=== PATIENT | female | born 2000 | race African-American/Black ===

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

== ENCOUNTER 2019-04-26 06:10 | Emergency (ER) | payer SELFPAY ==
--- OUTSIDE RECORDS SUMMARY | 2019-04-26 06:12 | XMS REPORT ---
:2000 [facility] [address] [place] [address] Dr. Stock [address] [place] [id number] Care Team Providers Name Role Phone Unavailable Unavailable Unavailable Problems This patient has no known problems. Allergies, Adverse Reactions, Alerts This patient has no known allergies or adverse reactions. Medications This patient has no known medications.
[2019-04-26 07:09] LABS: BUN Blood Urea Nitrogen 11 mg/dL (7-18); Bicarbonate 27 mmol/L (21-32); Glucose Level 89 mg/dL (74-106); Potassium 3.5 mmol/L (3.5-5.1); Sodium Level 139 mmol/L (136-145)
[2019-04-26 07:10] LABS: Absolute Lymphocytes (CBC) 1.9 K/uL (0.7-4.9); Basophils % 0.7 % (0-1.3); Hematocrit 30.7 % (36.0-45.0); Lymphocytes % 24.3 % (15.3-44.8); MPV 9.9 fL (7.6-11.3); RBC Red Blood Cell Count 4.65 M/uL (3.86-4.86)
--- NOTE | 2019-04-26 07:36 | EDPHYS ---
Physician Documentation [facility] Name: Pilar Cuba Age: 18 yrs Sex: Female : 2000 Arrival Date: 04/26/2019 Time: 06:11 Bed 18 Private MD: ED Physician Jose Miguel Langston HPI: 04/26 07:14 This 18 yrs old Black Female presents to ER via Ambulatory with complaints of Abdominal kb Pain - Lower. 07:14 The patient presents with abdominal pain in the lower abdomen. Onset: The kb symptoms/episode began/occurred 8 day(s) ago. The symptoms do not radiate. Associated signs and symptoms: Pertinent positives: nausea, Pertinent negatives: constipation, diarrhea, fever, vomiting. The symptoms are described as constant. Modifying factors: The symptoms are alleviated by nothing, the symptoms are aggravated by nothing. Severity of pain: At its worst the pain was moderate in the emergency department the pain is unchanged. The patient has not experienced similar symptoms in the past. The patient has not recently seen a physician. 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 - Social history:: Smoking status: Patient/guardian denies using tobacco. - Ebola Screening: : No symptoms or risks identified at this time. ROS: 07:13 Constitutional: Negative for fever, chills, and weight loss, ENT: Negative for injury, kb pain, and discharge, Neck: Negative for injury, pain, and swelling, Cardiovascular: Negative for chest pain, palpitations, and edema, Respiratory: Negative for shortness of breath, cough, wheezing, and pleuritic chest pain, Back: Negative for injury and pain, MS/Extremity: Negative for injury and deformity, Skin: Negative for injury, rash, and discoloration, Neuro: Negative for headache, weakness, numbness, tingling, and seizure. 07:13 Abdomen/GI: Positive for abdominal pain, nausea, Negative for vomiting, diarrhea, constipation, abdominal cramps, abdominal distension, anorexia. Exam: 07:13 Constitutional: This is a well developed, well nourished patient who is awake, alert, kb and in no acute distress. Head/Face: Normocephalic, atraumatic. ENT: Nares patent. No nasal discharge, no septal abnormalities noted. Tympanic membranes are normal and external auditory canals are clear. Oropharynx with no redness, swelling, or masses, exudates, or evidence of obstruction, uvula midline. Mucous membranes moist. Neck: Trachea midline, no thyromegaly or masses palpated, and no cervical lymphadenopathy. Supple, full range of motion without nuchal rigidity, or vertebral point tenderness. No Meningismus. Chest/axilla: Normal chest wall appearance and motion. Nontender with no deformity. No lesions are appreciated. Cardiovascular: Regular rate and rhythm with a normal S1 and S2. No gallops, murmurs, or rubs. Normal PMI, no JVD. No pulse deficits. Respiratory: Lungs have equal breath sounds bilaterally, clear to auscultation and percussion. No rales, rhonchi or wheezes noted. No increased work of breathing, no retractions or nasal flaring. Back: No spinal tenderness. No costovertebral tenderness. Full range of motion. Skin: Warm, dry with normal turgor. Normal color with no rashes, no lesions, and no evidence of cellulitis. MS/ Extremity: Pulses equal, no cyanosis. Neurovascular intact. Full, normal range of motion. Neuro: Awake and alert, GCS 15, oriented to person, place, time, and situation. Cranial nerves II-XII grossly intact. Motor strength 5/5 in all extremities. Sensory grossly intact. Cerebellar exam normal. Normal gait. 07:13 Abdomen/GI: Inspection: abdomen appears normal, Bowel sounds: normal, in all quadrants, Palpation: soft, in all quadrants, mild abdominal tenderness, in the right lower quadrant and left lower quadrant. Vital Signs: 06:22 BP 132 / 77; Pulse 98; Resp 14 S; Temp 98.3(O); Pulse Ox 100% on R/A; Weight 57.61 kg bb (R); Height 5 ft. 8 in. (172.72 cm) (R); Pain 8/10; 07:15 BP 122 / 76; Pulse 86; Resp 18; Pulse Ox 99% on R/A; Pain 0/10; em 06:22 Body Mass Index 19.31 (57.61 kg, 172.72 cm) olivia MDM: 06:12 Patient medically screened. kb 07:13 Data reviewed: vital signs, nurses notes. Data interpreted: Pulse oximetry: on room air kb is 100 %. Interpretation: normal. 07:32 Counseling: I had a detailed discussion with the patient and/or guardian regarding: the kb historical points, exam findings, and any diagnostic results supporting the discharge/admit diagnosis, lab results, the need for outpatient follow up, a family practitioner, to return to the emergency department if symptoms worsen or persist or if there are any questions or concerns that arise at home. 04/26 06:35 Order name: Basic Metabolic Panel; Complete Time: 07:10 kb 04/26 06:35 Order name: CBC with Diff kb 04/26 06:35 Order name: IV Saline Lock; Complete Time: 06:50 kb 04/26 06:35 Order name: Labs collected and sent; Complete Time: 06:50 kb 04/26 06:37 Order name: Urine Dipstick--Ancillary (enter results) eb 04/26 06:37 Order name: Urine --Ancillary (enter results) eb Administered Medications: No medications were administered Disposition: 17:40 Co-signature as Attending Physician, Jose Miguel Langston MD Did not see or evaluate the ps1 patient. Signing the chart for administrative purposes. Not an endorsement of care provided. . Disposition: 04/26/19 07:35 Discharged to Home. Impression: Lower abdominal pain, unspecified. - Condition is Stable. - Discharge Instructions: Abdominal Pain, Adult, [id number]. - Prescriptions for Bentyl 20 mg Oral Tablet - take 1 tablet by ORAL route every 6 hours As needed; 20 tablet. Zofran 4 mg Oral Tablet - take 1 tablet by ORAL route every 6 hours As needed; 20 tablet. - Medication Reconciliation Form, Thank You Letter, Antibiotic Education, Prescription Opioid Use form. - Follow up: Emergency Department; When: As needed; Reason: Worsening of condition. Follow up: Private Physician; When: 2 - 3 days; Reason: Recheck today's complaints, Continuance of care, Re-evaluation by your physician. Signatures: Dispatcher [employer] Lita Sher, KYLE YARN DYER-Markus Pierson, MOLDING SUPERVISOR MOLDING SUPERVISOR Joaquina Akbar, RN RN Jose Miguel Patricio MD MD ps1 Corrections: (The following items were deleted from the chart) 07:43 07:35 04/26/2019 07:35 Discharged to Home. Impression: Lower abdominal pain, em unspecified. Condition is Stable. Forms are Medication Reconciliation Form, Thank You Letter, Antibiotic Education, Prescription Opioid Use. Follow up: Emergency Department; When: As needed; Reason: Worsening of condition. Follow up: Private Physician; When: 2 - 3 days; Reason: Recheck today's complaints, Continuance of care, Re-evaluation by your physician. kb
--- NOTE | 2019-04-26 07:36 | ER ---
Nurse's Notes [facility] Name: Pilar Cuba Age: 18 yrs Sex: Female : 2000 Arrival Date: 04/26/2019 Time: 06:11 Bed 18 Private MD: Diagnosis: Lower abdominal pain, unspecified Presentation: 04/26 06:20 Presenting complaint: Patient states: she's been having lower sharp abdominal pain bb since last Saturday the pain is worsening denies dysuria. Transition of care: patient was not received from another setting of care. Onset of symptoms was April 17, 2019. Risk Assessment: Do you want to hurt yourself or someone else? Patient reports no desire to harm self or others. Initial Sepsis Screen: Does the patient meet any 2 criteria? No. Patient's initial sepsis screen is negative. Does the patient have a suspected source of infection? No. Patient's initial sepsis screen is negative. Care prior to arrival: None. 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 - Social history:: Smoking status: Patient/guardian denies using tobacco. - Ebola Screening: : No symptoms or risks identified at this time. Screenin:35 Abuse screen: Denies threats or abuse. Nutritional screening: No deficits noted. ea Tuberculosis screening: No symptoms or risk factors identified. Fall Risk None identified. Assessment: 06:36 General: Appears uncomfortable, Behavior is calm, cooperative, appropriate for age. ea Pain: Complains of pain in abdomen. Neuro: Level of Consciousness is awake, alert, obeys commands, Oriented to person, place, time, situation. Cardiovascular: Patient's skin is warm and dry. Respiratory: Airway is patent Respiratory effort is even, unlabored, Respiratory pattern is regular, symmetrical. GI: Abdomen is flat, non-distended, Bowel sounds present X 4 quads. Abd is soft and non tender X 4 quads. Derm: Skin is dry, Skin is normal, Skin temperature is warm. 07:15 Reassessment: Patient appears in no apparent distress at this time. Patient and/or em family updated on plan of care and expected duration. Pain level reassessed. Patient is alert, oriented x 3, equal unlabored respirations, skin warm/dry/pink. Patient denies pain at this time. Patient states feeling better. 07:20 Reassessment: I agree with previous assessment. hb Vital Signs: 06:22 BP 132 / 77; Pulse 98; Resp 14 S; Temp 98.3(O); Pulse Ox 100% on R/A; Weight 57.61 kg bb (R); Height 5 ft. 8 in. (172.72 cm) (R); Pain 8/10; 07:15 BP 122 / 76; Pulse 86; Resp 18; Pulse Ox 99% on R/A; Pain 0/10; em 06:22 Body Mass Index 19.31 (57.61 kg, 172.72 cm) bb ED Course: 06:11 Patient arrived in ED. ds1 06:12 Lita Kurtz FNP-C [facility]. kb 06:12 Luciano Sanchez MD is Attending Physician. kb 06:14 Jose Miguel Langston MD is Attending Physician. kb 06:22 Triage completed. bb 06:22 Arm band placed on Patient placed in an exam room, on a stretcher, on pulse oximetry. bb 06:35 Patient has correct armband on for positive identification. Bed in low position. Call ea light in reach. Side rails up X2. 06:38 Inserted saline lock: 20 gauge in left antecubital area, using aseptic technique. ea 07:08 Markus Zavaleta LVN is Primary Nurse. em 07:38 No provider procedures requiring assistance completed. IV discontinued, intact, em bleeding controlled, No redness/swelling at site. Pressure dressing applied. Administered Medications: No medications were administered Outcome: 07:35 Discharge ordered by . kb 07:38 Discharged to home ambulatory. em 07:38 Condition: good 07:38 Discharge instructions given to patient, Instructed on discharge instructions, follow up and referral plans. medication usage, Demonstrated understanding of instructions, follow-up care, medications, Prescriptions given X 2. 07:43 Patient left the ED. em Signatures: Lita Kurtz FNP-C FNP-Markus Pierson LVN LVN soledad Viveros, Rajwinder ds1 Joaquina Dunbar, RN RN bb Madelaine Gage, RN RN hb Day Bennett RN RN ea
[2019-04-26 07:52] VITALS: TEMP 98.3
[2019-04-26 07:53] VITALS: BP 122/76; O2SAT 99
[2019-04-26 08:03] LABS: Urine Blood NEGATIVE (NEG); Urine Glucose NEGATIVE (NEG); Urine Protein NEGATIVE (NEG); Urine pH 5.5 (5.0-7.0)
[2019-04-26 13:26] LABS: Platelet Estimate ADEQ; Urine White Blood Cell Casts OK
[2019-04-26 13:28] LABS: Anisocytosis 1+; Blood Morphology Comment NOTED (NOT SEEN); Hypochromasia 1+; Ovalocytes SLIGHT; Poikilocytosis SLIGHT; Target Cells FEW
== END 2019-04-26 07:43 | disposition home or self-care (01) ==
LOC: ER 06:10
DX: R10.30 Lower abdominal pain, unspecified (principal); D64.9 Anemia, unspecified
CPT/HCPCS: 36415; 80048; 81003; 81025; 85025; 99283

== ENCOUNTER 2020-04-11 17:13 | Inpatient (IN) | payer OTHER ==
--- OUTSIDE RECORDS SUMMARY | 2020-04-11 17:15 | XMS REPORT | Continuity of Care Document ---
:2000 Author Organization [facility] t Address [address] [place] [address] Dr. Stock [address] [place] [id number] Care Team Providers Name Role Phone Unavailable Unavailable Unavailable Problems This patient has no known problems. Allergies, Adverse Reactions, Alerts This patient has no known allergies or adverse reactions. Medications This patient has no known medications. Procedures This patient has no known procedures. Results This patient has no known results.
[2020-04-11] MEDS ORDERED: ACETAMINOPHEN 500 MG TAB ONE (18:32)
[2020-04-11] MEDS ORDERED: NA CHLORIDE 0.9% 1,000 ML ONE ×2 (19:21→21:00)
[2020-04-11 19:40] LABS: Urine Blood 3+ (NEG); Urine Glucose NEGATIVE (NEG); Urine Protein 2+ (NEG); Urine Specific Gravity >1.030 (1.005-1.030)
[2020-04-11 19:44] LABS: Absolute Lymphocytes (CBC) 0.8 K/uL (0.7-4.9); Hematocrit 32.6 % (36.0-45.0); Lymphocytes % 4.6 % (15.3-44.8); MPV 10.1 fL (7.6-11.3); RBC Red Blood Cell Count 4.25 M/uL (3.86-4.86)
[2020-04-11 19:49] LABS: Urine Bacteria <20 /HPF (<20); Urine Culture Reflex Order REFLEXED; Urine RBC 20-50 /HPF (NONE SEEN)
[2020-04-11 19:50] LABS: Urine Mucus 1+ /HPF (NONE SEEN)
[2020-04-11] MEDS ORDERED: CEFTRIAXONE/SWI 1gm 1 GM/10 ML SYR ONE (20:08)
--- NOTE | 2020-04-11 20:14 | RAD REPORT ---
EXAM DESCRIPTION: US - Matter Eval Tm 1 - 04/11/2020 8:02 pm CLINICAL HISTORY: ABD PAIN Early . COMPARISON: No comparisons FINDINGS: A single gestational sac is seen within the uterus. The shape of the sac is within normal limits for gestational age. Within the sac is a single pole with femur length of 13 mm, correla ting to estimated gestational age of 13 weeks 5 days. Estimated date of delivery is 10/12/2020. Heart rate is 161 BPM. Placenta is anterior. The maternal adnexa and left ovary are within normal limits. Normal Doppler blood flow was demonstrat ed to the left ovary. The right ovary is obscured by bowel gas. IMPRESSION: Single live early intrauterine gestation with estimated gestational age of 13 weeks 5 da ys, RANDEE 10/12/2020.
[2020-04-11 20:20] LABS: BUN Blood Urea Nitrogen 6 mg/dL (7-18); Bicarbonate 20 mmol/L (21-32); Glucose Level 95 mg/dL (74-106); HCG, Quantitative 101061 mIU/mL (1-3); Sodium Level 131 mmol/L (136-145)
--- NOTE | 2020-04-11 20:38 | ER ---
Nurse's Notes [facility] Name: Pilar Cuba Age: 19 yrs Sex: Female : 2000 Arrival Date: 04/11/2020 Time: 17:16 Bed 8 Private MD: Diagnosis: Pyelonephritis;Dehydration;Fever, unspecified Presentation: 04/11 17:52 Chief complaint: Patient states: LARRY, fever, body aches, lower abd pain since Saturday. + ll1 diarrhea. Fever 102 at home. 13 weeks G1, P0. No vaginal bleeding at this time. Coronavirus screen: Client denies travel out of the [place] in the last 14 days. congestion, diarrhea, fatigue, fever, headache, Client presents with at least one sign or symptom that may indicate coronavirus-19. Standard/surgical mask placed on the client. Ebola Screen: Patient denies travel to an Ebola-affected area in the 21 days before illness onset. Initial Sepsis Screen: Does the patient meet any 2 criteria? Temp <36.0*C (96.8*F)) or > 38.3*C (100.9*F). HR > 90 bpm. Yes Does the patient have a suspected source of infection? Yes: Other: flu-like symptoms. Risk Assessment: Do you want to hurt yourself or someone else? Patient reports no desire to harm self or others. Onset of symptoms was April 08, 2020. 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 - Social history:: Smoking status: Patient denies any tobacco usage or history of. Screenin:30 Abuse screen: Denies threats or abuse. Denies injuries from another. Nutritional rr5 screening: No deficits noted. Tuberculosis screening: No symptoms or risk factors identified. Fall Risk IV access (20 points). Total Alston Fall Scale indicates No Risk (0-24 pts). Assessment: 19:20 General: Appears in no apparent distress. uncomfortable, Behavior is calm, cooperative, rr5 appropriate for age, Reports chills for fever for feeling ill for. Pain: Complains of pain in body Pain currently is 10 out of 10 on a pain scale. Quality of pain is described as aching, Pain began gradually. Neuro: Level of Consciousness is awake, alert, obeys commands, Oriented to person, place, time. Cardiovascular: Capillary refill < 3 seconds Patient's skin is warm and dry. Respiratory: Reports cough that is colds Airway is patent Respiratory effort is even, unlabored, Respiratory pattern is regular, symmetrical. GI: Reports diarrhea. :. EENT: No signs and/or symptoms were reported regarding the EENT system. Derm: Skin is intact, is healthy with good turgor, Skin temperature is warm. Musculoskeletal: Circulation, motion, and sensation intact. 20:20 Reassessment: Patient appears in no apparent distress at this time. Patient is alert, rr5 oriented x 3, equal unlabored respirations, skin warm/dry/pink. 21:42 Reassessment: Patient appears in no apparent distress at this time. Patient is alert, rr5 oriented x 3, equal unlabored respirations, skin warm/dry/pink. awaiting for UDS result. Vital Signs: 17:52 BP 130 / 78; Pulse 135; Resp 16; Temp 102.2; Pulse Ox 100% ; Height 5 ft. 8 in. (172.72 ll1 cm); Pain 10/10; 18:47 BP 123 / 82; Pulse 136; Resp 18; Temp 100.2(TE); Pulse Ox 100% on R/A; Pain 8/10; ss 19:52 BP 121 / 74; Pulse 111; Resp 19; Pulse Ox 100% ; rr5 21:00 BP 118 / 75; Pulse 100; Resp 18; Pulse Ox 99% ; rr5 22:13 BP 113 / 69; Pulse 99; Resp 15; Temp 98; Pulse Ox 100% ; rr5 22:42 BP 123 / 77; Pulse 95; Resp 19; Pulse Ox 99% ; rr5 ED Course: 17:16 Patient arrived in ED. ds1 17:54 Triage completed. ll1 17:54 Arm band placed on. ll1 18:45 Aldo Aparicio NP is [facility]. pm1 18:45 Darnell Maza MD is Attending Physician. pm1 19:04 De La Fuente, Reji, RN is Primary Nurse. rr5 19:17 Inserted saline lock: 20 gauge in left antecubital area, using aseptic technique. Blood jb5 collected. 19:17 COVID-19 Sent. jb5 19:17 Strep Sent. jb5 19:17 Flu Sent. jb5 19:18 Quantitative Hcg Sent. jb5 19:18 Abo/rh Typing Sent. jb5 19:18 Basic Metabolic Panel Sent. jb5 19:18 CBC with Diff Sent. jb5 19:29 Urine collected: clean catch specimen, clear. rr5 19:30 Patient has correct armband on for positive identification. Bed in low position. Call rr5 light in reach. Side rails up X2. Pulse ox on. Sitter at bedside. 20:03 Matter Eval Tm 1 In Process Unspecified. EDMS 20:37 Raghav Todd MD is Hospitalizing Provider. pm1 22:39 No provider procedures requiring assistance completed. Patient admitted, IV remains in rr5 place. intact, No redness/swelling at site. Administered Medications: 18:20 Drug: Tylenol 1000 mg Route: PO; dm5 19:30 Follow up: Response: No adverse reaction; Temperature is decreased rr5 19:35 Drug: NS 0.9% 1000 ml Route: IV; Rate: 1000 ml; Site: left antecubital; rr5 20:30 Follow up: Response: No adverse reaction; IV Status: Completed infusion; IV Intake: rr5 1000ml 20:00 Drug: Rocephin 1 grams Route: IV; Rate: calculated rate; Site: left antecubital; rr5 21:00 Follow up: Response: No adverse reaction; IV Status: Completed infusion; IV Intake: rr5 1000ml 20:50 Drug: NS 0.9% 1000 ml Route: IV; Rate: 1000 ml; Site: left antecubital; rr5 22:40 Follow up: Response: No adverse reaction; IV Status: Completed infusion; IV Intake: rr5 1000ml 20:50 Drug: Potassium Effervescent Tablet 50 mEq Route: PO; rr5 22:40 Follow up: Response: No adverse reaction rr5 Intake: 20:30 IV: 1000ml; Total: 1000ml. rr5 21:00 IV: 1000ml; Total: 2000ml. rr5 22:40 IV: 1000ml; Total: 3000ml. rr5 Outcome: 20:38 Decision to Hospitalize by Provider. pm1 22:39 Admitted to accompanied by tech, via wheelchair, with chart, Report called to anjelica rr5 22:39 Condition: stable 22:39 Instructed on the need for admit. 22:42 Patient left the ED. rr5 Signatures: Dispatcher [employer] EDNicci Lawrence RN RN dm5 Rajwinder Viveros ds1 Soo Singh RN RN ss Aldo Aparicio, MARTINE GRAPHICS EDIT TECHNICIAN pm1 Angélica Saldaña5 Reji De La Fuente RN RN rr5 Maninder Alvarado RN RN ll1
--- NOTE | 2020-04-11 20:38 | EDPHYS ---
Physician Documentation [facility] Name: Pilar Cuba Age: 19 yrs Sex: Female : 2000 Arrival Date: 04/11/2020 Time: 17:16 Bed 8 Private MD: ED Physician Darnell Maza HPI: 04/11 19:30 This 19 yrs old Black Female presents to ER via Ambulatory with complaints of 12-13 Wks pm1 Preg Pain all over, Cold Symptoms. 19:30 The patient complains of pain in the right low back. Location: right lower abdomen. pm1 Onset: The symptoms/episode began/occurred 3 day(s) ago. Modifying factors: The symptoms are alleviated by nothing. the symptoms are aggravated by nothing. Associated signs and symptoms: Pertinent positives: fever, runny nose, decreased appetite, Pertinent negatives: diarrhea, nausea, vomiting, cough. The patient has not experienced similar symptoms in the past. 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 - Social history:: Smoking status: Patient denies any tobacco usage or history of. ROS: 19:30 Cardiovascular: Negative for chest pain, palpitations, and edema, Respiratory: Negative pm1 for shortness of breath, cough, wheezing, and pleuritic chest pain. 19:30 : Negative for injury, bleeding, discharge, and swelling, MS/Extremity: Negative for injury and deformity. 19:30 Constitutional: Positive for body aches, chills, fever, poor PO intake. 19:30 Abdomen/GI: Positive for abdominal pain, diarrhea, of the suprapubic area and right lower quadrant, Negative for nausea and vomiting. 19:30 Back: Positive for flank pain, on the right. Exam: 19:30 Constitutional: This is a well developed, well nourished patient who is awake, alert, pm1 and in no acute distress. ENT: Nares patent. No nasal discharge, no septal abnormalities noted. Tympanic membranes are normal and external auditory canals are clear. Oropharynx with no redness, swelling, or masses, exudates, or evidence of obstruction, uvula midline. Mucous membranes moist. 19:30 Skin: Warm, dry with normal turgor. Normal color with no rashes, no lesions, and no evidence of cellulitis. MS/ Extremity: Pulses equal, no cyanosis. Neurovascular intact. Full, normal range of motion. 19:30 Cardiovascular: Exam negative for acute changes, Rate: normal, Rhythm: regular, Pulses: no pulse deficits are appreciated. 19:30 Respiratory: Exam negative for acute changes, respiratory distress, shortness of breath. 19:30 Abdomen/GI: Inspection: abdomen appears normal, Palpation: abdomen is soft and non-tender, in all quadrants. 19:30 Back: pain, that is mild, of the right low back. 19:30 Neuro: Exam negative for acute changes, Orientation: is normal, Mentation: is normal, Motor: is normal, moves all fours. Vital Signs: 17:52 BP 130 / 78; Pulse 135; Resp 16; Temp 102.2; Pulse Ox 100% ; Height 5 ft. 8 in. (172.72 ll1 cm); Pain 10/10; 18:47 BP 123 / 82; Pulse 136; Resp 18; Temp 100.2(TE); Pulse Ox 100% on R/A; Pain 8/10; ss 19:52 BP 121 / 74; Pulse 111; Resp 19; Pulse Ox 100% ; rr5 21:00 BP 118 / 75; Pulse 100; Resp 18; Pulse Ox 99% ; rr5 22:13 BP 113 / 69; Pulse 99; Resp 15; Temp 98; Pulse Ox 100% ; rr5 22:42 BP 123 / 77; Pulse 95; Resp 19; Pulse Ox 99% ; rr5 MDM: 18:45 Patient medically screened. pm1 20:28 Data reviewed: vital signs. Data interpreted: Pulse oximetry: on room air is 100 %. pm1 Interpretation: normal. 20:28 Counseling: I had a detailed discussion with the patient and/or guardian regarding: the pm1 historical points, exam findings, and any diagnostic results supporting the discharge/admit diagnosis, lab results, radiology results, the need for further work-up and treatment in the hospital. 20:28 Physician consultation: Raghav Todd MD was called at 20:35, was contacted at 20:35, pm1 regarding admission, patient's condition, and will see patient tomorrowyesica gm BID, IV fluids, CBC 0500 tomorrow, and tylenol as needed for fever greater than 100.2. 04/11 18:51 Order name: Quantitative Hcg; Complete Time: 20:22 pm1 04/11 18:51 Order name: Abo/rh Typing; Complete Time: 23:54 pm1 04/11 18:51 Order name: Basic Metabolic Panel; Complete Time: 20:22 pm1 04/11 18:51 Order name: CBC with Diff; Complete Time: 23:54 pm1 04/11 18:51 Order name: Flu; Complete Time: 20:00 pm1 04/11 18:51 Order name: Strep; Complete Time: 20:00 pm1 04/11 18:51 Order name: COVID-19 pm1 04/11 19:29 Order name: Urine Microscopic Only; Complete Time: 19:52 rr5 04/11 19:31 Order name: Urine Dipstick--Ancillary (enter results); Complete Time: 19:52 mt 04/11 19:31 Order name: Urine --Ancillary (enter results); Complete Time: 19:52 mt 04/11 19:52 Order name: Urine Culture EDVT 04/11 19:56 Order name: Throat Culture EDVT 04/11 21:30 Order name: Manual Differential; Complete Time: 23:54 EDVT 04/11 18:51 Order name: Urine Test (obtain specimen); Complete Time: 19:29 pm1 04/11 18:51 Order name: IV Saline Lock; Complete Time: 19:18 pm1 04/11 18:51 Order name: Labs collected and sent; Complete Time: 19:18 pm1 04/11 18:51 Order name: NPO; Complete Time: 19:29 pm1 04/11 18:51 Order name: Urine Dipstick-Ancillary (obtain specimen); Complete Time: 19:29 pm1 04/11 20:02 Order name: Matter Eval Tm 1; Complete Time: 20:19 EDMS Administered Medications: 18:20 Drug: Tylenol 1000 mg Route: PO; dm5 19:30 Follow up: Response: No adverse reaction; Temperature is decreased rr5 19:35 Drug: NS 0.9% 1000 ml Route: IV; Rate: 1000 ml; Site: left antecubital; rr5 20:30 Follow up: Response: No adverse reaction; IV Status: Completed infusion; IV Intake: rr5 1000ml 20:00 Drug: Rocephin 1 grams Route: IV; Rate: calculated rate; Site: left antecubital; rr5 21:00 Follow up: Response: No adverse reaction; IV Status: Completed infusion; IV Intake: rr5 1000ml 20:50 Drug: NS 0.9% 1000 ml Route: IV; Rate: 1000 ml; Site: left antecubital; rr5 22:40 Follow up: Response: No adverse reaction; IV Status: Completed infusion; IV Intake: rr5 1000ml 20:50 Drug: Potassium Effervescent Tablet 50 mEq Route: PO; rr5 22:40 Follow up: Response: No adverse reaction rr5 Disposition: 04/11/20 20:38 Hospitalization ordered by Raghav Todd for Inpatient Admission. Preliminary diagnosis are Pyelonephritis, Dehydration, Fever, unspecified. - [facility]. - Status is Inpatient Admission. rr5 - Condition is Stable. - Problem is new. - Symptoms have improved. Addendum: 04/13/2020 18:57 Co-signature as Attending Physician, aDrnell Maza MD. r n Signatures: Dispatcher [employer] EDVT Nicci Wong, WERNER RN dm5 Darnell Maza MD MD rn Garcia, Cindy, RN RN cg Aldo Aparicio, MARTINE INTEGRITY CONSULTANT pm1 Reji De La Fuente RN RN rr5 Maninder Alvarado RN RN ll1 Corrections: (The following items were deleted from the chart) 04/11 19:52 18:52 UA MICROSCOPIC+U.LAB.BRZ ordered. EDVT EDMS 20:02 18:57 Transvaginal Ob+US.RAD.BRZ ordered. EDVT EDMS 22:27 20:38 Hospitalization Ordered by Ragahv Todd MD for Inpatient Admission. Preliminary cg diagnosis is Pyelonephritis; Dehydration; Fever, unspecified. [facility]. Status is Inpatient Admission. Condition is Stable. Problem is new. Symptoms have improved. pm1 22:42 22:27 04/11/2020 20:38 Hospitalization Ordered by Raghav Todd MD for Inpatient rr5 Admission. Preliminary diagnosis is Pyelonephritis; Dehydration; Fever, unspecified. Bed requested for [facility]. Status is Inpatient Admission. Condition is Stable. Problem is new. Symptoms have improved. cg
[2020-04-11] MEDS ORDERED: POTASSIUM 25 MEQ EFFERV TAB ONE (21:00)
[2020-04-11 21:29] LABS: Blood Morphology Comment NOT SEEN (NOT SEEN); Platelet Estimate ADEQ
[2020-04-11] MEDS ORDERED: CEFTRIAXONE 1 GM/NS 50 ML 1 GM/50 ML BAG IV SCH (22:54)
[2020-04-11] MEDS: Ringers Lactate 1,000 ML IV SCH (23:00)
[2020-04-11 23:28] VITALS: BMI 19.8
[2020-04-12] MEDS: ACETAMINOPHEN 500 MG TAB PO PRN (04:48)
[2020-04-12 05:28] LABS: Absolute Lymphocytes (CBC) 0.9 K/uL (0.7-4.9); Basophils % 0.1 % (0-1.3); Hematocrit 32.3 % (36.0-45.0); Lymphocytes % 6.3 % (15.3-44.8); MPV 9.8 fL (7.6-11.3); RBC Red Blood Cell Count 4.22 M/uL (3.86-4.86)
[2020-04-12 05:42] LABS: BUN Blood Urea Nitrogen 6 mg/dL (7-18); Bicarbonate 23 mmol/L (21-32); Glucose Level 96 mg/dL (74-106); Sodium Level 139 mmol/L (136-145)
[2020-04-12 06:39] VITALS: O2SAT 99
[2020-04-12] MEDS: Ringers Lactate 1,000 ML IV SCH ×2 (06:52→16:45)
[2020-04-12] MEDS: CEFTRIAXONE/SWI 1gm 1 GM/10 ML SYR IV SCH ×3 (08:00→20:00)
[2020-04-12] MEDS ORDERED: CEFTRIAXONE 1000 MG/VIAL ONE ×2 (08:21→19:46)
--- NOTE | 2020-04-12 08:45 | PREOPHP ---
Date of Admission: 04/11/2020 History Of Present Illness: A 19-year-old female, primigravida 13 weeks 5 days, followed antepartum at [facility] when she was living in [place] and now she has moved to this area. Admi tted through the emergency room with diagnosis of pyelonephritis, 102 temperature down in the emergen cy room. Low potassium level, this has been corrected. Started on Rocephin. Temperatures since adm ission have been under 100. The patient is having right flank pain, which she has diminished but sti ll present. Culture is pending. She is on Rocephin 1 g q.12 hours. Family History: Noncontributory. Past Medical History: Noncontributory. Allergies: NO ALLERGIES. NO PROBLEMS UP TO THIS POINT. Physical Examination: HEENT: Clear. Pupils equal, round, reactive to light and accommodation. Conjunctivae well perfused . No oral, lingual, or buccal lesions. Chest: Clear. Heart: Without murmurs, thrills, heaves, or rubs. Breasts: Not examined. Abdomen: Soft. There is according to the patient and she still show some favor toward the right fla nk and CVA area. Extremities: Clear without edema, cyanosis, or clubbing. Pelvic Exam: Not done. Diagnoses: Intrauterine gestation, 13 weeks and 6 days at this point. Pyelonephritis for treatment. The goal is 24-36 hours if no fever of 100 and right flank pain diminished or gone. We will contin ue her on antibiotics when she is dismissed, but she is to follow up with [facility] as soon as possible, let them know her next appointment was on the . She needs call them today until that was going on, so they can decide whether to see he r earlier. TANA/TONA Voice ID: [id number]
[2020-04-12] MEDS: Oxycodone HCl/Acetaminophen 1 TAB TAB PO PRN ×3 (08:50→21:56)
[2020-04-12] MEDS ORDERED: INFLUENZA VACCINE (for 3y+) 0.5 ML DOSE IMVAC ONE (09:00)
[2020-04-12] MEDS ORDERED: Oxycodone HCl/Acetaminophen 1 TAB TAB ONE (09:03)
[2020-04-13] MEDS: Oxycodone HCl/Acetaminophen 1 TAB TAB PO PRN ×2 (05:45→15:46)
[2020-04-13] MEDS: ACETAMINOPHEN 500 MG TAB PO PRN ×2 (06:30→20:00)
[2020-04-13] MEDS: Ringers Lactate 1,000 ML IV SCH ×2 (06:54→17:30)
[2020-04-13] MEDS: CEFTRIAXONE/SWI 1gm 1 GM/10 ML SYR IV SCH ×2 (08:01→20:00)
--- NOTE | 2020-04-13 08:46 | PN ---
Culture is still pending in this patient. The patient had a temperature elevation of 101 or more las t night. Still says she has a right flank pain. We will get consult from Urology to see if they wan t to add any other antibiotics. Until we get the culture, we probably are just going to continue wit h the Rocephin, but it looks like we may need to add a second antibiotic or change. We will let Dr. Khan decide that. Full discussion with the patient. TANA/TONA Voice ID: [id number] Report ID: [id number]
--- NOTE | 2020-04-13 10:02 | RAD REPORT ---
EXAM DESCRIPTION: US - Renal Ultrasound-Limited - 04/13/2020 9:23 am CLINICAL HISTORY: r/o obstruction on R side COMPARISON: No comparisons FINDINGS: Both kidneys are normal size. Renal cortical thickness and echogenicity are normal. No hyd ronephrosis of either kidney. No solid mass lesions. Bladder was too contracted to allow all accurate assessment. During the course examination, trace amount of pleural fluid was evident. This is not fully assessed on this study. IMPRESSION: No hydronephrosis of the right kidney. No suspicious right renal finding.
[2020-04-13] MEDS ORDERED: CEFAZOLIN/SWI 1gm 1 GM/10 ML SYR ONE (10:18)
--- NOTE | 2020-04-13 12:28 | RAD REPORT ---
EXAM DESCRIPTION: RAD - Chest Pa And Lat (2 Views) - 04/13/2020 11:07 am CLINICAL HISTORY: trace pleural fluid noted on u/s COMPARISON: October 2008 chest film, ultrasound April 13, 2020 TECHNIQUE: Frontal and lateral views of the chest were obtained. FINDINGS: The lungs are clear of mass or consolidation. Trace interstitial stranding in each lung ba se. This is not likely significant but can be monitored on follow-up imaging. Pulmonary arteries and central vasculature are normal. Heart size is normal. No pneumothorax is present. There is minimal costophrenic angle blunting. No acute bony finding noted. No aortic abnormality. IMPRESSION: Trace pleural fluid is seen as costophrenic angle blunting. This is almost undetectable by plain film. No pulmonary edema or volume overload. There is trace interstitial stranding in each lung base.
[2020-04-13] MEDS ORDERED: Oxycodone HCl/Acetaminophen 1 TAB TAB PO ONE (16:11)
[2020-04-13] MEDS ORDERED: ACETAMINOPHEN 325 MG TABLET ONE (19:29)
[2020-04-14] MEDS: Ringers Lactate 1,000 ML IV SCH ×2 (01:35→09:18)
[2020-04-14] MEDS: ACETAMINOPHEN 500 MG TAB PO PRN ×2 (02:09→14:07)
[2020-04-14] MEDS ORDERED: ACETAMINOPHEN 325 MG TABLET ONE ×2 (02:14→14:18)
--- NOTE | 2020-04-14 06:31 | P.CNS ---
Date of Consult: 04/13/20 Reason for Consult: Pyelonephritis Requesting Physician: Davon Todd Chief Complaint: Flank tenderness History of Present Illness: Patient is a 19-year-old female who presented to the hospital couple days ago and was diagnosed with pyelonephritis. Patient had been having fevers of 102 and some flank tenderness. She has had prior urinary tract infections. Otherwise, she has no new complaints. Patient's last temperature was a 102. She is using Percocet for pain control occasionally. Patient is 14 weeks . She has had no complications from this . At this time continue with IV antibiotic therapy pending culture results. Allergies Albuterol Allergy (Uncoded 09/26/17 14:10) Unknown Home Medications: Vit,Lamont 74/Iron/Folic [ Low Iron Tablet] 1 tab PO DAILY 04/11/20 - Past Medical/Surgical History Past Medical History: Patient denies medical history Past Surgical History: Patient denies surgical history - Family History Father Family History: Reviewed- Non-Contributory - Social History Smoking Status: Unknown if ever smoked Alcohol use: No CD- Drugs: No Caffeine use: Yes Place of Residence: Home Review of Systems 10-point ROS is otherwise unremarkable Physical Examination Temp Pulse Resp BP Pulse Ox 98.4 F 101 H 16 110/74 100 04/14/20 05:00 04/14/20 05:00 04/14/20 05:00 04/14/20 05:00 04/11/20 22:54 General: Alert, In no apparent distress, Oriented x3 HEENT: Atraumatic, PERRLA, Mucous membr. moist/pink, EOMI, Sclerae nonicteric Neck: Supple, 2+ carotid pulse no bruit, No LAD, Without JVD or thyroid abnorm ality Respiratory: Clear to auscultation bilaterally, Normal air movement Cardiovascular: Regular rate/rhythm, Normal S1 S2, No murmurs Gastrointestinal: Normal bowel sounds, Soft and benign, Non-distended, No tenderness Musculoskeletal: No clubbing, No swelling, No tenderness Integumentary: No rashes Neurological: Normal gait, Normal speech, Normal strength at 5/5 x4 extr, Normal tone, Sensation intact, Cranial nerves 3-12 intact, Normal affect Lymphatics: No axilla or inguinal lymphadenopathy - Problems (1) Pyelonephritis Current Visit: Yes Status: Acute (2) Intrauterine Current Visit: Yes Status: Acute Conclusions/ Impression: 1. Continue with IV hydration 2. Continue with IV antibiotics 3. Continue with pain control 4. Diet as tolerated 5. Await urinary culture results 6. GI and DVT prophylaxis Critical Care: No Time Spent Managing Pts care (In Minutes): 35
[2020-04-14 07:11] LABS: Absolute Lymphocytes (CBC) 1.1 K/uL (0.7-4.9); Basophils % 0.2 % (0-1.3); Hematocrit 25.6 % (36.0-45.0); Lymphocytes % 19.7 % (15.3-44.8); MPV 9.3 fL (7.6-11.3); RBC Red Blood Cell Count 3.37 M/uL (3.86-4.86)
[2020-04-14] MEDS: Oxycodone HCl/Acetaminophen 1 TAB TAB PO PRN ×2 (07:12→20:15)
[2020-04-14] MEDS: CEFTRIAXONE/SWI 1gm 1 GM/10 ML SYR IV SCH (07:58)
--- NOTE | 2020-04-14 11:35 | PN ---
Culture still pending that shows greater than 100,000 gram-negative rods probably will be E coli. Ye sterday, patient had a spike in her pain level to 8 and temperature elevation of 102. Dr. Chen, [facility] saw the patient and said he would not do anything different as far as changing antibiotics. Since that time, patient has been afebrile. Her pain level is now down to 3 and the right flank pain that she has been complaining of is now basically gone and she has more of a dull headache. I have seen the patient this morning. She has no complaints. I think that we should continue antibiotics a t least until this afternoon and I suggested the patient she stay for another 24 hours that we can ge t this under control better. We are awaiting culture but I do not think that is going to change any of management. I have encouraged patient to ambulate and I have suggested the patient to ambulate mo re. She has been eating, everything has been looking better, and I think the patient is in the resol ution phase now, but she knows she will need to take antibiotics for at least 10 days after she leave s here. She has been seen by [facility] and I suggested she contact them to let them know what has been happening. TANA/TONA Voice ID: [id number] Report ID: [id number]
--- NOTE | 2020-04-14 13:37 | P.PN ---
Subjective Date of Service: 04/14/20 Subjective: Improving Patient is clinically doing well with no new complaints Review of Systems 10-point ROS is otherwise unremarkable Physical Examination - Vital Signs Temperature: 98 F Blood Pressure: 119/70 Pulse: 91 Respirations: 20 Pulse Ox (%): 100 - Physical Exam General: Alert, In no apparent distress, Oriented x3 HEENT: Atraumatic, PERRLA, EOMI Neck: Supple, JVD not distended Respiratory: Clear to auscultation bilaterally, Normal air movement Cardiovascular: Regular rate/rhythm, Normal S1 S2 Gastrointestinal: Normal bowel sounds, No tenderness Musculoskeletal: No tenderness Integumentary: No rashes Neurological: Normal speech, Normal tone, Normal affect Lymphatics: No axilla or inguinal lymphadenopathy - Studies Microbiology Data (last 24 hrs): 04/11/20 19:20 Clean Catch Urine Whitmore Count - Final >100,000 CFU/ML. 04/11/20 19:20 Clean Catch Urine - Final Escherichia Coli 04/11/20 19:08 Throat Culture & Sensitivity - Final NORMAL UPPER RESPIRATORY JOSEPH GROWN. Medications List Reviewed: Yes Assessment & Plan - Problems (Diagnosis) (1) Pyelonephritis Status: Acute (2) Intrauterine Status: Acute - Plan Continue with IV antibiotic therapy and pain control. Anticipate discharge home today if okay with COSTING ANALYST. - Advance Directives Does patient have a Living Will: No Does patient have a Durable POA for Healthcare: No Critical Care: No Time Spent Managing PTS Care (In Minutes): 35
--- NOTE | 2020-04-15 07:21 | DS ---
19-year-old primigravida, approximately 14 weeks at this point. Admitted through the emergency room with pyelonephritis, 102 fever, 17,000 white count. Over the last few days, temperatures have gone b ack to completely normal. White count has gone to 5000. CVA tenderness has gone. The patient is re elma to go home. We will send her home with Keflex 500 mg 4 times a day for additional 10 days. She knows to contact her people at [facility] to let them know what happened. They maybe in to see her soon. Final Diagnoses: 1.Intrauterine gestation at 13 weeks 5 days on admission. 2.Pyelonephritis, treated and resolved. TANA/TONA Voice ID: [id number] Report ID: [id number]
[2020-04-15] MEDS: CEFTRIAXONE/SWI 1gm 1 GM/10 ML SYR IV SCH (08:30)
[2020-04-15] MEDS: Oxycodone HCl/Acetaminophen 1 TAB TAB PO PRN (08:39)
[2020-04-19 05:04] VITALS: BP 119/70; TEMP 98
== END 2020-04-15 09:20 | disposition home or self-care (01) | DRG 833 ==
LOC: ER 17:13 → ERHOLD 20:48 → 2ND-WC 22:39
PROVIDERS: ADMIT Specialist; ATTEND Specialist
DX: O23.01 Infections of kidney in pregnancy, first trimester (principal); B96.20 Unspecified Escherichia coli [E. coli] as the cause of diseases classified elsewhere; Z3A.13 13 weeks gestation of pregnancy; Z88.8 Allergy status to other drugs, medicaments and biological substances; Z20.828 Contact with and (suspected) exposure to other viral communicable diseases
CPT/HCPCS: 36415; 71046; 76775; 76801; 80048; 81003; 81015; 81025; 84702; 85025; 86900; 86901; 87070; 87077; 87081; 87086; 87088; 87186; 87804; 96361; 96365; 99285; J0690; J0696; J7030; J7120; U0003

== ENCOUNTER 2020-05-17 17:01 | Emergency (ER) | payer OTHER ==
--- OUTSIDE RECORDS SUMMARY | 2020-05-17 17:03 | XMS REPORT | Continuity of Care Document ---
:2000 Author Organization [facility] t Address [address] [place] [address] Dr. Frazier. [address] [place] [address] Care Team Providers Name Role Phone Guerline Mccord Attending Clinician Taryn Colvin Attending Clinician Problems This patient has no known problems. Allergies, Adverse Reactions, Alerts This patient has no known allergies or adverse reactions. Medications This patient has no known medications. Procedures This patient has no known procedures. Encounters Start End Encounter Admission Attending Care Care Encounter Source Date/Time Date/Time Type Type Clinicians Facility Department ID 2020-05-17 2020-05-17 Telephone DEBORAH Roa [id number] 00:00:00 00:00:00 Keya Cunha DISTRIBUTION TECH [id number] REGIONAL [id number] MATERNAL [id number] & CHILD 107 [facility] 2020-05-11 2020-05-11 Routine DEBORAH Payton [id number] 13:14:18 13:50:54 Arin R DISTRIBUTION TECH [id number] Visit REGIONAL [id number] MATERNAL [id number] & CHILD 107 [facility] Results This patient has no known results.
--- OUTSIDE RECORDS SUMMARY | 2020-05-17 17:04 | XMS REPORT | Summary of Care ---
:1999 Author Organization [facility] - Health Address [address] [place] [address] Care Team Providers Name Role Phone Leelee Cosby Medicaid Hmo Guerline [facility] Provider Encounter Details Date Type Department Care Team Description 05/03/2020 Orders Only [facility] Doctor Unassigned, No [address] [facility] [place] [address] [address] [place] [address] Allergies No Known Allergiesdocumented as of this encounter (statuses as of 05/03/2020) Medications Medication Sig Dispensed Refills Start Date End Date Status etonogestrel 68 mg by Subdermal 0 Active (NEXPLANON) 68 mg route once now. implant ferrous sulfate 325 Take 2 tablets by 240 tablet 1 12/18/2017 Active mg (65 mg iron) mouth 2 (two) tablet times daily. iron ps cmplx-vitamin Take 5 mL by mouth 900 mL 1 8 Active D3 (NOVAFERRUM 125) 2 (two) times 125 mg iron- 100 daily. unit/5 mL liquid documented as of this encounter (statuses as of 05/03/2020) Active Problems Problem Noted Date Well woman exam 04/17/2017 Contraceptive management 04/17/2017 Nexplanon removal 04/17/2017 Vaginal cyst 03/22/2017 Iron deficiency anemia 02/14/2016 Screening examination for STD (sexually transmitted di sease) 07/01/2014 documented as of this encounter (statuses as of 05/03/2020) Resolved Problems Problem Noted Date Resolved Date Symptoms of depression 04/17/2017 07/23/2017 Encounter for routine gynecological examination 07/01/2014 01/31/2016 Overview: ICD10 Diagnosis Term [employer] 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 Leader Utility documented as of this encounter (statuses as of 05/03/2020) Immunizations Name Administration Dates Next Due HPV9 10/15/2017, 06/17/2017, 04/17/2017 Influenza Virus Vaccine Quad .5 mL 03/25/2018 IM 6+ MO Influenza Virus Vaccine Quad IM 3+ 04/17/2017 YRS Influenza Virus Vaccine Quad IM 04/17/2017 (Deferred: Immuni zations Up Multi-dose 6+ MO to Date) TDAP 05/27/2013 documented as of this encounter Social History Tobacco Use Types Packs/Day Years Used Date Never Smoker Smokeless Tobacco: Never Used Alcohol Use Drinks/Week oz/Week Comments No Sex Assigned at Date Recorded Not on file documented as of this encounter Last Filed Vital Signs Not on filedocumented in this encounter Plan of Treatment Date Type Specialty Care Team Description 05/03/2020 Office Visit OB Arin Herring FNP [address] [place] [address] [phone] [facility] Initial Visit OB Taryn Herring, DOMAIN ARCHITECT [address] [place], [place] [address] Health Maintenance Due Date Last Done Comments MENINGOCOCCAL B VACCINES (1 2009 of 2 - Risk Bexsero 2-dose series) Depression Screening 2011 WELL CARE VISIT: 12-21 YEARS 07/23/2018 07/23/2017 (yearly) CHLAMYDIA SCREENING 04/21/2019 04/21/2018, 04/17/2017, 01/31/2016, Additional history exists INFLUENZA VACCINE (#1) 2020 03/25/2018, 04/17/2017 DTaP,Tdap,and Td Vaccines (2 05/27/2023 05/27/2013 - Td) HPV VACCINES Completed 10/15/2017, 06/17/2017, 04/17/2017 MENINGOCOCCAL VACCINE Aged Out No longer eligible based on patient 's age to complete this topic PNEUMOCOCCAL 0-64 YEARS Aged Out No longe r eligible COMBINED SERIES based on patient 's age to complete this topic documented as of this encounter Procedures Procedure Name Priority Date/Time Associated Diagnosis Comme nts ASSIGNMENT OF BENEFITS Routine 05/03/2020 8:29 AM PYRIDINE RECOVERY OPERATOR documented in this encounter Results Not on filedocumented in this encounter Insurance Payer Benefit Plan / Subscriber ID Effective Dates Phone Addre ss Type Group [facility] MEDICAID OF [id number] 2020-Prese [phone] [address] [place] [id number] [place] [address] BCBS OF [facility] [place] [id number] 2017- [phone] P [address] YONG X PPO/POS [place] - OUT OF STATE [id number] [place] [address] documented as of this encounter Advance Directives Name Relationship Healthcare Agent Communication Relationship Hollie Galvin Grandparent Health Care Agent
--- OUTSIDE RECORDS SUMMARY | 2020-05-17 17:04 | XMS REPORT | Summary of Care ---
:1999 Author Organization [facility] Address [address] [place] [address] Care Team Providers Name Role Phone Leelee Cosby Rhianna Medicaid Hmo Guerline Roa [facility] Primary Care Provider Reason for Visit Reason Comments ROUTINE VISIT Encounter Details Date Type Department Care Team Description 05/11/2020 Routine [facility]- Arin Payton upervision of high risk in second trimester (Primary Dx); Visit MAURO Kate Primigravida in second trimester; [address] [facility] [address] SOB (shor tness of breath) [place] [address] [id number] Allergies Active Allergy Reactions Severity Noted Date Comments Albuterol Rash Medium 04/19/2020 documented as of this encounter (statuses as of 05/11/2020) Medications Medication Sig Dispensed Refills Start Date [...] mg iron- 100 daily. unit/5 mL liquid vit Take 1 Packet by 30 Each 6 05/03/2020 Active 30-omap-uxmnx-dha mouth daily. (SELECT-OB + DHA) 29 mg iron-1 mg -250 mg combo packIndications: Supervision of high risk in first trimester documented as of this encounter (statuses as of 05/11/2020) Active Problems Problem Noted Date Supervision of high risk in first trimester 05/03/2020 Primigravida in second trimester 05/03/2020 Screening for viral disease 05/03/2020 Need for prophylactic vaccination and inoculation agai nst influenza 05/03/2020 Well woman exam 04/17/2017 Contraceptive management 04/17/2017 Nexplanon removal 04/17/2017 Vaginal cyst 03/22/2017 Iron deficiency anemia 02/14/2016 Screening examination for STD (sexually transmitted di sease) 07/01/2014 Estimated Date of Delivery Comments Yes 10/06/2020 Based on Ultrasound, USG done at [facility] documented as of this encounter (statuses as of 05/11/2020) Resolved Problems Problem Noted Date Resolved Date Symptoms of depression 04/17/2017 07/23/2017 Encounter for routine gynecological examination 07/01/2014 01/31/2016 Overview: ICD10 Diagnosis 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 documented as of this encounter (statuses as of 05/11/2020) Immunizations Name Administration Dates Next Due HPV9 10/15/2017, 06/17/2017, 04/17/2017 Influenza Virus Vaccine Quad .5 mL 05/03/2020, 03/25/2018 IM 6+ MO Influenza Virus Vaccine Quad IM 3+ 04/17/2017 YRS Influenza Virus Vaccine Quad IM 04/17/2017 (Deferred: Immuni zations Up Multi-dose 6+ MO to Date) TDAP 05/27/2013 documented as of this encounter Social History Tobacco Use Types Packs/Day Years Used Date Never Smoker Smokeless Tobacco: Never Used Alcohol Use Drinks/Week oz/Week Comments No Estimated Date of Delivery Comments Yes 10/06/2020 Based on Ultrasound, USG done at [facility] Sex Assigned at Date Recorded Not on file COVID-19 Exposure Response Date Recorded In the last month, have you been in contact with No / Unsure 05/11/2020 1:23 PM SENIOR FINANCIAL ACCOUNTANT someone who was confirmed or suspected to have Coronavirus / COVID-19? documented as of this encounter Last Filed Vital Signs Vital Sign Reading Time Taken Comments Blood Pressure 131/82 05/11/2020 1:24 PM SENIOR FINANCIAL ACCOUNTANT Pulse 115 05/11/2020 1:24 PM SENIOR FINANCIAL ACCOUNTANT Temperature 37.2 C (98.9 F) 05/11/2020 1:24 PM SENIOR FINANCIAL ACCOUNTANT Respiratory Rate 16 05/11/2020 1:24 PM SENIOR FINANCIAL ACCOUNTANT Oxygen Saturation 99% 05/11/2020 1:48 PM SENIOR FINANCIAL ACCOUNTANT Inhaled Oxygen Concentration - - Weight 59.6 kg (131 lb 4.8 oz) 05/11/2020 1:24 PM SENIOR FINANCIAL ACCOUNTANT Height 172.7 cm (5' 8") 05/11/2020 1:24 PM SENIOR FINANCIAL ACCOUNTANT Body Mass Index 19.96 05/11/2020 1:24 PM SENIOR FINANCIAL ACCOUNTANT documented in this encounter Progress Notes Arin Payton, PRINT DESIGNER - 05/11/2020 1:30 PM CST Chief complaint: Chief Complaint Patient presents with ROUTINE VISIT HPI CC: Follow Up Visit Pilar Cuba is a 19 year old, , Black or female. Patient's last menstrual period was 01/07/2020 (exact date). She is 18w6d with an intrauterine . Her estimated date of delivery is 10/06/2020, by Ultrasound. She complains of SOB. She reports +FM and denies contractions, LOF and bleeding today. Patient denies current or past physical, sexual or emotional abuse. Histories OB History Para Term AB Living 1 0 0 0 0 0 SAB TAB Ectopic Multiple Live Births 0 0 0 0 # Outcome Date GA Lbr Yobany/2nd Weight Sex Delivery Anes PTL Lv 1 Current Past Medical History: Diagnosis Date Asthma diagnosed as a child, not on medication Iron deficiency anemia 02/14/2016 ongoing, no medication Screening examination for STD (sexually transmitted disease) Family History Problem Relation Age of Onset Hypertension Father High cholesterol Father Hypertension Paternal Grandmother Depression Paternal Grandmother Arthritis Paternal Grandmother Asthma Paternal Grandmother High cholesterol Paternal Grandmother Asthma Mother Asthma Sister Asthma Maternal Aunt defects NoFHx Breast Cancer NoFHx Colon Cancer NoFHx Uterine Cancer NoFHx Ovarian Cancer NoFHx Cancer NoFHx Genetic NoFHx Heart NoFHx Mental retardation NoFHx Neurological NoFHx Osteoporosis NoFHx Psychiatry NoFHx Other - see comments NoFHx Family Status Relation Name Status Fa Alive PGMo Alive Mo Alive Sis Alive Bro Alive MAunt (Not Specified) MGMo Alive MGFa Alive PGFa Alive NoFHx (Not Specified) No past surgical history on file. Social History Socioeconomic History Marital status: Single Spouse name: Not on file Number of children: Not on file Years of education: Not on file Highest education level: Not on file Occupational History Not on file Social Needs Financial resource strain: Not on file Food insecurity Worry: Not on file Inability: Not on file Transportation needs Medical: Not on file Non-medical: Not on file Tobacco Use Smoking status: Never Smoker Smokeless tobacco: Never Used Substance and Sexual Activity Alcohol use: No Drug use: No Sexual activity: Yes Partners: Male control/protection: Implant Comment: last sexual intercourse 04/26/2020 Lifestyle Physical activity Days per week: Not on file Minutes per session: Not on file Stress: Not on file Relationships Social connections Talks on phone: Not on file Gets together: Not on file Attends pentecostalism service: Not on file Active member of club or organization: Not on file Attends meetings of clubs or organizations: Not on file Relationship status: Not on file Intimate partner violence Fear of current or ex partner: Not on file Emotionally abused: Not on file Physically abused: Not on file Forced sexual activity: Not on file Other Topics Concern Not on file Social History Narrative Denies physical and sexual abuse. Pt states she feels safe at home. Pt has no pentecostalism preference. Patient lives with grandparents and father. Patient is involved with FOB. Social History Substance and Sexual Activity Sexual Activity Yes Partners: Male control/protection: Implant Comment: last sexual intercourse 04/26/2020 Labs No new labs Radiology No new radiology. Allergies Pilar is allergic to albuterol. Medications Pilar has a current medication list which includes the following prescription(s): select-ob + dha, iron ps cmplx-vitamin d3, ferrous sulfate, and etonogestrel. Review of Systems Eyes: Negative for visual disturbance. Cardiovascular: Negative for leg swelling. Gastrointestinal: Negative for abdominal pain, nausea and vomiting. Genitourinary: Negative for vaginal bleeding, vaginal discharge and pelvic pain. Neurological: Negative for headaches. BP 131/82 (BP Location: Right arm, Patient Position: Sitting, BP CUFF SIZE: Adult Small) | Pulse 115 | Temp 37.2 C (98.9 F) (Oral) | Resp 16 | Ht 5' 8" (1.727 m) | Wt 131 lb 4.8 oz (59.6 kg) | LMP 01/07/2020 (Exact Date) | SpO2 99% | BMI 19.96 kg/m Pregravid BMI: 19.77 Physical Exam PHYSICAL: General Exam: Neurological: Normal Abdomen: Normal Extremities: Normal Pelvic Exam: Uterus: 18cm Weeks Assessment/Plan Supervision of high risk in second trimester (primary encounter diagnosis) Primigravida in second trimester Comment: Routine Visit Plan: POCT URINALYSIS W SPECIFIC GRAVITY Denies zika virus risk, signs and symptoms such as fever,rash,joint pain, conjunctivitis (red eyes), muscle pain, headaches; outside [place] travel to areas affected by zika, and FOB exposure to zika. Educated on use of mosquito repellent. Covid x12 screening done, screening results are negative. SOB (shortness of breath) Comment: Patient complains of SOB Plan: SPO2 98-99%, patient educated on symptoms of with SOB being one of them. Patient given ER warnings. Return to clinic in 4 weeks. Discussed treatment options. Medications as ordered. Reviewed patient instructions and provided printed copy. This visit did not involve counseling and coordination that comprised more than 50% of the visit time. MAURO Martinez 05/11/2020 2:06 PM OR FINANCIAL ACCOUNTANT documented in this encounter Plan of Treatment Date Type Specialty Care Team Description 05/24/2020 Butt Presser Visit Maternal Medicine 05/31/2020 Routine Visit OB Satellites Arin Payton FNP [address] [place], [place] [address] [phone] Health Maintenance Due Date Last Done Comments CHLAMYDIA SCREENING 05/03/2021 05/03/2020, 05/03/2020, 04/21/2018, Additional history exists Depression Screening 05/03/2021 05/03/2020 MENINGOCOCCAL B VACCINES (1 05/03/2021 Post poned from of 2 - Risk Bexsero 2-dose 07/21 ( or series) ) WELL CARE VISIT: -05/03/2021 05/03/2020, 07/23/2017 YEARS (yearly) DTaP,Tdap,and Td Vaccines 05/27/2023 05/27/2013 (2 - Td) HPV VACCINES Completed 10/15/2017, 06/17/2017, 04/17/2017 INFLUENZA VACCINE Completed 05/03/2020, 03/25/2018, 04/17/2017 MENINGOCOCCAL VACCINE Aged Out No longer eligible based on patient 's age to complete this topic PNEUMOCOCCAL 0-64 YEARS Aged Out No longe r eligible COMBINED SERIES based on patient 's age to complete this topic documented as of this encounter Procedures Procedure Name Priority Date/Time Associated Diagnosis Comme nts POCT URINALYSIS Routine 05/11/2020 Supervision of high risk Results for this in second procedur e are in the trimester results section . documented in this encounter Results POCT URINALYSIS W SPECIFIC GRAVITY (05/11/2020) Pathologist Sig nature POCT U SP GRAV . 1.005 - 1.025 mg/dl POCT PH U . 5 - 8 mg/dl POCT U LEUK EST . Negative - Negative POCT U NIT . Negative - Negative POCT U PROT trace Negative - Negative POCT U GLU neg Negative - Negative POCT U KETONE . Negative - Negative POCT U UROBILI . 0.2 - 1 mg/dl POCT U BILI . Negative - Negative POCT U BLD . Negative - Negative POCT U COLOR POCT U APPEAR Specimen Urine - URINE, CLEAN CATCH documented in this encounter Visit Diagnoses Diagnosis Supervision of high risk in se cond trimester - Primary Unspecified high-risk Primigravida in second trimester SOB (shortness of breath) Shortness of breath documented in this encounter Insurance Payer Benefit Plan / Subscriber ID Effective Dates Phone Addre ss Type Group [facility] [id number] 2020-Presen Medicaid COMM PLAN - t MANAGED MEDICAID documented as of this encounter Advance Directives Name Relationship Healthcare Agent Communication Relationship Hollie Galvin Grandparent Health Care Agent
--- OUTSIDE RECORDS SUMMARY | 2020-05-17 17:04 | XMS REPORT | Summary of Care ---
:2000 Author Organization [facility] Address [address] [place] [address] Care Team Providers Name Role Phone Leelee Cosby Rhianna Medicaid Hmo Guerline Roa [facility] Primary Care Provider Reason for Visit Reason Comments ROUTINE VISIT Encounter Details Date Type Department Care Team Description 05/11/2020 Routine [facility]- Arin Payton upervision of high risk in second trimester (Primary Dx); Visit MAURO Kate Primigravida in second trimester; [address] [facility] SOB (shor tness of breath) [place] [address] [id number] Allergies Active Allergy Reactions Severity Noted Date [...] Packet by 30 Each 6 05/03/2020 Active 18-febn-dscvg-dha mouth daily. 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 documented as of this encounter Last Filed Vital Signs Vital Sign Reading Time Taken Comments Blood Pressure 131/82 05/11/2020 1:24 PM HURL SHAKER Pulse 115 05/11/2020 1:24 PM HURL SHAKER Temperature 37.2 C (98.9 F) 05/11/2020 1:24 PM HURL SHAKER Respiratory Rate 16 05/11/2020 1:24 PM HURL SHAKER Oxygen Saturation 99% 05/11/2020 1:48 PM HURL SHAKER Inhaled Oxygen Concentration - - Weight 59.6 kg (131 lb 4.8 oz) 05/11/2020 1:24 PM HURL SHAKER Height 172.7 cm (5' 8") 05/11/2020 1:24 PM HURL SHAKER Body Mass Index 19.96 05/11/2020 1:24 PM HURL SHAKER documented in this encounter Progress Notes Arin Payton, CLINICAL OPERATIONS LEADER - 05/11/2020 1:30 PM CST Chief complaint: [...] file Gets together: Not on file Attends protestant service: Not on file Active member of [...] feels safe at home. Pt has no protestant preference. Patient lives with grandparents and father. [...] visit time. MAURO Martinez 05/11/2020 2:06 PM SHAKER documented in this encounter Plan of Treatment Date Type Specialty Care Team Description 05/24/2020 Mess Attendant Visit Maternal Medicine 05/31/2020 Routine Visit OB Satellites Arin Payton FNP [address] [place], [place] [address] [phone] Health Maintenance Due Date Last Done Comments [...] Effective Dates Phone Addre ss Type Group [facility] STAR [id number] 2020-Presen Medicaid COMM PLAN - t MANAGED MEDICAID documented as of this encounter Advance Directives Name Relationship Healthcare Agent Communication Relationship Hollie Galvin Grandparent Health Care Agent
--- OUTSIDE RECORDS SUMMARY | 2020-05-17 17:04 | XMS REPORT | Summary of Care ---
:2000 Author Organization [facility] Address [address] [place] [address] Care Team Providers Name Role Phone CosbyLeelee Rhianna Medicaid Hmo Guerline Roa [facility] Primary Care Provider Reason for Visit Reason Comments Assessment Encounter Details Date Type Department Care Team Description 05/10/2020 [facility] Jhaveri, Assessment [address] [place] [address] [address] [facility] [address] [address] [phone] [place] [place], [place] [address] [phone] Allergies Active Allergy Reactions Severity Noted Date Comments Albuterol Rash Medium 04/19/2020 documented as of this encounter (statuses as of 05/10/2020) Medications Medication Sig Dispensed Refills Start Date [...] Packet by 30 Each 6 05/03/2020 Active 69-wwhf-ikftt-dha mouth daily. (SELECT-OB + DHA) 29 mg iron-1 mg -250 mg combo packIndications: Supervision of high risk in first trimester documented as of this encounter (statuses as of 05/10/2020) Active Problems Problem Noted Date Supervision of [...] 10/06/2020 Based on Ultrasound, USG done at [facility] documented as of this encounter (statuses as of 05/10/2020) Resolved Problems Problem Noted Date Resolved Date Symptoms of depression 04/17/2017 07/23/2017 Encounter for routine gynecological examination 07/01/2014 01/31/2016 Overview: ICD10 Diagnosis Term Er Rn Utility documented as of this encounter (statuses as of 05/10/2020) Immunizations Name Administration Dates Next Due HPV9 [...] 10/06/2020 Based on Ultrasound, USG done at [facility] Sex Assigned at Date Recorded Not on file COVID-19 Exposure Response Date Recorded In the last month, have you been in contact with No / Unsure 05/03/2020 9:13 AM CATTLE KILLER someone who was confirmed or suspected to have Coronavirus / COVID-19? documented as of this encounter Last Filed Vital Signs Not on filedocumented in this encounter Miscellaneous Notes Telephone Encounter - Heidy Hsu LVN - 05/10/2020 4:14 PM Shy Cuba is a 19 year old female Patient informed she needed to be seen and given ER warnings, verbalized understanding. elephone Encounter - Arin Payton FNP - 05/10/2020 4:11 PM CATTLE KILLER Patient needs to be scheduled for an appointment and given ER warnings. LE KILLER Telephone Encounter - Heidy Hsu LVN - 05/10/2020 3:29 PM Shy Cuba is a 19 year old female Patient stated she has a history of asthma, and has been having trouble breathing since before . Patient stated she used to be on Albuterol in the past but was told she gets a rash when she takes it. Stated she has SOB every day. Stated she fainted 2 days ago in the shower. Patient denies any other symptoms, stated she wanted to see if provider could see her for evaluation. Informed her message would be routed to provider for recommendations, verbalized understanding. documented in this encounter Plan of Treatment Date Type Specialty Care Team Description 05/24/2020 Hatchery Helper Visit Maternal Medicine 05/31/2020 Routine Visit OB Satellites Arin aPyton FNP [address] [place], [place] [address] [phone] Health Maintenance Due Date Last Done Comments [...] this topic documented as of this encounter Results Not on filedocumented in this encounter Insurance Payer Benefit Plan Subscriber ID Effective Phone Address Typ e / Group Dates [facility] [id number] 2020-Pres Medic aid HEALTHCARE COMM STAR ent PLAN - MANAGED MEDICAID BCBS OF [place] BCBS OF [id number] 2017-07/24/ [phone] [address] PPO/POS [place] - OUT [address]25 [id number] [place] [address] documented as of this encounter Advance Directives Name Relationship Healthcare Agent Communication Relationship Hollie Galvin Grandparent Health Care Agent
--- OUTSIDE RECORDS SUMMARY | 2020-05-17 17:04 | XMS REPORT | Summary of Care ---
:2000 Author Organization [facility] Address [address] [place] [address] Care Team Providers Name Role Phone CosbyLeelee Rhianna Medicaid Hmo Guerline Roa [facility] Primary Care Provider Reason for Visit Reason Comments Assessment Encounter Details Date Type Department Care Team Description [facility] Jhaveri, Assessment [address] [place] [address] [address] [facility] [address] [phone] [place] [place], [place] [address] [phone] Allergies Active Allergy Reactions Severity Noted Date [...] Packet by 30 Each 6 05/03/2020 Active 19-cmdh-heokl-dha mouth daily. 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 documented as of this encounter Last Filed Vital Signs Not on filedocumented in this encounter Miscellaneous Notes Telephone Encounter - Arin Payton FNP - 05/10/2020 4:11 PM CSTPatient needs to be scheduled for an appointment and given ER warnings. elephone Encounter - Heidy Hsu LVN - 05/10/2020 [...] Date Type Specialty Care Team Description 05/24/2020 Consulting Manager Visit Maternal Medicine 05/31/2020 Routine Visit OB Satellites Arin Payton FNP [address] [place], [place] [address] [phone] Health Maintenance Due Date Last Done Comments [...] Phone Address Typ e / Group Dates [facility] [id number] 2020-Pres Medic aid HEALTHCARE COMM STAR ent PLAN - MANAGED MEDICAID BCBS OF [place] BCBS OF [id number] 2017- [phone] [address] PPO/POS [place] - [facility] [address]25 [id number] [place] [address] documented as of this encounter Advance Directives Name Relationship Healthcare Agent Communication Relationship Hollie Galvin Grandparent Health Care Agent
--- OUTSIDE RECORDS SUMMARY | 2020-05-17 17:04 | XMS REPORT | Summary of Care ---
:2000 Author Organization [facility] Address [address] [place] [id number] Care Team Providers Name Role Phone Leelee Cosby Rhianna Medicaid Hmo Guerline Ro[facility] Provider Reason for Referral (Routine) Status Reason Specialty Diagnoses / Referred By Referred To Procedures Contact Contact Authorized Maternal Diagnoses Supervision of high risk in first trimester Arin Payton Medicine Procedures CONSULT MATERNAL MEDICINE ULTRASOUND Preferred Location: [facility] [address] [place] [address] Reason for Visit Reason Comments New OB Visit Encounter Details Date Type Department Care Team Description [facility] upervision of high risk in first trimester (Primary Dx); Visit MAURO Kate Primigravida in second trimester; [address] [facility] [address] Screening for viral disease; [address] [place] Need for prophylactic vaccination and in [place]culation [place] [address] [phone] Allergies Active Allergy Reactions Severity Noted Date [...] Packet by 30 Each 6 05/03/2020 Active 14-zlkk-tcgxr-dha mouth daily. 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 documented as of this encounter Last Filed Vital Signs Vital Sign Reading Time Taken Comments Blood Pressure 133/78 05/03/2020 9:14 AM INORGANIC CHEMISTRY TEACHER Pulse 106 05/03/2020 9:14 AM INORGANIC CHEMISTRY TEACHER Temperature 37.2 C (98.9 F) 05/03/2020 9:14 AM INORGANIC CHEMISTRY TEACHER Respiratory Rate 16 05/03/2020 9:14 AM INORGANIC CHEMISTRY TEACHER Oxygen Saturation - - Inhaled Oxygen Concentration - - Weight 59.1 kg (130 lb 4.8 oz) 05/03/2020 9:14 AM INORGANIC CHEMISTRY TEACHER Height 172.7 cm (5' 8") 05/03/2020 9:14 AM INORGANIC CHEMISTRY TEACHER Body Mass Index 19.81 05/03/2020 9:14 AM INORGANIC CHEMISTRY TEACHER documented in this encounter Progress Notes Arin Payton, MAURO - 05/03/2020 9:00 AM CST Chief complaint: Chief Complaint Patient presents with New OB Visit HPI CC: Initial Visit Pilar Cuba is a 19 year old, , Black or female. Patient's last menstrual period was 01/07/2020 (exact date). She is 17w5d with an intrauterine . Her Estimated Date of Delivery: 10/06/20. She is being seen today for her first obstetrical visit. Patient complains of on and off nausea but denies vomiting. She reports +FM and denies contractions, LOF and bleeding today. Patient denies current or past physical, sexual or emotional abuse. OB History Para Term AB Living 1 0 0 0 0 0 SAB TAB Ectopic Multiple Live Births 0 0 0 0 # Outcome Date GA Lbr Yobany/2nd Weight Sex Delivery Anes PTL Lv 1 Current Histories OB History Para Term AB Living [...] Problem Relation Age of Onset Hypertension Father Hypertension Paternal Grandmother Depression Paternal Grandmother Arthritis NoFHx Asthma NoFHx defects NoFHx Breast Cancer NoFHx Colon Cancer NoFHx Uterine Cancer NoFHx Ovarian Cancer NoFHx Cancer NoFHx Genetic NoFHx Heart NoFHx High cholesterol NoFHx Mental retardation NoFHx Neurological NoFHx Osteoporosis NoFHx Psychiatry NoFHx Other - see comments NoFHx Family Status Relation Name Status Fa Alive PGMo (Not Specified) Mo Alive Sis Alive Bro Alive NoFHx (Not Specified) History reviewed. No pertinent surgical history. Social History Socioeconomic History Marital status: Single [...] file Gets together: Not on file Attends spiritism service: Not on file Active member of [...] feels safe at home. Pt has no spiritism preference. Patient lives with grandparents and father. Patient is involved with FOB. Social History Substance and Sexual Activity Sexual Activity Yes Partners: Male control/protection: Implant Comment: last sexual intercourse 04/26/2020 Genetic Screen Autism / Mental Retardation: No Johann Disease: No Congenital Heart Defect: No Cystic Fibrosis: No Down Syndrome: No Familial Dysautonomia: No Hemophilia or other Blood Disorders: No [place] Chorea: No Maternal Metabolic Disorder--specify (eg. Type 1 Diabetes, PKU): No Muscular Dystrophy: No Neural Tube Defect: No Recurrent Loss or a Stillbirth: No Sickle Cell Disease or Trait: No Arturo Sachs: No Teratological Substances (specify type & strength/dose) since LMP: No Thalassemia: No Labs Labs are pending. Radiology Radiology pending. Allergies Pilar is allergic to albuterol. Medications Pilar has a current medication list which includes the following prescription(s): iron ps cmplx-vitamin d3, ferrous sulfate, and etonogestrel. Review of Systems Constitutional: Negative for activity change, appetite change, fatigue, unexpected weight change, weight gain and weight loss. HENT: Negative for sore throat. Eyes: Negative for visual disturbance. Respiratory: Negative for cough and shortness of breath. Breasts: Negative for discharge, mass, pain and unequal size. Cardiovascular: Negative for chest pain, palpitations and leg swelling. Gastrointestinal: Negative. Negative for abdominal pain, anal bleeding, blood in stool, constipation, diarrhea, nausea, rectal pain and vomiting. Genitourinary: Negative for bladder incontinence, dysuria, urgency, flank pain, vaginal bleeding, vaginal discharge, genital sores, vaginal pain and pelvic pain. Skin: Negative for color change and rash. Neurological: Negative. Negative for dizziness, syncope and headaches. Psychiatric/Behavioral: Negative for confusion, self-injury and sleep disturbance. The patient is not nervous/anxious. Hematological: Negative for cold intolerance and heat intolerance. Endocrine: Negative for hair loss, cold intolerance, heat intolerance, weight gain and weight loss. BP 133/78 (BP Location: Right arm, Patient Position: Sitting, BP CUFF SIZE: Adult Small) | Pulse 106 | Temp 37.2 C (98.9 F) (Oral) | Resp 16 | Ht 5' 8" (1.727 m) | Wt 130 lb 4.8 oz (59.1 kg) | LMP 01/07/2020 (Exact Date) | BMI 19.81 kg/m Pregravid BMI: 19.77 Physical Exam Vitals reviewed. Constitutional: She is oriented to person, place, and time. She appears well- developed, well-nourished and well-groomed. She has no deformities. Neck: No tenderness and no mass. No thyroid nodules and no thyromegaly palpated. Cardiovascular: Regular rate and rhythm. No murmur auscultated. Pulmonary/Chest: Breath sounds clear to auscultation. Normal inspiratory effort. Abdominal: Abdomen is soft. No mass palpated. No tenderness present. There is no guarding. Neuro/Psychiatric: She has a normal mood and affect. She is oriented to person, place, and time. Skin: Skin normal. No lesion and no rash present. Red markings indicate tattoos Breast: Right breast exhibits no mass, no nipple discharge and no tenderness. Left breast exhibits no mass, no nipple discharge and no tenderness. Normal left breast and normal right breast Rectal: normal rectum External genitalia: Normal external genitalia appropriate for age. Normal hair distribution. No labial lesion. Vagina:Normal vagina. No lesion inspected. No abnormal vaginal discharge found. No lesions in thevagina. Cervix: Normal cervix. No lesion. No tenderness and no discharge present. Uterus: Uterus is normal size and non-tender. Normal uterus Adnexa: Right adnexa without tenderness or mass. Left adnexa without tenderness or mass. Normal leftadnexa and normal right adnexa Anus/perineum: Normal perineum. PHYSICAL: General Exam: HEENT: Normal Thyroid: Normal Lymph Node: Normal Neurological: Normal Abdomen: Normal Skin: Normal Extremities: Normal Pelvic Exam: Vulva: Normal Vagina: Normal Special Effects Technician present for the exam: LUZ MARIA Ray student Cervix: Normal Membrane status: Intact Uterus: 18cm Weeks Adnexa: Normal Spines: Average Sacrum: Concave Subpubic Arch: Normal Assessment/Plan Supervision of high risk in first trimester (primary encounter diagnosis) Comment: Routine Visit Plan: POCT TEST, POCT URINALYSIS W/O SPECIFIC GRAVITY, CBC WITH DIFF, GC & CHLAMYDIA AMPLIFIED ASSAY, HEPATITIS B SURFACE ANTIGEN, HIV 1/2 AG-AB WITH REFLEX, POCT URINALYSIS W SPECIFIC GRAVITY, WORKUP, BLOOD BANK, RUBELLA SCREEN (SAADIA) IGG, GALV ONLY - SYPHILIS IGG/IGM, URINE CULTURE, VZV ANTIBODY SCREEN, CONSULT MATERNAL MEDICINE ULTRASOUND Preferred Location: [facility] Denies zika virus risk, signs and symptoms such as fever,rash,joint pain, conjunctivitis (red eyes), muscle pain, headaches; outside [place] travel to areas affected by zika, and FOB exposure to zika.Educated on use of mosquito repellent. Covid x12 screening done, screening results are negative. Screening for viral disease Comment: per protocol Plan: SARS-COV-2 IGG Need for prophylactic vaccination and inoculation against influenza Comment: patient desires Plan: FLU VACC([id number]), 6+ MONTHS, IM, QUAD (FLUZONE/FLULAVAL/FLUARIX) Return to clinic in 2 weeks. Discussed treatment options. Medications as ordered. Reviewed patient instructions and provided printed copy. This visit did not involve counseling and coordination that comprised more than 50% of the visit time. MAURO Martinez 05/03/2020 10:16 AM GANIC CHEMISTRY TEACHER Arabella Hastings RN - 05/03/2020 9:00 AM CSTPatient is 19 year old female here for current . Patient is . 1) Previous delivery methods Initial 2) Patient is not experiencing cramping 3) Patient is not experiencing bleeding. 4) LMP: 01/07/2020 5) Last Pap was: n/a Results N/a 6) PPD candidate? no 7) Patient denies history of physical, emotional, or sexual abuse. Patient states she currently feels safe at home. 8) C/O: none 9) Would like flu vaccine? Yes 10) Hx of (+)positive COVID? No documented in this encounter Plan of Treatment Date Type Specialty Care Team Description 05/24/2020 Mica Machine Operator Visit Maternal Medicine 05/31/2020 Routine Visit OB Satellites Arin Payton FNP [address] [place], [place] [address] [phone] Name Type Priority Associated Diagnoses Date/Ti me CBC WITH DIFF LAB Routine Supervision of high risk 10:30 AM INORGANIC CHEMISTRY TEACHER in first trimester GC & CHLAMYDIA LAB Routine Supervision of high risk 1 07/04/2019 10:33 AM INORGANIC CHEMISTRY TEACHER AMPLIFIED ASSAY in first trimester HEPATITIS B SURFACE LAB Routine Supervision of high r isk 05/03/2020 10:30 AM INORGANIC CHEMISTRY TEACHER ANTIGEN in first trimester HIV 1/2 AG-AB WITH LAB Routine Supervision of high ri sk 05/03/2020 10:30 AM INORGANIC CHEMISTRY TEACHER REFLEX in first trimester RUBELLA SCREEN (SAADIA) LAB Routine Supervision of [facility] h risk 05/03/2020 10:30 AM INORGANIC CHEMISTRY TEACHER IGG in first trimester GALV ONLY - SYPHILIS LAB Routine Supervision of high risk 05/03/2020 10:30 AM INORGANIC CHEMISTRY TEACHER IGG/IGM in first trimester URINE CULTURE LAB Routine Supervision of high risk 10:33 AM INORGANIC CHEMISTRY TEACHER in first trimester VZV ANTIBODY SCREEN LAB Routine Supervision of high r isk 05/03/2020 10:30 AM INORGANIC CHEMISTRY TEACHER in first trimester SARS-COV-2 IGG LAB Routine Screening for viral 2019 10:30 AM INORGANIC CHEMISTRY TEACHER disease QUAD SCRN LAB Routine Supervision of high risk 12/2019 10:30 AM INORGANIC CHEMISTRY TEACHER in first trimester Name Type Priority Associated Diagnoses Order S chedule CBC WITH DIFF LAB Routine Supervision of high risk Ex pected: 05/03/2020, in first Expires: 05/03/2021 trimester GC & CHLAMYDIA LAB Routine Supervision of high risk E xpected: 05/03/2020, AMPLIFIED ASSAY in first s: 05/03/2021 trimester HEPATITIS B SURFACE LAB Routine Supervision of high r isk Expected: 05/03/2020, ANTIGEN in first Expires: 05/03/2021 trimester HIV 1/2 AG-AB WITH LAB Routine Supervision of high ri sk Expected: 05/03/2020, REFLEX in first Expires: 05/03/2021 trimester POCT URINALYSIS W LAB Routine Supervision of high ris k 20 Occurrences starting SPECIFIC GRAVITY in first 05/03 until trimester 02/27/2021 WORKUP, BLOOD LAB Routine Supervision of hig h risk Expected: 05/03/2020, BANK in first Expires: 05/03/2021 trimester RUBELLA SCREEN (SAADIA) LAB Routine Supervision of hig h risk Expected: 05/03/2020, IGG in first Expires: 05/03/2021 trimester GALV ONLY - SYPHILIS LAB Routine Supervision of high risk Expected: 05/03/2020, IGG/IGM in first Expires: 05/03/2021 trimester URINE CULTURE LAB Routine Supervision of high risk Ex pected: 05/03/2020, in first Expires: 05/03/2021 trimester VZV ANTIBODY SCREEN LAB Routine Supervision of high r isk Expected: 05/03/2020, in first Expires: 05/03/2021 trimester Health Maintenance Due Date Last Done Comments CHLAMYDIA SCREENING 05/03/2021 05/03/2020, 04/21/2018, 04/17/2017, Additional history exists Depression Screening 05/03/2021 05/03/2020 [...] Name Priority Date/Time Associated Diagnosis Comme nts FLU VACC Routine 05/03/2020 10:09 Need for prophylactic ([id number]), 6+ AM INORGANIC CHEMISTRY TEACHER vaccination and MONTHS, IM, QUAD inoculation against influenza POCT URINALYSIS W/O Routine 05/03/2020 Supervision of high R esults for this SPECIFIC GRAVITY risk in proced ure are in first trimester the results section. POCT TEST Routine 05/03/2020 Supervision of high R esults for this risk in procedure are in first trimester the results section. documented in this encounter Results POCT URINALYSIS W/O SPECIFIC GRAVITY (05/03/2020) Pathologist Sig nature POCT PH U 6 5 - 8 mg/dl POCT U LEUK EST 2+ Negative - Negative POCT U NIT neg Negative - Negative POCT U PROT 1+ Negative - Negative POCT U GLU neg Negative - Negative POCT U KETONE small Negative - Negative POCT U BLD neg Negative - Negative Specimen Urine - URINE, CLEAN CATCH POCT TEST (05/03/2020) Pathologist Sig nature POCT PREG Positive On board controls acceptable Yes with C Line POCT PREG LOT # POCT PREG TEST DATE Specimen Urine - URINE, CLEAN CATCH documented in this encounter Visit Diagnoses Diagnosis Supervision of high risk in fi rst trimester - Primary Unspecified high-risk Primigravida in second trimester Screening for viral disease Special screening examination for unspec ified viral disease Need for prophylactic vaccination and in oculation against influenza documented in this encounter Insurance Payer Benefit Plan / Subscriber ID Effective Dates Phone Addre ss Type Group [facility] [id number] 2020-Presen Medicaid COMM PLAN - t MANAGED MEDICAID documented as of this encounter Advance Directives Name Relationship Healthcare Agent Communication Relationship Hollie Galvin Grandparent Health Care Agent
--- OUTSIDE RECORDS SUMMARY | 2020-05-17 17:05 | XMS REPORT | Summary of Care ---
:1999 Author Organization [facility] Address [address] [place] [address] Care Team Providers Name Role Phone Leelee Cosby Rhianna Medicaid Hmo Guerline Roa Primary Care Provider Reason for Visit Reason Comments Assessment dizzy spells Encounter Details Date Type Department Care Team Description 05/17/2020 Telephone [facility]- [place] Roa Ass essment (dizzy [facility], JANICE spells) [address] [facility] [address] [place], [place] [phone] Allergies Active Allergy Reactions Severity Noted Date Comments Albuterol Rash Medium 04/19/2020 documented as of this encounter (statuses as of 05/17/2020) Medications Medication Sig Dispensed Refills Start Date [...] Packet by 30 Each 6 05/03/2020 Active 01-uptq-rbofb-dha mouth daily. 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 documented as of this encounter Last Filed Vital Signs Not on filedocumented in this encounter Miscellaneous Notes Telephone Encounter - Siddhartha Olivera RN - 05/17/2020 3:51 PM CSTPatient called having dizziness and low Bp. Patient does not recall bp level. Patient has been drinking 8 bottles of water daily and verbalizes eating 3 protein rich meals with snacks daily. Patient states she is also having intermittent sob. Advised can be normal in . Patient educated that up to her to be evaluated by ER depending on the severity of symptoms. Patient verbalizes she wantsto be evaluated by the emergency room. Strict er warnings given. Patient verbalized understanding. SIDDHARTHA OLIVERA RN 05/17/2020 3:56 PM UNITY HEALTH PROMOTER Telephone Encounter - MYA Mishra - 05/17/2020 3:45 PM CSTPt is having dizzy spells and BP issues documented in this encounter Plan of Treatment Date Type Specialty Care Team Description 05/24/2020 [place] Visit Maternal Medicine 05/31/2020 Routine Visit OB Satellites Arin Payton, STAFF WEAPONS OFFICER [address] [place] [address] [phone] Health Maintenance Due Date Last Done Comments CHLAMYDIA SCREENING 05/03/2021 05/03/2020, 05/03/2020, 04/21/2018, Additional history exists Depression Screening 05/03/2021 05/03/2020 MENINGOCOCCAL B VACCINES (1 05/03/2021 Post poned from of 2 - Risk Bexsero 2-dose 07/21 ( or series) ) WELL CARE VISIT: 05-1605/03/2021 05/03/2020, 07/23/2017 YEARS (yearly) DTaP,Tdap,and Td Vaccines [...] Phone Address Typ e / Group Dates [facility] [id number] 2020-Pres Medic aid HEALTHCARE COMM STAR ent PLAN - MANAGED MEDICAID [place] OF [id number] 2017-07/24/ [phone] [address] PPO/POS [facility] [id number] [place] [address] documented as of this encounter Advance Directives Name Relationship Healthcare Agent Communication Relationship Hollie Galvin Grandparent Health Care Agent
[2020-05-17] MEDS ORDERED: NA CHLORIDE 0.9% 1,000 ML ONE (18:16)
[2020-05-17 18:39] LABS: Protime INR 1.07
[2020-05-17 18:40] LABS: Absolute Lymphocytes (CBC) 1.8 K/uL (0.7-4.9); Basophils % 0.3 % (0-1.3); Hematocrit 32.6 % (36.0-45.0); Lymphocytes % 24.8 % (15.3-44.8); MPV 9.7 fL (7.6-11.3); RBC Red Blood Cell Count 4.26 M/uL (3.86-4.86)
[2020-05-17 18:46] LABS: Urine Blood NEGATIVE (NEG); Urine Glucose NEGATIVE (NEG); Urine Protein TRACE (NEG); Urine Specific Gravity 1.025 (1.005-1.030)
[2020-05-17 18:57] LABS: BUN Blood Urea Nitrogen 7 mg/dL (7-18); Bicarbonate 25 mmol/L (21-32); Glucose Level 69 mg/dL (74-106); Magnesium 2.1 mg/dL (1.8-2.4); NT PRO-BNP 33 pg/mL (<125); Potassium 3.4 mmol/L (3.5-5.1); Sodium Level 139 mmol/L (136-145)
[2020-05-17 19:01] LABS: Calcium Oxalate Crystals- Ur MODERATE (NONE SEEN); Urine Bacteria >50 /HPF (<20); Urine RBC <5 /HPF (NONE SEEN)
--- NOTE | 2020-05-17 19:38 | RAD REPORT ---
EXAM DESCRIPTION: US - Extrem Venous W Compress Allen - 05/17/2020 7:14 pm CLINICAL HISTORY: r/o DVT COMPARISON: None. TECHNIQUE: Real-time sonographic evaluation of the bilateral lower extremity common femoral, superfi cial femoral, popliteal and posterior tibial veins was performed. FINDINGS: Normal compressibility, flow augmentation, phasic flow and spontaneous flow are identified in the left and right lower extremity common femoral, superficial femoral, popliteal and posterior t ibial veins. No intraluminal filling defects seen. Thrombus is identifiable in the right greater saphenous vein near the junction with the deep venous s ystem. IMPRESSION: No acute deep venous thrombosis was identifiable in either lower extremity. Superficial venous thrombosis is present in the right greater saphenous vein near the junction with t he common femoral vein.
--- NOTE | 2020-05-17 21:15 | RAD REPORT ---
EXAM DESCRIPTION: CT - Head Brain Wo Cont - 05/17/2020 8:48 pm CLINICAL HISTORY: HEADACHE, 19 week COMPARISON: No comparisons TECHNIQUE: Axial 5 mm thick images of the head were obtained without IV contrast. All CT scans are performed using dose optimization technique as appropriate and may include automated exposure control or mA/KV adjustment according to patient size. FINDINGS: No intracranial hemorrhage, mass, edema or shift of mid-line structures. No acute infarcti on changes seen. No abnormal extra-axial fluid collections. Ventricles are normal. No venous sinus ab normality identifiable on noncontrast imaging. Mastoid air cells and visualized portions of the paranasal sinuses are clear. No acute bony findings. IMPRESSION: Negative non-contrast CT head examination.
--- NOTE | 2020-05-17 21:19 | RAD REPORT ---
EXAM DESCRIPTION: CT - Chest For Pe Angio - 05/17/2020 8:48 pm CLINICAL HISTORY: shortness of breath COMPARISON: Chest Pa And Lat (2 Views) dated 04/13/2020 TECHNIQUE: Dynamically enhanced 3 mm thick images of the chest were obtained during administration o f approximately 150mL Isovue 370 IV contrast. Coronal and oblique MIP reconstruction images were gene rated and reviewed. Exam utilizes a protocol to evaluate the pulmonary arterial tree. All CT scans are performed using dose optimization technique as appropriate and may include automated exposure control or mA/KV adjustment according to patient size. FINDINGS: No pulmonary emboli are identified. The aorta as imaged shows no acute or suspicious finding. No pericardial thickening or effusion. No infiltrate or mass in the lung parenchyma. No pleural effusion or pleural thickening. No mediastinal or hilar suspicious masses. No chest wall masses or abnormal axillary lymphadenopathy. IMPRESSION: No pulmonary emboli identified. No other significant or suspicious findings.
--- NOTE | 2020-05-17 21:42 | EDPHYS ---
Physician Documentation [facility] Name: Pilar Cuba Age: 19 yrs Sex: Female : 2000 Arrival Date: 05/17/2020 Time: 17:03 Bed 8 Private MD: ED Physician Luciano Sanchez HPI: 05/17 17:35 This 19 yrs old Black Female presents to ER via Ambulatory with complaints of Breathing cp Difficulty, High Blood Pressure, Dizziness. 17:35 The patient has shortness of breath at rest. cp 17:35 Onset: The symptoms/episode began/occurred gradually. Duration: The symptoms are cp intermittent. Associated signs and symptoms: Pertinent positives: dizziness, headache, Pertinent negatives: chest pain, productive cough, fever. Patient reports syncopal episode 2 weeks ago while in shower. 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 - Social history:: Smoking status: . ROS: 17:40 Constitutional: Negative for body aches, chills, fever, poor PO intake. cp 17:40 Eyes: Negative for injury, pain, redness, and discharge. cp 17:40 ENT: Negative for ear pain, sore throat, difficulty swallowing, difficulty handling secretions. 17:40 Cardiovascular: Negative for chest pain, edema. 17:40 Respiratory: Positive for shortness of breath, at rest. Negative for cough, wheezing. 17:40 Abdomen/GI: Negative for abdominal pain, nausea, vomiting, and diarrhea. 17:40 : Negative for urinary symptoms, vaginal bleeding. 17:40 Skin: Negative for rash. 17:40 Neuro: Positive for dizziness, syncope, Negative for altered mental status, headache, weakness. 17:40 All other systems are negative. Exam: 17:45 Constitutional: The patient appears in no acute distress, alert, awake, cp non-diaphoretic, non-toxic, well developed, well nourished. 17:45 Head/Face: Normocephalic, atraumatic. cp 17:45 Eyes: Periorbital structures: appear normal, Conjunctiva: normal, no exudate, no cp injection, Sclera: no appreciated abnormality, Lids and lashes: appear normal, bilaterally. 17:45 ENT: External ear(s): are unremarkable, Nose: is normal, Mouth: Lips: moist, Oral mucosa: moist, Posterior pharynx: Airway: no evidence of obstruction, patent. 17:45 Neck: ROM/movement: is normal, is supple, without pain, no range of motions limitations. 17:45 Chest/axilla: Inspection: normal, Palpation: is normal, no crepitus, no tenderness. 17:45 Cardiovascular: Rate: tachycardic, Rhythm: regular, Heart sounds: murmur, not appreciated, Edema: is not appreciated, JVD: is not appreciated. 17:45 Respiratory: the patient does not display signs of respiratory distress, Respirations: normal, no use of accessory muscles, no retractions, labored breathing, is not present, Breath sounds: are clear throughout, no decreased breath sounds, no stridor, no wheezing. 17:45 Abdomen/GI: Exam negative for discomfort, distension, guarding, Inspection: abdomen appears normal. 17:45 Musculoskeletal/extremity: DVT Exam: no pain, no swelling, no tenderness, no erythema, no increased warmth. 18:35 ECG was reviewed by the Attending Physician. 19:42 ECG was reviewed by the Attending Physician. Vital Signs: 17:22 BP 124 / 84; Pulse 110; Resp 16 S; Temp 99.1; Pulse Ox 100% on R/A; Weight 59.42 kg; iw Height 5 ft. 8 in. (172.72 cm); 18:24 BP 116 / 77 Supine; Pulse 97; Resp 16; Pulse Ox 100% ; bp 18:26 BP 117 / 77 Standing; Pulse 98; Resp 17; Pulse Ox 100% ; bp 19:30 BP 119 / 81; Pulse 94; Resp 16; Pulse Ox 100% on R/A; rv 20:00 BP 114 / 80; Pulse 97; Resp 17; Pulse Ox 100% on R/A; rv 21:00 BP 120 / 78; Pulse 87; Resp 17; Pulse Ox 100% on R/A; rv 22:00 BP 115 / 83; Pulse 89; Resp 18; Pulse Ox 100% on R/A; rv 17:22 Body Mass Index 19.92 (59.42 kg, 172.72 cm) iw MDM: 17:28 Patient medically screened. cp 21:45 Data reviewed: vital signs, nurses notes, lab test result(s), EKG, radiologic studies, cp CT scan, I have discussed the patient's presentation/case with the attending Emergency Department Physician;. 21:45 Test interpretation: by ED physician or midlevel provider: ECG. 05/17 17:28 Order name: Urine Microscopic Only; Complete Time: 19:01 cp 05/17 19:02 Interpretation: Normal except: UWBC 5-10; UBACT >50; SQEPI 10-20; CAOX MODERATE. cp 05/17 17:40 Order name: Basic Metabolic Panel; Complete Time: 18:58 cp 05/17 18:58 Interpretation: Normal except: K 3.4; CL 108; GLUC 69. cp 05/17 17:40 Order name: CBC with Diff; Complete Time: 18:58 cp 05/17 18:59 Interpretation: Normal except: HGB 10.2; HCT 32.6; MCV 76.6; MCH 24.0; MCHC 31.4; RDW cp 15.4. 05/17 17:40 Order name: Magnesium; Complete Time: 18:58 cp 05/17 17:40 Order name: NT PRO-BNP; Complete Time: 18:58 cp 05/17 17:40 Order name: PT-INR; Complete Time: 18:58 cp 05/17 17:40 Order name: US Extremity Venous W Compression Allen; Complete Time: 21:21 cp 05/17 17:47 Order name: D-Dimer; Complete Time: 18:58 cp 05/17 18:27 Order name: Urine Dipstick--Ancillary (enter results); Complete Time: 18:58 bd 05/17 18:27 Order name: Urine --Ancillary (enter results); Complete Time: 18:58 bd 05/17 19:01 Order name: Urine Culture EDID 05/17 22:22 Order name: COVID-19 nohemi 05/17 23:22 Order name: SARS-COV-2 RT PCR [facility] 05/17 17:28 Order name: Urine Dipstick-Ancillary (obtain specimen); Complete Time: 18:20 cp 05/17 17:29 Order name: Orthostatics; Complete Time: 18:34 cp 05/17 17:40 Order name: FHT's; Complete Time: 18:20 cp 05/17 17:40 Order name: EKG; Complete Time: 17:41 cp 05/17 17:40 Order name: Cardiac monitoring; Complete Time: 18:20 cp 05/17 17:40 Order name: EKG - Nurse/Tech; Complete Time: 18:34 cp 05/17 17:40 Order name: IV Saline Lock; Complete Time: 18:20 05/17 17:40 Order name: Labs collected and sent; Complete Time: 18:20 cp 05/17 17:40 Order name: O2 Per Protocol; Complete Time: 18:20 cp 05/17 17:40 Order name: O2 Sat Monitoring; Complete Time: 18:20 05/17 19:01 Order name: CT Head Brain wo Cont; Complete Time: 21:21 cp 05/17 19:01 Order name: CT Chest For PE Angio; Complete Time: 21:21 cp EC:35 Rate is 100 beats/min. Rhythm is regular. QRS interval is normal. QT interval is cp normal. T waves are Inverted in lead aVR. Interpreted by me. Reviewed by me. 19:42 Rate is 95 beats/min. Rhythm is regular. QRS interval is normal. QT interval is normal. cp T waves are Inverted in leads III, aVR. Interpreted by me. Reviewed by me. Administered Medications: 18:20 Drug: NS 0.9% 1000 ml Route: IV; Rate: 1 bolus; Site: right antecubital; bp 21:59 Follow up: IV Status: Completed infusion; IV Intake: 1000ml rv 21:59 Drug: Potassium Effervescent Tablet 50 mEq Route: PO; rv 23:53 Follow up: Response: No adverse reaction ea 21:59 Drug: Macrobid 100 mg Route: PO; rv 23:53 Follow up: Response: No adverse reaction ea Disposition: 05/18 06:18 Co-signature as Attending Physician, Luciano Sanchez MD I agree with the assessment and nohemi plan of care. Disposition: 05/17/20 21:42 [facility] Diagnosis are Embolism and thrombosis of superficial veins of right lower extremities, Syncope and collapse. - Reason for transfer: Higher level of care. - Accepting physician is Doctor. - Condition is Stable. - Problem is new. - Symptoms have improved. Signatures: Dispatcher [employer] EDMS Luciano Sanchez MD MD cha Williams, Irene RN RN Luciano Baker PA PA cp Day Bennett, RN RN Otto Bowman, RN RN Dirk Martino, WERNER RN rv Corrections: (The following items were deleted from the chart) 05/17 22:14 21:33 CORONAVIRUS+ ordered. [facility] 05/18 00:36 05/17 21:42 05/17/2020 21:42 Transfer ordered to [facility]. Diagnosis is Embolism and rv thrombosis of superficial veins of right lower extremities; Syncope and collapse. Reason for transfer: Higher level of care. Accepting physician is Doctor. Condition is Stable. Problem is new. Symptoms have improved. cp
--- NOTE | 2020-05-17 21:42 | ER ---
Nurse's Notes [facility] Name: Pilar Cuba Age: 19 yrs Sex: Female : 2000 Arrival Date: 05/17/2020 Time: 17:03 Bed 8 Private MD: Diagnosis: Embolism and thrombosis of superficial veins of right lower extremities;Syncope and collapse Presentation: 05/17 17:22 Chief complaint: Patient states: for the past few days has been feeling dizzy and iw having headaches and having a heard time breathing, had two high BP readings at home, was 153/100, is 19 weeks and 5 days , was advised to come to ER by her OB, goes to [facility] clinic. Coronavirus screen: headache. Ebola Screen: Patient negative for fever greater than or equal to 101.5 degrees Fahrenheit, and additional compatible Ebola Virus Disease symptoms Patient denies exposure to infectious person. Patient denies travel to an Ebola-affected area in the 21 days before illness onset. No symptoms or risks identified at this time. Initial Sepsis Screen: Does the patient meet any 2 criteria? No. Patient's initial sepsis screen is negative. Does the patient have a suspected source of infection? No. Patient's initial sepsis screen is negative. Risk Assessment: Do you want to hurt yourself or someone else? Patient reports no desire to harm self or others. Onset of symptoms was May 14, 2002. 17:22 Method Of Arrival: Ambulatory 17:22 Acuity: RENALDO 3 iw Triage Assessment: 17:30 General: Appears in no apparent distress. uncomfortable, Behavior is cooperative, bp appropriate for age, anxious. Pain: Denies pain. EENT: No deficits noted. Neuro: Reports dizziness. Cardiovascular: Rhythm is sinus tachycardia. Respiratory: Reports shortness of breath Onset: The symptoms/episode began/occurred yesterday, the patient has mild shortness of breath. GI: No signs and/or symptoms were reported involving the gastrointestinal system. : GRAVID. Derm: No deficits noted. Musculoskeletal: No deficits noted. 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 - Social history:: Smoking status: . Screenin:30 Abuse screen: Denies threats or abuse. Denies injuries from another. Nutritional bp screening: No deficits noted. Tuberculosis screening: No symptoms or risk factors identified. Fall Risk None identified. Assessment: 17:30 General: SEE TRIAGE NOTE. Cardiovascular: Rhythm is sinus rhythm. bp 18:30 Reassessment: U/S PENDING. Respiratory: Airway is patent Respiratory effort is even, bp unlabored, Breath sounds are clear bilaterally. 19:55 Reassessment:. General: Appears comfortable, Behavior is cooperative. Pain: Denies ea pain. Neuro: Level of Consciousness is awake, alert, obeys commands, Oriented to person, place, time, situation. Cardiovascular: Patient's skin is warm and dry. Respiratory: Airway is patent Respiratory effort is even, unlabored. Derm: Skin is pink, warm \T\ dry. 20:30 Reassessment: Patient and/or family updated on plan of care and expected duration. Pain ea level reassessed. Patient is alert, oriented x 3, equal unlabored respirations, skin warm/dry/pink. 22:01 Reassessment: patient updated on the test results and plan of care. patient is for rv transfer. General: Appears comfortable, Behavior is calm, cooperative. Pain: Denies pain. Neuro: Level of Consciousness is awake, alert, obeys commands, Oriented to person, place, time, situation. Cardiovascular: Patient's skin is warm and dry. Respiratory: Airway is patent Respiratory effort is even, unlabored. 23:54 Reassessment: Report called to Bakari CALDERA at [facility] L\T\Gustavo wong 05/18 00:24 Reassessment: Patient and/or family updated on plan of care and expected duration. Pain ea level reassessed. Patient is alert, oriented x 3, equal unlabored respirations, skin warm/dry/pink. Awaiting on transportation. Vital Signs: 05/17 17:22 BP 124 / 84; Pulse 110; Resp 16 S; Temp 99.1; Pulse Ox 100% on R/A; Weight 59.42 kg; iw Height 5 ft. 8 in. (172.72 cm); 18:24 BP 116 / 77 Supine; Pulse 97; Resp 16; Pulse Ox 100% ; bp 18:26 BP 117 / 77 Standing; Pulse 98; Resp 17; Pulse Ox 100% ; bp 19:30 BP 119 / 81; Pulse 94; Resp 16; Pulse Ox 100% on R/A; rv 20:00 BP 114 / 80; Pulse 97; Resp 17; Pulse Ox 100% on R/A; rv 21:00 BP 120 / 78; Pulse 87; Resp 17; Pulse Ox 100% on R/A; rv 22:00 BP 115 / 83; Pulse 89; Resp 18; Pulse Ox 100% on R/A; rv 17:22 Body Mass Index 19.92 (59.42 kg, 172.72 cm) iw Vitals: 18:15 Heart Tones 152. bp ED Course: 17:03 Patient arrived in ED. rg4 17:24 Triage completed. iw 17:25 Arm band placed on. iw 17:27 Luciano Barba PA is PHCP. cp 17:27 John Flores MD is Attending Physician. cp 17:32 Otto Victoria, WERNER is Primary Nurse. bp 18:20 Inserted saline lock: 20 gauge in right antecubital area, using aseptic technique. bp Blood collected. 18:30 Patient has correct armband on for positive identification. Bed in low position. Call bp light in reach. Side rails up X2. 19:15 US Extremity Venous W Compression Allen In Process Unspecified. EDMS 20:24 Luciano Sanchez MD is Attending Physician. cp 20:48 CT Head Brain wo Cont In Process Unspecified. EDMS 20:48 CT Chest For PE Angio In Process Unspecified. EDMS 21:26 Initiated transfer to [facility], spoke with Gaetano. ar5 22:16 Per transfer center we are waiting on DrKhalida to get out of OR. ar5 22:45 done with Elisabet Gould OB. ar5 23:05 Waiting on Covid swab to come back. ar5 23:36 Acceptance given by Ranjeet Dinero. Pt. going to L\T\D Triage. Call report to ar5 . Accepting Dr. Elisabet Gould OB. 23:52 No provider procedures requiring assistance completed. Patient transferred, IV remains ea in place. 05/18 00:07 Called [facility] to come get pt. for transfer. ar5 00:25 [facility] arrived to transfer pt. steph Administered Medications: 05/17 18:20 Drug: NS 0.9% 1000 ml Route: IV; Rate: 1 bolus; Site: right antecubital; bp 21:59 Follow up: IV Status: Completed infusion; IV Intake: 1000ml rv 21:59 Drug: Potassium Effervescent Tablet 50 mEq Route: PO; rv 23:53 Follow up: Response: No adverse reaction ea 21:59 Drug: Macrobid 100 mg Route: PO; rv 23:53 Follow up: Response: No adverse reaction ea Intake: 21:59 IV: 1000ml; Total: 1000ml. rv Outcome: 21:42 ER care complete, transfer ordered by MD. cp 23:52 Instructed on the need for transfer, Demonstrated understanding of instructions. ea 05/18 00:36 Transferred by ground EMS to [facility], Transfer form rv completed. X-rays sent w/ patient. Condition: good 00:36 Patient left the ED. rv Signatures: Dispatcher [employer] EDAudrey Ly RN RN Luciano Baker PA PA Mary Witt rg4 Day Bennett RN RN ea Peltier, Brian, RN RN Dirk Martino, RN RN Pooja Burgess ar5 Corrections: (The following items were deleted from the chart) 00:45 05/17 22:[address] steph choi 05/18 00:55 05/17 23:00 Dr.-Dr. aguilar with Elisabet choi
[2020-05-17] MEDS ORDERED: NITROFURAN MACRO 100 MG CAP PO ONE (21:50)
[2020-05-17] MEDS ORDERED: POTASSIUM 25 MEQ EFFERV TAB ONE (21:50)
[2020-05-18 13:57] VITALS: TEMP 99.1; O2SAT 100
[2020-05-18 14:07] VITALS: BP 115/83
== END 2020-05-18 00:36 | disposition short-term general hospital (02) ==
LOC: ER 17:01
DX: O22.22 Superficial thrombophlebitis in pregnancy, second trimester (principal); O88.212 Thromboembolism in pregnancy, second trimester; Z20.828 Contact with and (suspected) exposure to other viral communicable diseases; Z3A.19 19 weeks gestation of pregnancy; Z88.8 Allergy status to other drugs, medicaments and biological substances
CPT/HCPCS: 96361; 93005 ×2; 87088; 85025; 87086; 80048; 36415; 83735; 81025; 85610; 85379; 83880; 70450; 71275; 93970; 96360; 99285; U0003; Q9967; J7030; 81003; 81015

== ENCOUNTER 2020-06-16 14:50 | Emergency (ER) | payer OTHER ==
--- OUTSIDE RECORDS SUMMARY | 2020-06-16 14:53 | XMS REPORT | Continuity of Care Document ---
:2000 Author Organization [facility] t Address [address] [place] [address] Dr. Frazier[address] [place] [id number] Care Team Providers Name Role Phone Taryn Colvin Attending Clinician Problems This patient has no known problems. Allergies, Adverse Reactions, Alerts This patient has no known allergies or adverse reactions. Medications This patient has no known medications. Procedures This patient has no known procedures. 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
[2020-06-16] MEDS ORDERED: ACETAMINOPHEN 500 MG TAB ONE (18:43)
[2020-06-16 19:01] LABS: Absolute Lymphocytes (CBC) 1.5 K/uL (0.7-4.9); Basophils % 0.3 % (0-1.3); Hematocrit 30.1 % (36.0-45.0); Lymphocytes % 19.3 % (15.3-44.8); MPV 9.4 fL (7.6-11.3); RBC Red Blood Cell Count 4.09 M/uL (3.86-4.86)
[2020-06-16 19:20] LABS: ALT/SGPT 8 U/L (12-78); AST/SGOT 18 U/L (15-37); Albumin 3.1 g/dL (3.4-5.0); Alkaline Phosphatase 59 U/L (45-117); BUN Blood Urea Nitrogen 8 mg/dL (7-18); Bicarbonate 23 mmol/L (21-32); Bilirubin Direct 0.1 mg/dL (0-0.2); Bilirubin Total 0.5 mg/dL (0.2-1.0); Glucose Level 81 mg/dL (74-106); Lipase 97 U/L (73-393); Potassium 3.5 mmol/L (3.5-5.1); Protein, Total 7.8 g/dL (6.4-8.2); Sodium Level 138 mmol/L (136-145)
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
[2020-06-16 22:26] VITALS: BP 104/71; TEMP 97.2; O2SAT 99
--- NOTE | 2020-06-17 08:36 | RAD REPORT ---
EXAM DESCRIPTION: RAD - Chest Single View - 06/16/2020 9:39 pm CLINICAL HISTORY: CHEST PAIN Chest pain. COMPARISON: Chest Pa And Lat (2 Views) dated 04/13/2020; CHEST PA AND LAT 2 VIEW dated 11/20/2008 FINDINGS: Portable technique limits examination quality. The lungs are grossly clear. The heart is normal in size. No displaced fractures. IMPRESSION: No acute intrathoracic process suspected.
== END 2020-06-16 22:06 | disposition home or self-care (01) ==
LOC: ER 14:50
DX: O9A.312 Physical abuse complicating pregnancy, second trimester (principal); Z3A.24 24 weeks gestation of pregnancy; Y07.03 Male partner, perpetrator of maltreatment and neglect; Z04.71 Encounter for examination and observation following alleged adult physical abuse; Z88.8 Allergy status to other drugs, medicaments and biological substances
CPT/HCPCS: 85025; 80048; 36415; 80076; 83690; 70450; 72125; 70498; 71045; 99284; Q9967

== ENCOUNTER 2020-09-24 13:04 | Emergency (ER) | payer SELFPAY ==
--- OUTSIDE RECORDS SUMMARY | 2020-09-24 13:08 | XMS REPORT | Continuity of Care Document ---
:2000 Author Organization [facility] Address [address] [place] [address] Dr. Frazier[address] [place] [address] Care Team Providers Name Role Phone Visit, Nurse Attending Clinician Unavailable Tha SPANN Attending Clinician Alo SPANN Attending Clinician Taryn Colvin Attending Clinician Mike MISHRA Attending Clinician Sin SPANN Attending Clinician Ultrasound Attending Clinician Unavailable Radha Vincent RN Attending Clinician Unavailable Alo SPANN Admitting Clinician Problems This patient has no known problems. Allergies, Adverse Reactions, Alerts This patient has no known allergies or adverse reactions. Medications This patient has no known medications. Procedures This patient has no known procedures. Encounters Start End Encounter Admission Attending Care Care Encounter Source Date/Time Date/Time Type Type Clinicians Facility Department ID 2020-09-12 2020-09-12 Nurse Visit [facility] [id number] 13:58:18 14:13:18 Visit [facility] ORTHOPEDIC TECH [id number] Nurse [facility] [id number] MATERNAL [id number] & CHILD [address] [place] [address] 2020-09-03 2020-09-07 [facility] Colby Almazan 1.2.840.114 [id number] 00:19:00 11:07:00 Encounter Raghav Prajapati 350.1.13.1 0 [facility] [id number] [id number] 2020-09-05 2020-09-05 Abstract DEBORAH Payton 1.2.840.114 [id number] 00:00:00 00:00:00 Roshunda R ORTHOPEDIC TECH [id number] [facility]AL [id number] MATERNAL [id number] & CHILD 107 [facility] 2020-09-04 2020-09-04 Anesthesia Ryan Mckeon 1.2.840.114 [id number] 03:03:00 07:28:00 Event Sin Ramses LIZZETTE [id number] ANNEX 4.2.7.2.686 [id number] 2020-09-04 2020-09-04 Surgery TERESA 1.2.840.114 [id number] 05:10:00 07:00:00 LIZZETTE [id number] ANNEX [id number] [id number] 2020-09-02 2020-09-02 Chemistry Manager Leonardo, [facility] 1.2.840.114 [id number] 11:31:43 12:13:06 Visit [facility] ORTHOPEDIC TECH [id number] REGIONAL [id number] MATERNAL [id number] & CHILD 369 [facility] 2020-09-02 2020-09-02 Nurse Radha MOORE 1.2.840.114 [id number] 00:00:00 00:00:00 Triage LIZZETTE Vincent [id number] [facility] [id number] 2020-09-01 2020-09-01 Routine DEBORAH Payton 1.2.840.114 [id number] 10:19:51 11:05:59 Roshunda R ORTHOPEDIC TECH [id number] Visit REGIONAL [id number] MATERNAL [id number] & CHILD 107 [facility] Results This patient has no known results.
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
[2020-09-24 14:19] VITALS: BP 118/84; TEMP 97.1; O2SAT 98
== END 2020-09-24 14:16 | disposition left against medical advice (07) ==
LOC: ER 13:04
DX: Z53.21 Procedure and treatment not carried out due to patient leaving prior to being seen by health care provider (principal)
CPT/HCPCS: 99281

== ENCOUNTER 2020-11-14 00:42 | Emergency (ER) | payer SELFPAY ==
--- OUTSIDE RECORDS SUMMARY | 2020-11-14 00:44 | XMS REPORT | Continuity of Care Document ---
:2000 Author Organization [facility] Address [address] [place] [address] Dr. Frazier[address] [place] [address] Care Team Providers Name Role Phone Guerline Mccord Attending Clinician Visit, Nurse Attending Clinician Unavailable Tha SPANN Attending Clinician Alo SPANN Attending Clinician Fito WADE R Attending Clinician Mike DO Attending Clinician Sin SPANN Attending Clinician Ultrasound [...] Date/Time Type Type Clinicians Facility Department ID 2020-09-24 2020-09-24 Refill Janina, [facility] [id number] 00:00:00 00:00:[address] [id number] REGIONAL [id number] MATERNAL [id number] & CHILD 107 [facility] 2020-09-12 2020-09-12 Nurse Visit, [facility] 1.2.840.114 [id number] 13:58:18 14:13:[address] [facility] 350.1.13.10 Nurse [facility] [id number] MATERNAL [id number] & CHILD 107 [facility] 2020-09-03 2020-09-07 Hospital Tha Colybrohith MOORE 1.2.840.114 [id number] 00:19:00 11:07:00 Encounter Raghav Prajapati [address].1[address]13.[address] [id number] 2020-09-05 2020-09-05 Abstract DEBORAH Payton 1.2.840.114 [id number] 00:00:00 00:00:[address] [id number] [facility] [id number] MATERNAL [id number] & CHILD 107 [facility] 2020-09-04 2020-09-04 Anesthesia Ryan Mckeon 1.2.840.114 [id number] 03:03:00 07:28:00 Event Ramses Vogt 350.1.13.10 ANNEX 4.2.7.2.686 [id number] 2020-09-04 2020-09-04 Surgery TERESA 1.2.840.114 [id number] 05:10:00 07:00:00 LIZZETTE 350.1.13.10 ANNEX 4.2.7.2.686 [id number] 2020-09-02 2020-09-02 Melting Supervisor Leonardo, [facility] 1.2.840.114 [id number] 11:31:43 12:13:06 Visit [facility] [id number] [facility] [id number] MATERNAL [id number] & CHILD 369 [facility] 2020-09-02 2020-09-02 Nurse Radha MOORE 1.2.840.114 [id number] 00:00:00 00:00:00 Triage LIZZETTE Vincent [id number] [facility] [id number] [id number] 2020-09-01 2020-09-01 Routine Fito IDFABRIZIO 1.2.840.114 [id number] 10:19:51 11:05:[address] [id number] Visit [facility]AL [id number] MATERNAL [id number] & CHILD [address] [place] [address] Results This patient has no known results.
[2020-11-14] MEDS ORDERED: ACETAMINOPHEN 500 MG TAB ONE (03:03)
--- NOTE | 2020-11-14 03:18 | ER ---
Nurse's Notes [facility] Name: Pilar Cuba Age: 20 yrs Sex: Female : 2000 Arrival Date: 11/14/2020 Time: 00:47 Bed 6 Private MD: Diagnosis: Sinusitis Presentation: 11/14 01:00 Chief complaint: Patient states: Pt reports she has been having nasal congestion for ea the past two days, reports that today she has a lot of sinus pressure and sneezing. Pt reports she feels the pressure in her hears. Coronavirus screen: At this time, the client does not indicate any symptoms associated with coronavirus-19. Ebola Screen: No symptoms or risks identified at this time. Initial Sepsis Screen: Does the patient meet any 2 criteria? No. Patient's initial sepsis screen is negative. Does the patient have a suspected source of infection? No. Patient's initial sepsis screen is negative. Risk Assessment: Do you want to hurt yourself or someone else? Patient reports no desire to harm self or others. Onset of symptoms was November 14, 2020. 01:00 Method Of Arrival: Ambulatory ea 01:00 Acuity: RENALDO 4 ea Triage Assessment: 01:03 General: Appears uncomfortable, Behavior is calm, cooperative, appropriate for age. ea Pain: Denies pain. Neuro: No deficits noted. Respiratory: No deficits noted. Derm: Skin is pink, warm \T\ dry. Historical: - Allergies: 01:18 Albuterol; ea 01:18 none; ea - Home Meds: 01:18 Vitamin Oral tab once daily [Active]; Iron CR Oral [Active]; ea - PMHx: 01:18 Anemia; ea - PSHx: 01:18 ; ea - Immunization history:: Adult Immunizations up to date. - Social history:: Smoking status: Patient denies any tobacco usage or history of. Screenin:04 Abuse screen: Denies threats or abuse. Nutritional screening: No deficits noted. ea Tuberculosis screening: No symptoms or risk factors identified. Fall Risk None identified. Assessment: 01:04 General: Appears in no apparent distress. comfortable, Behavior is calm, cooperative, jb4 appropriate for age. Pain: Denies pain. Neuro: Level of Consciousness is awake, alert, obeys commands, Oriented to person, place, time, situation. Cardiovascular: Patient's skin is warm and dry. Respiratory: Airway is patent Respiratory effort is even, unlabored, Respiratory pattern is regular, symmetrical. GI: No signs and/or symptoms were reported involving the gastrointestinal system. : No signs and/or symptoms were reported regarding the genitourinary system. EENT: No signs and/or symptoms were reported regarding the EENT system. Derm: Skin is intact, Skin is dry, Skin is normal, Skin temperature is warm. Musculoskeletal: Circulation, motion, and sensation intact. Range of motion: intact in all extremities. 02:00 Reassessment: Patient appears in no apparent distress at this time. Patient and/or jb4 family updated on plan of care and expected duration. Pain level reassessed. Patient is alert, oriented x 3, equal unlabored respirations, skin warm/dry/pink. Vital Signs: 01:00 BP 126 / 88; Pulse 97; Resp 16; Temp 97.3; Pulse Ox 100% ; Weight 62.6 kg; Height 5 ft. ea 8 in. (172.72 cm); 01:00 Body Mass Index 20.98 (62.60 kg, 172.72 cm) ED Course: 00:47 Patient arrived in ED. am4 01:03 Triage completed. ea 01:05 Arm band placed on right wrist. jb4 01:05 Patient has correct armband on for positive identification. Bed in low position. Call jb4 light in reach. Side rails up X 1. 01:09 Jj Francis, RN is Primary Nurse. [facility] 01:16 Fortunato Gallo MD is Attending Physician. [facility] 03:00 No provider procedures requiring assistance completed. Patient did not have IV access jb4 during this emergency room visit. Administered Medications: 02:50 Drug: Tylenol 1000 mg Route: PO; jb4 15:45 Follow up: Response: Pain is decreased bp Outcome: 03:17 Discharge ordered by . 7 03:36 Discharged to home ambulatory, with friend. lp1 03:36 Condition: good 03:36 Discharge instructions given to patient, Instructed on discharge instructions, follow up and referral plans. medication usage, Demonstrated understanding of instructions, follow-up care, medications, Prescriptions given X 3. 03:37 Patient left the ED. lp1 Signatures: Meryl Eugene RN RN lp1 Jj Francis, RN RN jb4 Day Bennett RN RN ea Otto Victoria, RN RN bp Fortunato Gallo MD MD mh7 Pari De La Rosa [facility]
--- NOTE | 2020-11-14 03:18 | EDPHYS ---
Physician Documentation [facility] Name: Pilar Cuba Age: 20 yrs Sex: Female : 2000 Arrival Date: 11/14/2020 Time: 00:47 Bed 6 Private MD: ED Physician Fortunato Gallo HPI: 11/14 03:05 This 20 yrs old Black Female presents to ER via Ambulatory with complaints of Sinus mh7 Congestion. 03:08 The patient presents with Nasal congestion, sinus pain. mh7 03:08 Onset: The symptoms/episode began/occurred 2 day(s) ago. Modifying factors: The mh7 symptoms are alleviated by nothing. the symptoms are aggravated by nothing. Associated signs and symptoms: Pertinent positives: rhinorrhea, Pertinent negatives: blurred vision, chest pain, cough, ear ache, fever, lightheadedness, nausea, shortness of breath, sore throat, vertigo. Severity of symptoms: At their worst the symptoms were moderate 2 day(s) ago, in the emergency department the symptoms are unchanged. Historical: - Allergies: :18 Albuterol; ea :18 none; ea - Home Meds: :18 Vitamin Oral tab once daily [Active]; Iron CR Oral [Active]; ea - PMHx: :18 Anemia; ea - PSHx: :18 ; ea - Immunization history:: Adult Immunizations up to date. - Social history:: Smoking status: Patient denies any tobacco usage or history of. ROS: 03:08 Constitutional: Negative for fever, chills, and weight loss, Eyes: Negative for injury, mh7 pain, redness, and discharge, Neck: Negative for injury, pain, and swelling, Cardiovascular: Negative for chest pain, palpitations, and edema, Respiratory: Negative for shortness of breath, cough, wheezing, and pleuritic chest pain, Abdomen/GI: Negative for abdominal pain, nausea, vomiting, diarrhea, and constipation, Back: Negative for injury and pain, : Negative for injury, bleeding, discharge, and swelling, MS/Extremity: Negative for injury and deformity, Skin: Negative for injury, rash, and discoloration, Neuro: Negative for headache, weakness, numbness, tingling, and seizure, Psych: Negative for depression, anxiety, suicide ideation, homicidal ideation, and hallucinations, Allergy/Immunology: Negative for hives, rash, and allergies, Endocrine: Negative for neck swelling, polydipsia, polyuria, polyphagia, and marked weight changes, Hematologic/Lymphatic: Negative for swollen nodes, abnormal bleeding, and unusual bruising. Exam: 03:08 Constitutional: This is a well developed, well nourished patient who is awake, alert, mh7 and in no acute distress. 03:08 Eyes: Pupils equal round and reactive to light, extra-ocular motions intact. Lids and lashes normal. Conjunctiva and sclera are non-icteric and not injected. Cornea within normal limits. Periorbital areas with no swelling, redness, or edema. 03:08 ENT: Nares patent. No nasal discharge, no septal abnormalities noted. Tympanic membranes are normal and external auditory canals are clear. Oropharynx with no redness, swelling, or masses, exudates, or evidence of obstruction, uvula midline. Mucous membranes moist. Neck: Trachea midline, no thyromegaly or masses palpated, and no cervical lymphadenopathy. Supple, full range of motion without nuchal rigidity, or vertebral point tenderness. No Meningismus. Chest/axilla: Normal chest wall appearance and motion. Nontender with no deformity. No lesions are appreciated. Cardiovascular: Regular rate and rhythm with a normal S1 and S2. No gallops, murmurs, or rubs. Normal PMI, no JVD. No pulse deficits. Respiratory: Lungs have equal breath sounds bilaterally, clear to auscultation and percussion. No rales, rhonchi or wheezes noted. No increased work of breathing, no retractions or nasal flaring. Abdomen/GI: Soft, non-tender, with normal bowel sounds. No distension or tympany. No guarding or rebound. No evidence of tenderness throughout. Back: No spinal tenderness. No costovertebral tenderness. Full range of motion. Skin: Warm, dry with normal turgor. Normal color with no rashes, no lesions, and no evidence of cellulitis. MS/ Extremity: Pulses equal, no cyanosis. Neurovascular intact. Full, normal range of motion. Neuro: Awake and alert, GCS 15, oriented to person, place, time, and situation. Cranial nerves II-XII grossly intact. Motor strength 5/5 in all extremities. Sensory grossly intact. Cerebellar exam normal. Normal gait. Psych: Awake, alert, with orientation to person, place and time. Behavior, mood, and affect are within normal limits. 03:08 Head/face: Sinus tenderness, that is moderate, is located over the right frontal sinus, left frontal sinus, right maxillary sinus and left maxillary sinus. 03:08 ENT: Nose: Vital Signs: 01:00 BP 126 / 88; Pulse 97; Resp 16; Temp 97.3; Pulse Ox 100% ; Weight 62.6 kg; Height 5 ft. ea 8 in. (172.72 cm); 01:00 Body Mass Index 20.98 (62.60 kg, 172.72 cm) ea MDM: 03:15 Differential diagnosis: foreign body - resolved, foreign body - unresolved, sinusitis. 7 Differential diagnosis: Viral Syndrome. Data reviewed: vital signs. Data interpreted: Pulse oximetry: on room air is 100 %. Interpretation: normal. Counseling: I had a detailed discussion with the patient and/or guardian regarding: the historical points, exam findings, and any diagnostic results supporting the discharge/admit diagnosis, lab results, the need for outpatient follow up, to return to the emergency department if symptoms worsen or persist or if there are any questions or concerns that arise at home. Response to treatment: the patient's symptoms have markedly improved after treatment. 03:17 Patient medically screened. [facility] 11/14 01:17 Order name: Flu; Complete Time: 03:12 [facility] 11/14 02:44 Order name: SARS-COV-2 RT PCR; Complete Time: 03:12 EDMS Administered Medications: 02:50 Drug: Tylenol 1000 mg Route: PO; [facility] 15:45 Follow up: Response: Pain is decreased bp Disposition: 11/14/20 03:17 Discharged to Home. Impression: Sinusitis. - Condition is Stable. - Discharge Instructions: Sinusitis, Adult, [id number]. - Prescriptions for Flonase Allergy Relief 50 mcg/actuation Nasal spray,suspension - inhale 1 spray by INTRANASAL route once daily; 1 Inhaler. Saline Mist - spray 2 spray by INTRANASAL route every 4 hours As needed; 1 bottle. guaifenesin 200 mg Oral tablet - take 1 tablet by ORAL route every 4 hours as needed; 15 tablet. - Medication Reconciliation Form, Thank You Letter, Antibiotic Education, Prescription Opioid Use form. - Follow up: Private Physician; When: 1 - 2 days; Reason: Worsening of condition, Recheck today's complaints, Continuance of care, Re-evaluation by your physician. - Problem is new. - Symptoms have improved. Signatures: Dispatcher [employer] [facility] Meryl Eugene, RN RN lp1 Jj Francis RN RN jb4 Day Bennett RN RN ea Holmes, Maurice, MD MD 7 Otto Victoria RN bp Corrections: (The following items were deleted from the chart) 01:52 01:17 CORONAVIRUS+MR.LAB.ESTRELLA ordered. [facility] 03:37 03:17 11/14/2020 03:17 Discharged to Home. Impression: Sinusitis. Condition is Stable. lp1 Forms are Medication Reconciliation Form, Thank You Letter, Antibiotic Education, Prescription Opioid Use. Follow up: Private Physician; When: 1 - 2 days; Reason: Worsening of condition, Recheck today's complaints, Continuance of care, Re-evaluation by your physician. Problem is new. Symptoms have improved. 7
[2020-11-14 03:43] VITALS: BP 126/88; TEMP 97.3; O2SAT 100
== END 2020-11-14 03:37 | disposition home or self-care (01) ==
LOC: ER 00:42
DX: J32.9 Chronic sinusitis, unspecified (principal); Z20.822 Contact with and (suspected) exposure to COVID-19
CPT/HCPCS: 87804; 99283; U0003

== ENCOUNTER 2020-11-15 17:26 | Emergency (ER) | payer OTHER, SELFPAY ==
--- OUTSIDE RECORDS SUMMARY | 2020-11-15 17:29 | XMS REPORT | Continuity of Care Document ---
:2000 Author Organization [facility] Address [address] [place] [address] Dr. Frazier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 [id number] REGIONAL [id number] MATERNAL [phone] & CHILD 107 [facility] 2020-09-12 2020-09-12 Nurse Visit, [facility] [id number] 13:58:18 14:13:18 Visit Adalberto COMMERCIAL FLOOR COVERING INSTALLER [id number] Nurse [facility] [id number] MATERNAL [id number] & CHILD 107 [facility] 2020-09-03 2020-09-07 Hospital Tha Colbyrohith MOORE [id number] 00:19:00 11:07:00 Encounter Raghav Prajapati [id number] [id number] 2020-09-05 2020-09-05 Abstract DEBORAH Payton [id number] 00:00:00 00:00:00 Roshunda R COMMERCIAL FLOOR COVERING INSTALLER [id number] [facility] [id number] MATERNAL [id number] & CHILD 107 [facility] 2020-09-04 2020-09-04 Anesthesia Ryan Mckeon [id number] 03:03:00 07:28:00 Event Ramses Vogt [id number] ANNEX [id number] 2020-09-04 2020-09-04 Surgery TERESA [id number] 05:10:00 07:00:00 LIZZETTE [id number] ANNEX [id number] 2020-09-02 2020-09-02 Room Inspector Leonardo, [facility] [id number] 11:31:43 12:13:06 Visit [facility] 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
--- NOTE | 2020-11-15 17:51 | ER ---
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 Prescribed nasal spray and Tylenol, no relief. S/S has gotten worse. Coronavirus screen: Client denies travel out of the [place] in the last 14 days. congestion, Client presents with at least one sign or symptom that may indicate coronavirus-19. Standard/surgical mask placed on the client. Provider contacted for isolation considerations. Ebola Screen: Patient negative for fever greater than or equal to 101.5 degrees Fahrenheit, and additional compatible Ebola Virus Disease symptoms Patient denies exposure to infectious person. Patient denies travel to an Ebola-affected area in the 21 days before illness onset. No symptoms or risks identified at this time. Initial Sepsis Screen: Does the patient meet any 2 criteria? No. Patient's initial sepsis screen is negative. Does the patient have a suspected source of infection? No. Patient's initial sepsis screen is negative. Risk Assessment: Do you want to hurt yourself or someone else? Patient reports no desire to harm self or others. Onset of symptoms was November 15, 2020. 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 - Social history:: Smoking status: Patient denies any tobacco usage or history of. Screenin:21 Abuse screen: Denies threats or abuse. Denies injuries from another. Nutritional ph screening: No deficits noted. Tuberculosis screening: No symptoms or risk factors identified. Fall Risk None identified. Assessment: 18:00 General: Appears in no apparent distress. comfortable, Behavior is calm, cooperative, ph appropriate for age, Denies fever. Pain: Denies pain. Neuro: Level of Consciousness is awake, alert, obeys commands, Oriented to person, place, time, situation. EENT: Reports nasal congestion. Derm: Skin is intact, is healthy with good turgor, Skin is pink, warm \T\ dry. Musculoskeletal: Circulation, motion, and sensation intact. Range of motion: intact in all extremities. Vital Signs: 17:48 BP 117 / 79; Pulse 110; Resp 20 S; Temp 98.2(TE); Pulse Ox 99% on R/A; Weight 62.6 kg ca1 (R); Height 5 ft. 8 in. (172.72 cm) (R); Pain 0/10; 17:48 Body Mass Index 20.98 (62.60 kg, 172.72 cm) ca1 ED Course: 17:30 Patient arrived in ED. mr 17:32 Lita Kurtz [facility]-C [facility] kb 17:32 John Flores MD is Attending Physician. kb 17:41 Belia Vilchis RN is Primary Nurse. ph 17:50 Triage completed. ca1 17:51 Arm band placed on right wrist. Patient placed in an exam room. ca1 18:22 Patient has correct armband on for positive identification. Bed in low position. Call ph light in reach. Pulse ox on. NIBP on. 18:23 No provider procedures requiring assistance completed. Patient did not have IV access ph during this emergency room visit. Administered Medications: 18:05 Drug: SOLU-Medrol (methylPREDNISolone sodium succinate) 125 mg Route: IM; Site: right ph vastus lateralis; 18:20 Follow up: Response: No adverse reaction ph Outcome: 17:51 Discharge ordered by . kb 18:24 Discharged to home ambulatory. ph 18:24 Condition: good 18:24 Discharge instructions given to patient, Instructed on discharge instructions, follow up and referral plans. Demonstrated understanding of instructions, follow-up care. 18:25 Patient left the ED. ph Signatures: Lita Kurtz FNP-C FNP-Charity Hernandez mr Belia Vilchis RN RN ph Acob, Eli, RN RN ca1
--- NOTE | 2020-11-15 17:51 | EDPHYS ---
Physician Documentation [facility] Name: Pilar Cuba Age: 20 yrs Sex: Female : 2000 Arrival Date: 11/15/2020 Time: 17:30 Bed 13 Private MD: ED Physician John Flores HPI: 11/15 18:37 This 20 yrs old Black Female presents to ER via Ambulatory with complaints of Sinus kb Congestion. 18:37 The patient or guardian reports sinus congestion. Onset: The symptoms/episode kb began/occurred 4 day(s) ago. Severity of symptoms: At their worst the symptoms were moderate, in the emergency department the symptoms are unchanged. Modifying factors: The symptoms are alleviated by nothing, the symptoms are aggravated by nothing. Associated signs and symptoms: Pertinent positives: rhinorrhea. The patient has not experienced similar symptoms in the past. The patient has been recently seen by a physician:. Pt reports she has had sinus congestion for 4 days, came here 2 days ago and was prescribed nasal spray, but it hasn't helped symptoms yet. . 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 - Social history:: Smoking status: Patient denies any tobacco usage or history of. ROS: 18:34 Constitutional: Negative for fever, chills, and weight loss. kb 18:34 ENT: Positive for ear pain, rhinorrhea, sinus congestion. 18:34 All other systems are negative. Exam: 18:34 Constitutional: This is a well developed, well nourished patient who is awake, alert, kb and in no acute distress. Head/Face: Normocephalic, atraumatic. Respiratory: Respirations even and unlabored. No increased work of breathing, no retractions or nasal flaring. Skin: Warm, dry with normal turgor. Normal color. MS/ Extremity: Pulses equal, no cyanosis. Neurovascular intact. Full, normal range of motion. Neuro: Awake and alert, GCS 15, oriented to person, place, time, and situation. Moves all extremities. Normal gait. Psych: Awake, alert, with orientation to person, place and time. Behavior, mood, and affect are within normal limits. 18:34 Head/face: Sinus tenderness, that is moderate, is located over the right frontal sinus, left frontal sinus, right maxillary sinus and left maxillary sinus. 18:34 ENT: External ear(s): are unremarkable, Ear canal(s): are normal, TM's: fluid levels, bilaterally, Nose: is normal, Mouth: is normal, Posterior pharynx: drainage . Vital Signs: 17:48 BP 117 / 79; Pulse 110; Resp 20 S; Temp 98.2(TE); Pulse Ox 99% on R/A; Weight 62.6 kg ca1 (R); Height 5 ft. 8 in. (172.72 cm) (R); Pain 0/10; 17:48 Body Mass Index 20.98 (62.60 kg, 172.72 cm) ca1 MDM: 17:41 Patient medically screened. kb 18:33 Data reviewed: vital signs, nurses notes. Data interpreted: Pulse oximetry: on room air kb is 99 %. Interpretation: normal. Counseling: I had a detailed discussion with the patient and/or guardian regarding: the historical points, exam findings, and any diagnostic results supporting the discharge/admit diagnosis, the need for outpatient follow up, a family practitioner, to return to the emergency department if symptoms worsen or persist or if there are any questions or concerns that arise at home. Administered Medications: 18:05 Drug: SOLU-Medrol (methylPREDNISolone sodium succinate) 125 mg Route: IM; Site: right ph vastus lateralis; 18:20 Follow up: Response: No adverse reaction ph Disposition: 11/16 06:12 Co-signature as Attending Physician, John Flores MD I agree with the assessment and kdr plan of care. Disposition: 11/15/20 17:51 Discharged to Home. Impression: Acute sinusitis. - Condition is Stable. - Discharge Instructions: Sinusitis, Adult, [id number]. - Medication Reconciliation Form, Thank You Letter, Antibiotic Education, Prescription Opioid Use form. - Follow up: Private Physician; When: 2 - 3 days; Reason: Recheck today's complaints, Continuance of care, Re-evaluation by your physician. Follow up: Emergency Department; When: As needed; Reason: Worsening of condition. Signatures: Lita Kurtz, KYLE WADE-John Mendez MD MD [facility] Belia Vilchis RN RN Acob, WERNER Benitez RN ca1 Corrections: (The following items were deleted from the chart) 11/15 18:25 17:51 11/15/2020 17:51 Discharged to Home. Impression: Acute sinusitis. Condition is ph Stable. Forms are Medication Reconciliation Form, Thank You Letter, Antibiotic Education, Prescription Opioid Use. Follow up: Private Physician; When: 2 - 3 days; Reason: Recheck today's complaints, Continuance of care, Re-evaluation by your physician. Follow up: Emergency Department; When: As needed; Reason: Worsening of condition. kb
[2020-11-15] MEDS ORDERED: METHYLPREDNISOLONE 125 MG INJ ONE (18:23)
[2020-11-15 18:31] VITALS: BP 117/79; TEMP 98.2; O2SAT 99
== END 2020-11-15 18:25 | disposition home or self-care (01) ==
LOC: ER 17:26
DX: J01.90 Acute sinusitis, unspecified (principal); Z88.8 Allergy status to other drugs, medicaments and biological substances
CPT/HCPCS: 96372; 99283; J2930

== ENCOUNTER 2021-06-06 00:11 | Emergency (ER) | payer OTHER ==
--- OUTSIDE RECORDS SUMMARY | 2021-06-06 00:24 | XMS REPORT | Continuity of Care Document ---
:2000 Author Organization [facility] t Address [address] [place] [address] Dr. Frazier[address] [place] [id number] Care Team Providers Name Role Phone Guerline ROA Primary Care Physician Unavailable LEO WILKERSON Attending Clinician Unavailable Rhianna MONTGOMERY Attending Clinician Unavailable Guerline ROA Attending Clinician Unavailable Akinnarcisa WHJANICE, C Attending Clinician Visit, Nurse Attending Clinician Unavailable Taryn GARY Attending Clinician Unavailable Tha SPANN Attending Clinician Alo SPANN Attending Clinician Cookie WADE R Attending Clinician Mike Attending Clinician Sin SPANN Attending Clinician Ultrasound Attending Clinician Unavailable Luis Fernando SPANN M Attending Clinician Radha Vincent RN Attending Clinician Unavailable Hussein Attending Clinician Unavailable Dank Mariscal MD Attending Clinician Dez Landry MD Attending Clinician Rohith MICHELE Attending Clinician Unavailable 2, [facility] Room Attending Clinician Unavailable Lorenzo Wilkinson MD Attending Clinician Dank MARISCAL Attending Clinician Unavailable Provider, Urgent Care Attending Clinician Unavailable Samaria CARTER Attending Clinician Unavailable Samaria CARTER Attending Clinician Unavailable Doctor Unassigned, Name Attending Clinician Unavailable Fito SPANN Attending Clinician 5, [facility] U[facility] Room Attending Clinician Unavailable Samaria Short MD Attending Clinician Cyndi MD, R Attending Clinician FITO Admitting Clinician Unavailable Samaria CARTER Admitting Clinician Unavailable Alo SPANN Admitting Clinician Fito SPANN Admitting Clinician Samaria Carter MD Admitting Clinician Payers Payer Name Policy Type Policy Number Effective Date Expiration Date S [facility] [id number] 2020 00:00:00 [employer] [place] - [id number] 2017 2025 OUT OF STATE 00:00:00 00:00:00 [place] [id number] 2020 00:00:00 Advance Directives Directive Decision Effective Termination Comments Source Date Date Healthcare Agents on N/A Univ ersity FileNameRelationshipHealthcare [facility] [place] [facility] Agent Medical RelationshipCommunicationOz[facility] SystemdparentHealth Care [phone] (Mobile) Problems Condition Condition Condition Status Onset Resolution Last Treating Co mments Source Name Details Category Date Date Treatment Clinician Date S/P S/P Disease Active Univers 4-14 ity of 00:00: [address] 35 weeks 35 weeks Disease Active Unive rs gestation gestation 4-10 ity of of of 00:00: [place] 00 [facility] Tachycardi Tachycardi Disease Active U nivers a a 4-10 ity of 00:00: [address] Suspected Suspected Disease Active Uni vers 4-10 ity of anomaly, anomaly, 00:00: [place] antepartum antepartum 00 Tn dical Branch Disease Active Univers contractio contractio 4-10 it y of ns ns 00:00: [address] Labor and Labor and Disease Active Uni vers delivery, delivery, 4-10 [place]y of indication [place] 00:[place] for care for care 00 Medica l Branch IUGR IUGR Disease Active Univers (intrauter (intrauter 4-08 it y of ine growth ine growth 00:00[place] restrictio restrictio 00 Me dical n) n) Branch affecting affecting care of care of mother, mother, third third trimester, trimester, fetus 1 fetus 1 Disease Active Uni vers complicate complicate 2-23 it y of d by d by 00:00: [place] abnormalit abnormalit 00 Me dical y of y of Br anch extremity extremity Anemia of Anemia of Disease Active Uni vers mother in mother in 2-23 ity of , , 00:[place] antepartum antepartum 00 Me dical Branch 20 weeks 20 weeks Disease Active 2019-05 Unive rs gestation gestation 2-29 ity of of of 00:00: [place] 00 [facility] Dizziness Dizziness Disease Active 2019-05 Uni vers 2-23 ity of 00:00: [place] 00 Medical Branch Shortness Shortness Disease Active 2019-05 Uni vers of breath of breath 2-23 ity of 00:00: [place] 00 Medical Branch 19 weeks 19 weeks Disease Active 2019-05 Unive rs gestation gestation 2-23 ity of of of 00:00: [place] 00 [facility] Branch Asthma Asthma Disease Active 2019-05 Univers 2-23 ity of 00:00: [place] 00 Medical Branch UTI UTI Disease Active 2019-05 Univers (urinary (urinary 2-23 ity of tract tract 00:00: [place] infection) infection) 00 Tn dicoh Branch Supervisio Supervisio Disease Active 2019-05 U nivers n of high n of high 2-08 ity of risk risk 00:00: [place] 00 [facility] in second in second Bran ch trimester trimester Primigravi Primigravi Disease Active 2019-05 U nivers da in da in 2-08 ity of second second 00:00: [place] trimester trimester 00 [facility] Branch Screening Screening Disease Active 2019-05 Uni vers for viral for viral 2-08 ity of disease disease 00:00: [place] 00 Medical Branch Need for Need for Disease Active 2019-05 Unive rs prophylact prophylact 2-08 it y of ic ic 00:00: [place] vaccinatio vaccinatio 00 Me dical n and n and Branch inoculatio inoculatio n against n against influenza influenza Contracept Contracept Disease Active 2016-05 U nivers nunu nunu 1-22 ity of management management 00:00[place] 00 [place] Nexplanon Nexplanon Disease Active 2016-05 Uni vers removal removal 1- ity of 00:00: [place] 00 [facility] Branch Vaginal Vaginal Disease Active 2016-05 Univers cyst cyst 0-27 ity of 00:00: [place] 00 [facility] Chronic Chronic Disease Active Univers anemia anemia 9-20 ity of 00:00: [place] 00 [facility] Branch Iron Iron Disease Active Univers deficiency deficiency 9-20 it y of anemia anemia 00:00: [place] 00 [facility] Screening Screening Disease Active Uni vers examinatio examinatio 2-05 it y of n for STD n for STD 00:[place] (sexually (sexually 00 [facility] transmitte transmitte Br anch d disease) d disease) Allergies, Adverse Reactions, Alerts Allergy Allergy Status Severity Reaction(s) Onset Inactive Treating Comm ents Source Name Type Date Date Clinician BARBARA DRUG Active Med Rash 2019-05 Univers L INGREDI 1-24 ity of 00:00: [place] 00 [facility] Albutero Propensi Active Rash 2019-05 Univer s l ty to 06-19 ity of adverse 00:00: [place] reaction 00 [facility] NO KNOWN Drug Active Univers ALLERGIE Class ity of S [facility] Social History Social Habit Start Date Stop Date Quantity Comments Source ASSERTION 2020-01-14 University of 00:00:00 [facility] Exposure to Not sure [facility] SARS-CoV-2 [facility] (event) [place] Tobacco use and 2020-09-12 2020-09-12 Never used Universit y of exposure 00:00:00 00:00:00 [facility] Alcohol intake 2020-09-12 2020-09-12 Current University of 00:00:00 00:00:00 non-drinker of [facility] alcohol Branch (finding) Sex Assigned At [birth year] Universit y of 00:00:00 00:00:00 [facility] Smoking Status Start Date Stop Date Source Never smoker [facility] Medications Ordered Filled Start Stop Current Ordering Indication Dosage Frequency Signature Comments Components Source Medication Medication Date Date Medication? Clinician (SIG) Name Name foLIC acid Yes [id number] 1mg Take 1 U nivers 1 mg tablet 4-13 tablet by ity of 00:00: mouth [place] 00 daily. Medical Branch docusate Yes [id number] 240mg Take 1 Un melody calcium 240 4-13 capsule by it y of mg capsule 00:00: mouth once [place] 00 daily as Medical needed for Branch Constipati on. Yes [id number] 1{tbl} Take 1 U nivers vitamin 4-13 tablet by ity of w/FA tablet 00:00: mouth [place] 00 daily. Medical Branch ibuprofen Yes [id number] 600mg Take 1 U nivers 600 mg 4-13 tablet by ity of tablet 00:00: mouth [place] 00 every 6 Medical (six) Branch hours as needed (Pain). Take with food or milk. foLIC acid Yes [id number] 1mg Take 1 U nivers 1 mg tablet 4-13 tablet by ity of 00:00: mouth [place] 00 daily. Medical Branch docusate Yes [id number] 240mg Take 1 Un melody calcium 240 4-13 capsule by it y of mg capsule 00:00: mouth once [place] 00 daily as Medical needed for Branch Constipati on. Yes [id number] 1{tbl} Take 1 U nivers vitamin 4-13 tablet by ity of w/FA tablet 00:00: mouth [place] 00 daily. Medical Branch ibuprofen Yes [id number] 600mg Take 1 U nivers 600 mg 4-13 tablet by ity of tablet 00:00: mouth [place] 00 every 6 Medical (six) Branch hours as needed (Pain). Take with food or milk. foLIC acid Yes [id number] 1mg Take 1 U nivers 1 mg tablet 4-13 tablet by ity of 00:00: mouth [place] 00 daily. Medical Branch docusate Yes [id number] 240mg Take 1 Un melody calcium 240 4-13 capsule by it y of mg capsule 00:00: mouth once [place] 00 daily as Medical needed for Branch Constipati on. Yes [id number] 1{tbl} Take 1 U nivers vitamin 4-13 tablet by ity of w/FA tablet 00:00: mouth [place] 00 daily. Medical Branch ibuprofen Yes [id number] 600mg Take 1 U nivers 600 mg 4-13 tablet by ity of tablet 00:00: mouth [place] 00 every 6 Medical (six) Branch hours as needed (Pain). Take with food or milk. HYDROcodone 2020-2020- No [id number] 1{tbl} Take 1 U nivers -acetaminop 4-06 09-21 tablet by it y of hen 5-325 00:00: 04:59 mouth [place] mg tablet 00 :00 every 6 Medical (six) Branch hours as needed (Pain scale above 4) for up to 7 days. Do not exceed 3 grams of acetaminop hen in 24 hours. Indication s: acute pain HYDROcodone 2020- No 4647 1{tbl} Take 1 U nivers -acetaminop -09-14 tablet by it y of hen 5-325 00:00: 04:59 mouth [place] mg tablet 00 :00 every 6 Medical (six) Branch hours as needed (Pain scale above 4) for up to 7 days. Do not exceed 3 grams of acetaminop hen in 24 hours. Indication s: acute pain foLIC acid 2020-0 Yes 1mg 1 mg, Univer s (FOLATE) 4-12 Oral, ity of tablet 1 mg 14:00: DAILY, [place] 00 First dose Medical on [facility] 09/05/20 at 0900, Until Discontinu ed, Routine foLIC acid 2020-0 Yes 1mg 1 mg, Univer s (FOLATE) 4-12 Oral, ity of tablet 1 mg 14:00: DAILY, [place] 00 First dose Medical on [facility] 09/05/20 at 0900, Until Discontinu ed, Routine ferrous 2020-0 Yes 325mg 325 mg, Univer s sulfate 4-12 Oral, TID ity of tablet 325 13:00: MEALS, [place] mg 00 First dose Medical on [facility] 09/05/20 at 0800, Until Discontinu ed, Routine ascorbic 202-0 Yes 500mg 500 mg, Unive rs acid 4-12 Oral, BID, ity of (vitamin C) 13:00: First dose [place] (VITAMIN C) 00 on [facility] l tablet 500 09/05/20 at [facility] mg 0800, Until Discontinu ed, Routine ferrous 2021-0 Yes 325mg 325 mg, Univer s sulfate 4-12 Oral, TID ity of tablet 325 13:00: MEALS, [place] mg 00 First dose Medical on [facility] 09/05/20 at 0800, Until Discontinu ed, Routine ascorbic 2021-0 Yes 500mg 500 mg, Unive rs acid 4-12 Oral, BID, ity of (vitamin C) 13:00: First dose [place] (VITAMIN C) 00 on Mon Medica l tablet 500 09/05/20 at [facility] mg 0800, Until Discontinu ed, Routine rho(D) Yes 300ug 300 mcg, Univer s immune 4-11 Intramuscu ity of globulin 15:43: lar, ONCE, [place] (RHOGAM) 40 For 1 Medical syringe 300 dose, Branch mcg Conditiona l, Routine rho(D) Yes 300ug 300 mcg, Univer s immune 4-11 Intramuscu ity of globulin 15:43: lar, ONCE, [place] (RHOGAM) 40 For 1 Medical syringe 300 dose, Branch mcg Conditiona l, Routine HYDROcodone Yes 2{tbl} 2 tablet, Univers -acetaminop 4-11 Oral, ity of hen (NORCO 15:43: Q6HPRN, [place] 5) 5-325 mg 35 Starting Medi virgilio tablet 2 Sun Branch tablet 09/04/20 at 1043, Until Discontinu ed, Routine, Pain (scale 7-10), If uncontroll ed by Ibuprofen HYDROcodone Yes 1{tbl} 1 tablet, Univers -acetaminop 4-11 Oral, ity of hen (NORCO 15:43: Q6HPRN, [place] 5) 5-325 mg 35 Starting Medi virgilio tablet 1 Sun Branch tablet 09/04/20 at 1043, Until Discontinu ed, Routine, Pain (scale 4-6), If uncontroll ed by Ibuprofen ibuprofen Yes 600mg 600 mg, Univ ers (IBU) 4-11 Oral, ity of tablet 600 15:43: Q6HPRN, [place] mg 35 Starting Medical [place] Branch 09/04/20 at 1043, Until Discontinu ed, Routine, Pain (scale 1-3) human Yes .5mL 0.5 mL, Univers papillomav 4-11 Intramuscu ity of vac,9-prateek(P 15:43: lar, [place] F) 35 ONCE-PRIOR Medical (GARDASIL-9 TO Branch ) syringe DISCHARGE, 0.5 mL 1 dose, Starting 09/04/20 at 1043, Until Discontinu ed, Routine, Give vaccine prior to discharge ondansetron Yes 4mg 4 mg, Slow Univers (ZOFRAN 4-11 IV Push, ity of (PF)) 15:43: Q8HPRN, [place] injection 4 35 Starting Medi virgilio mg [place] Branch 09/04/20 at 1043, Until Discontinu ed, Routine, Nausea and Vomiting (N/V) simethicone Yes 160mg 160 mg, Un melody (GAS RELIEF 09-04 Oral, ity of (SIMETHICON 15:43: PC+HSPRN, [place] E)) 35 Starting Medical chewable [place] Branch tablet 160 09/04/20 at mg 1043, Until Discontinu ed, Routine, Gas docusate Yes 240mg 240 mg, Unive rs calcium 4-11 Oral, ity of (SURFAK) 15:43: QDAILYPRN, [place] capsule 240 35 Starting Medi virgilio mg [place] Branch 09/04/20 at 1043, Until Discontinu ed, Routine, Constipati on magnesium Yes 30mL 30 mL, Univer s hydroxide 11 Oral, ity of (MILK OF 15:43: QDAILYPRN, [place] MAGNESIA) 35 Starting Medica l 400 mg/5 mL [place] Branch suspension 09/04/20 at 30 mL 1043, Until Discontinu ed, Routine, Constipati on HYDROcodone 0 Yes 2{tbl} 2 tablet, Univers -acetaminop 4-11 Oral, ity of hen (NORCO 15:43: Q6HPRN, [place] 5) 5-325 mg 35 Starting Medi virgilio tablet 2 [place] Branch tablet 09/04/20 at 1043, Until Discontinu ed, Routine, Pain (scale 7-10), If uncontroll ed by Ibuprofen HYDROcodone Yes 1{tbl} 1 tablet, Univers -acetaminop 4-11 Oral, ity of hen (NORCO 15:43: Q6HPRN, [place] 5) 5-325 mg 35 Starting Medi virgilio tablet 1 [place] Branch tablet 09/04/20 at 1043, Until Discontinu ed, Routine, Pain (scale 4-6), If uncontroll ed by Ibuprofen ibuprofen Yes 600mg 600 mg, Univ ers (IBU) 4-11 Oral, ity of tablet 600 15:43: Q6HPRN, [place] mg 35 Starting Medical [place] Branch 09/04/20 at 1043, Until Discontinu ed, Routine, Pain (scale 1-3) human 2020-0 Yes .5mL 0.5 mL, Univers papillomav -11 Intramuscu ity of vac,9-prateek(P 15:43: lar, [place] F) 35 ONCE-PRIOR Medical (GARDASIL-9 TO Branch ) syringe DISCHARGE, 0.5 mL 1 dose, Starting 09/04/20 at 1043, Until Discontinu ed, Routine, Give vaccine prior to discharge ondansetron Yes 4mg 4 mg, Slow Univers (ZOFRAN 11 IV Push, ity of (PF)) 15:43: Q8HPRN, [place] injection 4 35 Starting Medi virgilio mg [place] Branch 09/04/20 at 1043, Until Discontinu ed, Routine, Nausea and Vomiting (N/V) simethicone Yes 160mg 160 mg, Un melody (GAS RELIEF 11 Oral, ity of (SIMETHICON 15:43: PC+HSPRN, [place] E)) 35 Starting Medical chewable [place] Branch tablet 160 09/04/20 at mg 1043, Until Discontinu ed, Routine, Gas docusate 0 Yes 240mg 240 mg, Unive rs calcium 4-11 Oral, ity of (SURFAK) 15:43: QDAILYPRN, [place] capsule 240 35 Starting Medi virgilio mg [place] Branch 09/04/20 at 1043, Until Discontinu ed, Routine, Constipati on magnesium Yes 30mL 30 mL, Univer s hydroxide 11 Oral, ity of (MILK OF 15:43: QDAILYPRN, [place] MAGNESIA) 35 Starting Medica l 400 mg/5 mL Sun Branch suspension 09/04/20 at 30 mL 1043, Until Discontinu ed, Routine, Constipati on diphenhydrA Yes 25mg 25 mg, IV U nivers MINE-0.9 % 411 Piggyback, ity of sod.chlr 15:43: Administer [place] (BENADRYL) 34 over 30 Medica l 25 mg/50 mL Minutes, Bran ch piggyback Q6HPRN, 1 25 mg dose, Starting [place] 09/04/20 at 1043, Until Discontinu ed, Routine, Itching diphenhydrA 2020-0 Yes 25mg 25 mg, Univ ers MINE 4-11 Oral, ity of (BENADRYL) 15:43: Q6HPRN, [place] tablet 25 34 Starting Medica l mg [place] Branch 09/04/20 at 1043, Until Discontinu ed, Routine, Sleep, Itching bisacodyL 2020-0 Yes 10mg 10 mg, Univer s (DULCOLAX) 4-11 Rectal, ity of suppository 15:43: QDAILYPRN, [place] 10 mg 34 Starting Medical [facility] 09/04/20 at 1043, Until Discontinu ed, Routine, Constipati on diphenhydrA 2020-0 Yes 25mg 25 mg, IV U nivers MINE-0.9 % 411 Piggyback, ity of sod.chlr 15:43: Administer [place] (BENADRYL) 34 over 30 Medica l 25 mg/50 mL Minutes, Bran ch piggyback Q6HPRN, 1 25 mg dose, Starting [place] 09/04/20 at 1043, Until Discontinu ed, Routine, Itching diphenhydrA 2020-0 Yes 25mg 25 mg, Univ ers MINE 4-11 Oral, ity of (BENADRYL) 15:43: Q6HPRN, [place] tablet 25 34 Starting Medica l mg [facility] 09/04/20 at 1043, Until Discontinu ed, Routine, Sleep, Itching bisacodyL 2020-0 Yes 10mg 10 mg, Univer s (DULCOLAX) 4-11 Rectal, ity of suppository 15:43: QDAILYPRN, [place] 10 mg 34 Starting Medical [facility] 09/04/20 at 1043, Until Discontinu ed, Routine, Constipati on LR 1000 mL 2020-0 2020- No 2mU/min 2 Uni vers + oxytocin 09-04 04-11 raine-unit it y of 20 units IV 12:00: 15:43 s/min (6 [place] Solution 00 :43 mL/hr), IV Medic al Infusion, Branch CONTINUOUS , Starting [place] 09/04/20 at 0700, For 1 day ondansetron 2020- No Slow IV Un melody (ZOFRAN 09-04 Push, ONCE ity o f (PF)) 11:58: 12:30 INTRA [place] injection 00 :34 PROCEDURE, Medi virgilio Starting Branch 09/04/20 at 0658, Until 09/04/20 at 0730, Routine, Intra-op FENTanyl PF 2020- No Epidural, Univers (SUBLIMAZE 09-04 ONCE INTRA it y of (PF)) 11:58: 12:30 PROCEDURE, [place] injection 00 :34 Starting Medica l [place] Branch 09/04/20 at 0658, Until 09/04/20 at 0730, Routine, Intra-op LR 1000 mL 2020- No Intravenou Univers + oxytocin 09-04 s, ity of 20 units IV 11:43: 12:30 CONTINUOUS [place] Solution 00 :34 PRN, Medical Starting [facility] 09/04/20 at 0643, Until 09/04/20 at 0730, TOMMIE, Intra-op ketorolac 2020- No 30mg 30 mg, Unive rs (TORADOL) 09-04 Slow IV ity of injection 11:34: 13:43 Push, PRN, [place] 30 mg 57 :00 1 dose, Medical Starting Branch [place] 09/04/20 at 0634, Until Discontinu ed, Routine, Pain (scale 7-10)
F aculty member approving Restricted medication : NISREEN BROWN lidocaine 2020- No Epidural, Un melody 2% 09-04 ONCE INTRA ity of (XYLOCAINE) 11:32: 12:30 PROCEDURE, [place] 20 mg/mL (2 00 :34 Starting [facility] virgilio %) [facility] injection 09/04/20 at 0632, Until [place] 09/04/20 at 0730, Routine, Intra-op lactated 2020- No IV Univers ringers IV 09-04 Infusion, ity of infusion 11:29: 12:30 CONTINUOUS [place] 00 :34 PRN, Medical Starting [facility] 09/04/20 at 0629, Until 09/04/20 at 0730, Routine, Intra-op azithromyci No 500mg 500 mg, IV Univers n 09-04 Piggyback, ity of (ZITHROMAX) 11:18: 13:26 O.R. [place] 500 mg in 50 :00 HOLDING Medical NaCl 0.9% ONCE, 1 Branch (NS) 250 mL dose, VIAL-MATE Starting IV Sun piggyback 09/04/20 at 0618, Until Discontinu ed, 250 mL
Reas on for Anti-Infec tive: Surgical Prophylaxi s
Surgi virgilio Prophylaxi s: AUTHOR AGENT< br>Duratio n of therapy: within 24 hours of surgery
Reason for Anti-Infec tive: Empiric Therapy for Suspected Infection< br>Empiric Therapy Site: Pelvic
Duration of therapy: 72 hours ceFAZolin No 2000mg 2 g (2,000 Univers in dextrose 09-04 mg), IV ity of (iso-os) 11:18: 11:24 [place]back, [place] (ANCEF) 2 27 :00 O.R. Medical gram/100 mL HOLDING Branc h Piggyback 2 ONCE, 1 g dose, Starting 09/04/20 at 0618, Until 09/04/20 at 0624, 100 mL
Reas on for Anti-Infec tive: Surgical Prophylaxi s
Surgi virgilio Prophylaxi s: AUTHOR AGENT
Duration of therapy: within 24 hours of surgery amnioinfusi No 1000mL at 750 U nivers on IV 09-04 mL/hr, ity of infusion 11:00: 10:53 Intrauteri [place] via GRAVITY 00 :00 ne, ONCE, Med ical 0.9 NaCL 1 dose, Branch 1,000 mL [place] 09/04/20 at 0600, TOMMIE
In fuse via gravity 750 ml over 1 hour.&nbsp ; Once 750 mL has been infused, the infusion may be dicsontinu ed or decreased to 100 mL/hr until the liter is complete.& nbsp;&nbsp ;Notify Conservation Coordinator if uterine resting tone exceeds 25 mmHg at any time during the amnioinfus ion. Obst etrics (SUSIE) Aminoinfus ion Orders
LR 1000 mL 2020- No 2mU/min 2-40 Uni vers + oxytocin 09-04 raine-unit it y of 20 units IV 09:32: 13:16 s/min [place] Solution 14 :44 (6-120 Medical mL/hr), IV Branch Infusion, TITRATE, Oxytocin Induction / Augmentati on of Labor, Starting [place] 09/04/20 at 0432
In fuse IV through a controlled infusion pump at a proximal port on the peripheral IV line.&nbsp ; Sta rt at 2 raine-unit s/min and increase by 2 raine-unit s/min every 20 minutes according to oxytocin policy 7.11.52.&n bsp; Going over 20 raine-unit s/min requires faculty approval.& nbsp;&nbsp ;Max 40 raine-unit s/min.
lactated 2020- No 500mL at 999 Unive rs ringers IV 09-04 mL/hr, 500 it y of infusion 08:45: 07:19 mL, IV [place] 500 mL 00 :00 Infusion, Medical ONCE, 1 Branch dose, [place] 09/04/20 at 0345, Routine PIB 2020- No Intra-op Univers FENTanyl 2 09-04 ity of mcg/mL + 08:14: 12:30 [place] bupivacaine 00 :34 Medical 0.1% in NS Branch 250 mL epidural bag lidocaine-e 2020- No Epidural, Univers pinephrine 09-04 ONCE INTRA it y of (XYLOCAINE 08:11: 12:30 PROCEDURE, [place] W/EPINEPHRI 00 :34 Starting Medi virgilio NE) 1.5 [place] Branch %-1:200,000 09/04/20 at injection 0311, Until Discontinu ed, Routine, Intra-op sodium 2020- No 30mL 30 mL, Univers citrate-cit 09-04 Oral, ity of bita acid 07:40: 08:01 PRE-PROCED [place] (BICITRA) 51 :00 URE ONCE, Medic al 500-334 1 dose, Branch mg/5 mL Starting solution 30 Sun mL 09/04/20 at 0240, Until 09/04/20 at 0301, Routine, Surgery/Pr ocedure lactated 2020- No 500mL at 999 Unive rs ringers IV 09-04-11 mL/hr, 500 it y of infusion 04:01: 04:14 mL, [place] 500 mL 00 :00 Intravenou Medical s, ONCE, 1 Branch dose, 09/03/20 at 2315, Routine acetaminoph 2020- No 650mg 650 mg, U nivers en 09-04 Oral, ity of (TYLENOL) 04:01: 04:13 ONCE, 1 [place] tablet 650 00 :00 dose, Sat Medi virgilio mg 09/03/20 at Branch 2315, Routine lactated 2020- No 500mL at 999 Unive rs ringers IV 09-03 04-10 mL/hr, 500 it y of infusion 20:15: 20:25 mL, [place] 500 mL 00 :00 Intravenou Medical s, ONCE, 1 Branch dose, 09/03/20 at 1530, Routine 2020- No 1{tbl} 1 tablet, U nivers vitamin 09-03 Oral, ity of w/FA 16:00: 15:43 DAILY, [place] (PRENATABS 00 :43 First dose Med ical RX) tablet on Sat Branch 1 tablet 09/03/20 at 1100, Until Discontinu ed, Routine betamethaso No 12mg 12 mg, Uni vers ne acet,sod 09-03 Intramuscu i ty of phos 14:15: 13:16 lar, Q24H, [place] (CELESTONE 00 :44 2 doses, Medic al SOLUSPAN) 6 First dose Br anch mg/mL on Sat injection 09/03/20 at 12 mg 0915, Last dose on 09/04/20 at 0915, Routine Nitrofurant Yes 100mg 100 mg, Un melody oin&Nit. 4-10 Oral, BID, ity o f Macrocryst 13:00: First dose [place] (MACROBID) 00 on Sat Medical 100 mg 09/03/20 at [place] capsule 100 0800, mg Until Discontinu ed, Routine
Reason for Anti-Infec tive: Empiric Therapy for Suspected Infection< br>Empiric Therapy Site: Urine<br&g t;Duration of therapy: 72 hours Nitrofurant Yes 100mg 100 mg, Un melody oin&Nit. 4-10 Oral, BID, ity o f Macrocryst 13:00: First dose [place] (MACROBID) 00 on [facility] Medical 100 mg 09/03/20 at [place] capsule 100 0800, mg Until Discontinu ed, Routine
Reason for Anti-Infec tive: Empiric Therapy for Suspected Infection< br>Empiric Therapy Site: Urine<br&g t;Duration of therapy: 72 hours lactated 202- No 1000mL at 999 Univ ers ringers IV 4-10 04-10 mL/hr, ity of infusion 07:15: 06:34 1,000 mL, [place] 1,000 mL 00 :00 Intravenou Medic al s, ONCE, 1 Branch dose, 09/03/20 at 0215, Routine ferrous Yes [id number] 325mg Take 1 Un melody sulfate 325 2-24 tablet by ity of mg (65 mg 00:00: mouth 2 [place] iron) 00 (two) Medical tablet times Branch daily. ascorbic Yes [id number] 500mg Take 1 U nivers acid, 2-24 tablet by ity of vitamin C, 00:00: mouth 3 [place] 500 mg 00 (three) Medical tablet times Branch daily. ferrous Yes [id number] 325mg Take 1 Un melody sulfate 325 2-24 tablet by ity of mg (65 mg 00:00: mouth 2 [place] iron) 00 (two) Medical tablet times Branch daily. ascorbic Yes [id number] 500mg Take 1 U nivers acid, 2-24 tablet by ity of vitamin C, 00:00: mouth 3 [place] 500 mg 00 (three) Medical tablet times Branch daily. ferrous Yes [id number] 325mg Take 1 Un melody sulfate 325 2-24 tablet by ity of mg (65 mg 00:00: mouth 2 [place] iron) 00 (two) Medical tablet times Branch daily. ascorbic Yes [id number] 500mg Take 1 U nivers acid, 2-24 tablet by [facility] of vitamin C, 00:00: mouth 3 [place] 500 mg 00 (three) Medical tablet times Branch daily. ferrous Yes [id number] 325mg Take 1 Un melody sulfate 325 2-24 tablet by ity of mg (65 mg 00:00: mouth 2 [place] iron) 00 (two) Medical tablet times Branch daily. ascorbic Yes [id number] 500mg Take 1 U nivers acid, 2-24 tablet by [facility]y of vitamin C, 00:00: mouth 3 [place] 500 mg 00 (three) Medical tablet times Branch daily. ferrous Yes [id number] 325mg Take 1 Un melody sulfate 325 2-24 tablet by ity of mg (65 mg 00:00: mouth 2 [place] iron) 00 (two) Medical tablet times Branch daily. ascorbic Yes [id number] 500mg Take 1 U nivers acid, 2-24 tablet by ity of vitamin C, 00:00: mouth 3 [place] 500 mg 00 (three) Medical tablet times Branch daily. ferrous Yes [id number] 325mg Take 1 Un melody sulfate 325 2-24 tablet by ity of mg (65 mg 00:00: mouth 2 [place] iron) 00 (two) Medical tablet times Branch daily. ascorbic Yes [id number] 500mg Take 1 U nivers acid, 2-24 tablet by ity of vitamin C, 00:00: mouth 3 [place] 500 mg 00 (three) Medical tablet times Branch daily. ferrous Yes [id number] 325mg Take 1 Un melody sulfate 325 2-24 tablet by ity of mg (65 mg 00:00: mouth 2 [place] iron) 00 (two) Medical tablet times Branch daily. ascorbic Yes [id number] 500mg Take 1 U nivers acid, 2-24 tablet by ity of vitamin C, 00:00: mouth 3 [place] 500 mg 00 (three) Medical tablet times Branch daily. ferrous Yes [id number] 325mg Take 1 Un melody sulfate 325 2-24 tablet by ity of mg (65 mg 00:00: mouth 2 [place] iron) 00 (two) Medical tablet times Branch daily. ascorbic Yes [id number] 500mg Take 1 U nivers acid, 2-24 tablet by ity of vitamin C, 00:00: mouth 3 [place] 500 mg 00 (three) Medical tablet times Branch daily. ferrous Yes [id number] 325mg Take 1 Un melody sulfate 325 2-24 tablet by ity of mg (65 mg 00:00: mouth 2 [place] iron) 00 (two) Medical tablet times Branch daily. ascorbic Yes [id number] 500mg Take 1 U nivers acid, 2-24 tablet by ity of vitamin C, 00:00: mouth 3 [place] 500 mg 00 (three) Medical tablet times Branch daily. ferrous Yes [id number] 325mg Take 1 Un melody sulfate 325 2-24 tablet by ity of mg (65 mg 00:00: mouth 2 [place] iron) 00 (two) Medical tablet times Branch daily. ascorbic Yes [id number] 500mg Take 1 U nivers acid, 2-24 tablet by ity of vitamin C, 00:00: mouth 3 [place] 500 mg 00 (three) Medical tablet times Branch daily. ferrous Yes [id number] 325mg Take 1 Un melody sulfate 325 2-24 tablet by ity of mg (65 mg 00:00: mouth 2 [place] iron) 00 (two) Medical tablet times Branch daily. ascorbic Yes [id number] 500mg Take 1 U nivers acid, 2-24 tablet by ity of vitamin C, 00:00: mouth 3 [place] 500 mg 00 (three) Medical tablet times Branch daily. ferrous Yes [id number] 325mg Take 1 Un melody sulfate 325 2-24 tablet by ity of mg (65 mg 00:00: mouth 2 [place] iron) 00 (two) Medical tablet times Branch daily. ascorbic Yes [id number] 500mg Take 1 U nivers acid, 2-24 tablet by ity of vitamin C, 00:00: mouth 3 [place] 500 mg 00 (three) Medical tablet times Branch daily. ferrous Yes [id number] 325mg Take 1 Un melody sulfate 325 2-24 tablet by ity of mg (65 mg 00:00: mouth 2 [place] iron) 00 (two) Medical tablet times Branch daily. ascorbic Yes [id number] 500mg Take 1 U nivers acid, 2-24 tablet by ity of vitamin C, 00:00: mouth 3 [place] 500 mg 00 (three) Medical tablet times Branch daily. ferrous Yes [id number] 325mg Take 1 Un melody sulfate 325 2-24 tablet by ity of mg (65 mg 00:00: mouth 2 [place] iron) 00 (two) Medical tablet times Branch daily. ascorbic Yes [id number] 500mg Take 1 U nivers acid, 2-24 tablet by ity of vitamin C, 00:00: mouth 3 [place] 500 mg 00 (three) Medical tablet times Branch daily. ferrous Yes [id number] 325mg Take 1 Un melody sulfate 325 2-24 tablet by ity of mg (65 mg 00:00: mouth 2 [place] iron) 00 (two) Medical tablet times Branch daily. ascorbic Yes [id number] 500mg Take 1 U nivers acid, 2-24 tablet by ity of vitamin C, 00:00: mouth 3 [place] 500 mg 00 (three) Medical tablet times Branch daily. ferrous Yes [id number] 325mg Take 1 Un melody sulfate 325 2-24 tablet by ity of mg (65 mg 00:00: mouth 2 [place] iron) 00 (two) Medical tablet times Branch daily. ascorbic Yes [id number] 500mg Take 1 U nivers acid, 2-24 tablet by ity of vitamin C, 00:00: mouth 3 [place] 500 mg 00 (three) Medical tablet times Branch daily. ferrous Yes [id number] 325mg Take 1 Un melody sulfate 325 2-24 tablet by ity of mg (65 mg 00:00: mouth 2 [place] iron) 00 (two) Medical tablet times Branch daily. ascorbic Yes [id number] 500mg Take 1 U nivers acid, 2-24 tablet by ity of vitamin C, 00:00: mouth 3 [place] 500 mg 00 (three) Medical tablet times Branch daily. 2019-05 Yes 1{tbl} 1 tablet, Un melody vitamin 2-30 Oral, ity of w/FA 00:45: DAILY, [place] (PRENATABS 00 First dose Med ical RX) tablet on Sat Branch 1 tablet 05/24/20 at 1845, Until Discontinu ed, Routine alum-mag 2019-05 Yes 30mL 30 mL, Univers hydroxide-s 2-30 Oral, ity of imeth [place] (MAALOX 50 Starting Medical PLUS / Tue Branch MAG-AL 05/24/20 PLUS) at 1831, 200-200-20 Until mg/5 mL Discontinu suspension ed, 30 mL Routine, Indigestio n docusate 2019-05 Yes 240mg 240 mg, Unive rs calcium 2-30 Oral, ity of (SURFAK) 00:31: [place] capsule 240 50 Starting Medi virgilio mg Tue Branch 05/24/20 at 1831, Until Discontinu ed, Routine, Constipati on magnesium 2019-05 Yes 30mL 30 mL, Univer s hydroxide 2-30 Oral, ity of (MILK OF 00:31: QDAILYPRN [place] MAGNESIA) 50 Starting Medica l 400 mg/5 mL Tue Branch suspension 05/24/20 30 mL at 1831, Until Discontinu ed, Routine, Constipati on progesteron 2019-05 Yes [id number] Insert 100 Univers e 2-30 mg nightly ity of micronized 00:00: into [place] ([facility]) 8 00 vaginal as Me dical % vaginal far back Branch gel as possible progesteron 2019-05 Yes [id number] Insert 100 Univers e 2-30 mg nightly ity of micronized 00:00: into [place] [facility] vaginal as Me dical % vaginal far back Branch gel as possible progesteron 2020 Yes [id number] Insert 100 Univers e 2-30 mg nightly ity of micronized 00:00: into [place] [facility] 8 00 vaginal as Me dical % vaginal far back Branch gel as possible progesteron 2020- Yes [id number] Insert 100 Univers e 2-30 mg nightly ity of micronized 00:00: into [place] [facility] 8 [facility] vaginal as Me dical % vaginal far back Branch gel as possible progesteron 2020- Yes [id number] Insert 100 Univers e 2-30 mg nightly ity of micronized 00:00: into [place] [facility] 8 00 vaginal as Me dical % vaginal far back Branch gel as possible progesteron 2019-1 Yes [id number] Insert 100 Univers e 2-30 mg nightly ity of micronized 00:00: into [place] [facility] 8 00 vaginal as Me dical % vaginal far back Branch gel as possible progesteron 2020-1 Yes [id number] Insert 100 Univers e 2-30 mg nightly ity of micronized 00:00: into [place] [facility] 8 00 vaginal as Me dical % vaginal far back Branch gel as possible progesteron 2020-1 Yes [id number] Insert 100 Univers e 2-30 mg nightly ity of micronized 00:00: into [place] ([facility] 8 00 vaginal as Me dical % vaginal far back Branch gel as possible progesteron 2020-1 Yes [id number] Insert 100 Univers e 2-30 mg nightly ity of micronized 00:00: into [place] [facility] 8 00 vaginal as Me dical % vaginal far back Branch gel as possible progesteron 2020-1 Yes [id number] Insert 100 Univers e 2-30 mg nightly ity of micronized 00:00: into [facility]) 8 00 vaginal as Me dical % vaginal far back Branch gel as possible progesteron 2020-1 Yes [id number] Insert 100 Univers e 2-30 mg nightly ity of micronized 00:00: [facility] Me dical % vaginal far back Branch gel as possible progesteron 2020-1 Yes [id number] Insert 100 Univers e 2-30 mg nightly ity of micronized 00:00: [facility] vaginal as Me dical % vaginal far back Branch gel as possible progesteron 2020-1 Yes [id number] Insert 100 Univers e 2-30 mg nightly ity of micronized 00:00: into [place] [facility] vaginal as Me dical % vaginal far back Branch gel as possible progesteron 2020-1 Yes [id number] Insert 100 Univers e 2-30 mg nightly ity of micronized 00:00: into [place] [facility] vaginal as Me dical % vaginal far back Branch gel as possible progesteron 2020-1 Yes [id number] Insert 100 Univers e 2-30 mg nightly ity of micronized 00:00: into [place] [facility] vaginal as Me dical % vaginal far back Branch gel as possible progesteron 2020-1 Yes [id number] Insert 100 Univers e 2-30 mg nightly ity of micronized 00:00: into [place] [facility] 8 00 vaginal as Me dical % vaginal far back Branch gel as possible progesteron 2020-1 Yes [id number] Insert 100 Univers e 2-30 mg nightly ity of micronized 00:00: into [place] ([facility]) 8 00 vaginal as Me dical % vaginal far back Branch gel as possible progesteron 2020-1 Yes [id number] Insert 100 Univers e 2-30 mg nightly ity of micronized 00:00: into [place] ([facility]) 8 00 vaginal as Me dical % vaginal far back Branch gel as possible progesteron 2020-1 Yes [id number] Insert 100 Univers e 2-30 mg nightly ity of micronized 00:00: into [place] ([facility]) 8 00 vaginal as Me dical % vaginal far back Branch gel as possible progesteron 2020-1 Yes [id number] Insert 100 Univers e 2-30 mg nightly ity of micronized 00:00: into [place] ([facility]) 8 00 vaginal as Me dical % vaginal far back Branch gel as possible progesteron 2020-1 Yes [id number] Insert 100 Univers e 2-30 mg nightly ity of micronized 00:00: into [place] ([facility]) 8 00 vaginal as Me dical % vaginal far back Branch gel as possible progesteron 2020-1 Yes [id number] Insert 100 Univers e 2-30 mg nightly ity of micronized 00:00: into [facility]) 8 00 vaginal as Me dical % vaginal far back Branch gel as possible progesteron 2020-1 Yes [id number] Insert 100 Univers e 2-30 mg nightly ity of micronized 00:00: into [place] [facility] 8 [facility] vaginal as Me dical % vaginal far back Branch gel as possible progesteron 2020-1 Yes [id number] Insert 100 Univers e 2-30 mg nightly ity of micronized 00:00: into [place] [facility] 8 00 vaginal as Me dical % vaginal far back Branch gel as possible progesteron 2020-1 Yes [id number] Insert 100 [facility] e 2-30 mg nightly ity of micronized 00:00: into [place] ([facility]) 8 00 vaginal as Me dical % vaginal far back Branch gel as possible progesteron 2020- Yes [id number] Insert 100 Univers e 2-30 mg nightly ity of micronized 00:00: into [place] ([facility]) 8 00 vaginal as Me dical % vaginal far back Branch gel as possible progesteron 2020- Yes [id number] Insert 100 Univers e 2-30 mg nightly ity of micronized 00:00: into [place] ([facility]) 8 00 vaginal as Me dical % vaginal far back Branch gel as possible progesteron 2020- Yes [id number] Insert 100 Univers e 2-30 mg nightly ity of micronized 00:00: into [place] ([facility]) 8 00 vaginal as Me dical % vaginal far back Branch gel as possible progesteron 2020- Yes [id number] Insert 100 Univers e 2-30 mg nightly ity of micronized 00:00: into [place] ([facility]) 8 00 vaginal as Me dical % vaginal far back Branch gel as possible progesteron 2019-05- No [id number] Insert 100 Univers e 2-30 04-13 mg nightly ity of micronized 00:00: 00:00 into [place] ([facility]) 8 00 :00 vaginal as Me dical % vaginal far back Branch gel as possible etonogestre 2019-05 2020- No 68mg 68 mg by U nivers l 2-24 12-24 Subdermal ity of (NEXPLANON) 13:09: 00:00 route once [place] 68 mg 43 :00 now. Medical implant Branch ascorbic 2019-05 Yes [id number] 500mg Take 1 Un melody acid, 2-24 tablet by ity of vitamin C, 00:00: mouth [place] 500 mg 00 daily. Medical tablet Branch ascorbic 2019-05 Yes [id number] 500mg Take 1 Un melody acid, 2-24 tablet by ity of vitamin C, 00:00: mouth [place] 500 mg 00 daily. Medical tablet Branch ascorbic 2019-05 Yes [id number] 500mg Take 1 Un melody acid, 2-24 tablet by ity of vitamin C, 00:00: mouth [place] 500 mg 00 daily. Medical tablet Branch ascorbic 2019-05 Yes [id number] 500mg Take 1 Un melody acid, 2-24 tablet by ity of vitamin C, 00:00: mouth [place] 500 mg 00 daily. Medical tablet Branch ascorbic 2019- Yes [id number] 500mg Take 1 Un melody acid, 2-24 tablet by ity of vitamin C, 00:00: mouth [place] 500 mg 00 daily. Medical tablet Branch ascorbic 2019-05 Yes [id number] 500mg Take 1 Un melody acid, 2-24 tablet by ity of vitamin C, 00:00: mouth [place] 500 mg 00 daily. Medical tablet Branch ascorbic 2019-05 Yes [id number] 500mg Take 1 Un melody acid, 2-24 tablet by ity of vitamin C, 00:00: mouth [place] 500 mg 00 daily. Medical tablet Branch ascorbic 2019-05 Yes [id number] 500mg Take 1 Un melody acid, 2-24 tablet by ity of vitamin C, 00:00: mouth [place] 500 mg 00 daily. Medical tablet Branch ascorbic 2019-05 Yes [id number] 500mg Take 1 Un melody acid, 2-24 tablet by ity of vitamin C, 00:00: mouth [place] 500 mg 00 daily. Medical tablet Branch ascorbic 2019-05 Yes [id number] 500mg Take 1 Un melody acid, 2-24 tablet by ity of vitamin C, 00:00: mouth [place] 500 mg 00 daily. Medical tablet Branch ascorbic 2019-05 Yes [id number] 500mg Take 1 Un melody acid, 2-24 tablet by ity of vitamin C, 00:00: mouth [place] 500 mg 00 daily. Medical tablet Branch ascorbic 2019-05 Yes [id number] 500mg Take 1 Un melody acid, 2-24 tablet by ity of vitamin C, 00:00: mouth [place] 500 mg 00 daily. Medical tablet Branch ascorbic 2019-05 Yes [id number] 500mg Take 1 Un melody acid, 2-24 tablet by ity of vitamin C, 00:00: mouth [place] 500 mg 00 daily. Medical tablet Branch ascorbic 2019-05 Yes [id number] 500mg Take 1 Un melody acid, 2-24 tablet by ity of vitamin C, 00:00: mouth [place] 500 mg 00 daily. Medical tablet Branch ascorbic 2019-05 Yes [id number] 500mg Take 1 Un melody acid, 2-24 tablet by ity of vitamin C, 00:00: mouth [place] 500 mg 00 daily. Medical tablet Branch ascorbic Yes [id number] 500mg Take 1 Un melody acid, 2-24 tablet by ity of vitamin C, 00:00: mouth [place] 500 mg 00 daily. Medical tablet Branch ascorbic 2019- Yes [id number] 500mg Take 1 Un melody acid, 2-24 tablet by ity of vitamin C, 00:00: mouth [place] 500 mg 00 daily. Medical tablet Branch ascorbic 2019- Yes [id number] 500mg Take 1 Un melody acid, 2-24 tablet by ity of vitamin C, 00:00: mouth [place] 500 mg 00 daily. Medical tablet Branch ascorbic 2019-05 Yes [id number] 500mg Take 1 Un melody acid, 2-24 tablet by ity of vitamin C, 00:00: mouth [place] 500 mg 00 daily. Medical tablet Branch ascorbic 2019-05 Yes [id number] 500mg Take 1 Un melody acid, 2-24 tablet by ity of vitamin C, 00:00: mouth [place] 500 mg 00 daily. Medical tablet Branch ascorbic 2019-05 Yes [id number] 500mg Take 1 Un melody acid, 2-24 tablet by ity of vitamin C, 00:00: mouth [place] 500 mg 00 daily. Medical tablet Branch ascorbic 2019-05 Yes [id number] 500mg Take 1 Un melody acid, 2-24 tablet by ity of vitamin C, 00:00: mouth [place] 500 mg 00 daily. Medical tablet Branch ascorbic 2019-05 Yes [id number] 500mg Take 1 Un melody acid, 2-24 tablet by ity of vitamin C, 00:00: mouth [place] 500 mg 00 daily. Medical tablet Branch ascorbic 2019- Yes [id number] 500mg Take 1 Un melody acid, 2-24 tablet by ity of vitamin C, 00:00: mouth [place] 500 mg 00 daily. Medical tablet Branch ascorbic 2019- Yes [id number] 500mg Take 1 Un melody acid, 2-24 tablet by ity of vitamin C, 00:00: mouth [place] 500 mg 00 daily. Medical tablet Branch ascorbic 2019- Yes [id number] 500mg Take 1 Un melody acid, 2-24 tablet by ity of vitamin C, 00:00: mouth [place] 500 mg 00 daily. Medical tablet Branch ascorbic 2019- Yes [id number] 500mg Take 1 Un melody acid, 2-24 tablet by ity of vitamin C, 00:00: mouth [place] 500 mg 00 daily. Medical tablet Branch ascorbic 2019-05 Yes [id number] 500mg Take 1 Un melody acid, 2-24 tablet by ity of vitamin C, 00:00: mouth [place] 500 mg 00 daily. Medical tablet Branch ascorbic 2019-05 Yes [id number] 500mg Take 1 Un melody acid, 2-24 tablet by ity of vitamin C, 00:00: mouth [place] 500 mg 00 daily. Medical tablet Branch ascorbic 2019-05 Yes [id number] 500mg Take 1 Un melody acid, 2-24 tablet by ity of vitamin C, 00:00: mouth [place] 500 mg 00 daily. Medical tablet Branch ascorbic 2019-05 Yes [id number] 500mg Take 1 Un melody acid, 2-24 tablet by ity of vitamin C, 00:00: mouth [place] 500 mg 00 daily. Medical tablet Branch ascorbic 2019-05 Yes [id number] 500mg Take 1 Un melody acid, 2-24 tablet by ity of vitamin C, 00:00: mouth [place] 500 mg 00 daily. Medical tablet Branch ascorbic 2019-05 Yes [id number] 500mg Take 1 Un melody acid, 2-24 tablet by ity of vitamin C, 00:00: mouth [place] 500 mg 00 daily. Medical tablet Branch ascorbic 2019-05 Yes [id number] 500mg Take 1 Un melody acid, 2-24 tablet by ity of vitamin C, 00:00: mouth [place] 500 mg 00 daily. Medical tablet Branch ascorbic 2019-05 Yes [id number] 500mg Take 1 Un melody acid, 2-24 tablet by ity of vitamin C, 00:00: mouth [place] 500 mg 00 daily. Medical tablet Branch ascorbic 2019-05- No [id number] 500mg Take 1 U nivers acid, 2-24 04-13 tablet by ity of vitamin C, 00:00: 00:00 mouth [place] 500 mg 00 :00 daily. Medical tablet Branch cephALEXin 2019-05- No [id number] 250mg Take 1 Univers 250 mg 2-24 - capsule by ity of capsule 00:00: 05:59 mouth [place] 00 :00 every 6 Medical (six) Branch hours for 6 days. cephALEXin 2019-05- No [id number] 250mg Take 1 Univers 250 mg 2-24 12-31 capsule by ity of capsule 00:00: 05:59 mouth [place] 00 :00 every 6 Medical (six) Branch hours for 6 days. cephALEXin 2019-05 2020- No [id number] 250mg Take 1 Univers 250 mg 2-24 12-31 capsule by ity of capsule 00:00: 05:59 mouth [place] 00 :00 every 6 Medical (six) Branch hours for 6 days. cephALEXin 2019-05 2020- No [id number] 250mg Take 1 Univers 250 mg 2-24 12-31 capsule by ity of capsule 00:00: 05:59 mouth [place] 00 :00 every 6 Medical (six) Branch hours for 6 days. cephALEXin 2019-05- No [id number] 250mg Take 1 Univers 250 mg 2-24 12-31 capsule by ity of capsule 00:00: 05:59 mouth [place] 00 :00 every 6 Medical (six) Branch hours for 6 days. cephALEXin 2019-05- No [id number] 250mg Take 1 Univers 250 mg 2-24 12-31 capsule by ity of capsule 00:00: 05:59 mouth [place] 00 :00 every 6 Medical (six) Branch hours for 6 days. cephALEXin 2019-05- No [id number] 250mg Take 1 Univers 250 mg 2-24 12-31 capsule by ity of capsule 00:00: 05:59 mouth [place] 00 :00 every 6 Medical (six) Branch hours for 6 days. cephALEXin 2019-05 Yes 250mg 250 mg, Uni vers (KEFLEX) 2-23 Oral, Q6H, ity o f capsule 250 18:00: First dose [place] mg 00 on Sat Medical 05/18/20 Branch at 1200, Until Discontinu ed, TOMMIE
Re ason for Anti-Infec tive: Empiric Therapy for Suspected Infection< br>Empiric Therapy Site: Urine
D uration of therapy: 7 days 2019-05 Yes 1{tbl} 1 tablet, Un melody vitamin 2-23 Oral, ity of w/FA 15:00: DAILY, [place] (PRENATABS 00 First dose Med ical RX) tablet on Sat Branch 1 tablet 05/18/20 at 0900, Until Discontinu ed, Routine lactated 2019-05 2020- No 500mL at 999 Unive rs ringers IV 2-23 12-23 mL/hr, 500 it y of infusion 10:30: 09:38 mL, [place] 500 mL 00 :00 Intravenou Medical s, ONCE, 1 Branch dose, 05/18/20 at 0430, Routine alum-mag 2019-05 Yes 30mL 30 mL, Univers hydroxide-s 2-23 Oral, ity of imeth 10:23: Q6HPRN, [place] (MAALOX 41 Starting Medical PLUS / Wed Branch MAG-AL 05/18/20 PLUS) at 0423, 200-200-20 Until mg/5 mL Discontinu suspension ed, 30 mL Routine, Indigestio n docusate 2019-05 Yes 240mg 240 mg, Unive rs calcium 2-23 Oral, ity of (SURFAK) 10:23: QHSPRN, [place] capsule 240 41 Starting Medi virgilio mg Wed Branch 05/18/20 at 0423, Until Discontinu ed, Routine, Constipati on magnesium 2019-05 Yes 30mL 30 mL, Univer s hydroxide 2-23 Oral, ity of (MILK OF 10:23: QDAILYPRN, [place] as MAGNESIA) 41 Starting Medica l 400 mg/5 mL Wed Branch suspension 05/18/20 30 mL at 0423, Until Discontinu ed, Routine, Constipati on etonogestre 2019-05 Yes 68mg 68 mg by Un melody l 2-08 Subdermal ity of (NEXPLANON) 16:03: route once [place] 68 mg 30 now. Medical implant Branch etonogestre 2019-05 Yes 68mg 68 mg by Un melody l 2-08 Subdermal ity of (NEXPLANON) 16:03: route once [place] 68 mg 30 now. Medical implant Branch etonogestre 2019-05 Yes 68mg 68 mg by Un melody l 2-08 Subdermal ity of (NEXPLANON) 16:03: route once [place] 68 mg 30 now. Medical implant Branch etonogestre 2019-05 Yes 68mg 68 mg by Un melody l 2-08 Subdermal ity of (NEXPLANON) 16:03: route once [place] 68 mg 30 now. Medical implant Branch etonogestre 2019-05 Yes 68mg 68 mg by Un melody l 2-08 Subdermal ity of (NEXPLANON) 16:03: route once [place] 68 mg 30 now. Medical implant Branch etonogestre 2020-1 Yes 68mg 68 mg by Un melody l 2-08 Subdermal ity of (NEXPLANON) 16:03: route once [place] 68 mg 30 now. Medical implant Branch 2019-05 Yes [id number] 1{packe Take 1 Univers vit 2-08 t} Packet by ity of 33-iron-fol 00:00: mouth [place] ic-dha 00 daily. Medical (SELECT-OB Branch + DHA) 29 mg iron-1 mg -250 mg combo pack 2019-05 Yes [id number] 1{packe Take 1 Univers vit 2-08 t} Packet by ity of 33-iron-fol 00:00: mouth [place] ic-dha 00 daily. Medical (SELECT-OB Branch + DHA) 29 mg iron-1 mg -250 mg combo pack 2019-05 Yes [id number] 1{packe Take 1 Univers vit 2-08 t} Packet by ity of 33-iron-fol 00:00: mouth [place] ic-dha 00 daily. Medical (SELECT-OB Branch + DHA) 29 mg iron-1 mg -250 mg combo pack 2019-05 Yes [id number] 1{packe Take 1 Univers vit 2-08 t} Packet by ity of 33-iron-fol 00:00: mouth [place] ic-dha 00 daily. Medical (SELECT-OB Branch + DHA) 29 mg iron-1 mg -250 mg combo pack 2019-05 Yes [id number] 1{packe Take 1 Univers vit 2-08 t} Packet by ity of 33-iron-fol 00:00: mouth [place] ic-dha 00 daily. Medical (SELECT-OB Branch + DHA) 29 mg iron-1 mg -250 mg combo pack 2019-05 Yes [id number] 1{packe Take 1 Univers vit 2-08 t} Packet by ity of 33-iron-fol 00:00: mouth [place] ic-dha 00 daily. Medical (SELECT-OB Branch + DHA) 29 mg iron-1 mg -250 mg combo pack 2019-05 Yes [id number] 1{packe Take 1 Univers vit 2-08 t} Packet by ity of 33-iron-fol 00:00: mouth [place] ic-dha 00 daily. Medical (SELECT-OB Branch + DHA) 29 mg iron-1 mg -250 mg combo pack 2019-05 Yes [id number] 1{packe Take 1 Univers vit 2-08 t} Packet by ity of 33-iron-fol 00:00: mouth [place] ic-dha 00 daily. Medical (SELECT-OB Branch + DHA) 29 mg iron-1 mg -250 mg combo pack 2019-05 Yes [id number] 1{packe Take 1 Univers vit 2-08 t} Packet by ity of 33-iron-fol 00:00: mouth [place] ic-dha 00 daily. Medical (SELECT-OB Branch + DHA) 29 mg iron-1 mg -250 mg combo pack 2019-05 Yes [id number] 1{packe Take 1 Univers vit 2-08 t} Packet by ity of 33-iron-fol 00:00: mouth [place] ic-dha 00 daily. Medical (SELECT-OB Branch + DHA) 29 mg iron-1 mg -250 mg combo pack 2019-05 Yes [id number] 1{packe Take 1 Univers vit 2-08 t} Packet by ity of 33-iron-fol 00:00: mouth [place] ic-dha 00 daily. Medical (SELECT-OB Branch + DHA) 29 mg iron-1 mg -250 mg combo pack 2019-05 Yes [id number] 1{packe Take 1 Univers vit 2-08 t} Packet by ity of 33-iron-fol 00:00: mouth [place] ic-dha 00 daily. Medical (SELECT-OB Branch + DHA) 29 mg iron-1 mg -250 mg combo pack 2019-05 Yes [id number] 1{packe Take 1 Univers vit 2-08 t} Packet by ity of 33-iron-fol 00:00: mouth [place] ic-dha 00 daily. Medical (SELECT-OB Branch + DHA) 29 mg iron-1 mg -250 mg combo pack 2019- Yes [id number] 1{packe Take 1 Univers vit 2-08 t} Packet by ity of 33-iron-fol 00:00: mouth [place] ic-dha 00 daily. Medical (SELECT-OB Branch + DHA) 29 mg iron-1 mg -250 mg combo pack 2019-05 Yes [id number] 1{packe Take 1 [facility] vit 2-08 t} Packet by ity of 33-iron-fol 00:00: mouth [place] ic-dha 00 daily. Medical (SELECT-OB Branch + DHA) 29 mg iron-1 mg -250 mg combo pack 2019-05 Yes [id number] 1{packe Take 1 [facility] vit 2-08 t} Packet by ity of 33-iron-fol 00:00: mouth [place] ic-dha daily. [facility] ([facility] + DHA) 29 mg iron-1 mg -250 mg combo pack 2019-05 Yes [id number] 1{packe Take 1 [facility] vit 2-08 t} Packet by [facility]y of 33-iron-fol 00:00: mouth [place] ic-dha daily. [facility] ([facility] + DHA) 29 mg iron-1 mg -250 mg combo pack 2019-05 Yes [id number] 1{packe Take 1 [facility] vit 2-08 t} Packet by [facility] 33-iron-fol 00:00: mouth [place] ic-dha daily. [facility] ([facility] + DHA) 29 mg iron-1 mg -250 mg combo pack 2019-05 Yes [id number] 1{packe Take 1 [facility] vit 2-08 t} Packet by [facility] of 33-iron-fol 00:00: mouth [place] ic-dha daily. [facility] ([facility] + DHA) 29 mg iron-1 mg -250 mg combo pack 2019-05 Yes [id number] 1{packe Take 1 [facility] vit 2-08 t} Packet by [facility] of 33-iron-fol 00:00: mouth [place] ic-dha daily. [facility] ([facility] + DHA) 29 mg iron-1 mg -250 mg combo pack 2019-05 Yes [id number] 1{packe Take 1 [facility] vit 2-08 t} Packet by [facility] of 33-iron-fol 00:00: mouth [place] ic-dha daily. [facility] ([facility] + DHA) 29 mg iron-1 mg -250 mg combo pack 2019-05 Yes [id number] 1{packe Take 1 [facility] vit 2-08 t} Packet by [facility] 33-iron-fol 00:00: mouth [place] ic-dha 00 daily. [facility] ([facility] + DHA) 29 mg iron-1 mg -250 mg combo pack 2019-05 Yes [id number] 1{packe Take 1 [facility] vit 2-08 t} Packet by [facility] 33-iron-fol 00:00: mouth [place] ic-dha 00 daily. [facility] ([facility] + DHA) 29 mg iron-1 mg -250 mg combo pack 2020- Yes [id number] 1{packe Take 1 [facility] vit 2-08 t} Packet by [facility] of 33-iron-fol 00:00: mouth [place] ic-dha 00 daily. [facility] ([facility] + DHA) 29 mg iron-1 mg -250 mg combo pack 2020- Yes [id number] 1{packe Take 1 [facility] vit 2-08 t} Packet by [facility] of 33-iron-fol 00:00: mouth [place] ic-dha 00 daily. Medical ([facility] + DHA) 29 mg iron-1 mg -250 mg combo pack 2020 Yes [id number] 1{packe Take 1 [facility] vit 2-08 t} Packet by [facility] of 33-iron-fol 00:00: mouth [place] ic-dha 00 daily. [facility] ([facility] + DHA) 29 mg iron-1 mg -250 mg combo pack 2019-05 Yes [id number] 1{packe Take 1 [facility] vit 2-08 t} Packet by [facility] of 33-iron-fol 00:00: mouth [place] ic-dha daily. [facility] ([facility] + DHA) 29 mg iron-1 mg -250 mg combo pack 2020 Yes [id number] 1{packe Take 1 [facility] vit 2-08 t} Packet by [facility] 33-iron-fol 00:00: mouth [place] ic-dha 00 daily. [facility] ([facility] + DHA) 29 mg iron-1 mg -250 mg combo pack 2020- Yes [id number] 1{packe Take 1 [facility] vit 2-08 t} Packet by [facility] 33-iron-fol 00:00: mouth [place] ic-dha 00 daily. Medical ([facility] + DHA) 29 mg iron-1 mg -250 mg combo pack 2020- Yes [id number] 1{packe Take 1 [facility] vit 2-08 t} Packet by [facility] of 33-iron-fol 00:00: mouth [place] ic-dha 00 daily. Medical ([facility] + DHA) 29 mg iron-1 mg -250 mg combo pack 2020- Yes [id number] 1{packe Take 1 [facility] vit 2-08 t} Packet by [facility] of 33-iron-fol 00:00: mouth [place] ic-dha 00 daily. Medical ([facility] + DHA) 29 mg iron-1 mg -250 mg combo pack 2020- Yes [id number] 1{packe Take 1 [facility] vit 2-08 t} Packet by [facility]y of 33-iron-fol 00:00: mouth [place] ic-dha 00 daily. Medical ([facility] + DHA) 29 mg iron-1 mg -250 mg combo pack 2020- Yes [id number] 1{packe Take 1 [facility] vit 2-08 t} Packet by [facility]y of 33-iron-fol 00:00: mouth [place] ic-dha 00 daily. Medical ([facility] + DHA) 29 mg iron-1 mg -250 mg combo pack 2020- Yes [id number] 1{packe Take 1 [facility] vit 2-08 t} Packet by [facility]y of 33-iron-fol 00:00: mouth [place] ic-dha 00 daily. Medical ([facility] + DHA) 29 mg iron-1 mg -250 mg combo pack 2020- Yes [id number] 1{packe Take 1 [facility] vit 2-08 t} Packet by [facility]y of 33-iron-fol 00:00: mouth [place] ic-dha 00 daily. Medical ([facility] + DHA) 29 mg iron-1 mg -250 mg combo pack 2020- Yes [id number] 1{packe Take 1 [facility] vit 2-08 t} Packet by [facility] of 33-iron-fol 00:00: mouth [place] ic-dha 00 daily. Medical ([facility] + DHA) 29 mg iron-1 mg -250 mg combo pack 2020- Yes [id number] 1{packe Take 1 [facility] vit 2-08 t} Packet by [facility]y of 33-iron-fol 00:00: mouth [place] ic-dha 00 daily. Medical ([facility] + DHA) 29 mg iron-1 mg -250 mg combo pack 2020- Yes [id number] 1{packe Take 1 [facility] vit 2-08 t} Packet by [facility]y of 33-iron-fol 00:00: mouth [place] ic-dha 00 daily. Medical ([facility] + DHA) 29 mg iron-1 mg -250 mg combo pack 2020- Yes [id number] 1{packe Take 1 [facility] vit 2-08 t} Packet by [facility]y of 33-iron-fol 00:00: mouth [place] ic-dha 00 daily. Medical ([facility] + DHA) 29 mg iron-1 mg -250 mg combo pack 2019-05 Yes [id number] 1{packe Take 1 [facility] vit 2-08 t} Packet by [facility]y of 33-iron-fol 00:00: mouth [place] ic-dha 00 daily. Medical ([facility] + DHA) 29 mg iron-1 mg -250 mg combo pack 2019-05 Yes [id number] 1{packe Take 1 [facility] vit 2-08 t} Packet by [facility]y of 33-iron-fol 00:00: mouth [place] ic-dha 00 daily. Medical ([facility] + DHA) 29 mg iron-1 mg -250 mg combo pack 2019-05- No [id number] 1{packe Take 1 [facility] vit 2-08 04-13 t} Packet by [facility] 33-iron-fol 00:00: 00:00 [place] [place] :00 daily. [facility] ([facility] + DHA) 29 mg iron-1 mg -250 mg combo pack etonogestre Yes 68mg 68 mg by Un melody l 1-22 Subdermal ity of (NEXPLANON) 14:58: route once [place] 68 mg 54 now. Medical implant Branch iron ps 2017-05 Yes 5mL Take 5 mL Unive rs cmplx-vitam 0-29 by mouth 2 it y of in D3 00:00: (two) [place] (NOVAFERRUM 00 times Medical 125) 125 mg daily. Branch iron- 100 unit/5 mL liquid iron ps 2017-05 Yes 5mL Take 5 mL Unive rs cmplx-vitam 0-29 by mouth 2 it y of in D3 00:00: (two) [place] (NOVAFERRUM 00 times Medical 125) 125 mg daily. Branch iron- 100 unit/5 mL liquid iron ps 2017-05 Yes 5mL Take 5 mL Unive rs cmplx-vitam 0-29 by mouth 2 it y of in D3 00:00: (two) [place] (NOVAFERRUM 00 times Medical 125) 125 mg daily. Branch iron- 100 unit/5 mL liquid iron ps 2017-05 Yes 5mL Take 5 mL Unive rs cmplx-vitam 0-29 by mouth 2 it y of in D3 00:00: (two) [place] (NOVAFERRUM 00 times Medical 125) 125 mg daily. Branch iron- 100 unit/5 mL liquid iron ps 2017-05 Yes 5mL Take 5 mL Unive rs cmplx-vitam 0-29 by mouth 2 it y of in D3 00:00: (two) [place] (NOVAFERRUM 00 times Medical 125) 125 mg daily. Branch iron- 100 unit/5 mL liquid iron ps 2017-05 Yes 5mL Take 5 mL Unive rs cmplx-vitam 0-29 by mouth 2 it y of in D3 00:00: (two) [place] (NOVAFERRUM 00 times Medical 125) 125 mg daily. Branch iron- 100 unit/5 mL liquid iron ps 2017-05 Yes 5mL Take 5 mL Unive rs cmplx-vitam 0-29 by mouth 2 it y of in D3 00:00: (two) [place] (NOVAFERRUM 00 times Medical 125) 125 mg daily. Branch iron- 100 unit/5 mL liquid iron ps 2017-05 Yes 5mL Take 5 mL Unive rs cmplx-vitam 0-29 by mouth 2 it y of in D3 00:00: (two) [place] (NOVAFERRUM 00 times Medical 125) 125 mg daily. Branch iron- 100 unit/5 mL liquid iron ps 2017-05 Yes 5mL Take 5 mL Unive rs cmplx-vitam 0-29 by mouth 2 it y of in D3 00:00: (two) [place] (NOVAFERRUM 00 times Medical 125) 125 mg daily. Branch iron- 100 unit/5 mL liquid iron ps 2017-05 Yes 5mL Take 5 mL Unive rs cmplx-vitam 0-29 by mouth 2 it y of in D3 00:00: (two) [place] (NOVAFERRUM 00 times Medical 125) 125 mg daily. Branch iron- 100 unit/5 mL liquid iron ps 2018 Yes 5mL Take 5 mL Unive rs cmplx-vitam 0-29 by mouth 2 it y of in D3 00:00: (two) [place] (NOVAFERRUM 00 times Medical 125) 125 mg daily. Branch iron- 100 unit/5 mL liquid iron ps 2017-05 Yes 5mL Take 5 mL Unive rs cmplx-vitam 0-29 by mouth 2 it y of in D3 00:00: (two) [place] (NOVAFERRUM 00 times Medical 125) 125 mg daily. Branch iron- 100 unit/5 mL liquid iron ps 2017-05 Yes 5mL Take 5 mL Unive rs cmplx-vitam 0-29 by mouth 2 it y of in D3 00:00: (two) [place] (NOVAFERRUM 00 times Medical 125) 125 mg daily. Branch iron- 100 unit/5 mL liquid iron ps 2017-05 Yes 5mL Take 5 mL Unive rs cmplx-vitam 0-29 by mouth 2 it y of in D3 00:00: (two) [place] (NOVAFERRUM 00 times Medical 125) 125 mg daily. Branch iron- 100 unit/5 mL liquid iron ps 2017-05 Yes 5mL Take 5 mL Unive rs cmplx-vitam 0-29 by mouth 2 it y of in D3 00:00: (two) [place] (NOVAFERRUM 00 times Medical 125) 125 mg daily. Branch iron- 100 unit/5 mL liquid iron ps 2017-05 Yes 5mL Take 5 mL Unive rs cmplx-vitam 0-29 by mouth 2 it y of in D3 00:00: (two) [place] (NOVAFERRUM 00 times Medical 125) 125 mg daily. Branch iron- 100 unit/5 mL liquid iron ps 2017-05 Yes 5mL Take 5 mL Unive rs cmplx-vitam 0-29 by mouth 2 it y of in D3 00:00: (two) [place] (NOVAFERRUM 00 times Medical 125) 125 mg daily. Branch iron- 100 unit/5 mL liquid iron ps 2017-05 Yes 5mL Take 5 mL Unive rs cmplx-vitam 0-29 by mouth 2 it y of in D3 00:00: (two) [place] (NOVAFERRUM 00 times Medical 125) 125 mg daily. Branch iron- 100 unit/5 mL liquid iron ps 2018 Yes 5mL Take 5 mL Unive rs cmplx-vitam 0-29 by mouth 2 it y of in D3 00:00: (two) [place] (NOVAFERRUM 00 times Medical 125) 125 mg daily. Branch iron- 100 unit/5 mL liquid iron ps 2017- Yes 5mL Take 5 mL Unive rs cmplx-vitam 0-29 by mouth 2 it y of in D3 00:00: (two) [place] (NOVAFERRUM 00 times Medical 125) 125 mg daily. Branch iron- 100 unit/5 mL liquid iron ps 2018- Yes 5mL Take 5 mL Unive rs cmplx-vitam 0-29 by mouth 2 it y of in D3 00:00: (two) [place] (NOVAFERRUM 00 times Medical 125) 125 mg daily. Branch iron- 100 unit/5 mL liquid iron ps 2017- Yes 5mL Take 5 mL Unive rs cmplx-vitam 0-29 by mouth 2 it y of in D3 00:00: (two) [place] (NOVAFERRUM 00 times Medical 125) 125 mg daily. Branch iron- 100 unit/5 mL liquid iron ps 2017- Yes 5mL Take 5 mL Unive rs cmplx-vitam 0-29 by mouth 2 it y of in D3 00:00: (two) [place] (NOVAFERRUM 00 times Medical 125) 125 mg daily. Branch iron- 100 unit/5 mL liquid iron ps 2017-05 Yes 5mL Take 5 mL Unive rs cmplx-vitam 0-29 by mouth 2 it y of in D3 00:00: (two) [place] (NOVAFERRUM 00 times Medical 125) 125 mg daily. Branch iron- 100 unit/5 mL liquid iron ps 2017-05 Yes 5mL Take 5 mL Unive rs cmplx-vitam 0-29 by mouth 2 it y of in D3 00:00: (two) [place] (NOVAFERRUM 00 times Medical 125) 125 mg daily. Branch iron- 100 unit/5 mL liquid iron ps 2017-05 Yes 5mL Take 5 mL Unive rs cmplx-vitam 0-29 by mouth 2 it y of in D3 00:00: (two) [place] (NOVAFERRUM 00 times Medical 125) 125 mg daily. Branch iron- 100 unit/5 mL liquid iron ps 2018- Yes 5mL Take 5 mL Unive rs cmplx-vitam 0-29 by mouth 2 it y of in D3 00:00: (two) [place] (NOVAFERRUM 00 times Medical 125) 125 mg daily. Branch iron- 100 unit/5 mL liquid iron ps 2018- Yes 5mL Take 5 mL Unive rs cmplx-vitam 0-29 by mouth 2 it y of in D3 00:00: (two) [place] (NOVAFERRUM 00 times Medical 125) 125 mg daily. Branch iron- 100 unit/5 mL liquid iron ps 2017- Yes 5mL Take 5 mL Unive rs cmplx-vitam 0-29 by mouth 2 it y of in D3 00:00: (two) [place] (NOVAFERRUM 00 times Medical 125) 125 mg daily. Branch iron- 100 unit/5 mL liquid iron ps 2017- Yes 5mL Take 5 mL Unive rs cmplx-vitam 0-29 by mouth 2 it y of in D3 00:00: (two) [place] (NOVAFERRUM 00 times Medical 125) 125 mg daily. Branch iron- 100 unit/5 mL liquid iron ps 2017-05 Yes 5mL Take 5 mL Unive rs cmplx-vitam 0-29 by mouth 2 it y of in D3 00:00: (two) [place] (NOVAFERRUM 00 times Medical 125) 125 mg daily. Branch iron- 100 unit/5 mL liquid iron ps 2017-05 Yes 5mL Take 5 mL Unive rs cmplx-vitam 0-29 by mouth 2 it y of in D3 00:00: (two) [place] (NOVAFERRUM 00 times Medical 125) 125 mg daily. Branch iron- 100 unit/5 mL liquid iron ps 2017-05 Yes 5mL Take 5 mL Unive rs cmplx-vitam 0-29 by mouth 2 it y of in D3 00:00: (two) [place] (NOVAFERRUM 00 times Medical 125) 125 mg daily. Branch iron- 100 unit/5 mL liquid iron ps 2017-05 Yes 5mL Take 5 mL Unive rs cmplx-vitam 0-29 by mouth 2 it y of in D3 00:00: (two) [place] (NOVAFERRUM 00 times Medical 125) 125 mg daily. Branch iron- 100 unit/5 mL liquid iron ps 2018- Yes 5mL Take 5 mL Unive rs cmplx-vitam 0-29 by mouth 2 it y of in D3 00:00: (two) [place] (NOVAFERRUM 00 times Medical 125) 125 mg daily. Branch iron- 100 unit/5 mL liquid iron ps 2017-05 Yes 5mL Take 5 mL Unive rs cmplx-vitam 0-29 by mouth 2 it y of in D3 00:00: (two) [place] (NOVAFERRUM 00 times Medical 125) 125 mg daily. Branch iron- 100 unit/5 mL liquid iron ps 2017-05 Yes 5mL Take 5 mL Unive rs cmplx-vitam 0-29 by mouth 2 it y of in D3 00:00: (two) [place] (NOVAFERRUM 00 times Medical 125) 125 mg daily. Branch iron- 100 unit/5 mL liquid iron ps 2017-05 Yes 5mL Take 5 mL Unive rs cmplx-vitam 0-29 by mouth 2 it y of in D3 00:00: (two) [place] (NOVAFERRUM 00 times Medical 125) 125 mg daily. Branch iron- 100 unit/5 mL liquid iron ps 2017-05 Yes 5mL Take 5 mL Unive rs cmplx-vitam 0-29 by mouth 2 it y of in D3 00:00: (two) [place] (NOVAFERRUM 00 times Medical 125) 125 mg daily. Branch iron- 100 unit/5 mL liquid iron ps 2017-05 Yes 5mL Take 5 mL Unive rs cmplx-vitam 0-29 by mouth 2 it y of in D3 00:00: (two) [place] (NOVAFERRUM 00 times Medical 125) 125 mg daily. Branch iron- 100 unit/5 mL liquid iron ps 2017-05 Yes 5mL Take 5 mL Unive rs cmplx-vitam 0-29 by mouth 2 it y of in D3 00:00: (two) [place] (NOVAFERRUM 00 times Medical 125) 125 mg daily. Branch iron- 100 unit/5 mL liquid iron ps 2017-05 Yes 5mL Take 5 mL Unive rs cmplx-vitam 0-29 by mouth 2 it y of in D3 00:00: (two) [place] (NOVAFERRUM 00 times Medical 125) 125 mg daily. Branch iron- 100 unit/5 mL liquid iron ps 2017-05- No 5mL Take 5 mL Univ ers cmplx-vitam 0-29 04-13 by mouth 2 i ty of in D3 00:00: 00:00 (two) [place] (NOVAFERRUM 00 :00 times Medical 125) 125 mg daily. Branch iron- 100 unit/5 mL liquid ferrous 2018-0 Yes 650mg Take 2 Univers sulfate 325 7-25 tablets by it y of mg (65 mg 00:00: mouth 2 [place] iron) 00 (two) Medical tablet times Branch daily. ferrous 2018-0 Yes 650mg Take 2 [facility] sulfate 325 7-25 tablets by it y of mg (65 mg 00:00: mouth 2 [place] iron) 00 (two) Medical tablet times Branch daily. ferrous 2018-0 Yes 650mg Take 2 [facility] sulfate 325 7-25 tablets by it y of mg (65 mg 00:00: mouth 2 [place] iron) 00 (two) Medical tablet times Branch daily. ferrous 2018-0 Yes 650mg Take 2 [facility] sulfate 325 7-25 tablets by it y of mg (65 mg 00:00: mouth 2 [place] iron) 00 (two) Medical tablet times Branch daily. ferrous 2018-0 Yes 650mg Take 2 [facility] sulfate 325 7-25 tablets by it y of mg (65 mg 00:00: mouth 2 [place] iron) 00 (two) Medical tablet times Branch daily. ferrous 2018-0 Yes 650mg Take 2 [facility] sulfate 325 7-25 tablets by it y of mg (65 mg 00:00: mouth 2 [place] iron) 00 (two) Medical tablet times Branch daily. ferrous 2018-0 Yes 650mg Take 2 [facility] sulfate 325 7-25 tablets by it y of mg (65 mg 00:00: mouth 2 [place] iron) 00 (two) Medical tablet times Branch daily. ferrous 2018- 2020- No 650mg Take 2 Univer s sulfate 325 7-25 12-24 tablets by i ty of mg (65 mg 00:00: 00:00 [place] 00 :00 (two) Medical tablet times Branch daily. Immunizations Ordered Filled Immunization Date Status Comments [facility] e Immunization Name Name [facility] 2020-07-19 Completed [facility] 00:00: [facility] TD 2020-07-19 Completed University of :00: [facility] TD 2020-07-19 [facility] 2020-07-19 Completed University of :00: [facility] TDAP 2020-07-19 Completed University of :00: [facility] TDAP 2020-07-19 [facility] 00:[facility]: [facility] TDAP 2020-07-19 Completed University of 00:00:00 [facility] TDAP 2020-07-19 Completed University of 00:00:00 [facility] TDAP 2020-07-19 Completed University of 00:00:00 [place] [facility] TDAP 2020-07-19 Completed University of 00:00:00 [place] [facility] TDAP 2020-07-19 Completed University of 00:00:00 [place] [facility] TDAP 2020-07-19 Completed University of 00:00:00 [place] [facility] TDAP 2020-07-19 Completed University of 00:00:00 [place] [facility] TDAP 2020-07-19 Completed University of 00:00:00 [place] [facility] TDAP 2020-07-19 Completed University of 00:00:00 [place] [facility] TDAP 2020-07-19 Completed University of 00:00:00 [facility] Influenza Virus 2020-05-03 Completed Universit y of Vaccine Quad .5 mL 00:00:00 [place] [facility] IM 6+ MO Branch Influenza Virus 2020-05-03 Completed Universit y of Vaccine [facility] .5 mL 00:00:00 [place] [facility] IM 6+ MO Branch Influenza Virus 2020-05-03 Completed Universit y of Vaccine Quad .5 mL 00:00:00 [place] [facility] IM 6+ MO Branch Influenza Virus 2020-05-03 Completed Universit y of Vaccine Quad .5 mL 00:00:00 [place] [facility] IM 6+ MO Branch Influenza Virus 2020-05-03 Completed Universit y of Vaccine Quad .5 mL 00:00:00 [place] [facility] IM 6+ MO Branch Influenza Virus 2020-05-03 Completed Universit y of Vaccine Quad .5 mL 00:00:00 [place] [facility] IM 6+ MO Branch Influenza Virus 2020-05-03 Completed Universit y of Vaccine Quad .5 mL 00:00:00 [place] [facility] IM 6+ MO Branch Influenza Virus 2020-05-03 Completed Universit y of Vaccine Quad .5 mL 00:00:00 [place] [facility] IM 6+ MO Branch Influenza Virus 2020-05-03 Completed Universit y of Vaccine Quad .5 mL 00:00:00 [place] [facility] IM 6+ MO Branch Influenza Virus 2020-05-03 Completed Universit y of Vaccine Quad .5 mL 00:00:00 [place] [facility] IM 6+ MO Branch Influenza Virus 2020-05-03 Completed Universit y of Vaccine Quad .5 mL 00:00:00 [place] [facility] IM 6+ MO Branch Influenza Virus 2020-05-03 Completed Universit y of Vaccine Quad .5 mL 00:00:00 [place] [facility] IM 6+ MO Branch Influenza Virus 2020-05-03 Completed Universit y of Vaccine Quad .5 mL 00:00:00 [place] [facility] IM 6+ MO Branch Influenza Virus 2020-05-03 Completed Universit y of Vaccine Quad .5 mL 00:00:00 [place] [facility] IM 6+ MO Branch Influenza Virus 2020-05-03 Completed Universit y of Vaccine Quad .5 mL 00:00:00 [place] [facility] IM 6+ MO Branch Influenza Virus 2020-05-03 Completed Universit y of Vaccine Quad .5 mL 00:00:00 [place] [facility] IM 6+ MO Branch Influenza Virus 2020-05-03 Completed Universit y of Vaccine Quad .5 mL 00:00:00 [place] [facility] IM 6+ MO Branch Influenza Virus 2020-05-03 Completed Universit y of Vaccine Quad .5 mL 00:00:00 [place] [facility] IM 6+ MO Branch Influenza Virus 2020-05-03 Completed Universit y of Vaccine Quad .5 mL 00:00:00 [place] [facility] IM 6+ MO Branch Influenza Virus 2020-05-03 Completed Universit y of Vaccine Quad .5 mL 00:00:00 [place] [facility] IM 6+ MO Branch Influenza Virus 2020-05-03 Completed Universit y of Vaccine Quad .5 mL 00:00:00 [place] [facility] IM 6+ MO Branch Influenza Virus 2020-05-03 Completed Universit y of Vaccine Quad .5 mL 00:00:00 [place] [facility] IM 6+ MO Branch Influenza Virus 2020-05-03 Completed Universit y of Vaccine Quad .5 mL 00:00:00 [place] [facility] IM 6+ MO Branch Influenza Virus 2020-05-03 Completed Universit y of Vaccine Quad .5 mL 00:00:00 [place] [facility] IM 6+ MO Branch Influenza Virus 2020-05-03 Completed Universit y of Vaccine Quad .5 mL 00:00:00 [place] [facility] IM 6+ MO Branch Influenza Virus 2020-05-03 Completed Universit y of Vaccine Quad .5 mL 00:00:00 [place] [facility] IM 6+ MO Branch Influenza Virus 2020-05-03 Completed Universit y of Vaccine Quad .5 mL 00:00:00 [place] [facility] IM 6+ MO Branch Influenza Virus 2020-05-03 Completed Universit y of Vaccine Quad .5 mL 00:00:00 [place] [facility] IM 6+ MO Branch Influenza Virus 2020-05-03 Completed Universit y of Vaccine Quad .5 mL 00:00:00 [place] [facility] IM 6+ MO Branch Influenza Virus 2020-05-03 Completed Universit y of Vaccine Quad .5 mL 00:00:00 [place] [facility] IM 6+ MO Branch Influenza Virus 2020-05-03 Completed Universit y of Vaccine Quad .5 mL 00:00:00 [place] [facility] IM 6+ MO Branch Influenza Virus 2020-05-03 Completed Universit y of Vaccine Quad .5 mL 00:00:00 [place] [facility] IM 6+ MO Branch Influenza Virus 2020-05-03 Completed Universit y of Vaccine Quad .5 mL 00:00:00 [place] [facility] IM 6+ MO Branch Influenza Virus 2020-05-03 Completed Universit y of Vaccine Quad .5 mL 00:00:00 [place] [facility] IM 6+ MO Branch Influenza Virus 2020-05-03 Completed Universit y of Vaccine Quad .5 mL 00:00:00 [place] [facility] IM 6+ MO Branch Influenza Virus 2020-05-03 Completed Universit y of Vaccine Quad .5 mL 00:00:00 [place] [facility] IM 6+ MO Branch Influenza Virus 2020-05-03 Completed Universit y of Vaccine Quad .5 mL 00:00:00 [place] [facility] IM 6+ MO Branch Influenza Virus 2020-05-03 Completed Universit y of Vaccine Quad .5 mL 00:00:00 [place] [facility] IM 6+ MO Branch Influenza Virus 2020-05-03 Completed Universit y of Vaccine Quad .5 mL 00:00:00 [place] [facility] IM 6+ MO Branch Influenza Virus 2020-05-03 Completed Universit y of Vaccine Quad .5 mL 00:00:00 [place] [facility] IM 6+ MO Branch Influenza Virus 2020-05-03 Completed Universit y of Vaccine Quad .5 mL 00:00:00 [place] [facility] IM 6+ MO Branch Influenza Virus 2020-05-03 Completed Universit y of Vaccine Quad .5 mL 00:00:00 [place] [facility] IM 6+ MO Branch Influenza Virus 2020-05-03 Completed Universit y of Vaccine Quad .5 mL 00:00:00 [place] [facility] IM 6+ MO Branch Influenza Virus 2020-05-03 Completed Universit y of Vaccine Quad .5 mL 00:00:00 [place] [facility] IM 6+ MO Branch Influenza Virus 2018-03-25 Completed Universit y of Vaccine Quad .5 mL 00:00:00 [place] [facility] IM 6+ MO Branch Influenza Virus 2018-03-25 Completed Universit y of Vaccine Quad .5 mL 00:00:00 [place] [facility] IM 6+ MO Branch Influenza Virus 2018-03-25 Completed Universit y of Vaccine Quad .5 mL 00:00:00 [place] [facility] IM 6+ MO Branch Influenza Virus 2018-03-25 Completed Universit y of Vaccine Quad .5 mL 00:00:00 [place] [facility] IM 6+ MO Branch Influenza Virus 2018-03-25 Completed Universit y of Vaccine Quad .5 mL 00:00:00 [place] [facility] IM 6+ MO Branch Influenza Virus 2018-03-25 Completed Universit y of Vaccine Quad .5 mL 00:00:00 [place] [facility] IM 6+ MO Branch Influenza Virus 2018-03-25 Completed Universit y of Vaccine Quad .5 mL 00:00:00 [place] [facility] IM 6+ MO Branch Influenza Virus 2018-03-25 Completed Universit y of Vaccine Quad .5 mL 00:00:00 [place] [facility] IM 6+ MO Branch Influenza Virus 2018-03-25 Completed Universit y of Vaccine Quad .5 mL 00:00:00 [place] [facility] IM 6+ MO Branch Influenza Virus 2018-03-25 Completed Universit y of Vaccine Quad .5 mL 00:00:00 [place] [facility] IM 6+ MO Branch Influenza Virus 2018-03-25 Completed Universit y of Vaccine Quad .5 mL 00:00:00 [place] [facility] IM 6+ MO Branch Influenza Virus 2018-03-25 Completed Universit y of Vaccine Quad .5 mL 00:00:00 [place] [facility] IM 6+ MO Branch Influenza Virus 2018-03-25 Completed Universit y of Vaccine Quad .5 mL 00:00:00 [place] [facility] IM 6+ MO Branch Influenza Virus 2018-03-25 Completed Universit y of Vaccine Quad .5 mL 00:00:00 [place] [facility] IM 6+ MO Branch Influenza Virus 2018-03-25 Completed Universit y of Vaccine Quad .5 mL 00:00:00 [place] [facility] IM 6+ MO Branch Influenza Virus 2018-03-25 Completed Universit y of Vaccine Quad .5 mL 00:00:00 [place] [facility] IM 6+ MO Branch Influenza Virus 2018-03-25 Completed Universit y of Vaccine Quad .5 mL 00:00:00 [place] [facility] IM 6+ MO Branch Influenza Virus 2018-03-25 Completed Universit y of Vaccine Quad .5 mL 00:00:00 [place] [facility] IM 6+ MO Branch Influenza Virus 2018-03-25 Completed Universit y of Vaccine Quad .5 mL 00:00:00 [place] [facility] IM 6+ MO Branch Influenza Virus 2018-03-25 Completed Universit y of Vaccine Quad .5 mL 00:00:00 [place] [facility] IM 6+ MO Branch Influenza Virus 2018-03-25 Completed Universit y of Vaccine Quad .5 mL 00:00:00 [place] [facility] IM 6+ MO Branch Influenza Virus 2018-03-25 Completed Universit y of Vaccine Quad .5 mL 00:00:00 [place] [facility] IM 6+ MO Branch Influenza Virus 2018-03-25 Completed Universit y of Vaccine Quad .5 mL 00:00:00 [place] [facility] IM 6+ MO Branch Influenza Virus 2018-03-25 Completed Universit y of Vaccine Quad .5 mL 00:00:00 [place] [facility] IM 6+ MO Branch Influenza Virus 2018-03-25 Completed Universit y of Vaccine Quad .5 mL 00:00:00 [place] [facility] IM 6+ MO Branch Influenza Virus 2018-03-25 Completed Universit y of Vaccine Quad .5 mL 00:00:00 [place] [facility] IM 6+ MO Branch Influenza Virus 2018-03-25 Completed Universit y of Vaccine Quad .5 mL 00:00:00 [place] [facility] IM 6+ MO Branch Influenza Virus 2018-03-25 Completed Universit y of Vaccine Quad .5 mL 00:00:00 [place] [facility] IM 6+ MO Branch Influenza Virus 2018-03-25 Completed [facility] .5 mL 00:00:00 [facility] Influenza Virus 2018-03-25 Completed [facility] .5 mL 00:00:00 [facility] Influenza Virus 2018-03-25 Completed [facility] .5 mL 00:00:00 [facility] Influenza Virus 2018-03-25 Completed [facility] .5 mL 00:00:00 [facility] Influenza Virus 2018-03-25 Completed [facility] .5 mL 00:00:00 [facility] Influenza Virus 2018-03-25 Completed [facility] .5 mL 00:00:00 [facility] Influenza Virus 2018-03-25 Completed [facility] .5 mL 00:00:00 [facility] Influenza Virus 2018-03-25 Completed [facility] .5 mL 00:00:00 [facility] Influenza Virus 2018-03-25 Completed [facility] .5 mL 00:00:00 [facility] Influenza Virus 2018-03-25 Completed [facility] .5 mL 00:00:00 [facility] Influenza Virus 2018-03-25 Completed [facility] .5 mL 00:00:00 [facility] Influenza Virus 2018-03-25 Completed [facility] .5 mL 00:00:00 [facility] Influenza Virus 2018-03-25 Completed [facility] .5 mL 00:00:00 [facility] Influenza Virus 2018-03-25 Completed [facility] .5 mL 00:00:00 [facility] Influenza Virus 2018-03-25 Completed [facility] .5 mL 00:00:00 [facility] Influenza Virus 2018-03-25 Completed [facility] .5 mL 00:00:00 [facility] Influenza Virus 2018-03-25 Completed [facility] .5 mL 00:00:00 [facility] HPV9 2017-10-15 Completed [facility] 00:00:00 [facility] HPV9 2017-10-15 Completed [facility] 00:00:00 [facility] HPV9 2017-10-15 Completed [facility] 00:00:00 [facility] HPV9 2017-10-15 Completed [facility] 00:00:00 [facility] HPV9 2017-10-15 Completed [facility] 00:00:00 [facility] HPV9 2017-10-15 Completed [facility] 00:00:00 [facility] HPV9 2017-10-15 Completed [facility] 00:00:00 [facility] HPV9 2017-10-15 Completed [facility] 00:00:00 [facility] HPV9 2017-10-15 Completed [facility] 00:00:00 [facility] HPV9 2017-10-15 Completed [facility] 00:00:00 [facility] HPV9 2017-10-15 Completed [facility] 00:00:00 [facility] HPV9 2017-10-15 Completed [facility] 00:00:00 [facility] HPV9 2017-10-15 Completed [facility] 00:00:00 [facility] HPV9 2017-10-15 Completed [facility] 00:00:00 [facility] HPV9 2017-10-15 Completed [facility] 00:00:00 [facility] HPV9 2017-10-15 Completed [facility] 00:00:00 [facility] HPV9 2017-10-15 Completed [facility] 00:00:00 [facility] HPV9 2017-10-15 Completed [facility] 00:00:00 [facility] HPV9 2017-10-15 Completed [facility] 00:00:00 [facility] HPV9 2017-10-15 Completed [facility] 00:00:00 [facility] HPV9 2017-10-15 Completed [facility] 00:00:00 [facility] HPV9 2017-10-15 Completed [facility] 00:00:00 [facility] HPV9 2017-10-15 Completed [facility] 00:00:00 [facility] HPV9 2017-10-15 Completed [facility] 00:00:00 [facility] HPV9 2017-10-15 Completed [facility] 00:00:00 [facility] HPV9 2017-10-15 Completed [facility] 00:00:00 [facility] HPV9 2017-10-15 Completed [facility] 00:00:00 [facility] HPV9 2017-10-15 Completed [facility] 00:00:00 [facility] HPV9 2017-10-15 Completed [facility] 00:00:00 [facility] HPV9 2017-10-15 Completed [facility] 00:00:00 [facility] HPV9 2017-10-15 Completed [facility] 00:00:00 [facility] HPV9 2017-10-15 Completed [facility] 00:00:00 [facility] HPV9 2017-10-15 Completed [facility] 00:00:00 [facility] HPV9 2017-10-15 Completed [facility] 00:00:00 [facility] HPV9 2017-10-15 Completed [facility] 00:00:00 [facility] HPV9 2017-10-15 Completed [facility] 00:00:00 [facility] HPV9 2017-10-15 Completed [facility] 00:00:00 [facility] HPV9 2017-10-15 Completed [facility] 00:00:00 [facility] HPV9 2017-10-15 Completed [facility] 00:00:00 [facility] HPV9 2017-10-15 Completed [facility] 00:00:00 [facility] HPV9 2017-10-15 Completed [facility] 00:00:00 [facility] HPV9 2017-10-15 Completed [facility] 00:00:00 [facility] HPV9 2017-10-15 Completed [facility] 00:00:00 [facility] HPV9 2017-10-15 Completed [facility] 00:00:00 [facility] HPV9 2017-10-15 Completed [facility] 00:00:00 [facility] HPV9 2017-06-17 Completed [facility] 00:00:00 [facility] HPV9 2017-06-17 Completed [facility] 00:00:00 [facility] HPV9 2017-06-17 Completed [facility] 00:00:00 [facility] HPV9 2017-06-17 Completed [facility] 00:00:00 [facility] HPV9 2017-06-17 Completed [facility] 00:00:00 [facility] HPV9 2017-06-17 Completed [facility] 00:00:00 [facility] HPV9 2017-06-17 Completed [facility] 00:00:00 [facility] HPV9 2017-06-17 Completed [facility] 00:00:00 [facility] HPV9 2017-06-17 Completed [facility] 00:00:00 [facility] HPV9 2017-06-17 Completed [facility] 00:00:00 [facility] HPV9 2017-06-17 Completed [facility] 00:00:00 [facility] HPV9 2017-06-17 Completed [facility] 00:00:00 [facility] HPV9 2017-06-17 Completed [facility] 00:00:00 [facility] HPV9 2017-06-17 Completed [facility] 00:00:00 [facility] HPV9 2017-06-17 Completed [facility] 00:00:00 [facility] HPV9 2017-06-17 Completed [facility] 00:00:00 [facility] HPV9 2017-06-17 Completed [facility] 00:00:00 [facility] HPV9 2017-06-17 Completed [facility] 00:00:00 [facility] HPV9 2017-06-17 Completed [facility] 00:00:00 [facility] HPV9 2017-06-17 Completed [facility] 00:00:00 [facility] HPV9 2017-06-17 Completed [facility] 00:00:00 [facility] HPV9 2017-06-17 Completed [facility] 00:00:00 [facility] HPV9 2017-06-17 Completed [facility] 00:00:00 [facility] HPV9 2017-06-17 Completed [facility] 00:00:00 [facility] HPV9 2017-06-17 Completed [facility] 00:00:00 [facility] HPV9 2017-06-17 Completed [facility] 00:00:00 [facility] HPV9 2017-06-17 Completed [facility] 00:00:00 [facility] HPV9 2017-06-17 Completed [facility] 00:00:00 [facility] HPV9 2017-06-17 Completed [facility] 00:00:00 [facility] HPV9 2017-06-17 Completed [facility] 00:00:00 [facility] HPV9 2017-06-17 Completed [facility] 00:00:00 [facility] HPV9 2017-06-17 Completed [facility] 00:00:00 [facility] HPV9 2017-06-17 Completed [facility] 00:00:00 [facility] HPV9 2017-06-17 Completed [facility] 00:00:00 [facility] HPV9 2017-06-17 Completed [facility] 00:00:00 [facility] HPV9 2017-06-17 Completed [facility] 00[facility]00:00 [facility] HPV9 2017-06-17 Completed [facility] 00:00:00 [facility] HPV9 2017-06-17 Completed [facility] 00[facility]00:00 [facility] HPV9 2017-06-17 Completed [facility] 00:00:00 [facility] HPV9 2017-06-17 Completed [facility] 00:00:00 [facility] HPV9 2017-06-17 Completed [facility] 00:00:00 [facility] HPV9 2017-06-17 Completed [facility] 00:00:00 [facility] HPV9 2017-06-17 Completed [facility] 00:00:00 [facility] HPV9 2017-06-17 Completed [facility] 00:00:00 [facility] HPV9 2017-06-17 Completed [facility] 00:00:00 [facility] HPV9 2017-04-17 Completed [facility] 00:00:00 [facility] Influenza Virus 2017-04-17 Completed [facility] IM 3+ 00:00:00 [facility] HPV9 2017-04-17 Completed [facility] 00:00:00 [facility] Influenza Virus 2017-04-17 Completed [facility] IM 3+ 00:00:00 [facility] HPV9 2017-04-17 Completed [facility] 00:00:00 [facility] Influenza Virus 2017-04-17 Completed [facility] IM 3+ 00:00:00 [facility] HPV9 2017-04-17 Completed [facility] 00[facility]00:00 [facility] Influenza Virus 2017-04-17 Completed [facility] IM 3+ 00:00:00 [facility] HPV9 2017-04-17 Completed [facility] 00:00:00 [facility] Influenza Virus 2017-04-17 Completed [facility] IM 3+ 00:00:00 [facility] HPV9 2017-04-17 Completed [facility] 00:00:00 [facility] Influenza Virus 2017-04-17 Completed [facility] IM 3+ 00:00:00 [facility] HPV9 2017-04-17 Completed [facility] 00:00:00 [facility] Influenza Virus 2017-04-17 Completed [facility] IM 3+ 00:00:00 [facility] HPV9 2017-04-17 Completed [facility] 00:00:00 [facility] Influenza Virus 2017-04-17 Completed [facility] IM 3+ 00:00:00 [facility] HPV9 2017-04-17 Completed [facility] 00:00:00 [facility] Influenza Virus 2017-04-17 Completed [facility] IM 3+ 00:00:00 [facility] HPV9 2017-04-17 Completed [facility] 00:00:00 [facility] Influenza Virus 2017-04-17 Completed [facility] IM 3+ 00:00:00 [facility] HPV9 2017-04-17 Completed [facility] 00:00:00 [facility] Influenza Virus 2017-04-17 Completed [facility] IM 3+ 00:00:00 [facility] HPV9 2017-04-17 Completed [facility] 00:00:00 [facility] Influenza Virus 2017-04-17 Completed [facility] IM 3+ 00:00:00 [facility] HPV9 2017-04-17 Completed [facility] 00:00:00 [facility] Influenza Virus 2017-04-17 Completed [facility] IM 3+ 00:00:00 [facility] HPV9 2017-04-17 Completed [facility] 00:00:00 [facility] Influenza Virus 2017-04-17 Completed [facility] IM 3+ 00:00:00 [facility] HPV9 2017-04-17 Completed [facility] 00:00:00 [facility] Influenza Virus 2017-04-17 Completed [facility] IM 3+ 00:00:00 [facility] HPV9 2017-04-17 Completed [facility] 00:00:00 [facility] Influenza Virus 2017-04-17 Completed [facility] IM 3+ 00:00:00 [facility] HPV9 2017-04-17 Completed [facility] 00:00:00 [facility] Influenza Virus 2017-04-17 Completed [facility] IM 3+ 00:00:00 [facility] HPV9 2017-04-17 Completed [facility] 00:00:00 [facility] Influenza Virus 2017-04-17 Completed [facility] IM 3+ 00:00:00 [facility] HPV9 2017-04-17 Completed [facility] 00:00:00 [facility] Influenza Virus 2017-04-17 Completed [facility] IM 3+ 00:00:00 [facility] HPV9 2017-04-17 Completed [facility] 00:00:00 [facility] Influenza Virus 2017-04-17 Completed [facility] IM 3+ 00:00:00 [facility] HPV9 2017-04-17 Completed [facility] 00:00:00 [facility] Influenza Virus 2017-04-17 Completed [facility] IM 3+ 00:00:00 [facility] HPV9 2017-04-17 Completed [facility] 00:00:00 [facility] Influenza Virus 2017-04-17 Completed [facility] IM 3+ 00:00:00 [facility] HPV9 2017-04-17 Completed [facility] 00:00:00 [facility] Influenza Virus 2017-04-17 Completed [facility] IM 3+ 00:00:00 [facility] HPV9 2017-04-17 Completed [facility] 00:00:00 [facility] Influenza Virus 2017-04-17 Completed [facility] IM 3+ 00:00:00 [facility] HPV9 2017-04-17 Completed [facility] 00:00:00 [facility] Influenza Virus 2017-04-17 Completed [facility] IM 3+ 00:00:00 [facility] HPV9 2017-04-17 Completed [facility] 00:00:00 [facility] Influenza Virus 2017-04-17 Completed [facility] IM 3+ 00:00:00 [facility] HPV9 2017-04-17 Completed [facility] of 00:00: [facility] Influenza Virus 2017-04-17 Completed [facility] IM 3+ 00:00:00 [facility] HPV9 2017-04-17 Completed [facility] 00:00:00 [facility] Influenza Virus 2017-04-17 Completed [facility] IM 3+ 00:00:00 [facility] HPV9 2017-04-17 Completed [facility] 00:00:00 [facility] Influenza Virus 2017-04-17 Completed [facility] IM 3+ 00:00:00 [facility] HPV9 2017-04-17 Completed [facility] 00:00:00 [facility] Influenza Virus 2017-04-17 Completed [facility] IM 3+ 00:00:00 [facility] HPV9 2017-04-17 Completed [facility] 00:00:00 [facility] Influenza Virus 2017-04-17 Completed [facility] IM 3+ 00:00:00 [facility] HPV9 2017-04-17 Completed [facility] 00:00:00 [facility] Influenza Virus 2017-04-17 Completed [facility] IM 3+ 00:00:00 [facility] HPV9 2017-04-17 Completed [facility] 00:00:00 [facility] Influenza Virus 2017-04-17 Completed [facility] IM 3+ 00:00:00 [facility] HPV9 2017-04-17 Completed [facility] 00:00:00 [facility] Influenza Virus 2017-04-17 Completed [facility] IM 3+ 00:00:00 [facility] HPV9 2017-04-17 Completed [facility] 00:00:00 [facility] Influenza Virus 2017-04-17 Completed [facility] IM 3+ 00:00:00 [facility] HPV9 2017-04-17 Completed [facility] 00:00:00 [facility] Influenza Virus 2017-04-17 Completed [facility] IM 3+ 00:00:00 [facility] HPV9 2017-04-17 Completed [facility] 00:00:00 [facility] Influenza Virus 2017-04-17 Completed [facility] IM 3+ 00:00:00 [facility] HPV9 2017-04-17 Completed [facility] 00:00:00 [facility] Influenza Virus 2017-04-17 Completed [facility] IM 3+ 00:00:00 [facility] HPV9 2017-04-17 Completed [facility] 00:00:00 [facility] Influenza Virus 2017-04-17 Completed [facility] IM 3+ 00:00:00 [facility] HPV9 2017-04-17 Completed [facility] 00:00:00 [facility] Influenza Virus 2017-04-17 Completed [facility] IM 3+ 00:00:00 [facility] HPV9 2017-04-17 Completed [facility] 00:00:00 [facility] Influenza Virus 2017-04-17 Completed [facility] IM 3+ 00:00:00 [facility] HPV9 2017-04-17 Completed [facility] 00:00:00 [facility] Influenza Virus 2017-04-17 Completed [facility] IM 3+ 00:00:00 [facility] HPV9 2017-04-17 Completed [facility] 00:00:00 [facility] Influenza Virus 2017-04-17 Completed [facility] IM 3+ 00:00:00 [facility] HPV9 2017-04-17 Completed [facility] 00:00:00 [facility] Influenza Virus 2017-04-17 Completed [facility] IM 3+ 00:00:00 [facility] HPV9 2017-04-17 Completed [facility] 00:00:00 [facility] Influenza Virus 2017-04-17 Completed [facility] IM 3+ 00:00:00 [facility] TDAP 2013-05-27 Completed [facility] of 00:00:00 [facility] TDAP 2013-05-27 Completed [facility] 00:00:00 [facility] TDAP 2013-05-27 Completed [facility] 00:00:00 [facility] TDAP 2013-05-27 Completed [facility] 00:00:00 [facility] TDAP 2013-05-27 Completed [facility] 00:00:00 [facility] TDAP 2013-05-27 Completed [facility] 00:00:00 [facility] TDAP 2013-05-27 Completed [facility] 00:00:00 [facility] TDAP 2013-05-27 Completed [facility] 00:00:00 [facility] TDAP 2013-05-27 Completed [facility] 00:00:00 [facility] TDAP 2013-05-27 Completed [facility] 00:00:00 [facility] TDAP 2013-05-27 Completed [facility] 00:00:00 [facility] TDAP 2013-05-27 Completed [facility] 00:00:00 [facility] TDAP 2013-05-27 Completed [facility] 00:00:00 [facility] TDAP 2013-05-27 Completed [facility] 00:00:00 [facility] TDAP 2013-05-27 Completed [facility] 00:00:00 [facility] TDAP 2013-05-27 Completed [facility] 00:00:00 [facility] TDAP 2013-05-27 Completed [facility] 00:00:00 [facility] TDAP 2013-05-27 Completed [facility] 00:00:00 [facility] TDAP 2013-05-27 Completed [facility] 00:00:00 [facility] TDAP 2013-05-27 Completed [facility] 00:00:00 [facility] TDAP 2013-05-27 Completed [facility] 00:00:00 [facility] TDAP 2013-05-27 Completed [facility] 00:00:00 [facility] TDAP 2013-05-27 Completed [facility] 00:00:00 [facility] TDAP 2013-05-27 Completed [facility] 00:00:00 [facility] TDAP 2013-05-27 Completed [facility] 00:00:00 [facility] TDAP 2013-05-27 Completed [facility] 00:00:00 [facility] TDAP 2013-05-27 Completed [facility] 00:00:00 [facility] TDAP 2013-05-27 Completed [facility] 00:00:00 [facility] TDAP 2013-05-27 Completed [facility] 00:00:00 [facility] TDAP 2013-05-27 Completed [facility] 00:00:00 [facility] TDAP 2013-05-27 Completed [facility] 00:00:00 [facility] TDAP 2013-05-27 Completed [facility] 00:00:00 [facility] TDAP 2013-05-27 Completed [facility] 00:00:00 [facility] TDAP 2013-05-27 Completed [facility] 00:00:00 [facility] TDAP 2013-05-27 Completed [facility] 00:00:00 [facility] TDAP 2013-05-27 Completed [facility] 00:00:00 [facility] TDAP 2013-05-27 Completed [facility] 00:00:00 [facility] TDAP 2013-05-27 Completed [facility] 00:00:00 [facility] TDAP 2013-05-27 Completed [facility] 00:00:00 [facility] TDAP 2013-05-27 Completed [facility] 00:00:00 [facility] TDAP 2013-05-27 Completed [facility] 00:00:00 [facility] TDAP 2013-05-27 Completed [facility] 00:00:00 [facility] TDAP 2013-05-27 Completed [facility] 00:00:00 [facility] TDAP 2013-05-27 Completed [facility] 00:00:00 [facility] TDAP 2013-05-27 Completed [facility] 00:00:00 [facility] Vital Signs Vital Name Observation Time Observation Value Comments Source Systolic blood 2020-09-12 19:08:00 115 mm[Hg] Univer sity of pressure [facility] Diastolic blood 2020-09-12 19:08:00 80 mm[Hg] Unive rsity of pressure [facility] Heart rate 2020-09-12 19:08:00 123 /min Universi ty [facility] Body temperature 2020-09-12 19:08:[facility] 2020-09-12 19:08:00 16 /min Univ ersity [facility] Body height 2020-09-12 19:08:00 172.7 cm [facility] Body weight 2020-09-12 19:08:00 60.601 kg [facility] BMI 2020-09-12 19:08:00 20.31 kg/m2 [facility] Systolic blood 2020-09-12 19:08:00 115 mm[Hg] Univer sity of pressure [facility] Diastolic blood 2020-09-12 19:08:00 80 mm[Hg] Unive rsity of pressure [facility] Heart rate 2020-09-12 19:08:00 123 /min Universi ty [facility] Body temperature 2020-09-12 19:08:00 37 Radha Univ ersity [facility] Respiratory rate 2020-09-12 19:08:00 16 /min [facility] Body height 2020-09-12 19:08:00 172.7 cm [facility] Body weight 2020-09-12 19:08:00 60.601 kg [facility] BMI 2020-09-12 19:08:00 20.31 kg/m2 [facility] Systolic blood 2020-09-07 09:00:00 130 mm[Hg] [facility] [place] [facility] Diastolic blood 2020-09-07 09:00:00 80 mm[Hg] [facility] [place] [facility] Heart rate 2020-09-07 09:00:00 92 /min [facility] Body temperature 2020-09-07 09:00:00 36.78 Radha [facility] [place] [facility] Respiratory rate 2020-09-07 09:00:00 18 /min [facility] [place] [facility] Oxygen saturation in 2020-09-07 09:00:00 97 /min [facility] [place] [facility]xim[facility] Systolic blood 2020-09-07 09:00:00 130 mm[Hg] [facility] [place] [facility] Diastolic blood 2020-09-07 09:00:00 80 mm[Hg] [facility] [place] [facility] Heart rate 2020-09-07 09:00:00 92 /min [facility] [place] [facility] Body temperature 2020-09-07 09:00:00 36.78 Radha [facility] [place] [facility] Respiratory rate 2020-09-07 09:00:00 18 /min [facility] [place] [facility] Oxygen saturation in 2020-09-07 09:00:00 97 /min [facility] blood by [place] [facility]xim[facility] Heart rate 2020-09-04 11:27:00 105 /min [facility] [place] [facility] Respiratory rate 2020-09-04 11:27:00 20 /min [facility] [place] [facility] Oxygen saturation in 2020-09-04 11:27:00 100 /min [facility] Arterial blood by [place] [facility] P[facility]xim[facility] Systolic blood 2020-09-04 11:12:00 126 mm[Hg] [facility] [place] [facility] Diastolic blood 2020-09-04 11:12:00 82 mm[Hg] [facility] [place] [facility] Body temperature 2020-09-04 10:26:00 36.72 Radha [facility] Heart rate 2020-09-04 11:27:00 105 /min [facility] [place] [facility] Respiratory rate 2020-09-04 11:27:00 20 /min [facility] Oxygen saturation in 2020-09-04 11:27:00 100 /min [facility] Arterial blood by [facility] Pulse oximetry Branch Systolic blood 2020-09-04 11:12:00 126 mm[Hg] [facility] [place] [facility] Diastolic blood 2020-09-04 11:12:00 82 mm[Hg] [facility] [place] [facility] Body temperature 2020-09-04 10:26:00 36.72 Radha [facility] Systolic blood 2020-09-01 15:23:00 137 mm[Hg] [facility] [place] [facility] Diastolic blood 2020-09-01 15:23:00 87 mm[Hg] [facility] [place] [facility] Heart rate 2020-09-01 15:23:00 124 /min [facility] [place] [facility] Body temperature 2020-09-01 15:23:00 36.33 Radha [facility] Respiratory rate 2020-09-01 15:23:00 16 /min [facility] Body height 2020-09-01 15:23:00 172.7 cm [facility] [place] [facility] Body weight 2020-09-01 15:23:00 65.772 kg [facility] [place] [facility] BMI 2020-09-01 15:23:00 22.05 kg/m2 [facility] Systolic blood 2020-09-01 15:23:00 137 mm[Hg] [facility] [place] [facility] Diastolic blood 2020-09-01 15:23:00 87 mm[Hg] [facility] [place] [facility] Heart rate 2020-09-01 15:23:00 124 /min [facility] [place] [facility] Body temperature 2020-09-01 15:23:00 36.33 Radha [facility] [place] [facility] Respiratory rate 2020-09-01 15:23:00 16 /min [facility] [place] [facility] Body height 2020-09-01 15:23:00 172.7 cm [facility] [place] [facility] Body weight 2020-09-01 15:23:00 65.772 kg [facility] [place] [facility] BMI 2020-09-01 15:23:00 22.05 kg/m2 [facility] [place] [facility] Systolic blood 2020-07-19 15:00:00 119 mm[Hg] [facility] [place] [facility] Diastolic blood 2020-07-19 15:00:00 82 mm[Hg] [facility] [place] [facility] Heart rate 2020-07-19 15:00:00 110 /min [facility] [place] [facility] Body temperature 2020-07-19 15:00:00 36.78 Radha [facility] [place] [facility] Respiratory rate 2020-07-19 15:00:00 16 /min [facility] [place] [facility] Body height 2020-07-19 15:00:00 172.7 cm [facility] [place] [facility] Body weight 2020-07-19 15:00:00 64.212 kg [facility] [place] [facility] BMI 2020-07-19 15:00:00 21.52 kg/m2 [facility] [place] [facility] Systolic blood 2020-05-31 16:58:00 132 mm[Hg] [facility] [place] [facility] Diastolic blood 2020-05-31 16:58:00 81 mm[Hg] [facility] [place] [facility] Heart rate 2020-05-31 16:58:00 106 /min [facility] [place] [facility] Body temperature 2020-05-31 16:58:00 37.11 Radha [facility] [place] [facility] Respiratory rate 2020-05-31 16:58:00 16 /min [facility] [place] [facility] Body height 2020-05-31 16:58:00 172.7 cm [facility] [place] [facility] Body weight 2020-05-31 16:58:00 62.279 kg [facility] [place] [facility] BMI 2020-05-31 16:58:00 20.88 kg/m2 [facility] [place] [facility] Systolic blood 2020-05-25 22:30:00 126 mm[Hg] [facility] [place] [facility] Diastolic blood 2020-05-25 22:30:00 70 mm[Hg] [facility] [place] [facility] Heart rate 2020-05-25 22:30:00 103 /min [facility] [place] [facility] Body temperature 2020-05-25 22:30:00 37.11 Radha [facility] [place] [facility] Respiratory rate 2020-05-25 22:30:00 15 /min [facility] [place] [facility] Oxygen saturation in 2020-05-25 22:30:00 98 /min [facility] [place] [facility] Body height 2020-05-25 02:05:00 172.7 cm [facility] Body weight 2020-05-25 02:05:00 60.839 kg [facility] [place] [facility] BMI 2020-05-25 02:05:00 20.39 kg/m2 [facility] [place] [facility] Systolic blood 2020-05-19 18:00:00 107 mm[Hg] [facility] [place] [facility] Diastolic blood 2020-05-19 18:00:00 60 mm[Hg] [facility] [place] [facility] Body temperature 2020-05-19 18:00:00 36.94 Radha [facility] [place] [facility] Respiratory rate 2020-05-19 18:00:00 18 /min [facility] [place] [facility] Oxygen saturation in 2020-05-19 18:00:00 100 /min [facility] [place] [facility] Heart rate 2020-05-19 14:00:00 89 /min [facility] [place] [facility] Body weight 2020-05-19 13:00:00 60 kg [facility] [place] [facility] Oxygen saturation in 2020-05-11 19:48:00 99 /min [facility] [place] [facility] Systolic blood 2020-05-11 19:24:00 131 mm[Hg] [facility] [place] [facility] Diastolic blood 2020-05-11 19:24:00 82 mm[Hg] [facility] [place] [facility] Heart rate 2020-05-11 19:24:00 115 /min [facility] [place] [facility] Body temperature 2020-05-11 19:24:00 37.17 Radha [facility] [place] [facility] Respiratory rate 2020-05-11 19:24:00 16 /min [facility] Body height 2020-05-11 19:24:00 172.7 cm Universi ty [facility] Body weight 2020-05-11 19:24:00 59.557 kg Universi ty [facility] BMI 2020-05-11 19:24:00 19.96 kg/m2 Universi ty [facility] Systolic blood 2020-05-03 15:14:00 133 mm[Hg] Univer sity of pressure [facility] Diastolic blood 2020-05-03 15:14:00 78 mm[Hg] [facility]ive [facility]ity [email or web address] Heart rate 2020-05-03 15:14:00 106 /min Universi ty [facility] Body temperature 2020-05-03 15:14:00 37.17 Radha [facility] Respiratory rate 2020-05-03 15:14:00 16 /min [facility] Body height 2020-05-03 15:14:00 172.7 cm Universi ty [facility] Body weight 2020-05-03 15:14:00 59.104 kg Universi [facility] BMI 2020-05-03 15:14:00 19.81 kg/m2 [facility] Procedures Procedure Date / Time Performing Clinician Source Performed CBC WITHOUT DIFF 2020-09-05 18:37:00 [facility] CBC WITHOUT DIFF 2020-09-05 18:37:00 [facility] PREPARE PACKED RBC 2020-09-05 14:00:39 Amparo Lewis [facility] PREPARE PACKED RBC 2020-09-05 14:00:39 Amparo Lewis [facility] CBC WITH DIFF 2020-09-05 07:44:00 Michael Pat [facility] CBC WITH DIFF 2020-09-05 07:44:00 Michael [facility] VENOUS CORD GAS 2020-09-04 11:47:00 [facility] 2020-09-04 11:47:00 Raghav Prajapati [facility] SECTION 2020-09-04 11:13:00 [facility] 2020-09-04 11:13:00 Alo [facility] ACTIVATED PARTIAL 2020-09-04 08:48:00 Nicolás [facility] FIBRINOGEN 2020-09-04 08:48:00 Nicolás [facility] PROTHROMBIN TIME / INR 2020-09-04 08:48:00 [facility] ACTIVATED PARTIAL 2020-09-04 08:48:00 Nicolás [facility] FIBRINOGEN 2020-09-04 08:48:00 Nicolás [facility] PROTHROMBIN TIME / INR 2020-09-04 08:48:00 [facility] CENTRAL NEURAXIAL BLOCK 2020-09-04 08:22:48 Mike [facility] HEPATITIS B SURFACE 2020-09-03 08:50:00 Patricia [facility] HIV 1/2 AG-AB WITH REFLEX 2020-09-03 08:50:00 [facility] - SYPHILIS 2020-09-03 08:50:00 Jeny Hugh [facility] IGG/IGM [facility] FREE T4 2020-09-03 08:50:00 [facility] THYROID STIMULATING 2020-09-03 08:50:00 [facility] HORMONE [facility] HEPATITIS B SURFACE 2020-09-03 08:50:00 Patricia [facility] FREE T3 2020-09-03 08:50:00 [facility] HIV 1/2 AG-AB WITH REFLEX 2020-09-03 08:50:00 Jeny [facility] GALV ONLY - SYPHILIS 2020-09-03 08:50:00 Patricia Ferminzie [facility] IGG/IGM [facility] HB ABO GROUPING 2020-09-03 08:48:00 Jeny [facility] RHO (D) IMMUNE GLOBULIN 2020-09-03 08:48:00 Michael [facility] HB ABO GROUPING 2020-09-03 08:48:00 Jeny [facility] RHO (D) IMMUNE GLOBULIN 2020-09-03 08:48:00 Michael [facility] URINE CULTURE 2020-09-03 06:36:00 Jeny [facility] GC & CHLAMYDIA AMPLIFIED 2020-09-03 06:36:00 Jeny [facility] GROUP B STREPTOCOCCUS BY 2020-09-03 06:36:00 Jeny [facility] PCR [facility] URINALYSIS 2020-09-03 06:36:00 Jeny [facility] URINE CULTURE 2020-09-03 06:36:00 Jeny [facility] GC & CHLAMYDIA AMPLIFIED 2020-09-03 06:36:00 Jeny [facility] GROUP B STREPTOCOCCUS BY 2020-09-03 06:36:00 Jeny [facility] PCR [facility] URINALYSIS 2020-09-03 06:36:00 Jeny Genna [facility] COVID-19 (ID NOW RAPID 2020-09-03 05:27:00 Colby Almazan [facility] TESTING) Medical Branch LAB ONLY COVID 2020-09-03 05:27:00 Colby Almazan [place] [facility] [place] INTERPRETATION [facility] COVID-19 (ID NOW RAPID 2020-09-03 05:27:00 [facility] TESTING) Medical Branch LAB ONLY COVID 2020-09-03 05:27:00 Colby Almazan [facility] [place] INTERPRETATION [facility] Branch NON-STRESS TEST 2020-09-01 16:11:29 Arin Gary [facility] POCT URINALYSIS 2020-09-01 15:26:00 Arin Gary [facility] SECOND AND THIRD 2020-07-20 20:37:00 Arin Gary [facility] TRIMESTER ULTRASOUND Medical [facility] POCT URINALYSIS 2020-07-19 16:07:00 Arin Gary [facility] TDAP VACCINE, >11 YRS, IM 2020-07-19 14:51:10 Disha Roa [facility] SECOND AND THIRD 2020-06-22 18:18:00 Arin Gary [facility] TRIMESTER ULTRASOUND [facility] SECOND AND THIRD 2020-06-22 18:12:00 Arin Gary [facility] TRIMESTER ULTRASOUND [facility] EXTERNAL PROVIDER RECORDS 2020-06-22 06:01:00 Doctor Unaaugust, [facility] [place] [facility] POCT URINALYSIS 2020-05-31 00:00:00 Arin Gary [facility] SECOND AND THIRD 2020-05-25 18:50:00 Arin Gary [facility] TRIMESTER ULTRASOUND [facility] EXTERNAL PROVIDER RECORDS 2020-05-25 06:01:00 Doctor Unaaugust, [facility] [place] [facility] COVID-19 (ID NOW RAPID 2020-05-24 22:39:00 Evelyn Payton [facility] TESTING) Medical Branch HOSPITAL ADMISSION 2020-05-24 06:01:00 Doctor Unassalexander, [facility] [place] [facility] ECHO ROUTINE W/DOPPLER 2020-05-18 21:51:23 Rachid Celaya [facility] COLOR [facility] US LOWER EXTREMITY VEIN 2020-05-18 14:22:00 Gini Maynard [facility] WITH COMPRESSION [facility] BILATERAL (ONLY FOR RULE OUT DVT) URINALYSIS 2020-05-18 09:40:00 Gini Maynard Elbert o f [facility] BASIC METABOLIC PANEL 2020-05-18 09:35:00 Gini Maynard [facility] (NA, K, CL, CO2, GLUCOSE, Medica l Branch BUN, CREATININE, CA) CBC WITH DIFF 2020-05-18 09:35:00 Gini Maynard Elbert o f [facility] HEPATITIS B SURFACE 2020-05-18 09:35:00 [facility] ANTIGEN [facility] GALV ONLY - SYPHILIS 2020-05-18 09:35:00 Gini Maynard [facility] IGG/IGM [facility] HB ABO GROUPING 2020-05-18 09:20:00 Gini Maynard Elbert o f [facility] COVID-19 (ID NOW RAPID 2020-05-18 08:20:00 Edvin Carter [facility] TESTING) Medical Branch HOSPITAL ADMISSION 2020-05-18 06:01:00 Doctor Unassigned, [facility] [place] [facility] POCT URINALYSIS 2020-05-11 00:00:00 Arin Gary [facility] FLU VACC ([id number]), 6+ 2020-05-03 16:09:14 Arin Gary [facility] MONTHS, IM, QUAD [facility] Branch ASSIGNMENT OF BENEFITS 2020-05-03 14:29:14 Doctor Unassigned, [facility] [place] [facility] POCT TEST 2020-05-03 00:00:00 [facility]in [facility] POCT URINALYSIS W/O 2020-05-03 00:00:00 Arin Gary [facility] SPECIFIC GRAVITY [facility] Encounters Start End Encounter Admission Attending Care Care Encounter Source Date/Time Date/Time Type Type Clinicians Facility Department ID 2021-03-26 Outpatient [facility] [id number] [facility] P [facility] SUSIE [id number] [facility] 13:57:[facility] 2021-03-25 Outpatient P [facility] [id number] [facility] 13:07:[facility] 2021-03-25 Outpatient P [facility] [id number] Univers 12:51:10 [facility] 2021-06-09 2021-06-09 Outpatient R BRENT WILKERSON [facility] [id number] Univers 08:30:00 08:30:00 [id number] [facility] 2021-06-09 2021-06-09 Outpatient R WILKERSON, BRENT [facility] [id number] Univers 08:30:00 08:30:00 ity [facility] 2021-02-08 2021-02-08 Outpatient R ADUM, [facility] [id number] Univers 13:30:00 13:30:00 TERA [id number] [facility] 2021-02-08 2021-02-08 Outpatient R ADUM, [facility] [id number] Univers 13:30:00 13:30:00 [facility] 2020-10-06 2020-10-06 Outpatient [facility] [id number] Univers 09:30:00 09:30:00 [id number] [facility] 2020-09-29 2020-09-29 Outpatient [facility] [id number] Univers 10:00:00 10:00:00 [id number] [facility] 2020-09-26 2020-09-26 Outpatient R AKINSIPE, [facility] [id number] Univers 09:45:00 09:45:00 DISHA [id number] ity o f [facility] 2020-09-26 2020-09-26 Outpatient R AKINSIPE, [facility] [id number] Univers 09:45:00 09:45:00 DISHA ity o f [facility] 2020-09-24 2020-09-24 [facility] [id number] 00:00:00 00:00:00 Disha C AUTHOR AGENT [id number] REGIONAL [id number] MATERNAL [id number] & CHILD [address] [place] [address] 2020-09-24 2020-09-24 Refill Akinsipe, [facility] [id number] Univers 00:00:00 00:00:00 Disha C AUTHOR AGENT [id number] ity [facility] [id number] Sebastian as MATERNAL [phone] Med ical & CHILD [address] [place] [address] 2020-09-22 2020-09-22 Outpatient [facility] [id number] Univers 11:15:00 11:15:00 [id number] ity [facility] 2020-09-15 2020-09-15 Outpatient [facility] [id number] Univers 11:00:00 11:00:00 [id number] ity [facility] 2020-09-14 2020-09-14 Outpatient [facility] [id number] Univers 14:00:00 14:00:00 [id number] [facility] 2020-09-12 2020-09-12 Nurse Visit, [facility] Nurse [facility] 1.2 .[id number] Univers 13:58:18 14:13:18 Visit Disha Roa AUTHOR AGENT [id number]. 10 [facility] [id number] Sebastian as MATERNAL [id number] Med ical & CHILD [address] [place] [address] 2020-09-12 2020-09-12 Nurse Visit, [facility] [id number] 13:58:18 14:13:18 Visit [facility] AUTHOR AGENT [id number] [facility] [id number] MATERNAL [id number] & CHILD [address] [place] [address] 2020-09-12 2020-09-12 Outpatient Taryn ROA [facility] [id number] Univers 13:00:00 13:00:00 DISHA chavira o f [facility] 2020-09-09 2020-09-09 Outpatient [facility] [id number] Univers 11:00:00 11:00:00 [id number] ity [facility] 2020-09-09 2020-09-09 Outpatient R COOKIE, [facility] [id number] Univers 09:15:00 09:15:00 ARIN ity o f [facility] 2020-09-03 2020-09-07 [facility] Colby Almazan [id number] Univers 00:19:00 11:07:00 Encounter Raghav Prajapati [id number] 0 ity of [facility] [id number] Sebastian as [id number] [facility] [address] [place] 2020-09-03 2020-09-07 [facility] Colby Almazan 1.2.840.114 [id number] 00:19:00 11:07:00 Encounter Raghav Prajapati 350.1.13.[address] [id number] [facility] 2020-09-05 2020-09-05 Outpatient R [facility] [id number] Univers 09:45:00 09:45:00 [id number] ity [facility] 2020-09-05 2020-09-05 Outpatient R [facility] [id number] Univers 09:45:00 09:45:00 ity [facility] 2020-09-05 2020-09-05 Abstract Cookie [facility] [id number] Univers 00:00:00 00:00:00 Arin Centeno AUTHOR AGENT [id number] ity of [facility] [id number] Sebastian as MATERNAL [id number] Med ical & CHILD [address] [place] [address] 2020-09-05 2020-09-05 Abstract Cookie [facility] [id number] 00:00:00 00:00:00 Arin Centeno AUTHOR AGENT [id number] REGIONAL [id number] MATERNAL [id number] & CHILD [address] [place] [address] 2020-09-04 2020-09-04 Anesthesia Ryan Mckeon 1.2.840.114 [id number] Univers 03:03:00 07:28:00 Event Ramses Vogt [id number] [id number] [id number] [facility] 013 Branch 2020-09-04 2020-09-04 Anesthesia Ryan Mckeon 1.2.840.114 [id number] 03:03:00 07:28:00 Event Ramses Vogt [id number] [place] [id number] [id number] 2020-09-04 2020-09-04 Surgery TERESA Prajapati 1.2.840.114 [id number] Univers 05:10:00 07:00:00 Raghav CROCKER [id number] i [place] [id number] [address] 2020-09-04 2020-09-04 Surgery TERESA 1.2.840.114 [id number] 05:10:00 07:00:00 LIZZETTE [id number] [place] [id number] [id number] 2020-09-02 2020-09-02 Director Of Reimbursement Ultrasound, [facility] 1.2 .840.114 [id number] Univers 11:31:43 12:13:06 Visit Edvin Carter AUTHOR AGENT [id number] ity [facility] [id number] Sebastian as MATERNAL [id number] Med ical & CHILD [address] [place] [address] 2020-09-02 2020-09-02 Director Of Reimbursement Ultrasound, [facility] 1.2.840.114 [id number] 11:31:43 12:13:06 [facility] [id number] [facility] [id number] MATERNAL [id number] & CHILD [address] [place] [address] 2020-09-02 2020-09-02 Outpatient R [facility] [id number] Univers 11:30:00 11:30:00 [id number] ity of [facility] 2020-09-02 2020-09-02 Outpatient P [facility] [id number] Univers 11:30:00 11:30:00 ity [facility] 2020-09-02 2020-09-02 Nurse Radha MOORE 1.2.840.114 [id number] Univers 00:00:00 00:00:00 Triage LIZZETTE Vincent [id number] [facility] [id number] Sebastian as [id number] [address] 2020-09-02 2020-09-02 Nurse Radha MOORE 1.2.840.114 [id number] 00:00:00 00:00:00 Triage LIZZETTE Vincent [id number] [facility] [id number] [id number] 2020-09-01 2020-09-01 [facility] 1.2.840.114 [id number] 10:19:51 11:05:59 Roshunda R AUTHOR AGENT [id number] Visit [facility] [id number] MATERNAL [id number] & CHILD [address] [place] [address] 2020-09-01 2020-09-01 [facility] 1.2.840.114 [id number] Univers 10:19:51 11:05:59 Roshunda R AUTHOR AGENT [id number] ity of Visit [facility] [id number] Sebastian as MATERNAL [id number] [facility] & CHILD [address] [place] [address] 2020-09-01 2020-09-01 [id number] Univers 10:15:00 10:15:00 ROSNDA [id number] ity o [facility] 2020-09-01 2020-09-01 Outpatient R [facility] [id number] Univers 10:15:00 10:15:00 ROSHUNDA ity o f [facility] 2020-08-24 2020-08-24 Telemedici Noelle Savage [facility] 1.2.8 40.114 [id number] Univers 15:12:27 15:12:48 ne Visit Davey Hector W AUTHOR AGENT 350.1.13.10 ity of REGIONAL 4.2.7.2.686 Sebastian as MATERNAL [phone] Med ical & CHILD [address] [place] [address] 2020-08-24 2020-08-24 Outpatient P [facility] [id number] -[id number] Univers 13:45:00 13:45:00 [id number] ity [facility] 2020-08-24 2020-08-24 Outpatient P [facility] [id number] Univers 13:45:00 13:45:00 ity [facility] 2020-08-23 2020-08-23 Abstract Cookie [facility] 1.2.840.114 [id number] Univers 00:00:00 00:00:00 Arin Centeno AUTHOR AGENT 350.1.13.10 ity [facility] 4.2.7.2.686 Sebastian as MATERNAL [phone] [facility] ical & CHILD 107 [facility] 2020-08-22 2020-08-22 Director Of Reimbursement Ultrasound, [facility] 1.2 .840.114 [id number] Univers 11:11:24 11:41:24 Visit Dez DelarosaShaneka cruz AUTHOR AGENT 350.1. 13.10 ity [facility] 4.2.7.2.686 Sebastian as MATERNAL [id number] [facility] & CHILD 369 [facility] 2020-08-22 2020-08-22 Outpatient P [facility] [id number] -[id number] Univers 11:30:00 11:30:00 [id number] [facility] 2020-08-22 Outpatient P [facility] [id number] Univers 11:30:00 11:30:00 ity [facility] 2020-08-17 2020-08-17 Outpatient [facility] [id number] -[id number] Univers 14:00:00 14:00:00 [id number] ity [facility] 2020-08-17 2020-08-17 Outpatient R COOKIE [facility] [id number] Univers 13:15:00 13:15:00 BRAYANNDA ity o [facility] 2020-08-17 2020-08-17 Outpatient Taryn GARY [facility] [id number] Univers 09:45:00 09:45:00 BRAYANNDA ity o [facility] 2020-08-08 2020-08-08 Outpatient Taryn GARY [facility] [id number] -[id number] Univers 13:00:00 13:00:00 CIRILOA [id number] ity o f [facility] 2020-08-08 2020-08-08 Outpatient Taryn [facility] [id number] Univers 13:00:00 13:00:00 BRAYANNDA ity o [facility] 2020-08-04 2020-08-04 Outpatient R LENY [facility] [id number] Univers 14:45:00 14:45:00 MARCELINO [id number] [facility] 2020-08-04 2020-08-04 [facility] [id number] Univers 14:45:00 14:45:00 MARCELINO [facility] 2020-08-03 2020-08-03 Outpatient R COOKIE [facility] [id number] -[id number] Univers 08:00:00 08:00:00 ARIN [id number] ity o [facility] 2020-08-03 2020-08-03 Outpatient R COOKIE [facility] [id number] Univers 08:00:00 08:00:00 BRAYANNDA ity o [facility] 2020-08-02 2020-08-02 Outpatient R COOKIE [facility] [id number] -[id number] Univers 08:00:00 08:00:00 CIRILOUlysses [id number] it o [facility] 2020-08-02 2020-08-02 Outpatient R COOKIE [facility] [id number] Univers 08:00:00 08:00:00 BRAYANNDA ity o [facility] 2020-07-20 2020-07-20 Director Of Reimbursement 2, [facility] Room UNIVERSIT 1 .2.840.114 [id number] Univers 13:58:30 14:52:44 Visit Bucky Wilkinson Y HEALTH 350.1.13. 10 ity [place] [phone] [address] 2020-07-20 2020-07-20 Outpatient R [facility] [id number] -[id number] Univers 14:00:00 14:00:00 [id number] [facility] 2020-07-20 2020-07-20 Outpatient P [facility] [id number] Univers 14:00:00 14:00:00 [facility] 2020-07-20 2020-07-20 Michelle Gary [facility] 1.2.261.635 [id number] Univers 00:00:00 00:00:00 Roshunda R AUTHOR AGENT 350.1.13.10 ity of REGIONAL 4.2.7.2.686 Sebastian as MATERNAL [phone] [facility] & CHILD [address] [place] [address] 2020-07-20 2020-07-20 Abstract [facility] 1.2.840.114 [id number] Univers 00:00:00 00:00:00 Roshunda R AUTHOR AGENT 350.1.13.10 ity of REGIONAL 4.2.7.2.686 Sebastian as MATERNAL [phone] [facility] & CHILD [address] [place] [address] 2020-07-19 2020-07-19 Routine [facility] 1.2.547.598 [id number] Univers 08:44:47 09:30:34 Disha C AUTHOR AGENT 350.1.13.10 ity of Visit REGIONAL 4.2.7.2.686 Sebastian as MATERNAL [phone] [facility] & CHILD [address] [place] [address] 2020-07-19 2020-07-19 Outpatient R AKINSIPE, [facility] [id number] Univers 08:45:00 08:45:00 DISHA mahoney [facility] 2020-07-13 2020-07-13 Outpatient R [facility] [id number] -[id number] Univers 14:30:00 14:30:00 [id number] [facility] 2020-07-13 2020-07-13 Outpatient P HECTOR MARISCAL [facility] [id number] Univers 14:30:00 14:30:[facility] 2020-07-11 2020-07-11 Outpatient R AKINSIPE, [facility] [id number] Univers 10:30:00 10:30:00 DISHA [id number] fan o [facility] 2020-07-11 2020-07-11 Outpatient R AKINSIPE, [facility] [id number] Univers 10:30:00 10:30:00 DISHA mahoney [facility] 2020-06-30 2020-06-30 Outpatient R AKINSIPE, [facility] [id number] Univers 14:15:00 14:15:00 DISHA [id number] ity o [facility] 2020-06-30 2020-06-30 Outpatient R ONDINA, [facility] [id number] Univers 14:15:00 14:15:00 DISHA ity o [facility] 2020-06-29 2020-06-29 Outpatient R [facility] [id number] -[id number] Univers 14:45:00 14:45:00 [id number] ity [facility] 2020-06-29 2020-06-29 Outpatient R [facility] [id number] Univers 14:45:00 14:45:00 ity [facility] 2020-06-29 2020-06-29 Urgent Provider, [facility] 1.2.171.331 [id number] Univers 14:20:00 14:40:00 Care [facility] 350.1.13.10 ity of Care [place] 4.2.7.2.686 Sebastian as Professio [phone] [address] [employer] 2020-06-29 2020-06-29 Outpatient R [facility] [id number] Univers 14:20:00 14:20:00 ity [facility] 2020-06-28 2020-06-28 [facility] [id number] -[id number] Univers 10:15:00 10:15:00 ROSHUNDA [id number] ity o [facility] 2020-06-28 2020-06-28 [facility] [id number] Univers 10:15:00 10:15:00 ROSHUNDA ity o [facility] 2020-06-22 2020-06-22 Director Of Reimbursement 2, [facility] Us Room UNIVERSIT 1 .2.840.114 [id number] Univers 11:18:37 12:43:58 Visit Edvin Carter [facility] 350.1.13.10 ity of CL[place] [id number] [address] 2020-06-22 2020-06-22 Outpatient P EDVIN CARTER [facility] [id number] Univers 10:45:00 10:45:00 EDVIN CARTER ity of [facility] 2020-06-22 2020-06-22 Orders Doctor TERESA 1.2.840.114 [id number] Univers 00:00:00 00:00:00 Only Unassigned, LIZZETTE 350.1.13.10 ity of [place] [facility] 4.2.7.2.686 Sebastian as [phone] [address] 2020-06-22 2020-06-22 Abstract DEBORAH Gary 1.2.840.114 [id number] Univers 00:00:00 00:00:00 Roshunda R AUTHOR AGENT 350.1.13.10 ity of [facility] 4.2.7.2.686 Sebastian as MATERNAL [phone] Med ical & CHILD [address] [place] [address] 2020-06-22 2020-06-22 Abstract DEBORAH Gary 1.2.840.114 [id number] Univers 00:00:00 00:00:00 Roshunda R AUTHOR AGENT 350.1.13.10 ity of [facility] 4.2.7.2.686 Sebastian as MATERNAL [phone] Med ical & CHILD [address] [place] [address] 2020-06-07 2020-06-07 Telephone DEBORAH Gary 1.2.837.429 [id number] Univers 00:00:00 00:00:00 Rosmanuelanda R AUTHOR AGENT 350.1.13.10 ity of [facility] 4.2.7.2.686 Sebastian as MATERNAL [id number] Med ical & CHILD [address] [place] [address] 2020-06-05 2020-06-05 Patient Doctor MTFABRIZIO 1.2.840.114 [id number] Univers 00:00:00 00:00:00 Secure Msg Unassigned, AUTHOR AGENT 350.1.13.10 ity of [place] [facility] 4.2.7.2.686 Sebastian as MATERNAL [phone] Med ical & CHILD [address] [place] [address] 2020-05-31 2020-05-31 Routine DEBORAH Gary 1.2.840.114 [id number] Univers 10:38:40 11:10:41 Arin R AUTHOR AGENT 350.1.13.10 ity of Visit REGIONAL 4.2.7.2.686 Sebastian as MATERNAL [phone] Med ical & CHILD 107 [facility] 2020-05-31 2020-05-31 Outpatient COOKIE [facility] [id number] -[id number] Univers 10:45:00 10:45:00 ROSMANUELANDA [id number] ity o f [facility] 2020-05-31 2020-05-31 Outpatient R COOKIE [facility] [id number] Univers 10:45:00 10:45:00 ROSNDA ity o f [facility] 2020-05-24 2020-05-25 Hospital TERESA Payton 1.2.840.114 [id number] Univers 16:30:00 17:45:00 Encounter Evelynsilvio CROCKER 350.1.13.10 ity of [facility] 4.2.7.2.686 Sebastian as [id number] [facility] [address] [place] 2020-05-25 2020-05-25 Director Of Reimbursement 5, [facility] Room UNIVERSIT 1 .2.840.114 [id number] Univers 11:54:13 16:02:[address] [facility] 350.1.13.10 ity of CLINICS [place] [id number] [facility] [address] [place] 2020-05-24 2020-05-24 Director Of Reimbursement Ultrasound, [facility] 1.2 .840.114 [id number] Univers 09:13:52 10:13:52 Visit Michael Hanna AUTHOR AGENT 350.1.13.10 ity of [facility] 4.2.7.2.686 Sebastian as MATERNAL [id number] [facility] ical & CHILD 369 [facility] 2020-05-24 2020-05-24 Outpatient R [facility] [id number] -[id number] Univers 09:00:00 09:00:00 [id number] ity [facility] 2020-05-24 2020-05-24 Outpatient P [facility] [id number] Univers 09:00:00 09:00:00 ity [facility] 2020-05-24 2020-05-24 Telephone [facility] 1.2.840.114 [id number] Univers 00:00:00 00:00:00 Disha C AUTHOR AGENT 350.1.13.10 ity of REGIONAL 4.2.7.2.686 Sebastian as MATERNAL [phone] Med ical & CHILD [address] [place] [address] 2020-05-24 2020-05-24 Abstract [facility] 1.2.840.114 [id number] Univers 00:00:00 00:00:00 Arin R AUTHOR AGENT 350.1.13.10 ity of REGIONAL 4.2.7.2.686 Sebastian as MATERNAL [phone] Med ical & CHILD [address] [place] [address] 2020-05-24 2020-05-24 Orders Doctor TERESA 1.2.840.114 [id number] Univers 00:00:00 00:00:00 Only Unassigned, LIZZETTE 350.1.13.10 ity of [place] [facility] 4.2.7.2.686 Sebastian as [phone] [facility] [address] [place] 2020-05-18 2020-05-19 Hospital TERESA Carter 1.2.840.114 [id number] Univers 02:08:00 14:43:00 Encounter Edvin CROCKER 350.1.13.10 ity of HOSPITAL 4.2.7.2.686 Sebastian as [id number] [facility] [address] [place] 2020-05-18 2020-05-18 Orders Doctor TEERSA 1.2.840.114 [id number] Univers 00:00:00 00:00:00 Only Unassigned, LIZZETTE 350.1.13.10 ity of [place] [facility] 4.2.7.2.686 Sebastian as [phone] [address] 2020-05-17 2020-05-17 Telephone [facility] 1.2.840.114 [id number] Univers 00:00:00 00:00:00 Disha C AUTHOR AGENT 350.1.13.10 ity of REGIONAL 4.2.7.2.686 Sebastian as MATERNAL [id number] [facility] ical & CHILD [address] [place] [address] 2020-05-11 2020-05-11 [facility] 1.2.840.114 [id number] Univers 13:14:18 13:50:54 Roshunda R AUTHOR AGENT 350.1.13.10 ity of Visit [facility] 4.2.7.2.686 Sebastian as MATERNAL [id number] [facility] ical & CHILD [address] [place] [address] 2020-05-11 2020-05-11 Outpatient R COOKIE [facility] [id number] -[id number] Univers 13:30:00 13:30:00 ARIN [id number] ity o f [facility] 2020-05-11 2020-05-11 [facility] [id number] Univers 13:30:00 13:30:00 SOBIANDA ity o [facility] 2020-05-10 2020-05-10 Telephone [facility] 1.2.840.114 [id number] Univers 00:00:00 00:00:00 Disha Cunha AUTHOR AGENT 350.1.13.10 ity of [facility] 4.2.7.2.686 Sebastian as MATERNAL [id number] [facility] & CHILD [address] [place] [address] 2020-05-03 2020-05-03 Initial [facility] 1.2.840.114 [id number] Univers 08:45:06 10:33:11 Rosmanuelanda R AUTHOR AGENT 350.1.13.10 ity of Visit [facility] 4.2.7.2.686 Sebastian as MATERNAL [id number] [address] 2020-05-03 2020-05-03 Outpatient R [facility] [id number] -[id number] Univers 08:30:00 08:30:00 [id number] ity of [facility] 2020-05-03 2020-05-03 [facility] [id number] Univers 08:30:00 08:30:00 BRAYANNDA ity o [facility] 2020-05-03 2020-05-03 Orders Doctor MOORE 1.2.840.114 [id number] Univers 00:00:00 00:00:00 Only Unassigned, LIZZETTE 350.1.13.10 ity of [place] [facility] 4.2.7.2.686 Sebastian as [id number] [address] 2019-10-23 2019-10-23 Outpatient R [facility] [id number] -[id number] Univers 09:30:00 09:30:00 [id number] [facility] Results Test Description Test Time Test Comments Results Result Comments Source FREE T3 2020-09-06 17:55:20 Test Item Value Reference Range Interpretation Comme nts FREE T3 (test code = 5465516592) 2.48 pg/mL 2.77-5.27 L Lab Interpretation (test code = 45473-8) Abnormal [facility] [id number] 17:10:51 Test Item Value Reference Range Interpretation Comments TSH (test code = See_Comment [Automated message] [id number]) The system [employer] generated this result transmitted ref erence range: 0.45 - 4 .70 mIU/L. The refe rence range was not u sed to interpret this result as normal/abnor mal. Lab Interpretation (test Normal code = 93197-2) [facility] [id number] 16:56:54 Test Item Value Reference Range Interpretation Comments FREE T4 (test code = See_Comment [Autom ated message] [id number]) The system [employer] generated this result transmitted ref erence range: 0.78 - 2 .20 ng/dL:. The ref erence range was not u sed to interpret this result as normal/abnor mal. Lab Interpretation (test Normal code = 96375-6) [facility] / [id number] 18:57:25 Test Item Value Reference Range Interpretation Comments WBC (test code = 6690-2) See_Comment H [A utomated message] The system [employer] generated this result transmit osman reference range : 4.30 - 11.10 10*3/?L. The reference range was not used to interpret this result as normal/abnormal . RBC (test code = 789-8) See_Comment [Au tomated message] The system [employer] generated this result transmit osman reference range : 3.93 - 5.25 10* 6/?L. The reference r surjit was not used to interpret this result as normal/abnormal . HGB (test code = 718-7) 8.3 g/dL 11.6-15.0 L HCT (test code = 4544-3) 29.0 % 35.7-45.2 L MCH (test code = 785-6) 21.1 pg 25.9-32.8 L MCV (test code = 787-2) 73.8 fL 80.6-95.5 L MCHC (test code = 786-4) 28.6 g/dL 31.6-35.1 L PLT (test code = 777-3) See_Comment [Au tomated message] The system [facility] generated this result transmit osman reference range : 166 - 358 10*3/?L. The reference range was not used to interpret this result as normal/abnormal . MPV (test code = 10.6 fL 9.5-12.9 45263-4) RDW-CV (test code = 20.3 % 12.0-15.5 H 788-0) RDW-SD (test code = 53.0 fL 39.0-49.9 H 11891-5) NRBC x10^3 (test code = See_Comment [Au tomated message] [id number]) The system [facility] generated this result transmit osman reference range : 10*3/?L. The reference range was not used to interpret this result as normal/abnormal . NRBC/100 WBC (test code See_Comment [Au tomated message] = 5979020943) The system [facility] generated this result transmit osman reference range : 0.0 - 10.0 /100 WBC s. The reference r surjit was not used to interpret this result as normal/abnormal . IPF % (test code = 8187822125) Lab Interpretation (test Abnormal code = 29586-5) [facility] / [id number] 18:57:25 Test Item Value Reference Range Interpretation Comments WBC (test code = 6690-2) See_Comment H [A utomated message] The system [facility] generated this result transmit osman reference range : 4.30 - 11.10 10*3/?L. The reference range was not used to interpret this result as normal/abnormal . RBC (test code = 789-8) See_Comment [Au tomated message] The system [facility] generated this result transmit osman reference range : 3.93 - 5.25 10* 6/?L. The reference r surjit was not used to interpret this result as normal/abnormal . HGB (test code = 718-7) 8.3 g/dL 11.6-15.0 L HCT (test code = 4544-3) 29.0 % 35.7-45.2 L MCH (test code = 785-6) 21.1 pg 25.9-32.8 L MCV (test code = 787-2) 73.8 fL 80.6-95.5 L MCHC (test code = 786-4) 28.6 g/dL 31.6-35.1 L PLT (test code = 777-3) See_Comment [Au tomated message] The system [facility] generated this result transmit osman reference range : 166 - 358 10*3/?L. The reference range was not used to interpret this result as normal/abnormal . MPV (test code = 10.6 fL 9.5-12.9 87878-8) RDW-CV (test code = 20.3 % 12.0-15.5 H 788-0) RDW-SD (test code = 53.0 fL 39.0-49.9 H 07505-7) NRBC x10^3 (test code = See_Comment [Au tomated message] [id number]) The system [facility] generated this result transmit osman reference range : 10*3/?L. The reference range was not used to interpret this result as normal/abnormal . NRBC/100 WBC (test code See_Comment [Au tomated message] = 5390892410) The system [facility] generated this result transmit osman reference range : 0.0 - 10.0 /100 WBC s. The reference r surjit was not used to interpret this result as normal/abnormal . IPF % (test code = 2688151940) Lab Interpretation (test Abnormal code = 20480-4) [facility] CenterGC & CHLAMYDIA AMPLIFIED [id number] 18:27:54 Test Item Value Reference Range Interpretation Comments C. trachomatis Nucleic Negative Negative Acid (test code = 65216-3) N. gonorrhoeae Nucleic Negative Negative Acid (test code = 61804-7) DARREL (test code = DARREL) Reliable results are dependent on adequate specimen collection. ? A positive result obtained from a patient after therapeutic treatment cannot be interpreted as indicating the presence of viable organisms. ?For patients on whom a false positive result may have adverse psychosocial impact, retesting is advised. Indeterminate: Unable to generate a valid test result on this specimen. ?Please submit a new specimen for repeat testing if clinically indicated. Chlamydia trachomatis/Neisseria gonorrhoeae nucleic acid amplification testing (NAAT) has not been validated for medico-legal specimens (sexual abuse in uriel-pubertal and pre-pubertal children, sexual assault, and legal cases). ?Culture for Chlamydia trachomatis and/or Neisseria gonorrhoeae from clinically appropriate sites is the method of choice in these cases. ? Results from this testing should be interpreted in conjunction with other laboratory and clinical data available to the clinician. Lab Interpretation Normal (test code = 41422-3) [facility] Center[facility] & CHLAMYDIA AMPLIFIED [id number] 18:27:54 Test Item Value Reference Range Interpretation Comments C. trachomatis Nucleic Negative Negative Acid (test code = 45934-1) N. gonorrhoeae Nucleic Negative Negative Acid (test code = 65538-8) DARREL (test code = DARREL) Reliable results are dependent on adequate specimen collection. ? A positive result obtained from a patient after therapeutic treatment cannot be interpreted as indicating the presence of viable organisms. ?For patients on whom a false positive result may have adverse psychosocial impact, retesting is advised. Indeterminate: Unable to generate a valid test result on this specimen. ?Please submit a new specimen for repeat testing if clinically indicated. Chlamydia trachomatis/Neisseria gonorrhoeae nucleic acid amplification testing (NAAT) has not been validated for medico-legal specimens (sexual abuse in uriel-pubertal and pre-pubertal children, sexual assault, and legal cases). ?Culture for Chlamydia trachomatis and/or Neisseria gonorrhoeae from clinically appropriate sites is the method of choice in these cases. ? Results from this testing should be interpreted in conjunction with other laboratory and clinical data available to the clinician. Lab Interpretation Normal (test code = 31151-2) [facility] Center[facility] Packed RBC (in units), 1 Units 2020-09-05 14:00:39 Test Item Value Reference Range Interpretation Comments Cross Match Result Compatible (test code = 4409) ISBT Blood Type Code (test code = 205268) Unit Blood Type (test O Pos code = 4410) Unit Number (test [id number] code = 4411) Blood Expiration Date & Time (test code = 096592) Status Information Issued (test code = 4412) Product Red Blood Cells Identification (test code = 4413) Product Code (test D4624G32 Performed at [facility] code = 4414) Laboratory Services [facility] Blood [address] [place] [address]Saub Free: [phone] A No. [id number] [facility] Center[facility] Packed RBC (in units), 1 Units 2020-09-05 14:00:39 Test Item Value Reference Range Interpretation Comments Cross Match Result Compatible (test code = 4409) ISBT Blood Type Code (test code = 809356) Unit Blood Type (test O Pos code = 4410) Unit Number (test [id number] code = 4411) Blood Expiration Date & Time (test code = 194810) Status Information Issued (test code = 4412) Product Red Blood Cells Identification (test code = 4413) Product Code (test M5814D00 Performed at [facility] code = 4414) Laboratory Services - [facility] Blood [address] [place] [address]Lbtp Free: [phone] A No. [id number] [facility] CenterCB with [id number] 08:12:57 Test Item Value Reference Range Interpretation Comments WBC (test code = See_Comment H [Automated 6690-2) message] The system which generated this result transmit osman reference range : 4.30 - 11.10 10*3/?L. The reference range was not used to interpret this result as normal/abnormal . RBC (test code = See_Comment L [Automated 789-8) message] The system which generated this result transmit osman reference range : 3.93 - 5.25 10*6/?L. The reference range was not used to interpret this result as normal/abnormal . HGB (test code = 6.8 g/dL 11.6-15.0 L 718-7) HCT (test code = 24.1 % 35.7-45.2 L 4544-3) MCV (test code = 70.1 fL 80.6-95.5 L 787-2) MCH (test code = 19.8 pg 25.9-32.8 L 785-6) MCHC (test code = 28.2 g/dL 31.6-35.1 L 786-4) RDW-SD (test code = 46.4 fL 39.0-49.9 08954-6) RDW-CV (test code = 18.8 % 12.0-15.5 H 788-0) PLT (test code = See_Comment [Automated 777-3) message] The system which generated this result transmit osman reference range : 166 - 358 10*3/ ?L. The reference range was not u sed to interpret th is result as normal/abnormal . MPV (test code = 10.9 fL 9.5-12.9 60613-6) NRBC/100 WBC (test See_Comment [Automat ed code = 5976009197) message] The system which generated this result transmit osman reference range : 0.0 - 10.0 /100 WBCs. The reference range was not used to interpret this result as normal/abnormal . NRBC x10^3 (test code See_Comment [Auto mated = 8190620737) message] The system which generated this result transmit osman reference range : 10*3/?L. The reference range was not used to interpret this result as normal/abnormal . GRAN MAT (NEUT) % 82.0 % (test code = 770-8) IMM GRAN % (test code 0.50 % = 0761723824) LYMPH % (test code = 9.0 % 736-9) MONO % (test code = 8.4 % 5905-5) EOS % (test code = 0.0 % 713-8) BASO % (test code = 0.1 % 706-2) GRAN MAT x10^3(ANC) 13.71 10*3/uL 1.88-7.09 H (test code = 9333946602) IMM GRAN x10^3 (test 0.09 10*3/uL 0.00-0.06 H code = 5340498408) LYMPH x10^3 (test code 1.51 10*3/uL 1.32-3.29 = 731-0) MONO x10^3 (test code 1.40 10*3/uL 0.33-0.92 H = 742-7) EOS x10^3 (test code = <0.03 0.03-0.39 L 711-2) BASO x10^3 (test code <0.03 0.01-0.07 = 704-7) Lab Interpretation Abnormal (test code = 92564-1) [facility] with Kurcqtspjsfu6470-95-96 08:12:57 Test Item Value Reference Range Interpretation Comments WBC (test code = See_Comment H [Automated 6690-2) message] The system which generated this result transmit osman reference range : 4.30 - 11.10 10*3/?L. The reference range was not used to interpret this result as normal/abnormal . RBC (test code = See_Comment L [Automated 789-8) message] The system which generated this result transmit osman reference range : 3.93 - 5.25 10*6/?L. The reference range was not used to interpret this result as normal/abnormal . HGB (test code = 6.8 g/dL 11.6-15.0 L 718-7) HCT (test code = 24.1 % 35.7-45.2 L 4544-3) MCV (test code = 70.1 fL 80.6-95.5 L 787-2) MCH (test code = 19.8 pg 25.9-32.8 L 785-6) MCHC (test code = 28.2 g/dL 31.6-35.1 L 786-4) RDW-SD (test code = 46.4 fL 39.0-49.9 01193-7) RDW-CV (test code = 18.8 % 12.0-15.5 H 788-0) PLT (test code = See_Comment [Automated 777-3) message] The system which generated this result transmit osman reference range : 166 - 358 10*3/ ?L. The reference range was not u sed to interpret th is result as normal/abnormal . MPV (test code = 10.9 fL 9.5-12.9 34109-9) NRBC/100 WBC (test See_Comment [Automat ed code = 7341556967) message] The system which generated this result transmit osman reference range : 0.0 - 10.0 /100 WBCs. The reference range was not used to interpret this result as normal/abnormal . NRBC x10^3 (test code See_Comment [Auto mated = 2767322982) message] The system which generated this result transmit osman reference range : 10*3/?L. The reference range was not used to interpret this result as normal/abnormal . GRAN MAT (NEUT) % 82.0 % (test code = 770-8) IMM GRAN % (test code 0.50 % = 7863337416) LYMPH % (test code = 9.0 % 736-9) MONO % (test code = 8.4 % 5905-5) EOS % (test code = 0.0 % 713-8) BASO % (test code = 0.1 % 706-2) GRAN MAT x10^3(ANC) 13.71 10*3/uL 1.88-7.09 H (test code = 3509094120) IMM GRAN x10^3 (test 0.09 10*3/uL 0.00-0.06 H code = 0392370927) LYMPH x10^3 (test code 1.51 10*3/uL 1.32-3.29 = 731-0) MONO x10^3 (test code 1.40 10*3/uL 0.33-0.92 H = 742-7) EOS x10^3 (test code = <0.03 0.03-0.39 L 711-2) BASO x10^3 (test code <0.03 0.01-0.07 = 704-7) Lab Interpretation Abnormal (test code = 21651-4) [facility] [id number] 21:52:42COVID DMT InterpretationInterpretation/Recommendations: Molecular NAAT Tests for Active Infection with the SARS-CoV-2 Virus: The patient has currently tested negative for the SARS-CoV-2 virus that causes COVID-19 illness. This most likely indicates that the patient does not have an active infection with the SARS-CoV-2 virus. However, infection is not completely ruled out as the false negative rate for molecular NAAT testing using a nasopharyngeal sample can be up to 30%, mostly dependent on the timing of sample collection in relation to illness onset and any deficiencies in sampling techniques. If the patient has symptoms concerning for COVID-19 illness, a repeat NAAT test (PCR, Rapid ID Now, etc.) should be performed, at which time the SARS-CoV-2 virus - if present - may have reached a detectable viral load (usually peaking by the end of the first week of symptoms). Tests for IgM and/or IgGAntibodies to the SARS-CoV-2 Virus: The patient has tested negative for SARS-CoV-2 IgG antibodies. In the context of a negative molecular NAAT test (PCR, Rapid ID Now, etc.), this most likely indicates that the patient has not been infected with the SARS-CoV-2 virus. If the patient develops COVID-19 illness in the future, testing for IgG antibodies approximately 3 weeks after illness onset will likely indicate whether the patient has produced antibodies to the SARS-CoV-2 virus. However, some patients may take longer to develop detectable antibodies, while some patients who were infected with SARS-CoV-2 may never develop antibodies. While IgG antibodies to SARS-CoV-2 may provide some degree of immunity, at this time the strength and duration of the antibody response is unknown. Interpretation Result Comments:These interpretation comments are based upon all COVID-19 testing the patient has had at [facility], including molecular NAAT testing (more commonly known as PCR testing and Rapid ID Now testing) and antibody testing. It does not take into account any testing that a patient has had outside of the [facility] medical record. [facility] LABORATORY SERVICESCOVID [id number]-ZiM-9 Rapid ID NOW (no units) ? ? Date ? Value ? 09/03/2020 ? Not Detected ? ? ? 05/24/2020 ? Not Detected ? ? ? 05/18/2020 ? Not Detected ? CoV-2 IgG (no units) ? ? Date ? Value ? 05/03/2020 ? Negative ? ? ? [facility] SERVICES[facility] [id number] 21:52:42COVID DMT InterpretationInterpretation/Recommendations: Molecular NAAT Tests for Active Infection with the SARS-CoV-2 Virus: The patient has currently tested negative for the SARS-CoV-2 virus that causes COVID-19 illness. This most likely indicates that the patient does not have an active infection with the SARS-CoV-2 virus. However, infection is not completely ruled out as the false negative rate for molecular NAAT testing using a nasopharyngeal sample can be up to 30%, mostly dependent on the timing of sample collection in relation to illness onset and any deficiencies in sampling techniques. If the patient has symptoms concerning for COVID-19 illness, a repeat NAAT test (PCR, Rapid ID Now, etc.) should be performed, at which time the SARS-CoV-2 virus - if present - may have reached a detectable viral load (usually peaking by the end of the first week of symptoms). Tests for IgM and/or IgGAntibodies to the SARS-CoV-2 Virus: The patient has tested negative for SARS-CoV-2 IgG antibodies. In the context of a negative molecular NAAT test (PCR, Rapid ID Now, etc.), this most likely indicates that the patient has not been infected with the SARS-CoV-2 virus. If the patient develops COVID-19 illness in the future, testing for IgG antibodies approximately 3 weeks after illness onset will likely indicate whether the patient has produced antibodies to the SARS-CoV-2 virus. However, some patients may take longer to develop detectable antibodies, while some patients who were infected with SARS-CoV-2 may never develop antibodies. While IgG antibodies to SARS-CoV-2 may provide some degree of immunity, at this time the strength and duration of the antibody response is unknown. Interpretation Result Comments:These interpretation comments are based upon all COVID-19 testing the patient has had at [facility], including molecular NAAT testing (more commonly known as PCR testing and Rapid ID Now testing) and antibody testing. It does not take into account any testing that a patient has had outside of the [facility] medical record. [facility] LABORATORY SERVICESCOVID [id number]-EhJ-5 Rapid ID NOW (no units) ? ? Date ? Value ? 09/03/2020 ? Not Detected ? ? ? 05/24/2020 ? Not Detected ? ? ? 05/18/2020 ? Not Detected ? CoV-2 IgG (no units) ? ? Date ? Value ? 05/03/2020 ? Negative ? ? ? [facility]Un[facility] ([facility] IMMUNE GLOBULIN 2020-09-04 15:45:02 Test Item Value Reference Range Interpretation Comments RHIG CANDIDATE? No- see comment Patient i s not a (test code = candidate for R hIg- 5055) Patient is Rh Positive.Perfor med at [facility] Laboratory [facility] - [facility] Blood [address] [place] [address] Free: [phone] A No. [id number] [facility] (D) IMMUNE [id number] 15:45:02 Test Item Value Reference Range Interpretation Comments RHIG CANDIDATE? No- see comment Patient i s not a (test code = candidate for R hIg- 5055) Patient is Rh Positive.Perfor med at [facility] Laboratory Services - [facility] Blood [address] [place], [place] [address]Toll Free: [phone] A No. [id number] [facility] B STREPTOCOCCUS BY [id number] 15:43:01 Test Item Value Reference Range Interpretation Comments Group B Streptococcus by PCR (test Negative Negative code = 45912-1) Lab Interpretation (test code = Normal 45741-3) [facility] STREPTOCOCCUS BY [id number] 15:43:01 Test Item Value Reference Range Interpretation Comments Group B Streptococcus by PCR (test Negative Negative code = 47100-8) Lab Interpretation (test code = Normal 08563-6) [facility] [id number] 13:23:14 Test Item Value Reference Range Interpretation Comments URINE CULTURE (test > 100,000 CFU/mL mixed code = 630-4) aerobic organisms - suggests endogenous microbial contamination [facility] [id number] 13:23:14 Test Item Value Reference Range Interpretation Comments URINE CULTURE (test > 100,000 CFU/mL mixed code = 630-4) aerobic organisms - suggests endogenous microbial contamination [facility] [id number] 12:02:11 Test Item Value Reference Range Interpretation Comments BASE EXCESS, CORD mEq/L (test code = 4345272532) AC PH, CORD (BEAKER) 7.18-7.38 (test code = 0001676324) PC02, CORD (test code See_Comment [Auto mated message] The = 2027592653) system which g enerated this result transmit osman reference range : 32 - 66 mmHg. The refer ence range was not used to interpret this result as normal/abnormal . PO2, CORD (test code See_Comment [Autom ated message] The = 2580965525) system which g enerated this result transmit osman reference range : 10 - 30 mmHg. The refer ence range was not used to interpret this result as normal/abnormal . BICARBONATE, CORD See_Comment [Automate d message] The (test code = system which ge nerated this 9704520089) result transmit osman reference range : 17 - 27 mEq/L. The refe rence range was not used to interpret this result as normal/abnormal . [facility] CORD [id number] 12:02:11 Test Item Value Reference Range Interpretation Comments BASE EXCESS, CORD mEq/L (test code = 1768020635) AC PH, CORD (BEAKER) 7.18-7.38 (test code = 5263962226) PC02, CORD (test code See_Comment [Auto mated message] The = 8312868645) system which g enerated this result transmit osman reference range : 32 - 66 mmHg. The refer ence range was not used to interpret this result as normal/abnormal . PO2, CORD (test code See_Comment [Autom ated message] The = 4025954311) system which g enerated this result transmit osman reference range : 10 - 30 mmHg. The refer ence range was not used to interpret this result as normal/abnormal . BICARBONATE, CORD See_Comment [Automate d message] The (test code = system which ge nerated this 0268632671) result transmit osman reference range : 17 - 27 mEq/L. The refe rence range was not used to interpret this result as normal/abnormal . [facility] CORD [id number] 11:58:00 Test Item Value Reference Range Interpretation Comments VENOUS BASE EXCESS, mEq/L CORD (test code = 9070497906) VENOUS PH, CORD (test 7.25-7.45 code = 8426745245) VENOUS PC02, CORD See_Comment [Automate d message] The (test code = system which ge nerated 8596795653) this result tra nsmitted reference range : 27 - 49 mmHg. The refer ence range was not used to interpret this result as normal/abnormal . VENOUS PO2, CORD (test See_Comment [Aut omated message] The code = 0471475891) system [facility] generated this result tra nsmitted reference range : 17 - 41 mmHg. The refer ence range was not used to interpret this result as normal/abnormal . VENOUS BICARBONATE, See_Comment [Automa osman message] The CORD (test code = system [facility] generated 2406722650) this result tra nsmitted reference range : 12 - 29 mEq/L. The refe rence range was not used to interpret this result as normal/abnormal . [facility] CORD [id number] 11:58:00 Test Item Value Reference Range Interpretation Comments VENOUS BASE EXCESS, mEq/L CORD (test code = 2668431615) VENOUS PH, CORD (test 7.25-7.45 code = 8165476503) VENOUS PC02, CORD See_Comment [Automate d message] The (test code = system which ge nerated 6193954970) this result tra nsmitted reference range : 27 - 49 mmHg. The refer ence range was not used to interpret this result as normal/abnormal . VENOUS PO2, CORD (test See_Comment [Aut omated message] The code = 6453922479) system wh ich generated this result tra nsmitted reference range : 17 - 41 mmHg. The refer ence range was not used to interpret this result as normal/abnormal . VENOUS BICARBONATE, See_Comment [Automa osman message] The CORD (test code = system i ch generated 4906031281) this result tra nsmitted reference range : 12 - 29 mEq/L. The refe rence range was not used to interpret this result as normal/abnormal . [facility] CenterPROTHROMBIN TIME / [id number] 09:21:06 Test Item Value Reference Range Interpretation Comments PROTIME PATIENT (test See_Comment [Auto mated message] code = 5964-2) The system [facility] generated this result transmitted ref erence range: 10.1 - 1 2.6 Seconds. The re ference range was not u sed to interpret this result as normal/abnor mal. INR (test code = 6301-6) Nor mal INR <1.1; Warfarin Therap eutic range 2.0 to 3. 0 or 2.5 to 3.5, dep ending upon the indica tions. Lab Interpretation (test Normal code = 82138-8) [facility] CenterACTIV[facility] PARTIAL THRMPLAS [id number] 09:21:06 Test Item Value Reference Range Interpretation Comments APTT Patient (test code = See_Comment [ Automated message] 3173-2) The system [facility] h generated this result transmitted ref erence range: 26 - 36 Seconds. The re ference range was not u sed to interpret this result as normal/abnor mal. Lab Interpretation (test Normal code = 41907-2) [facility] CenterFIBRINOGEN2021-04-11 09:21:06 Test Item Value Reference Range Interpretation Comments Fibrinogen (test code = 7536504741) 387 mg/dL 167-453 Lab Interpretation (test code = Normal 07320-7) [facility] CenterPROTHROMBIN TIME / [id number] 09:21:06 Test Item Value Reference Range Interpretation Comments PROTIME PATIENT (test See_Comment [Auto mated message] code = 5964-2) The system [facility] generated this result transmitted ref erence range: 10.1 - 1 2.6 Seconds. The re ference range was not u sed to interpret this result as normal/abnor mal. INR (test code = 6301-6) Nor mal INR <1.1; Warfarin Therap eutic range 2.0 to 3. 0 or 2.5 to 3.5, dep ending upon the indica tions. Lab Interpretation (test Normal code = 64609-7) [facility] CenterACT[facility] THRM[facility] [id number] 09:21:06 Test Item Value Reference Range Interpretation Comments APTT Patient (test code = See_Comment [ Automated message] 3173-2) The system [employer] generated this result transmitted ref erence range: 26 - 36 Seconds. The re ference range was not u sed to interpret this result as normal/abnor mal. Lab Interpretation (test Normal code = 29747-9) [facility] CenterFIBRINOGEN2021-04-11 09:21:06 Test Item Value Reference Range Interpretation Comments Fibrinogen (test code = 6740384882) 387 mg/dL 167-453 Lab Interpretation (test code = Normal 67673-9) [facility] Center[facility] Neuraxial [id number] 08:22:48Ryan Mckeon DO ? ? 09/04/2020 ?3:24 AM Central Neuraxial Block Performed by: Ryan Mckeon DOAuthorized by: Ramses Vogt MD Start Time: ?09/04/2020 3:03 AMEnd Time: ?09/04/2020 3:11 AMReason for Block: ?Labor analgesiaStaff: ?Anesthesiologist: ?Ramses Vogt MD ?Resident/RELIGION DEPARTMENT CHAIR: ?Ryan Mckeon DO ?Performed by: ?Resident/RELIGION DEPARTMENT CHAIR patient identified, IV checked, risks and benefits explained, monitors and equipment checked, timeout performed, ob surgical consent/approval, pre-op evaluation, site marked and anesthesia consentEpidural: ?Patient Position: ?Sitting ?Prep: Betadine ? ?Monitoring: ?Heart rate, continuous pulse ox, heart rate / toco and NIBP ?Location: ?Lumbar (1-5) ?Lumbar: ?L3-L4 ?Approach: ?MidlineNeedle and Epidural Catheter: ?Epidural Kit: ?BBraun ?Needle Type: ?Tuohy ?Needle Length: ?3.5 in (8.89 cm) ?Needle Insertion Depth: ?5.5 Assessment: ?Sensory Level: ?Below Y12Ynfvl: ?Patient was seated, back prepped and draped. ANTONIO to Saline was used midline at L3-L4 interspace. LORwas at 5.5 cm attempts x1 . Catheter threaded smoothly, taped at skin at 10.5 cm . Negative aspiration of blood or CSF x 3. Negative Test dose. Pumps settings are 12 ml/hr - 4 ml PCEA - 15 mins lockout. 5 ml bolus was given initially.[facility] ONLY - SYPHILIS [id number] 15:28:18 Test Item Value Reference Range Interpretation Comments Syphilis IgG/IgM (test Non-reactive Non-reactive code = 39130-2) DARREL (test code = DARREL) Non-reactive - No serologic evidence of T. pallidum infection. Cannot exclude incubating or early syphilis. Submit a second specimen in 2-4 weeks if syphilis is clinically suspected. Equivocal - Further testing to follow. Reactive - Further testing to follow. Lab Interpretation (test Normal code = 57695-8) [facility] ONLY - SYPHILIS [id number] 15:28:18 Test Item Value Reference Range Interpretation Comments Syphilis IgG/IgM (test Non-reactive Non-reactive code = 96479-0) DARREL (test code = DARREL) Non-reactive - No serologic evidence of T. pallidum infection. Cannot exclude incubating or early syphilis. Submit a second specimen in 2-4 weeks if syphilis is clinically suspected. Equivocal - Further testing to follow. Reactive - Further testing to follow. Lab Interpretation (test Normal code = 40473-0) [facility] 1/2 AG-AB WITH [id number] 11:37:19 Test Item Value Reference Range Interpretation Comments HIV Negative Negative Semi-quantitative (test code = 09684-2) DARREL (test code = Non-reactive for HIV-1 DARREL) antigen and HIV-1/HIV-2 antibodies. ?No laboratory evidence of HIV infection. ?Repeat in 2-4 weeks if acute HIV infection is suspected. [facility] 1/2 AG-AB WITH [id number] 11:37:19 Test Item Value Reference Range Interpretation Comments HIV Negative Negative Semi-quantitative (test code = 15186-1) DARREL (test code = Non-reactive for HIV-1 DARREL) antigen and HIV-1/HIV-2 antibodies. ?No laboratory evidence of HIV infection. ?Repeat in 2-4 weeks if acute HIV infection is suspected. [facility] B SURFACE [id number] 10:29:31 Test Item Value Reference Range Interpretation Comments HBsAg Semi-Quantitative (test code = Negative Negative 5195-3) [facility] B SURFACE [id number] 10:29:31 Test Item Value Reference Range Interpretation Comments HBsAg Semi-Quantitative (test code = Negative Negative 5195-3) [facility] CenterType [facility] Screen - ONCE [id number] 09:28:47 Test Item Value Reference Range Interpretation Comments ABO & RH (test code O POSITIVE Performe d at [facility] = 20) Laboratory [facility] Blood [address] [place] [address]E[place] Free: [phone] A No. [id number] IAT (test code = Negative Performed a t [facility] 1185) Laboratory [facility] Blood [address] [address]Xuuc Free: [phone] A No. [id number] [facility] CenterType [facility] - ONCE [id number] 09:28:47 Test Item Value Reference Range Interpretation Comments ABO & RH (test code O POSITIVE Performe d at [facility] = 20) Laboratory [facility] Blood [address] [place] [address]U[place] Free: [phone] A No. [id number] IAT (test code = Negative Performed a t [facility] 1185) Laboratory [facility] Blood [address] [place] [address]Ytey Free: [phone] A No. [id number] [facility] CenterURINALYSIS2021-04-10 07:50:16 Test Item Value Reference Range Interpretation Comments APPEARANCE (test code = Hazy Clear A 5521032611) COLOR (test code = Yellow Yellow 2006498487) PH (test code = 4.8-8.0 3833663365) SP GRAVITY (test code = 1.003-1.030 5082707561) GLU U QUAL (test code = Normal Normal 6794584332) BLOOD (test code = Negative Negative 8899375452) KETONES (test code = Negative Negative 8296940976) PROTEIN (test code = Negative Negative 2887-8) UROBILIN (test code = Normal Normal 7027994884) BILIRUBIN (test code = Negative Negative 6250397044) NITRITE (test code = Negative Negative 6302404478) LEUK ELVIN (test code = 250/uL Negative A 4217488123) RBC/HPF (test code = See_Comment [Autom ated message] 7208079984) The system [employer] generated this result transmitted ref erence range: 0 - 3 HP F. The reference range was not used to int erpret this result as normal/abnormal . WBC/HPF (test code = See_Comment H [Autom ated message] 4687568414) The system [employer] generated this result transmitted ref erence range: 0 - 5 HP F. The reference range was not used to int erpret this result as normal/abnormal . BACTERIA (test code = Moderate Negative A 0926045356) SQ EPITH (test code = See_Comment H [Auto mated message] 0187894340) The system [employer] generated this result transmitted ref erence range: <=2 HPF. The reference range was not used to int erpret this result as normal/abnormal . Lab Interpretation (test Abnormal code = 75750-8) [facility] CenterURINALYSIS2021-04-10 07:50:16 Test Item Value Reference Range Interpretation Comments APPEARANCE (test code = Hazy Clear A 1480861342) COLOR (test code = Yellow Yellow 7409340215) PH (test code = 4.8-8.0 3829872611) SP GRAVITY (test code = 1.003-1.030 3890939823) GLU U QUAL (test code = Normal Normal 8730278939) BLOOD (test code = Negative Negative 8198064835) KETONES (test code = Negative Negative 6705852165) PROTEIN (test code = Negative Negative 2887-8) UROBILIN (test code = Normal Normal 1924298248) BILIRUBIN (test code = Negative Negative 1950752858) NITRITE (test code = Negative Negative 2514430098) LEUK ELVIN (test code = 250/uL Negative A 3583333469) RBC/HPF (test code = See_Comment [Autom ated message] 4539776244) The system [employer] generated this result transmitted ref erence range: 0 - 3 HP F. The reference range was not used to int erpret this result as normal/abnormal . WBC/HPF (test code = See_Comment H [Autom ated message] 3838318506) The system [employer] generated this result transmitted ref erence range: 0 - 5 HP F. The reference range was not used to int erpret this result as normal/abnormal . BACTERIA (test code = Moderate Negative A 7447761702) SQ EPITH (test code = See_Comment H [Auto mated message] 0443941210) The system [employer] generated this result transmitted ref erence range: <=2 HPF. The reference range was not used to int erpret this result as normal/abnormal . Lab Interpretation (test Abnormal code = 14540-5) [facility]-19 (ID NOW RAPID TESTING)2020-09-03 05:49:54 Test Item Value Reference Range Interpretation Comments SARS-CoV-2 Rapid ID NOW Not Detected Not Detected (test code = 72911-7) DARREL (test code = DARREL) ID NOW COVID-19 Assay is an isothermal nucleic acid amplification test intended for the qualitative detection of nucleic acid from SARS-CoV-2 viral RNA in nasopharyngeal ([employer]) specimens. It is used under Emergency Use Authorization (EUA) by FDA. The limit of detection (LOD) of the assay is 125 Genome Equivalents/mL. A positive result is indicative of the presence of SARS-CoV-2 RNA. ?Clinical correlation with patient history and other diagnostic information is necessary to determine patient infection status. A negative (Not Detected) result does not preclude SARS-CoV-2 infection. In patients with clinical symptoms and other tests that are consistent with SARS-CoV-2 infection, negative results should be treated as presumptive negative and a new specimen should be tested with alternative PCR molecular test. Invalid: Please collect a new specimen for repeat patient testing if clinically indicated. Lab Interpretation Normal (test code = 19124-8) [facility]-19 (ID NOW RAPID TESTING)2020-09-03 05:49:54 Test Item Value Reference Range Interpretation Comments SARS-CoV-2 Rapid ID NOW Not Detected Not Detected (test code = 15460-1) DARREL (test code = DARREL) ID NOW COVID-19 Assay is an isothermal nucleic acid amplification test intended for the qualitative detection of nucleic acid from SARS-CoV-2 viral RNA in nasopharyngeal ([employer]) specimens. It is used under Emergency Use Authorization (EUA) by FDA. The limit of detection (LOD) of the assay is 125 Genome Equivalents/mL. A positive result is indicative of the presence of SARS-CoV-2 RNA. ?Clinical correlation with patient history and other diagnostic information is necessary to determine patient infection status. A negative (Not Detected) result does not preclude SARS-CoV-2 infection. In patients with clinical symptoms and other tests that are consistent with SARS-CoV-2 infection, negative results should be treated as presumptive negative and a new specimen should be tested with alternative PCR molecular test. Invalid: Please collect a new specimen for repeat patient testing if clinically indicated. Lab Interpretation Normal (test code = 24601-7) [facility] NON-STRESS [id number] 16:12:12 [facility] 2020-09-01 16:12:12[facility]Un[facility]IFIC [id number] 15:26:00 Test Item Value Reference Range Interpretation Comments POCT U SP GRAV (test code = . 1.005-1.025 3255) POCT PH U (test code = 3254) . 5-8 POCT U LEUK EST (test code = . Negative - Negative 3263) POCT U NIT (test code = 3262) . Negative - Negative POCT U PROT (test code = 3259) trace Negative - Negative POCT U GLU (test code = 3256) negative Negative - Negative POCT U KETONE (test code = 3258) . Negative - Negative POCT U UROBILI (test code = . 0.2-1 3260) POCT U BILI (test code = 3261) . Negative - Negative POCT U BLD (test code = 3257) . Negative - Negative POCT U COLOR (test code = 3266) POCT U APPEAR (test code = 3267) [facility] URINALYSIS W SPECIFIC [id number] 15:26:00 Test Item Value Reference Range Interpretation Comments POCT U SP GRAV (test code = . 1.005-1.025 3255) POCT PH U (test code = 3254) . 5-8 POCT U LEUK EST (test code = . Negative - Negative 3263) POCT U NIT (test code = 3262) . Negative - Negative POCT U PROT (test code = 3259) trace Negative - Negative POCT U GLU (test code = 3256) negative Negative - Negative POCT U KETONE (test code = 3258) . Negative - Negative POCT U UROBILI (test code = . 0.2-1 3260) POCT U BILI (test code = 3261) . Negative - Negative POCT U BLD (test code = 3257) . Negative - Negative POCT U COLOR (test code = 3266) POCT U APPEAR (test code = 3267) [facility] URINALYSIS W SPECIFIC [id number] 16:08:00 Test Item Value Reference Range Interpretation Comments POCT U SP GRAV (test code = 3255) . 1.005-1.025 POCT PH U (test code = 3254) . 5-8 POCT U LEUK EST (test code = 3263) . Negative - Negative POCT U NIT (test code = 3262) . Negative - Negative POCT U PROT (test code = 3259) Trace Negative - Negative POCT U GLU (test code = 3256) Neg Negative - Negative POCT U KETONE (test code = 3258) . Negative - Negative POCT U UROBILI (test code = 3260) . 0.2-1 POCT U BILI (test code = 3261) . Negative - Negative POCT U BLD (test code = 3257) . Negative - Negative POCT U COLOR (test code = 3266) POCT U APPEAR (test code = 3267) [facility] URINALYSIS W SPECIFIC [id number] 16:08:00 Test Item Value Reference Range Interpretation Comments POCT U SP GRAV (test code = 3255) . 1.005-1.025 POCT PH U (test code = 3254) . 5-8 POCT U LEUK EST (test code = 3263) . Negative - Negative POCT U NIT (test code = 3262) . Negative - Negative POCT U PROT (test code = 3259) Trace Negative - Negative POCT U GLU (test code = 3256) Neg Negative - Negative POCT U KETONE (test code = 3258) . Negative - Negative POCT U UROBILI (test code = 3260) . 0.2-1 POCT U BILI (test code = 3261) . Negative - Negative POCT U BLD (test code = 3257) . Negative - Negative POCT U COLOR (test code = 3266) POCT U APPEAR (test code = 3267) [facility] URINALYSIS W SPECIFIC [id number] 17:01:00 Test Item Value Reference Range Interpretation Comments POCT U SP GRAV (test code = 3255) . 1.005-1.025 POCT PH U (test code = 3254) . 5-8 POCT U LEUK EST (test code = 3263) . Negative - Negative POCT U NIT (test code = 3262) . Negative - Negative POCT U PROT (test code = 3259) trace Negative - Negative POCT U GLU (test code = 3256) neg Negative - Negative POCT U KETONE (test code = 3258) . Negative - Negative POCT U UROBILI (test code = 3260) . 0.2-1 POCT U BILI (test code = 3261) . Negative - Negative POCT U BLD (test code = 3257) . Negative - Negative POCT U COLOR (test code = 3266) POCT U APPEAR (test code = 3267) [facility] URINALYSIS W SPECIFIC [id number] 17:01:00 Test Item Value Reference Range Interpretation Comments POCT U SP GRAV (test code = 3255) . 1.005-1.025 POCT PH U (test code = 3254) . 5-8 POCT U LEUK EST (test code = 3263) . Negative - Negative POCT U NIT (test code = 3262) . Negative - Negative POCT U PROT (test code = 3259) trace Negative - Negative POCT U GLU (test code = 3256) neg Negative - Negative POCT U KETONE (test code = 3258) . Negative - Negative POCT U UROBILI (test code = 3260) . 0.2-1 POCT U BILI (test code = 3261) . Negative - Negative POCT U BLD (test code = 3257) . Negative - Negative POCT U COLOR (test code = 3266) POCT U APPEAR (test code = 3267) [facility]2020-05-24 23:20:00 Test Item Value Reference Range Interpretation Comments SARS-CoV-2 Rapid ID NOW Not Detected Not Detected (test code = 92920-1) DARREL (test code = DARREL) ID NOW COVID-19 Assay is an isothermal nucleic acid amplification test intended for the qualitative detection of nucleic acid from SARS-CoV-2 viral RNA in nasopharyngeal ([employer]) specimens. It is used under Emergency Use Authorization (EUA) by FDA. The limit of detection (LOD) of the assay is 125 Genome Equivalents/mL. A positive result is indicative of the presence of SARS-CoV-2 RNA. ?Clinical correlation with patient history and other diagnostic information is necessary to determine patient infection status. A negative (Not Detected) result does not preclude SARS-CoV-2 infection. In patients with clinical symptoms and other tests that are consistent with SARS-CoV-2 infection, negative results should be treated as presumptive negative and a new specimen should be tested with alternative PCR molecular test. Invalid: Please collect a new specimen for repeat patient testing if clinically indicated. Lab Interpretation Normal (test code = 11296-2) [facility] LOWER EXTREMITY VEIN WITH COMPRESSION BILATERAL (ONLY FOR RULE OUT DVT)2020-05-18 21:29:54 No evidence of deep venous thrombosis in the left lower extremity. Preliminary Report Dictated by Resident: Anderson Le. I, Hernan Vasques MD., have reviewed this study and agree with theabove report.US LOWER EXTREMITY VEIN WITH COMPRESSION BILATERAL (ONLY FOR RULE OUT DVT) HISTORY: 19 years-old; Female; dizziness, SOB, superficial vein clot in [facility]. FINDINGS: The common femoral,proximal, middle, and distal femoral and deep femoralveins as well as the popliteal and greater saphenous veins exhibit normalflow, compressibility, and augmentation. The superficial venous flow is not well assessed in this examination asthey may not be a source of pulmonary embolism without a DVTtransformation. [facility], Radiant Results Inft User - 05/18/2020 3:31 PM CSTUS LOWER EXTREMITY VEIN WITH COM PRESSION BILATERAL (ONLY FOR RULE OUT DVT)HISTORY: 19 years-old; Female; dizziness, SOB, superficialvein clot in [facility].FINDINGS: The common femoral, proximal, middle, and distal femoral and deep femoralveins as well as the popliteal and greater saphenous veins exhibit normalflow, compressibility, and augmentation. The superficial venous flow is not well assessed in this examination asthey may not be a source of pulmonary embolism without a DVTtransformation.IMPRESSION No evidence of deep venous thrombosis in the left lower extremity. Preliminary Report Dictated by Resident: Anderson Le.IZack MD., have reviewed this study and agree with theabove report.[facility] SYPHILIS [id number] 16:28:00 Test Item Value Reference Range Interpretation Comments Syphilis IgG/IgM (test Non-reactive Non-reactive code = 77701-6) DARREL (test code = DARREL) Non-reactive - No serologic evidence of T. pallidum infection. Cannot exclude incubating or early syphilis. Submit a second specimen in 2-4 weeks if syphilis is clinically suspected. Equivocal - Further testing to follow. Reactive - Further testing to follow. Lab Interpretation (test Normal code = 14663-4) [facility] CenterHEPAT[facility] B SURFACE [id number] 12:37:00 Test Item Value Reference Range Interpretation Comments HBsAg Semi-Quantitative (test code = Negative Negative 5195-3) [facility] METABOLIC PANEL (NA, K, CL, CO2, GLUCOSE, BUN, CREATININE, CA)2020-05-18 10:33:00 Test Item Value Reference Range Interpretation Comments NA (test code = 134 mmol/L 135-145 L 3996690567) K (test code = 3.8 mmol/L 3.5-5 2017924773) CL (test code = 103 mmol/L 98-108 2592126465) CO2 TOTAL (test code = 23 mmol/L 23-31 5775827856) AGAP (test code = 2-16 4194536920) BUN (test code = 4 mg/dL 7-23 L 6834477063) GLUCOSE (test code = 83 mg/dL 70-110 4562018290) CREATININE (test code = 0.44 mg/dL 0.5-1.04 L 0003204972) CALCIUM (test code = 9.3 mg/dL 8.6-10.6 7692327932) eGFR Calculation mL/min/1.73m2 (Non-) (test code = 1510862861) eGFR Calculation mL/min/1.73m2 () (test code = 1532780303) DARREL (test code = DARREL) Association of Glomerular Filtration Rate (GFR) and Staging of Kidney Disease* + --+ --+ ------+| GFR (mL/min/1.73 m2) ?| With Kidney Damage ?| ?Without Kidney Damage+ --------+ --------+ +| ?>90 ?| ?Stage one ?| ? Normal ?+ ---+ ---+ -------+| ?60-89 ?| ?Stage two ?| ? Decreased GFR ? + --+ --+ ------+| ?30-59 ?| ?Stage three ?| ? Stage three ? + --+ --+ ------+| ?15-29 ?| ?Stage four ? | ? Stage four ?+ ---+ ---+ -------+| ?<15 (or dialysis) ? ?| ?Stage five ? | ? Stage five ?+ ---+ ---+ -------+ *Each stage assumes the associated GFR level has been in effect for at least three months. ?Stages 1 to 5, with or without kidney disease, indicate chronic kidney disease. Notes: Determination of stages one and two (with eGFR >59mL/min/1.73 m2) requires estimation of kidney damage for at least three months as defined by structural or functional abnormalities of the kidney, manifested by either:Pathological abnormalities or Markers of kidney damage (including abnormalities in the composition of the blood or urine or abnormalities in imaging tests). Lab Interpretation Abnormal (test code = 08172-5) [facility] [id number] 10:21:00 Test Item Value Reference Range Interpretation Comments APPEARANCE (test code = Clear Clear 6018385293) COLOR (test code = Yellow Yellow 1091131012) PH (test code = 4.8-8.0 7579854157) SP GRAVITY (test code = 1.003-1.030 5759182348) GLU U QUAL (test code = Normal Normal 5341496982) BLOOD (test code = Negative Negative 6698968011) KETONES (test code = 5 mg/dL Negative A 2297903029) PROTEIN (test code = Negative Negative 2887-8) UROBILIN (test code = Normal Normal 0921117800) BILIRUBIN (test code = Negative Negative 9816999754) NITRITE (test code = Negative Negative 8705996840) LEUK ELVIN (test code = 25/uL Negative A 7575012389) RBC/HPF (test code = See_Comment [Autom ated message] 9906709843) The system [employer] generated this result transmitted ref erence range: 0 - 3 HP F. The reference range was not used to int erpret this result as normal/abnormal . WBC/HPF (test code = See_Comment [Autom ated message] 4390701642) The system [employer] generated this result transmitted ref erence range: 0 - 5 HP F. The reference range was not used to int erpret this result as normal/abnormal . BACTERIA (test code = Few Negative A 1324053535) MUCOUS (test code = Slight Negative LPF A 7090665217) SQ EPITH (test code = See_Comment H [Auto mated message] 7006819176) The system [employer] generated this result transmitted ref erence range: <=2 HPF. The reference range was not used to int erpret this result as normal/abnormal . Lab Interpretation (test Abnormal code = 09940-0) [facility] CenterType and Screen - ONCE [id number] 10:17:31 Test Item Value Reference Range Interpretation Comments ABO & RH (test code O POSITIVE Performe d at [facility] = 20) Laboratory [facility] [address] [facility] [id number] Free: [phone] A No. [id number] IAT (test code = Negative Performed a t [facility] 1185) [facility] [address] [facility] [address] [address]Wnjo Free: [phone] A No. [id number] [facility] CenterCBC WITH [id number] 09:50:00 Test Item Value Reference Range Interpretation Comments WBC (test code = See_Comment [Automated 6690-2) message] The sy stem which generated this result transmitted reference range : 4.30 - 11.10 10*3/?L. The reference range was not used to interpret this result as normal/abnormal . RBC (test code = See_Comment [Automated 789-8) message] The sy stem which generated this result transmitted reference range : 3.93 - 5.25 10*6/?L. The reference range was not used to interpret this result as normal/abnormal . HGB (test code = 10.4 g/dL 11.6-15 L 718-7) HCT (test code = 35.0 % 35.7-45.2 L 4544-3) MCV (test code = 79.4 fL 80.6-95.5 L 787-2) MCH (test code = 23.6 pg 25.9-32.8 L 785-6) MCHC (test code = 29.7 g/dL 31.6-35.1 L 786-4) RDW-SD (test code = 41.9 fL 39-49.9 45521-2) RDW-CV (test code = 14.6 % 12-15.5 788-0) PLT (test code = See_Comment [Automated 777-3) message] The sy stem which generated this result transmitted reference range : 166 - 358 10*3/ ?L. The reference r surjit was not used to interpret this result as normal/abnormal . MPV (test code = 11.6 fL 9.5-12.9 00384-6) NRBC/100 WBC (test See_Comment [Automat ed code = 7003223523) message] The system which generated this result transmitted reference range : 0.0 - 10.0 /100 WBCs. The refer ence range was not u sed to interpret th is result as normal/abnormal . NRBC x10^3 (test code <0.01 See_Comment [Auto mated = 2073195095) message] The s ystem which generated this result transmitted reference range : 10*3/?L. The reference range was not used to interpret this result as normal/abnormal . GRAN MAT (NEUT) % 64.8 % (test code = 770-8) IMM GRAN % (test code 0.30 % = 6619276425) LYMPH % (test code = 27.4 % 736-9) MONO % (test code = 6.8 % 5905-5) EOS % (test code = 0.4 % 713-8) BASO % (test code = 0.3 % 706-2) GRAN MAT x10^3(ANC) 6.10 10*3/uL 1.88-7.09 (test code = 0389817795) IMM GRAN x10^3 (test 0.03 10*3/uL 0-0.06 code = 2634593916) LYMPH x10^3 (test code 2.58 10*3/uL 1.32-3.29 = 731-0) MONO x10^3 (test code 0.64 10*3/uL 0.33-0.92 = 742-7) EOS x10^3 (test code = 0.04 10*3/uL 0.03-0.39 711-2) BASO x10^3 (test code 0.03 10*3/uL 0.01-0.07 = 704-7) Lab Interpretation Abnormal (test code = 24674-5) [facility]ID [facility]2020-05-18 08:54:00 Test Item Value Reference Range Interpretation Comments SARS-CoV-2 Rapid ID NOW Not Detected Not Detected (test code = 45475-6) DARREL (test code = DARREL) ID NOW COVID-19 Assay is an isothermal nucleic acid amplification test intended for the qualitative detection of nucleic acid from SARS-CoV-2 viral RNA in nasopharyngeal ([employer]) specimens. It is used under Emergency Use Authorization (EUA) by FDA. The limit of detection (LOD) of the assay is 125 Genome Equivalents/mL. A positive result is indicative of the presence of SARS-CoV-2 RNA. ?Clinical correlation with patient history and other diagnostic information is necessary to determine patient infection status. A negative (Not Detected) result does not preclude SARS-CoV-2 infection. In patients with clinical symptoms and other tests that are consistent with SARS-CoV-2 infection, negative results should be treated as presumptive negative and a new specimen should be tested with alternative PCR molecular test. Invalid: Please collect a new specimen for repeat patient testing if clinically indicated. Lab Interpretation Normal (test code = 25375-1) [facility]CIFIC [id number] 19:25:00 Test Item Value Reference Range Interpretation Comments POCT U SP GRAV (test code = 3255) . 1.005-1.025 POCT PH U (test code = 3254) . 5-8 POCT U LEUK EST (test code = 3263) . Negative - Negative POCT U NIT (test code = 3262) . Negative - Negative POCT U PROT (test code = 3259) trace Negative - Negative POCT U GLU (test code = 3256) neg Negative - Negative POCT U KETONE (test code = 3258) . Negative - Negative POCT U UROBILI (test code = 3260) . 0.2-1 POCT U BILI (test code = 3261) . Negative - Negative POCT U BLD (test code = 3257) . Negative - Negative POCT U COLOR (test code = 3266) POCT U APPEAR (test code = 3267) [facility] URINALYSIS W SPECIFIC [id number] 19:25:00 Test Item Value Reference Range Interpretation Comments POCT U SP GRAV (test code = 3255) . 1.005-1.025 POCT PH U (test code = 3254) . 5-8 POCT U LEUK EST (test code = 3263) . Negative - Negative POCT U NIT (test code = 3262) . Negative - Negative POCT U PROT (test code = 3259) trace Negative - Negative POCT U GLU (test code = 3256) neg Negative - Negative POCT U KETONE (test code = 3258) . Negative - Negative POCT U UROBILI (test code = 3260) . 0.2-1 POCT U BILI (test code = 3261) . Negative - Negative POCT U BLD (test code = 3257) . Negative - Negative POCT U COLOR (test code = 3266) POCT U APPEAR (test code = 3267) [facility] [id number] 15:16:00 Test Item Value Reference Range Interpretation Comments POCT PREG (test code = 1605) Positive On board controls acceptable with C Yes Line (test code = 3574) POCT PREG LOT # (test code = 3575) POCT PREG TEST DATE (test code = 3576) [facility] URINALYSIS W/O SPECIFIC [id number] 15:16:00 Test Item Value Reference Range Interpretation Comments POCT PH U (test code = 3254) 6 mg/dl 5-8 POCT U LEUK EST (test code = 2+ Negative - Negative 3263) POCT U NIT (test code = 3262) neg Negative - Negative POCT U PROT (test code = 3259) 1+ Negative - Negative POCT U GLU (test code = 3256) neg Negative - Negative POCT U KETONE (test code = 3258) small Negative - Negative POCT U BLD (test code = 3257) neg Negative - Negative [facility]"
[2021-06-06 02:55] LABS: SARS-COV-2 RT PCR NEGATIVE (NEGATIVE)
--- NOTE | 2021-06-06 03:42 | EDPHYS ---
Physician Documentation [facility] Name: Pilar Cuba Age: 20 yrs Sex: Female : 2000 Arrival Date: 06/06/2021 Time: 00:14 Bed 10 Private MD: DAVID Physician Luciano Sanchez HPI: 06/06 03:35 This 20 yrs old Black Female presents to ER via Ambulatory with complaints of Ear Pain, nohemi Sore Throat, Headache, Dizziness. 03:35 The patient presents with pain, mild. The complaints affect the right ear and left ear. nohemi 03:36 The patient presents with sore throat. The patient describes throat pain as constant. nohemi Onset: The symptoms/episode began/occurred 2 day(s) ago. Modifying factors: The symptoms are alleviated by nothing, the symptoms are aggravated by nothing. Severity of symptoms: At their worst the symptoms were mild, in the emergency department the symptoms are unchanged. Associated signs and symptoms: The patient has no apparent associated signs or symptoms. Modifying factors: The symptoms are alleviated by nothing, the symptoms are aggravated by nothing, Patient's oral intake status: good. 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 - Social history:: Smoking status: Patient denies any tobacco usage or history of. - Family history:: not pertinent. ROS: 03:36 Constitutional: Negative for fever, chills, and weight loss, Eyes: Negative for injury, nohemi pain, redness, and discharge, Neck: Negative for injury, pain, and swelling, Cardiovascular: Negative for chest pain, palpitations, and edema, Respiratory: Negative for shortness of breath, cough, wheezing, and pleuritic chest pain, Abdomen/GI: Negative for abdominal pain, nausea, vomiting, diarrhea, and constipation, Back: Negative for injury and pain, : Negative for injury, bleeding, discharge, and swelling, MS/Extremity: Negative for injury and deformity, Skin: Negative for injury, rash, and discoloration, Neuro: Negative for headache, weakness, numbness, tingling, and seizure, Psych: Negative for depression, anxiety, suicide ideation, homicidal ideation, and hallucinations, Allergy/Immunology: Negative for hives, rash, and allergies, Endocrine: Negative for neck swelling, polydipsia, polyuria, polyphagia, and marked weight changes, Hematologic/Lymphatic: Negative for swollen nodes, abnormal bleeding, and unusual bruising. 03:36 ENT: Positive for difficulty swallowing, ear pain, rhinorrhea. Exam: 03:36 Constitutional: This is a well developed, well nourished patient who is awake, alert, nohemi and in no acute distress. Head/Face: Normocephalic, atraumatic. Eyes: Pupils equal round and reactive to light, extra-ocular motions intact. Lids and lashes normal. Conjunctiva and sclera are non-icteric and not injected. Cornea within normal limits. Periorbital areas with no swelling, redness, or edema. Neck: Trachea midline, no thyromegaly or masses palpated, and no cervical lymphadenopathy. Supple, full range of motion without nuchal rigidity, or vertebral point tenderness. No Meningismus. Chest/axilla: Normal chest wall appearance and motion. Nontender with no deformity. No lesions are appreciated. Cardiovascular: Regular rate and rhythm with a normal S1 and S2. No gallops, murmurs, or rubs. Normal PMI, no JVD. No pulse deficits. Respiratory: Lungs have equal breath sounds bilaterally, clear to auscultation and percussion. No rales, rhonchi or wheezes noted. No increased work of breathing, no retractions or nasal flaring. Abdomen/GI: Soft, non-tender, with normal bowel sounds. No distension or tympany. No guarding or rebound. No evidence of tenderness throughout. Back: No spinal tenderness. No costovertebral tenderness. Full range of motion. Skin: Warm, dry with normal turgor. Normal color with no rashes, no lesions, and no evidence of cellulitis. MS/ Extremity: Pulses equal, no cyanosis. Neurovascular intact. Full, normal range of motion. Neuro: Awake and alert, GCS 15, oriented to person, place, time, and situation. Cranial nerves II-XII grossly intact. Motor strength 5/5 in all extremities. Sensory grossly intact. Cerebellar exam normal. Normal gait. Psych: Awake, alert, with orientation to person, place and time. Behavior, mood, and affect are within normal limits. 03:36 ENT: Ear canal(s): are normal, TM's: bulging, is not appreciated, dullness, bilaterally, erythema, that is mild, bilaterally, hemotympanum, is not appreciated, loss of bony landmarks, is not appreciated, rupture, is not appreciated. Vital Signs: 01:39 BP 128 / 99; Pulse 96; Resp 16 S; Temp 97.9(O); Pulse Ox 99% on R/A; Weight 57.61 kg bb (R); Height 5 ft. 8 in. (172.72 cm) (R); Pain 8/10; 01:39 Body Mass Index 19.31 (57.61 kg, 172.72 cm) bb MDM: 03:26 Patient medically screened. nohemi 03:38 Differential diagnosis: otitis media, otitis externa, acute otalgia, cerumen impaction, nohemi barotrauma . Data reviewed: vital signs, nurses notes. Data interpreted: ekg monitor: not applicable for this patient encounter. rate is 96 beats/min, rhythm is regular, Pulse oximetry: on room air is 99 %. Counseling: I had a detailed discussion with the patient and/or guardian regarding: the historical points, exam findings, and any diagnostic results supporting the discharge/admit diagnosis, lab results, radiology results, the need for outpatient follow up, for definitive care, a family practitioner. 06/06 01:45 Order name: COVID-19/FLU A+B (Document "Date of Onset" if Symptomatic); Complete Time: bb 03:26 Administered Medications: 03:56 Drug: Augmentin (Amoxicillin-Clavulanate) 875 mg Route: PO; bb 03:56 Follow up: Response: Medication administered at discharge. bb 03:56 Drug: Motrin (ibuprofen) 600 mg Route: PO; bb 03:56 Follow up: Response: Medication administered at discharge. Disposition Summary: 06/06/21 03:41 Discharge Ordered Location: Home nohemi Problem: new nohemi Symptoms: have improved nohemi Condition: Stable nohemi Diagnosis - Acute serous otitis media, bilateral nohemi - Acute pharyngitis, unspecified nohemi Followup: nohemi - With: Private Physician - When: 2 - 3 days - Reason: Recheck today's complaints, Continuance of care, Re-evaluation by your physician Discharge Instructions: - Discharge Summary Sheet nohemi - Otitis Media, Adult nohemi - Pharyngitis nohemi - Sore Throat nohemi - Upper Respiratory Infection, Adult nohemi - Upper Respiratory Infection, Adult, [id number] nohemi - Pharyngitis, [id number] [facility] Forms: - Medication Reconciliation Form [facility] - Thank You Letter [facility] - Antibiotic Education [facility] - Prescription Opioid Use [facility] Prescriptions: - Augmentin 875-125 mg Oral Tablet - take 1 tablet by ORAL route every 12 hours for 10 days; 20 tablet; Refills: 0, [facility] Product Selection Permitted - Julee-D 12 Hour 60-120 mg Oral Tablet Sustained Release 12 hr - take 1 tablet by ORAL route every 12 hours As needed; 20 tablet; Refills: 0, [facility] Product Selection Permitted - Medrol (Adryan) 4 mg Oral Tablets, Dose Pack - take 1 tablet by ORAL route as directed - follow package instructions; 1 [facility] packet; Refills: 0, Product Selection Permitted Signatures: Dispatcher [employer] Luciano Reeves MD MD cha Ballard, Brenda, RN RN bb
--- NOTE | 2021-06-06 03:42 | ER ---
Nurse's Notes [facility] Name: Pilar Cuba Age: 20 yrs Sex: Female : 2000 Arrival Date: 06/06/2021 Time: 00:14 Bed 10 Private MD: Diagnosis: Acute serous otitis media, bilateral;Acute pharyngitis, unspecified Presentation: 06/06 01:39 Chief complaint: Patient states: she has been having ear pain, sore throat, congestion bb and SOB for several days. Coronavirus screen: congestion, shortness of breath, sore throat. Ebola Screen: No symptoms or risks identified at this time. Initial Sepsis Screen: Does the patient meet any 2 criteria? No. Patient's initial sepsis screen is negative. Does the patient have a suspected source of infection? No. Patient's initial sepsis screen is negative. Risk Assessment: Do you want to hurt yourself or someone else? Patient reports no desire to harm self or others. Onset of symptoms was May 2021. 01:39 Method Of Arrival: Ambulatory bb 01:39 Acuity: RENALDO 4 bb Triage Assessment: 01:41 General: Appears in no apparent distress. Behavior is calm, cooperative. Pain: bb Complains of pain in ears and throat. EENT: Reports pain in in ears and throat. Neuro: Level of Consciousness is awake, alert, obeys commands, Oriented to person, place, time, situation. Cardiovascular: Capillary refill < 3 seconds Patient's skin is warm and dry. Respiratory: Respiratory effort is even, unlabored, Respiratory pattern is regular. GI: No signs and/or symptoms were reported involving the gastrointestinal system. Derm: Skin is dry, Skin is normal, Skin temperature is warm. Musculoskeletal: Circulation, motion, and sensation intact. 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 - Social history:: Smoking status: Patient denies any tobacco usage or history of. - Family history:: not pertinent. Screenin:57 Abuse screen: Denies threats or abuse. Nutritional screening: No deficits noted. bb Tuberculosis screening: No symptoms or risk factors identified. Fall Risk None identified. Assessment: 03:57 Reassessment: Patient is alert, oriented x 3, equal unlabored respirations, skin bb warm/dry/pink. pt verbalized understanding of and agrees to plan of care discharge instructions given pt ambulated with steady gait to exit. Vital Signs: 01:39 BP 128 / 99; Pulse 96; Resp 16 S; Temp 97.9(O); Pulse Ox 99% on R/A; Weight 57.61 kg bb (R); Height 5 ft. 8 in. (172.72 cm) (R); Pain 8/10; 01:39 Body Mass Index 19.31 (57.61 kg, 172.72 cm) ED Course: 00:14 Patient arrived in ED. 01:41 Triage completed. bb 01:41 Arm band placed on Patient placed in waiting room, Patient notified of wait time. covid bb swab sent. 03:26 Luciano Sanchez MD is Attending Physician. nohemi 03:41 Joaquina Dunbar, RN is Primary Nurse. bb 03:57 Patient has correct armband on for positive identification. bb 03:57 No provider procedures requiring assistance completed. Patient did not have IV access bb during this emergency room visit. Administered Medications: 03:56 Drug: Augmentin (Amoxicillin-Clavulanate) 875 mg Route: PO; bb 03:56 Follow up: Response: Medication administered at discharge. bb 03:56 Drug: Motrin (ibuprofen) 600 mg Route: PO; bb 03:56 Follow up: Response: Medication administered at discharge. bb Outcome: 03:41 Discharge ordered by . [facility] 03:57 Discharged to home ambulatory. bb 03:57 Condition: stable 03:57 Discharge instructions given to patient, Instructed on discharge instructions, follow up and referral plans. medication usage, Demonstrated understanding of instructions, follow-up care, medications, Prescriptions given X 3. 03:58 Patient left the ED. bb Signatures: Luciano Sanchez MD MD cha Ballard, Brenda, RN RN Leonora Lao
[2021-06-06] MEDS ORDERED: AMOX/K CLAV 875 MG TAB ONE (03:52)
[2021-06-06] MEDS ORDERED: IBUPROFEN 200 MG TAB PO ONE (03:53)
[2021-06-06 04:04] VITALS: BP 128/99; TEMP 97.9; O2SAT 99
== END 2021-06-06 03:58 | disposition home or self-care (01) ==
LOC: ER 00:11
DX: H65.03 Acute serous otitis media, bilateral (principal); J02.9 Acute pharyngitis, unspecified; Z88.8 Allergy status to other drugs, medicaments and biological substances; Z20.822 Contact with and (suspected) exposure to COVID-19
CPT/HCPCS: 0240U; 99283

== ENCOUNTER 2022-03-15 13:16 | Emergency (ER) | payer OTHER ==
--- OUTSIDE RECORDS SUMMARY | 2022-03-15 13:21 | XMS REPORT | Continuity of Care Document ---
:2000 Author Organization [facility] t Address [address] [place] [address] Dr. Frazier[address] [place] [address] Care Team Providers Name Role Phone Keya Mccord Primary Care Physician [phone] BRENT WILKERSON Attending Clinician Unavailable Jeanie Thomas PA-C Attending Clinician Brent Wilkerson MD Attending Clinician LISBET CORBETT Attending Clinician Unavailable LISBET CORBETT Attending Clinician Unavailable Doctor Unassigned, [place] Attending Clinician Unavailable TERA MONTGOMERY Attending Clinician Unavailable KEYA ROA Attending Clinician Unavailable Keya Mccord Attending Clinician [phone] [facility] Attending Clinician Unavailable ARIN GARY Attending Clinician Unavailable Colby Almazan MD Attending Clinician Raghav Prajapati MD Attending Clinician Arin Colvin Attending Clinician Ryan Mckeon DO Attending Clinician Ramses Vogt MD Attending Clinician Ultrasound, Tia Attending Clinician Unavailable Esther Carter MD Attending Clinician Jeanie Higuera RN Attending Clinician Unavailable Noelle Savage Attending Clinician Unavailable Hector Mariscal MD Attending Clinician Dez Landry MD, [place] Attending Clinician [phone] MARCELINO MICHELE Attending Clinician Unavailable 2, [facility] Us Room Attending Clinician Unavailable Minh SPANN, Bucky Ventura Attending Clinician HECTOR MARISCAL Attending Clinician Unavailable Provider, [facility] Attending Clinician Unavailable ESTHER CARTER Attending Clinician Unavailable ESTHER CARTER Attending Clinician Unavailable Fito SPANN, Haseeb Attending Clinician 5, [facility] Usg Room Attending Clinician Unavailable Deidra Short MD Attending Clinician Michael Hanna MD Attending Clinician HASEEB CHICAS Admitting Clinician Unavailable ESTHER CARTER Admitting Clinician Unavailable Alo SPANN, Raghav Admitting Clinician Haseeb Chicas MD Admitting Clinician Esther Carter MD Admitting Clinician Payers Payer Name Policy Type Policy Number Effective Date Expiration Date S ource [facility] [id number] 2020 00:00:00 BCBS [facility] - [id number] 2017 2025 OUT OF STATE 00:00:00 00:00:00 MEDICAID [facility] [id number] 2020 00:00:00 Problems Condition Condition Condition Status Onset Resolution Last Treating Co mments Source Name Details Category Date Date Treatment Clinician Date S/P S/P Disease Active Univers 4-14 ity of 00:00: [address] Asthma Asthma Disease Active 2019-05 Univers 2-23 ity of 00:00: [address] Well woman Well woman Disease Active 2016-05 U nivers exam exam 1-22 ity of 00:00: [address] Chronic Chronic Disease Active Univers anemia anemia 9-20 ity of 00:00: [address] Screening Screening Disease Active Uni vers examinatio examinatio 2-05 it y of n for STD n for STD [place] ([place] (sexually 00 Medi virgilio transmitte transmitte Br anch d disease) d disease) Allergies, Adverse Reactions, Alerts Allergy Allergy Status Severity Reaction(s) Onset Inactive Treating Comm ents Source Name Type Date Date Clinician Yarelis Garza Active Palpitations 2019-05 Univers l ty to 24 ity of adverse 00:00: [place] reaction 00 Medical s Branch Social History Social Habit Start Date Stop Date Quantity Comments Source Exposure to 2021-12-05 2021-12-15 Not sure [facility] SARS-CoV-2 00:00:00 08:53:00 [place] [facility] (event) Branch Tobacco use and 2021-12-15 2021-12-15 Smokeless tobacco Un iversity of exposure 00:00:00 00:00:00 non-user [facility] Alcohol intake 2021-12-15 2021-12-15 Current [facility] 00:00:00 00:00:00 non-drinker of [facility] alcohol (finding) Branch Sex Assigned At [birth year] Universit y of 00:00:00 00:00:00 [facility] Smoking Status Start Date Stop Date Source Never smoked tobacco Formerly [facility] Medications Ordered Filled Start Stop Current Ordering Indication Dosage Frequency Signature Comments Components Source Medication Medication Date Date Medication? Clinician (SIG) Name Name metroNIDAZO Yes [id number] 500mg Take 1 Univers LE 500 mg 7-26 tablet by ity o f tablet 00:00: mouth [place] 00 every 12 Medical (twelve) Branch hours. No known No No known Unive rs medications -22 medication it y of 09:38: s [address] Immunizations Ordered Filled Immunization Date Status Comments Sourc e Immunization Name Name TDAP 2020-07-19 Completed [facility] 00:00:00 [facility] TDAP 2020-07-19 Completed [facility] 00:00:00 [facility] Influenza Virus 2020-05-03 Completed Universit y of Vaccine Quad .5 mL 00:00:00 [facility] 6+ [place] Branch Influenza Virus 2020-05-03 Completed Universit y of Vaccine Quad .5 mL 00:00:00 [facility] 6+ MO Branch Influenza Virus 2018-03-25 Completed Universit y of Vaccine [place] .5 mL 00:00:00 [facility] 6+ MO Branch Influenza Virus 2018-03-25 Completed Universit y of Vaccine Quad .5 mL 00:00:00 [facility] IM 6+ [place] Branch HPV9 2017-10-15 Completed University of 00:00:00 [facility] HPV9 2017-10-15 Completed University of 00:00:00 [facility] HPV9 2017-06-17 Completed University of 00:00:00 [facility] HPV9 2017-06-17 Completed University of 00:00:00 [facility] HPV9 2017-04-17 Completed University of 00:00:00 [facility] Influenza Virus 2017-04-17 Completed Universit y of Vaccine Quad IM 3+ 00:00:00 [facility] Branch HPV9 2017-04-17 Completed University of 00:00:00 [facility] Influenza Virus 2017-04-17 Completed Universit y of Vaccine Quad IM 3+ 00:00:00 [facility] TDAP 2013-05-27 Completed University of 00:00:00 [facility] TDAP 2013-05-27 Completed University of 00:00:00 [facility] Vital Signs Vital Name Observation Time Observation Value Comments Source Systolic blood 2021-12-15 14:03:00 112 mm[Hg] Univer sity of pressure [facility] Diastolic blood 2021-12-15 14:03:00 77 mm[Hg] Unive rsity of pressure [facility] Heart rate 2021-12-15 14:03:00 94 /min [facility] Respiratory rate 2021-12-15 14:03:00 18 /min [facility] Body height 2021-12-15 14:03:00 170.2 cm [facility] Body weight 2021-12-15 14:03:00 62.869 kg [facility] BMI 2021-12-15 14:03:00 21.71 kg/m2 [facility] Oxygen saturation in 2021-12-15 14:03:00 100 /min [facility] Arterial blood by [facility] Pulse oximetry Branch Procedures Procedure Date / Time Performed Performing Clinician Iam jaeger POCT URINALYSIS 2021-12-15 14:20:00 Brent Wilkerson [place] o f [facility] POCT TEST 2021-12-15 14:20:00 Brent Wilkerson [facility] Encounters Start End Encounter Admission Attending Care Care Encounter Source Date/Time Date/Time Type Type Clinicians Facility Department ID 2021-03-26 Outpatient [facility] [id number] Univers 11:59:17 ity [facility] 2021-03-25 Outpatient P [facility] SUSIE [id number] Univers 13:57:31 ity of [facility] 2021-03-25 Outpatient P [facility] SUSIE [id number] Univers 13:07:03 ity [facility] 2021-03-25 Outpatient P [facility] SUSIE [id number] Univers 12:51:10 ity [facility] 2022-06-15 2022-06-15 Outpatient R [facility] [id number] Univers 10:30:00 10:30:00 ity [facility] 2022-06-15 2022-06-15 Outpatient R [facility] [id number] Univers 10:30:00 10:30:00 ity [facility] 2021-12-19 2021-12-19 Case Martha [facility] [id number] Univers 00:00:00 00:00:00 Management Jeanie MONROE 350.1.13.10 ity of [facility] 4.2.7.2.686 [place] [facility] [id number] [address] 2021-12-15 2021-12-15 Outpatient R R[facility]A [facility] [id number] Univers 08:30:00 09:20:26 ity [facility] 2021-12-15 2021-12-15 Office Rhea [facility] 1.2.840.114 [id number] Univers 08:30:00 09:20:26 Visit Hima MAGALLON 350.1.13.10 it y of [place] [id number] [address] 2021-12-05 2021-12-05 Outpatient R LISBET CORBETT [facility] B [id number] Univers 09:30:00 09:30:00 LISBET CORBETT ity [facility] 2021-10-20 2021-10-20 Outpatient R [facility] [id number] Univers 11:30:00 11:30:00 ity of [facility] 2021-10-20 2021-10-20 Outpatient R BRENT WILKERSON [facility] [id number] Univers 10:00:00 10:40:52 ity of [facility] 2021-10-20 2021-10-20 Office Brent Wilkerson [facility] IVANIA 1.2.840.114 [id number] Univers 10:00:00 10:40:52 Visit Hima MAGALLON 350.1.13.10 it y of W[place] 4.2.7.2.[place] [id number] [facility] 134 Branch 2021-10-20 2021-10-20 Orders Doctor TERESA 1.2.840.114 [id number] Univers 00:00:00 00:00:00 Only Unassigned, LIZZETTE 350.1.13.10 ity of [place] [facility] 4.2.7.2.686 Sebastian as [id number] [facility] 009 Branch 2021-09-06 2021-09-06 Outpatient R [facility] [id number] Univers 10:00:00 10:00:00 ity of [facility] 2021-09-06 2021-09-06 Outpatient R [facility] [id number] Univers 10:00:00 10:00:00 ity of [facility] 2021-09-01 2021-09-01 Outpatient R RHEA [facility] [id number] Univers 08:30:00 08:30:00 ity [facility] 2021-08-01 2021-08-01 Outpatient R LISBET CORBETT [facility] B [id number] Univers 11:00:00 11:00:00 LISBET CORBETT ity [facility] 2021-06-09 2021-06-09 Outpatient R WILKERSON BRENT [facility] [id number] Univers 08:30:00 09:32:49 ity [facility] 2021-06-09 2021-06-09 Office Brent Wilkerson [facility] IVANIA 1.2.840.114 [id number] Univers 08:30:00 09:32:49 Visit Hima MAGALLON 350.1.13.10 it y of WOMEN'S 4.2.7.2.686 [facility] [id number] [place] [address] Branch 2021-06-09 2021-06-09 Outpatient R BRENT WILKERSON [facility] [id number] Univers 08:30:00 09:32:49 ity of [facility] 2021-06-09 2021-06-09 Orders Doctor TERESA 1.2.840.114 [id number] Univers 00:00:00 00:00:00 Only Unassigned, LIZZETTE 350.1.13.10 ity [place] [facility] 4.2.7.2.686 Sebastian as [phone] [address] 2021-02-08 2021-02-08 Outpatient R VALENTINA [facility] [id number] Univers 13:30:00 13:30:00 TERA ity [facility] 2020-09-26 2020-09-26 Outpatient R JANINA [facility] [id number] Univers 09:45:00 09:45:00 KEYA chavira o f [facility] 2020-09-24 2020-09-24 [facility] [id number] 00:00:00 00:00:00 Keya Cunha 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 350.1.13.10 REGIONAL 4.2.7.2.686 MATERNAL [id number] & CHILD 107 [facility] 2020-09-24 2020-09-24 [facility] [id number] Univers 00:00:00 00:00:00 Keya Cunha 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 350.1.13.10 ity of [facility] 4.2.7.2.686 Sebastian as MATERNAL [id number] Med ical & CHILD [address] [place] [address] 2020-09-12 2020-09-12 Nurse Visit, [facility] 1.2.840.114 [id number] 13:58:18 14:13:18 Visit [facility] 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 350.1.13.10 Nurse REGIONAL 4.2.7.2.686 MATERNAL [id number] & CHILD 107 [facility] 2020-09-122020-09-12 Nurse Visit, [facility] Nurse [facility] 1.2 .840.114 [id number] Univers 13:58:18 14:13:18 Visit Keya Roa 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 350.1.13. 10 [facility] 4.2.7.2.686 Sebastian as MATERNAL [id number] Med ical & CHILD [address] [place] [address] 2020-09-12 2020-09-12 Outpatient R JANINA [facility] [id number] Univers 13:00:00 13:00:00 KEYA mahoney [facility] 2020-09-09 2020-09-09 Outpatient R COOKIE [facility] [id number] Univers 09:15:00 09:15:00 ARIN chavira o [facility] 2020-09-03 2020-09-07 [facility] Colby Almazan 1.2.840.114 [id number] 00:19:00 11:07:00 Encounter Raghav Prajapati 350.1.13.1 0 [facility] 4.2.7.2.686 [id number] [facility] 2020-09-03 2020-09-07 [facility] Colby Almazan 1.2.840.114 [id number] Univers 00:19:00 11:07:00 Encounter Raghav [facility]japati [facility].1.13.1 [facility] 4.2.7.2.686 [place] as [id number] [address] 2020-09-05 2020-09-05 Outpatient R [facility] [id number] Univers 09:45:00 09:45:00 ity of [facility] 2020-09-05 2020-09-05 Anthony Gary NVFABRIZIO 1.2.840.114 [id number] 00:00:00 00:00:00 Arin Centeno 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 350.1.13.10 [facility] 4.2.7.2.686 MATERNAL [id number] & CHILD [address] [place] [address] 2020-09-05 2020-09-05 Abstract Cookie [facility] 1.2.840.114 [id number] Univers 00:00:00 00:00:00 Terriwei Centeno 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 350.1.13.10 ity of REGIONAL 4.2.7.2.686 Sebastian as MATERNAL [id number] Med ical & CHILD 107 [facility] 2020-09-04 2020-09-04 Anesthesia Ryan Mckeon 1.2.840.114 [id number] Univers 03:03:00 07:28:00 Event Ramses Vogt 350.1.13.10 ity [place] [id number] [address] 2020-09-04 2020-09-04 Anesthesia Ryan Mckeon 1.2.840.114 [id number] 03:03:00 07:28:00 Event Ramses Vogt 350.1.13.10 [place] 4.2.7.2.686 [id number] [facility] 2020-09-04 2020-09-04 Surgery TERESA Prajapati 1.2.840.114 [id number] Univers 05:10:00 07:00:00 Raghav CROCKER 350.1.13.10 i ty [place]2.[place] [id number] [address] 2020-09-04 2020-09-04 Surgery TERESA 1.2.840.114 [id number] 05:10:00 07:00:00 LIZZETTE 350.1.13.10 [place]EX 4.2.7.2.686 [id number] [facility] 2020-09-02 2020-09-02 Product Marketing Manager Ultrasound, Tia [facility] 1.2 .840.114 [id number] [facility] 11:31:43 12:13:06 Visit Esther Carter 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 350.1.13.10 ity of REGIONAL 4.2.7.2.686 Sebastian as MATERNAL [id number] [facility] ical & CHILD 369 [facility] 2020-09-02 2020-09-02 Product Marketing Manager Ultrasound, [facility] 1.2.840.114 [id number] 11:31:43 12:13:06 Visit Tia 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 350.1.13.10 REGIONAL 4.2.7.2.686 MATERNAL [id number] & CHILD 369 [facility] 2020-09-02 2020-09-02 Outpatient P [facility] [id number] Univers 11:30:00 11:30:00 ity of [facility] 2020-09-02 2020-09-02 Nurse Radha MOORE 1.2.840.114 [id number] Univers 00:00:00 00:00:00 Triage LIZZETTE Vincent 350.1.13.10 ity [facility] 4.2.7.2.686 Sebastian as [id number] [address] 2020-09-02 2020-09-02 Nurse Radha MOORE 1.2.840.114 [id number] 00:00:00 00:00:00 Triage LIZZETTE Vincent 350.1.13.10 [facility] 4.2.7.2.686 [id number] [facility] 2020-09-01 2020-09-01 [facility] 1.2.840.114 [id number] 10:19:51 11:05:59 Roshunda R 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 350.1.13.10 Visit [facility] 4.2.7.2.686 MATERNAL [id number] & CHILD 107 [facility] 2020-09-01 2020-09-01 [facility] 1.2.840.114 [id number] Univers 10:19:51 11:05:59 Roshunda R 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 350.1.13.10 ity of Visit REGIONAL 4.2.7.2.686 Sebastian as MATERNAL [id number] Med ical & CHILD [address] [place] [address] 2020-09-01 2020-09-01 Outpatient R COOKIE [facility] [id number] Univers 10:15:00 10:15:00 ROSHUNDA ity o f [facility] 2020-08-24 2020-08-24 Telemedici Noelle Savage [facility] 1.2.8 40.114 [id number] Univers 15:12:27 15:12:48 ne Visit Hector Mariscal 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 350.1.13.10 ity of REGIONAL 4.2.7.2.686 Sebastian as MATERNAL [id number] Med ical & CHILD 109 [facility] 2020-08-24 2020-08-24 Outpatient P [facility] [id number] Univers 13:45:00 13:45:00 ity [facility] 2020-08-23 2020-08-23 [facility] 1.2.840.114 [id number] Univers 00:00:00 00:00:00 Arin Centeno 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 350.1.13.[address] [facility] 4.2.7.2.686 Sebastian as MATERNAL [id number] [facility] & CHILD 107 [facility] 2020-08-22 2020-08-22 Product Marketing Manager [facility]trasound, [facility] 1.2 .840.114 [id number] Univers 11:11:24 11:41:24 Visit Shaneka Mann 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 350.1. 13.10 [facility] 4.2.7.2.686 Sebastian as MATERNAL [id number] [facility] & CHILD 369 [facility] 2020-08-22 2020-08-22 Outpatient P [facility] [id number] Univers 11:30:00 11:30:[facility] 2020-08-17 2020-08-17 Outpatient Taryn GARY [facility] [id number] Univers 13:15:00 13:15:00 BRAYANNDA fan o [facility] 2020-08-17 2020-08-17 Outpatient Taryn GARY [facility] [id number] Univers 09:45:00 09:45:00 BRAYANNDA fan o [facility] 2020-08-08 2020-08-08 Outpatient Taryn GARY [facility] [id number] Univers 13:00:00 13:00:00 BRAYANNDA fan o f [facility] 2020-08-04 2020-08-04 Outpatient Taryn MICHELE [facility] [id number] Univers 14:45:00 14:45:00 MARCELINO [facility] 2020-08-03 2020-08-03 Outpatient R GARY [facility] [id number] Univers 08:00:00 08:00:00 BRAYANNDA fan o f [facility] 2020-08-02 2020-08-02 Outpatient R COOKIE [facility] [id number] Univers 08:00:00 08:00:00 BRAYANNDA ity o f [facility] 2020-07-20 2020-07-20 Product Marketing Manager 2, [facility] Room UNIVERSIT 1 .2.840.114 [id number] Univers 13:58:30 14:52:44 Visit WilkinsonBucky Y [facility] 350.1.13. 10 ity of CL[place]ICS 4.2.7.2.[place] [id number] [address] 2020-07-20 2020-07-20 Outpatient P [facility] [id number] Univers 14:00:00 14:00:00 ity of [facility] 2020-07-20 2020-07-20 Telephone [facility] 1.2.022.494 [id number] Univers 00:00:00 00:00:00 Terrijosechristinea R 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 350.1.13.10 ity of REGIONAL 4.2.7.2.686 Sebastian as MATERNAL [id number] Med ical & CHILD [address] [place] [address] 2020-07-20 2020-07-20 Abstract [facility] 1.2.840.114 [id number] Univers 00:00:00 00:00:00 Rosjosenda R 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 350.1.13.10 ity of REGIONAL 4.2.7.2.686 Sebastian as MATERNAL [id number] [facility] & CHILD [address] [place] [address] 2020-07-19 2020-07-19 Routine [facility] 1.2.818.994 [id number] Univers 08:44:47 09:30:34 Keya C 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 350.1.13.10 ity of Visit REGIONAL 4.2.7.2.686 Sebastian as MATERNAL [id number] [facility] & CHILD [address] [place] [address] 2020-07-19 2020-07-19 Outpatient R JANINA [facility] [id number] Univers 08:45:00 08:45:00 KEYA ity o [facility] 2020-07-13 2020-07-13 Outpatient P HECTOR MARISCAL [facility] [id number] Univers 14:30:00 14:30:00 ity [facility] 2020-07-11 2020-07-11 Outpatient R AKINCHITO, [facility] [id number] Univers 10:30:00 10:30:00 KEYA ity o [facility] 2020-06-30 2020-06-30 Outpatient R AKINNATASHAPE, [facility] [id number] Univers 14:15:00 14:15:00 KEYA ity o [facility] 2020-06-29 2020-06-29 Outpatient R [facility] [id number] Univers 14:45:00 14:45:[facility] 2020-06-29 2020-06-29 Urgent Provider, [facility] [id number] Univers 14:20:00 14:40:00 Care [facility] 350.1.13.10 ity of Care [place] 4.2.7.2.686 Sebastian as Professio [id number] [address] [facility] [employer] 2020-06-29 2020-06-29 Outpatient R [facility] [id number] Univers 14:20:00 14:20:00 ity [facility] 2020-06-28 2020-06-28 Outpatient R COOKIE [facility] [id number] Univers 10:15:00 10:15:00 ROSHUNDA ity o [facility] 2020-06-22 2020-06-22 Product Marketing Manager 2, [facility] Us Room UNIVERSIT 1 .2.840.114 [id number] Univers 11:18:37 12:43:58 Visit Esther Carter [facility] 350.1.13.10 ity of CL[place] [id number] [address] 2020-06-22 2020-06-22 Outpatient P ESTHER CARTER [facility] [id number] Univers 10:45:00 10:45:00 ESTHER CARTER ity of [facility] 2020-06-22 2020-06-22 Orders Doctor TERESA 1.2.840.114 [id number] Univers 00:00:00 00:00:00 Only Unassigned, LIZZETTE 350.1.13.10 ity of [place] [facility] 4.2.7.2.686 Sebastian as [id number] [address] 2020-06-22 2020-06-22 Abstract DEBORAH Gary 1.2.840.114 [id number] Univers 00:00:00 00:00:00 Roshunda R 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 350.1.13.10 ity of [facility] 4.2.7.2.686 Sebastian as MATERNAL [id number] Med ical & CHILD [address] [place] [address] 2020-06-22 2020-06-22 Abstract DEBORAH Gary 1.2.840.114 [id number] Univers 00:00:00 00:00:00 Roshunda R 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 350.1.13.10 ity of [facility] 4.2.7.2.686 Sebastian as MATERNAL [id number] Med ical & CHILD [address] [place] [address] 2020-06-07 2020-06-07 Telephone DEBORAH Gary [id number] Univers 00:00:00 00:00:00 Roshunda R 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 350.1.13.10 ity of [facility] 4..7.2.686 Sebastian as MATERNAL [id number] Med ical & CHILD [address] [place] [address] 2020-06-05 2020-06-05 Patient Doctor DEBORAH 1.2.840.114 [id number] Univers 00:00:00 00:00:00 Secure Msg Unassigned, 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 350.1.13.10 ity of [place] [facility] 4.2.7.2.686 Sebastian as MATERNAL [id number] [facility] ical & CHILD [address] [place] [address] 2020-05-31 2020-05-31 Routine DEBORAH Gary 1.2.840.114 [id number] Univers 10:38:40 11:10:41 Roshunda R 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 350.1.13.10 ity of Visit REGIONAL 4.2.7.2.686 Sebastian as MATERNAL [id number] Med ical & CHILD 107 [facility] 2020-05-31 2020-05-31 Outpatient R COOKIE [facility] [id number] Univers 10:45:00 10:45:00 ROSHUNDA ity o f [facility] 2020-05-24 2020-05-25 Hospital TERESA Chicas 1.2.840.114 [id number] Univers 16:30:00 17:45:00 Encounter Haseeb CROCKER 350.1.13.10 ity of [facility] 4.2.7.2.686 Sebastian as [id number] [facility] 019 [address] 2020-05-25 2020-05-25 Product Marketing Manager 5, [facility] Usg Room UNIVERSIT 1 .2.840.114 [id number] Univers 11:54:13 16:02:10 Visit Deidra Short [facility] 350.1.13.10 ity of CLINICS 4.2.7.2.[place] [id number] [facility] 104 [address] 2020-05-24 2020-05-24 Product Marketing Manager Ultrasound, [facility] 1.2 .840.114 [id number] Univers 09:13:52 10:13:52 Visit Michael Hanna 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 350.1.13.10 ity of REGIONAL 4.2.7.2.686 Sebastian as MATERNAL [id number] Med ical & CHILD 369 [facility] 2020-05-24 2020-05-24 Outpatient P [facility] [id number] Univers 09:00:00 09:00:00 ity of [facility] 2020-05-24 2020-05-24 Telephone Janina [facility] 1.2.840.114 [id number] Univers 00:00:00 00:00:00 Keya Cunha 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 [id number] ity of REGIONAL [id number] Sebastian as MATERNAL [id number] Med ical & CHILD 107 [facility] 2020-05-24 2020-05-24 Abstract Cookie [facility] 1.2.840.114 [id number] Univers 00:00:00 00:00:00 Rosjosenda R 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 [id number] ity of REGIONAL [id number] Sebastian as MATERNAL [id number] Med ical & CHILD [address] [place] [address] 2020-05-24 2020-05-24 Orders Doctor TERESA 1.2.840.114 [id number] Univers 00:00:00 00:00:00 Only Unassigned, LIZZETTE [id number] ity of [place] [facility] 4.2.7.2.686 Sebastian as [phone] [facility] 009 Cook 2020-05-18 2020-05-19 Hospital TERESA Carter 1.2.840.114 [id number] Univers 02:08:00 14:43:00 Encounter Esther Mera LIZZETTE [id number] ity of HOSPITAL 4.2.7.2.686 Sebastian as [id number] [facility] 019 Cook 2020-05-18 2020-05-18 Orders Doctor TERESA 1.2.840.114 [id number] Univers 00:00:00 00:00:00 Only Unassigned, LIZZETTE [id number] ity of [place] [facility] 4.2.7.2.686 Sebastian as [id number] [address] 2020-05-17 2020-05-17 [facility] 1.2.840.114 [id number] Univers 00:00:00 00:00:00 Keya Cunha 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 [id number] ity of REGIONAL 4.2.7.2.686 Sebastian as MATERNAL [id number] [facility] ical & CHILD [address] [place] [address] 2020-05-11 2020-05-11 Routine Cookie [facility] 1.2.840.114 [id number] Univers 13:14:18 13:50:54 Georgianaa R 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 350.1.13.10 ity of Visit REGIONAL 4.2.7.2.686 Sebastian as MATERNAL [phone] [facility] ical & CHILD [address] [place] [address] 2020-05-11 2020-05-11 Outpatient R COOKIE [facility] [id number] Univers 13:30:00 13:30:00 ROSHUNDA ity o f [facility] 2020-05-10 2020-05-10 [facility] 1.2.840.114 [id number] Univers 00:00:00 00:00:00 Keya Cunha 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 [id number] ity of [facility] 4.2.7.2.686 Sebastian as MATERNAL [phone] [facility] ical & CHILD [address] [place] [address] 2020-05-03 2020-05-03 Initial [facility] 1.2.840.114 [id number] Univers 08:45:06 10:33:11 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 R 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 [id number] ity of Visit [facility] 4.2.7.2.686 Sebastian as MATERNAL [id number] [facility] [address] [place] [address] 2020-05-03 2020-05-03 [facility] [id number] Univers 08:30:00 08:30:00 BRAYANBHARTI chavira o f [facility] 2020-05-03 2020-05-03 Orders Doctor TERESA 1.2.840.114 [id number] Univers 00:00:00 00:00:00 Only Unassigned, LIZZETTE [id number] ity of [place] [facility] 4.2.7.2.686 Sebastian as [phone] [address] Results Test Description Test Time Test Comments Results Result Comments Source POCT URINALYSIS W SPECIFIC GRAVITY 2021-12-15 14:21:00 Test Item Value Reference Range Interpretation Comme nts POCT U SP GRAV (test code = 3255) 1.015 mg/dl 1.005-1.025 POCT PH U (test code = 3254) 7 mg/dl 5-8 POCT U LEUK EST (test code = 3263) negative Negative - Negative POCT U NIT (test code = 3262) negative Negative - Negative POCT U PROT (test code = 3259) negative Negative - Negative POCT U GLU (test code = 3256) negative Negative - Negative POCT U KETONE (test code = 3258) negative Negative - Negative POCT U UROBILI (test code = 3260) negative 0.2-1 POCT U BILI (test code = 3261) negative Negative - Negative POCT U BLD (test code = 3257) negative Negative - Negative POCT U COLOR (test code = 3266) POCT U APPEAR (test code = 3267) Lab Interpretation (test code = 61831-5) Normal [id number] 14:20:00 Test Item Value Reference Range Interpretation Comments POCT PREG (test code = 1605) Negative On board controls acceptable with C Yes Line (test code = 3574) POCT PREG LOT # (test code = 3575) POCT PREG TEST DATE (test code = 3576) Lab Interpretation (test code = Normal 13597-3) [facility]
--- NOTE | 2022-03-15 13:27 | ER ---
Nurse's Notes [facility] Name: Pilar Cuba Age: 21 yrs Sex: Female : 2000 Arrival Date: 03/15/2022 Time: 13:19 Bed 12 Private MD: Diagnosis: Streptococcal pharyngitis Presentation: 03/15 13:22 Chief complaint: Sore throat and fever since yesterday. Denies cough/congestion. hb Coronavirus screen: Client presents with at least one sign or symptom that may indicate coronavirus-19. Standard/surgical mask placed on the client. Provider contacted for isolation considerations. Ebola Screen: No symptoms or risks identified at this time. Initial Sepsis Screen: Does the patient meet any 2 criteria? No. Patient's initial sepsis screen is negative. Does the patient have a suspected source of infection? No. Patient's initial sepsis screen is negative. Risk Assessment: Do you want to hurt yourself or someone else? Patient reports no desire to harm self or others. Onset of symptoms was March 14, 2022. 13:22 Method Of Arrival: Ambulatory hb 13:22 Acuity: RENALDO 4 hb Historical: - Allergies: 13:24 Albuterol; hb - PMHx: 13:24 Anemia; hb - PSHx: 13:24 section; hb - Immunization history:: Adult Immunizations up to date. - Social history:: Smoking status: Patient denies any tobacco usage or history of. Assessment: 13:35 General: Appears in no apparent distress. Behavior is calm, cooperative. Pain: Pain hb currently is 10 out of 10 on a pain scale. Neuro: Level of Consciousness is awake, alert, obeys commands, Oriented to person, place, time, situation. Cardiovascular: Patient's skin is warm and dry. Respiratory: Reports Respiratory effort is even, unlabored, Respiratory pattern is regular, symmetrical. GI: No signs and/or symptoms were reported involving the gastrointestinal system. : No signs and/or symptoms were reported regarding the genitourinary system. EENT: Reports sore throat. Derm: Skin is pink, warm \T\ dry. Musculoskeletal: No signs and/or symptoms reported regarding the musculoskeletal system. Vital Signs: 13:22 BP 138 / 68; Pulse 115; Resp 16; Temp 97.9(TE); Pulse Ox 100% on R/A; Weight 66.68 kg; hb Height 5 ft. 7 in. (170.18 cm); Pain 10/10; 13:22 Body Mass Index 23.02 (66.68 kg, 170.18 cm) hb ED Course: 13:19 Patient arrived in ED. am2 13:19 Lita Kurtz [facility]-C is [facility]. kb 13:19 Luciano Sanchez MD is Attending Physician. kb 13:24 Triage completed. hb 13:24 Arm band placed on. hb 13:33 Strep Sent. hb Administered Medications: 13:33 Drug: Augmentin (Amoxicillin-Clavulanate) 875 mg Route: PO; hb 13:33 Drug: Decadron (dexamethasone) 10 mg Route: IM; Site: right deltoid; hb Outcome: 13:26 Discharge ordered by . kb 13:36 Patient left the ED. hb Signatures: Lita Kurtz FNP-C FNP-Ckb Baxter, Heather RN RN Tia Mccann am2
--- NOTE | 2022-03-15 13:27 | EDPHYS ---
Physician Documentation [facility] Name: Pilar Cuba Age: 21 yrs Sex: Female : 2000 Arrival Date: 03/15/2022 Time: 13:19 Bed 12 Private MD: ED Physician Luciano Sanchez HPI: 03/15 13:25 This 21 yrs old Black Female presents to ER via Ambulatory with complaints of Sore kb Throat. 13:25 The patient presents with sore throat. The patient describes throat pain as constant. kb Onset: The symptoms/episode began/occurred yesterday. Severity of symptoms: At their worst the symptoms were moderate, in the emergency department the symptoms are unchanged. Modifying factors: The symptoms are alleviated by nothing, the symptoms are aggravated by fluids, foods, swallowing, Patient's oral intake status: limited fluid intake, limited food intake, unaware of sick contact. Associated signs and symptoms: Pertinent positives: fever, Sore throat Pertinent negatives cough, flu-like symptoms, rhinorrhea, shortness of breath. The patient has not experienced similar symptoms in the past. The patient has not recently seen a physician. Historical: - Allergies: 13:24 Albuterol; hb - PMHx: 13:24 Anemia; hb - PSHx: 13:24 section; hb - Immunization history:: Adult Immunizations up to date. - Social history:: Smoking status: Patient denies any tobacco usage or history of. ROS: 13:24 Respiratory: Negative for shortness of breath, cough, wheezing, and pleuritic chest kb pain. 13:24 Constitutional: Positive for fever. 13:24 ENT: Positive for sore throat. 13:24 All other systems are negative. Exam: 13:24 Constitutional: This is a well developed, well nourished patient who is awake, alert, kb and in no acute distress. Head/Face: Normocephalic, atraumatic. Cardiovascular: Regular rate and rhythm with a normal S1 and S2. No gallops, murmurs, or rubs. No pulse deficits. Respiratory: Respirations even and unlabored. No increased work of breathing. Talking in full sentences Skin: Warm, dry with normal turgor. Normal color. MS/ Extremity: Pulses equal, no cyanosis. Neurovascular intact. Full, normal range of motion. Neuro: Awake and alert, GCS 15, oriented to person, place, time, and situation. Moves all extremities. Normal gait. Psych: Awake, alert, with orientation to person, place and time. Behavior, mood, and affect are within normal limits. 13:24 ENT: Posterior pharynx: Airway: normal, no evidence of obstruction, Tonsils: bilaterally enlarged, with erythema, with exudate, Uvula: normal, midline, swelling, that is moderate, erythema, that is moderate, exudate, that is moderate. Vital Signs: 13:22 BP 138 / 68; Pulse 115; Resp 16; Temp 97.9(TE); Pulse Ox 100% on R/A; Weight 66.68 kg; hb Height 5 ft. 7 in. (170.18 cm); Pain 03/05; 13:22 Body Mass Index 23.02 (66.68 kg, 170.18 cm) hb MDM: 13:24 Patient medically screened. kb 13:24 Data reviewed: vital signs, nurses notes. Data interpreted: Pulse oximetry: on room air kb is 100 %. Interpretation: normal. 13:25 Counseling: I had a detailed discussion with the patient and/or guardian regarding: the kb historical points, exam findings, and any diagnostic results supporting the discharge/admit diagnosis, the need for outpatient follow up, a family practitioner, to return to the emergency department if symptoms worsen or persist or if there are any questions or concerns that arise at home. 03/15 13:24 Order name: Strep kb Administered Medications: 13:33 Drug: Augmentin (Amoxicillin-Clavulanate) 875 mg Route: PO; hb 13:33 Drug: Decadron (dexamethasone) 10 mg Route: IM; Site: right deltoid; hb Disposition Summary: 03/15/22 13:26 Discharge Ordered Location: Home kb Condition: Stable kb Diagnosis - Streptococcal pharyngitis kb Followup: kb - With: Emergency Department - When: As needed - Reason: Worsening of condition Followup: kb - With: Private Physician - When: 2 - 3 days - Reason: Recheck today's complaints, Continuance of care, Re-evaluation by your physician Discharge Instructions: - Discharge Summary Sheet kb - Strep Throat, Adult, [id number]-[id number] kb Forms: - Medication Reconciliation Form kb - Thank You Letter kb - Antibiotic Education kb - Prescription Opioid Use kb Prescriptions: - Augmentin 875-125 mg Oral Tablet - take 1 tablet by ORAL route every 12 hours for 10 days; 20 tablet; Refills: 0, kb Product Selection Permitted Addendum: 03/20/2022 03:57 Co-signature as Attending Physician, Luciano Sanchez MD I agree with the assessment and c eduardo plan of care. Signatures: Dispatcher [employer] EDLita Hutchinson, TICKET SELLER-C TICKET SELLER-CkLuciano Tamayo MD MD cha Baxter, Heather, RN RN hb
[2022-03-15] MEDS ORDERED: AMOX/K CLAV 875 MG TAB ONE (13:28)
[2022-03-15] MEDS ORDERED: dexAMETHasone 10 MG/ML VIAL ONE (13:28)
[2022-03-15 14:04] VITALS: BP 138/68; TEMP 97.9; O2SAT 100
== END 2022-03-15 13:36 | disposition home or self-care (01) ==
LOC: ER 13:16
DX: J02.0 Streptococcal pharyngitis (principal); Z88.8 Allergy status to other drugs, medicaments and biological substances
CPT/HCPCS: 87070; 87081; 96372; 99283; J1100

== ENCOUNTER → 2023-08-12 | Emergency (ER) | payer OTHER ==
[~2023-08-12] MED LIST: ACETAMINOPHEN 325 MG TABLET ONE; DICYCLOMINE HCL 20 MG/2 ML AMP IM ONE; NA CHLORIDE 0.9% 1,000 ML ONE
--- OUTSIDE RECORDS SUMMARY | 2023-08-12 19:11 | XMS REPORT | Continuity of Care Document ---
Author Name Unknown Address [address] [facility]. [address] [place], [place] [id number] [place] [address] thconnect Address 1200 [facility] [address] [place] [address] Care Team Providers Care Field Foreman Name Role Phone Homero Colvin Primary Care Physician + [phone] BRENT WILKERSON Attending Clinician Unavailable JOAQUINA TURNER Attending Clinician Unavailulysses Neal RN, Javy Delacruz Attending Clinician UnavailJoaquina Blake CNM Attending Clinician [phone] Disha Mccord Attending Clinician + HASEEB CHICAS Attending Clinician Unavailable HASEEB CHICAS Attending Clinician Unavailable Ultrasound, Ang-[facility] Attending Clinician UnavailHaseeb Murcai MD Attending Clinician [phone] DISHA ROA Attending Clinician Unavail able Karena Seo Attending Clinician [phone] PAULY GONZALEZ Attending Clinician Unav calvin Landry MD, Pauly Attending Clinician + Doctor Unassigned, [place] Attending Clinician U KARENA Hilton Attending Clinician Unavailable Risk, Ram-Ldciu-Rj/High Attending Clinician Unav Brent Li MD Attending Clinician [phone] LISBET CORBETT Attending Clinician Unavaila LISBET Vieyra Attending Clinician Unavaila ble Madelaine Gill MA Attending Clinician Unavailabl e Martha BAZAN, Jeanie Attending Clinician [phone] TERA MONTGOMERY Attending Clinician Unavailable [facility]ending [facility]ician Unava ilable COOKIE, CIRILOA R Attending Clinician Unavailab christel Almazan MD, Colby Attending Clinician [phone] Alo SPANN, Raghav Attending Clinician + [phone] Cookie WADE, Arin Centeno Attending Clinician + [phone] Ryan Mckeon DO Attending Clinician [phone] Sin SPANN, Ramses Attending Clinician + [phone] Edvin Carter MD Attending Clinician [phone] Radha Vincent RN, Jeanie Attending Clinician Unavailable Noelle Savage Attending Clinician UnavailHector Perez MD Attending Clinician [phone] MARCELINO MICHELE Attending Clinician Unavailabl e 2, [facility] Attending Clinician Unavaila ruddy Wilkinson MD, Bucky Ventura Attending Clinician + [phone] HECTOR YU Attending Clinician Unavailable Provider, [facility] Attending Clinician Un available EDVIN CARTER Attending Clinician Unavailable EDVIN CARTER Attending Clinician Unavailable 5, [facility] Attending Clinician Unavaila Deidra Mojica MD Attending Clinician + [phone] Michael Hanna MD Attending Clinician [phone] HASEEB CHICAS Admitting Clinician Unavailable EDVIN CARTER Admitting Clinician Unavailable Alo SPANN, Raghav Admitting Clinician +- [phone] Haseeb Chicas MD Admitting Clinician [phone] Edvin Carter MD Admitting Clinician [phone] Payers Payer Name Policy Type Policy Number Effective Date Expirati on Date Source [facility] CARRI GRANT [id number] 2020 00:00:00 [employer] [place] OUT OF STATE [id number] 2017 00:00:00 2025 00:00:00 MED[place] [id number] 2014 00:00:00 2016 00:00:00 Problems Condition Name Condition Details Condition Category Status Onset Date Resolution Date Last Treatment Date Treating Clinician Comments Source Abnormal maternal glucose tolerance, antepartum Abnormal maternal glucose tolerance, antepartum Disease Active 3-14 00:00: 00 [facility] Back pain affecting Back pain affecting Disease Active 3-13 00:00: 00 [facility] Supervisio n of high-risk Supervisio n of high-risk Disease Active 2022-05 0-13 00:00: 00 [facility] Multiparit y Multiparit y Disease Active 2022-05 013 00:00: 00 [facility] History of delivery History of delivery Disease Active 2022-05 0-13 00:00: 00 Overview: Formattin g of this note might be different from the original. 34,4 see chart review [facility] History of prior with IUGR History of prior with IUGR Disease Active 2022-05 0-13 00:00: 00 [facility] Fibular hemimelia, unspecifie d laterality Fibular hemimelia, unspecifie d laterality Disease Active 2022-05 0-13 00:00: 00 Overview: Formattin g of this note might be different from the original. 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 Never been dx [facility] Cyst of Bartholin' s gland Cyst of Bartholin' s gland Disease Active 5-12 00:00: 00 [facility] Vulvar cellulitis Vulvar cellulitis Disease Active 2-22 00:00: 00 [facility] Previous delivery affecting , antepartum Previous delivery affecting , antepartum Disease Active 4-14 00:00: 00 [facility] Anemia of mother in , antepartum Anemia of mother in , antepartum Disease Active 07-19 00:00: 00 [facility] Asthma Asthma Disease Active 2019-05 00:00: 00 [facility] Well woman exam Well woman exam Disease Active 2016-05 00:00: 00 [facility] Chronic anemia Chronic anemia Disease Active 02-13 00:00: 00 [facility] Screening examinatio n for STD (sexually transmitte d disease) Screening examinatio n for STD (sexually transmitte d disease) Disease Active 07-01 00:00: 00 [facility] Allergies, Adverse Reactions, Alerts Allergy Name Allergy Type Status Severity Reaction(s) Onset Date Inactive Date Treating Clinician Comments Source Albutero l Propensi ty to adverse reaction s Active Palpitations 2019-05 00:00: 00 [facility] ALBUTERO L DRUG INGREDI Active Med Palpitations 2019-05 00:00: 00 [facility] Social History Social Habit Start Date Stop Date Quantity Comments Source ASSERTION 2023-02-19 00:00:00 [facility] 2023-08-07 00:00:00 2023-08-07 00:00:00 Current non-drinker of alcohol (finding) [facility] Exposure to SARS-CoV-2 (event) 2022-09-25 00:00:00 2022-10-05 10:20:00 Not sure [facility] Tobacco use and exposure 2021-12-15 00:00:00 2021-12-15 00:00:00 Smokeless tobacco non-user [facility] History of Social function 2021-06-09 00:00:00 2021-06-09 00:00:00 [facility] Sex Assigned At 2000 00:00:00 2000 00:00:00 [facility] Smoking Status Start Date Stop Date Source Never smoked tobacco [facility] Medications Ordered Medication Name Filled Medication Name Start Date Stop Date Current Medication? Ordering Clinician Indication Dosage Frequency Signature (SIG) Comments Components Source Iron Fum & P-FA-Vit B & C No.9 (INTEGRA PLUS) 125 mg iron- 1 mg Cap 2024-0 3-14 00:00: 00 Yes [id number] 1{capsu le} Take 1 capsule by mouth in the morning. [facility] Iron Fum & P-FA-Vit B & C No.9 (INTEGRA PLUS) 125 mg iron- 1 mg Cap 4-0 3-14 00:00: 00 Yes [id number] 1{capsu le} Take 1 capsule by mouth in the morning. [facility] loratadine (CLARITIN) 10 mg tablet 4-0 2-14 00:00: 00 Yes [id number] 10mg Take 1 tablet by mouth in the morning. [facility] loratadine (CLARITIN) 10 mg tablet 4-0 2-14 00:00: 00 Yes [id number] 10mg Take 1 tablet by mouth in the morning. [facility] loratadine (CLARITIN) 10 mg tablet 4-0 2-14 00:00: 00 Yes [id number] 10mg Take 1 tablet by mouth in the morning. [facility] loratadine (CLARITIN) 10 mg tablet 4-0 2-14 00:00: 00 Yes [id number] 10mg Take 1 tablet by mouth in the morning. [facility] loratadine (CLARITIN) 10 mg tablet 4-0 2-14 00:00: 00 Yes [id number] 10mg Take 1 tablet by mouth in the morning. [facility] loratadine (CLARITIN) 10 mg tablet 4-0 2-14 00:00: 00 Yes [id number] 10mg Take 1 tablet by mouth in the morning. [facility] loratadine (CLARITIN) 10 mg tablet 4-0 2-14 00:00: 00 Yes [id number] 10mg Take 1 tablet by mouth in the morning. [facility] loratadine (CLARITIN) 10 mg tablet 4-0 2-14 00:00: 00 Yes [id number] 10mg Take 1 tablet by mouth in the morning. [facility] THRIVITE RX tablet 2022-1 -26 00:00: 00 Yes [facility] THRIVITE RX tablet 2022-05 00:00: 00 Yes [facility] THRIVITE RX tablet 2022-05 00:00: 00 Yes [facility] THRIV[facility] RX tablet 2022-05 00:00: 00 Yes [facility] THRIVITE RX tablet 2022-05 00:00: 00 Yes [facility] THRIVITE RX tablet 2022-05 00:00: 00 Yes [facility] THRIVITE RX tablet 2022-05 00:00: 00 Yes [facility] THRIVITE RX tablet 2022-05 00:00: 00 Yes [facility] THRIVITE RX tablet 2022-05 00:00: 00 Yes [facility] THRIVITE RX tablet 2022-05 00:00: 00 Yes [facility] THRIV[facility] RX tablet 2022-05 00:00: 00 Yes [facility] THRIV[facility] RX tablet 2022-05 00:00: 00 Yes [facility] THRIVITE RX tablet 2022-05 00:00: 00 Yes [facility] THRIVITE RX tablet 2022-05 00:00: 00 Yes [facility] THRIVITE RX tablet 2022-05 00:00: 00 Yes [facility] THRIVITE RX tablet 2022-05 00:00: 00 Yes [facility] THRIVITE RX tablet 2022-05 00:00: 00 Yes [facility] THRIV[facility] RX tablet 2022-05 00:00: 00 Yes [facility] loratadine (CLARITIN) 10 mg tablet 2022-05 00:00: 00 08-08 04:59 :00 No [id number] 10mg Take 1 tablet by mouth in the morning for 120 days. [facility] loratadine (CLARITIN) 10 mg tablet 2022-05 00:00: 00 08-08 04:59 :00 No [id number] 10mg Take 1 tablet by mouth in the morning for 120 days. [facility] loratadine (CLARITIN) 10 mg tablet 2022-05 00:00: 00 08-08 04:59 :00 No [id number] 10mg Take 1 tablet by mouth in the morning for 120 days. [facility] loratadine (CLARITIN) 10 mg tablet 2022-05 00:00: 00 08-08 04:59 :00 No [id number] 10mg Take 1 tablet by mouth in the morning for 120 days. [facility] loratadine (CLARITIN) 10 mg tablet 2022-05 00:00: 00 08-08 04:59 :00 No [id number] 10mg Take 1 tablet by mouth in the morning for 120 days. [facility] loratadine (CLARITIN) 10 mg tablet 2022-05 00:00: 00 08-08 04:59 :00 No [id number] 10mg Take 1 tablet by mouth in the morning for 120 days. [facility] loratadine (CLARITIN) 10 mg tablet 2022-05 00:00: 00 08-08 04:59 :00 No [id number] 10mg Take 1 tablet by mouth in the morning for 120 days. [facility] loratadine (CLARITIN) 10 mg tablet 2022-05 00:00: 00 08-08 04:59 :00 No [id number] 10mg Take 1 tablet by mouth in the morning for 120 days. [facility] loratadine (CLARITIN) 10 mg tablet 2022-05 00:00: 00 08-08 04:59 :00 No [id number] 10mg Take 1 tablet by mouth in the morning for 120 days. [facility] loratadine (CLARITIN) 10 mg tablet 2022-05 00:00: 00 08-08 04:59 :00 No [id number] 10mg Take 1 tablet by mouth in the morning for 120 days. [facility] loratadine (CLARITIN) 10 mg tablet 2022-05 00:00: 00 08-08 04:59 :00 No [id number] 10mg Take 1 tablet by mouth in the morning for 120 days. [facility] loratadine (CLARITIN) 10 mg tablet 2022-05 00:00: 00 07-10 00:00 :00 No [id number] 10mg Take 1 tablet by mouth in the morning for 120 days. [facility] loratadine (CLARITIN) 10 mg tablet 2022-05 00:00: 00 04-10 00:00 :00 No [id number] 10mg Take 1 tablet by mouth in the morning for 120 days. [facility] xop20-ubjl- folic acid 29 mg iron- 1 mg per tablet 2022-05 0 00:00: 00 Yes [id number] 1{tbl} Take 1 tablet by mouth in the morning. [facility] qrw34-ybrz- folic acid 29 mg iron- 1 mg per tablet 2022-05 0 00:00: 00 Yes [id number] 1{tbl} Take 1 tablet by mouth in the morning. [facility] cfu02-hyjz- folic acid 29 mg iron- 1 mg per tablet 2022-05 0 00:00: 00 Yes [id number] 1{tbl} Take 1 tablet by mouth in the morning. [facility] sfa02-ieht- folic acid 29 mg iron- 1 mg per tablet 2022-05 0 00:00: 00 Yes [id number] 1{tbl} Take 1 tablet by mouth in the morning. [facility] gnb07-jfil- folic acid 29 mg iron- 1 mg per tablet 2022-05 0 00:00: 00 Yes [id number] 1{tbl} Take 1 tablet by mouth in the morning. [facility] tby33-ohwd- folic acid 29 mg iron- 1 mg per tablet 2022-05 0- 00:00: 00 Yes [id number] 1{tbl} Take 1 tablet by mouth in the morning. [facility] jql56-meec- folic acid 29 mg iron- 1 mg per tablet 2022-05 0-13 00:00: 00 Yes [id number] 1{tbl} Take 1 tablet by mouth in the morning. [facility] pbs45-bemg- folic acid 29 mg iron- 1 mg per tablet 2022-05 0-13 00:00: 00 Yes [id number] 1{tbl} Take 1 tablet by mouth in the morning. [facility] abf10-nbim- folic acid 29 mg iron- 1 mg per tablet 2022-05 013 00:00: 00 Yes [id number] 1{tbl} Take 1 tablet by mouth in the morning. [facility] pca70-irrz- folic acid 29 mg iron- 1 mg per tablet 2022-05 0 00:00: 00 Yes [id number] 1{tbl} Take 1 tablet by mouth in the morning. [facility] ncc44-roeg- folic acid 29 mg iron- 1 mg per tablet 2022-05 0 00:00: 00 Yes [id number] 1{tbl} Take 1 tablet by mouth in the morning. [facility] blj49-bjbg- folic acid 29 mg iron- 1 mg per tablet 2022-05 0 00:00: 00 Yes [id number] 1{tbl} Take 1 tablet by mouth in the morning. [facility] myi66-nhzv- folic acid 29 mg iron- 1 mg per tablet 2022-05 013 00:00: 00 Yes [id number] 1{tbl} Take 1 tablet by mouth in the morning. [facility] rmc63-juwz- folic acid 29 mg iron- 1 mg per tablet 2022-05 013 00:00: 00 Yes [id number] 1{tbl} Take 1 tablet by mouth in the morning. [facility] lwb66-ijsg- folic acid 29 mg iron- 1 mg per tablet 2022-05 013 00:00: 00 Yes [id number] 1{tbl} Take 1 tablet by mouth in the morning. [facility] hvy19-friq- folic acid 29 mg iron- 1 mg per tablet 2022-05 0-13 00:00: 00 Yes [id number] 1{tbl} Take 1 tablet by mouth in the morning. [facility] oxy13-olfs- folic acid 29 mg iron- 1 mg per tablet 2022-05 013 00:00: 00 Yes [id number] 1{tbl} Take 1 tablet by mouth in the morning. [facility] svp10-tywh- folic acid 29 mg iron- 1 mg per tablet 2022-05 013 00:00: 00 Yes [id number] 1{tbl} Take 1 tablet by mouth in the morning. [facility] opa16-aksf- folic acid 29 mg iron- 1 mg per tablet 2022-05 0 00:00: 00 Yes [id number] 1{tbl} Take 1 tablet by mouth in the morning. [facility] fyp01-igig- folic acid 29 mg iron- 1 mg per tablet 2022-05 0 00:00: 00 Yes [id number] 1{tbl} Take 1 tablet by mouth in the morning. [facility] jze80-crij- folic acid 29 mg iron- 1 mg per tablet 2022-05 0 00:00: 00 Yes [id number] 1{tbl} Take 1 tablet by mouth in the morning. [facility] fip35-yfow- folic acid 29 mg iron- 1 mg per tablet 2022-05 0 00:00: 00 Yes [id number] 1{tbl} Take 1 tablet by mouth in the morning. [facility] gst82-kpsl- folic acid 29 mg iron- 1 mg per tablet 2022-05 0 00:00: 00 Yes [id number] 1{tbl} Take 1 tablet by mouth in the morning. [facility] wkf56-fodl- folic acid 29 mg iron- 1 mg per tablet 2022-05 013 00:00: 00 Yes [id number] 1{tbl} Take 1 tablet by mouth in the morning. [facility] bgh38-htub- folic acid 29 mg iron- 1 mg per tablet 2022-05 0-13 00:00: 00 Yes [id number] 1{tbl} Take 1 tablet by mouth in the morning. [facility] qod36-sbrv- folic acid 29 mg iron- 1 mg per tablet 2022-05 0-13 00:00: 00 Yes [id number] 1{tbl} Take 1 tablet by mouth in the morning. [facility] eso48-ovky- folic acid 29 mg iron- 1 mg per tablet 2022-05 0-13 00:00: 00 Yes [id number] 1{tbl} Take 1 tablet by mouth in the morning. [facility] xen80-hfxc- folic acid 29 mg iron- 1 mg per tablet 2022-05 0-13 00:00: 00 Yes [id number] 1{tbl} Take 1 tablet by mouth in the morning. [facility] zxv72-wxpn- folic acid 29 mg iron- 1 mg per tablet 2022-05 0- 00:00: 00 Yes [id number] 1{tbl} Take 1 tablet by mouth in the morning. [facility] ont65-jhoh- folic acid 29 mg iron- 1 mg per tablet 2022-05 0-13 00:00: 00 Yes [id number] 1{tbl} Take 1 tablet by mouth in the morning. [facility] wej34-tavt- folic acid 29 mg iron- 1 mg per tablet 2022-05 0-13 00:00: 00 Yes [id number] 1{tbl} Take 1 tablet by mouth in the morning. [facility] metroNIDAZO LE (FLAGYL) 500 mg tablet 5-14 00:00: 00 10-15 04:59 :00 No [id number] 500mg Take 1 tablet by mouth in the morning and 1 tablet in the evening. Do all this for 7 days. [facility] sulfamethox azole-trime thoprim (BACTRIM DS) 800-160 mg per tablet - 00:00: 00 07-29 05:59 :00 No [id number] 1{tbl} Take 1 tablet by mouth in the morning and 1 tablet in the evening. Do all this for 10 days. [facility] sulfamethox azole-trime thoprim (BACTRIM DS) 800-160 mg per tablet -22 00:00: 00 07-29 05:59 :00 No [id number] 1{tbl} Take 1 tablet by mouth in the morning and 1 tablet in the evening. Do all this for 10 days. [facility] sulfamethox azole-trime thoprim (BACTRIM DS) 800-160 mg per tablet 2 00:00: 00 07-29 05:59 :00 No [id number] 1{tbl} Take 1 tablet by mouth in the morning and 1 tablet in the evening. Do all this for 10 days. [facility] sulfamethox azole-trime thoprim (BACTRIM DS) 800-160 mg per tablet 07-18 00:00: 00 07-29 05:59 :00 No [id number] 1{tbl} Take 1 tablet by mouth in the morning and 1 tablet in the evening. Do all this for 10 days. [facility] metroNIDAZO LE 500 mg tablet 2021-0 12-19 00:00: 00 Yes [id number] 500mg Take 1 tablet by mouth every 12 (twelve) hours. [facility] metroNIDAZO LE 500 mg tablet 2021-0 -26 00:00: 00 Yes [id number] 500mg Take 1 tablet by mouth every 12 (twelve) hours. [facility] metroNIDAZO LE 500 mg tablet 2021-0 12-19 00:00: 00 Yes [id number] 500mg Take 1 tablet by mouth every 12 (twelve) hours. [facility] metroNIDAZO LE 500 mg tablet 2021-0 12-19 00:00: 00 Yes [id number] 500mg Take 1 tablet by mouth every 12 (twelve) hours. [facility] metroNIDAZO LE 500 mg tablet 2021-0 -26 00:00: 00 Yes [id number] 500mg Take 1 tablet by mouth every 12 (twelve) hours. [facility] metroNIDAZO LE 500 mg tablet 2021-0 -26 00:00: 00 Yes [id number] 500mg Take 1 tablet by mouth every 12 (twelve) hours. [facility] metroNIDAZO LE 500 mg tablet 12-19 00:00: 00 10-05 00:00 :00 No [id number] 500mg Take 1 tablet by mouth every 12 (twelve) hours. [facility] metroNIDAZO LE 500 mg tablet 12-19 00:00: 00 10-05 00:00 :00 No [id number] 500mg Take 1 tablet by mouth every 12 (twelve) hours. [facility] metroNIDAZO LE 500 mg tablet 12-19 00:00: 00 10-05 00:00 :00 No [id number] 500mg Take 1 tablet by mouth every 12 (twelve) hours. [facility] No known medications 12-15 09:38: 46 No No known medication s [facility] foLIC acid 1 mg tablet 09-06 00:00: 00 06-09 00:00 :00 No [id number] 1mg Take 1 tablet by mouth daily. [facility] docusate calcium 240 mg capsule 09-06 00:00: 00 06-09 00:00 :00 No [id number] 240mg Take 1 capsule by mouth once daily as needed for Constipati on. [facility] vitamin w/FA tablet 09-06 00:00: 00 06-09 00:00 :00 No [id number] 1{tbl} Take 1 tablet by mouth daily. [facility] ibuprofen 600 mg tablet 09-06 00:00: 00 06-09 00:00 :00 No [id number] 600mg Take 1 tablet by mouth every 6 (six) hours as needed (Pain). Take with food or milk. [facility] ferrous sulfate 325 mg (65 mg iron) tablet 07-20 00:00: 00 06-09 00:00 :00 No [id number] 325mg Take 1 tablet by mouth 2 (two) times daily. [facility] ascorbic acid, vitamin C, 500 mg tablet 24 00:00: 00 06-09 00:00 :00 No [id number] 500mg Take 1 tablet by mouth 3 (three) times daily. [facility] ferrous sulfate 325 mg (65 mg iron) tablet 2-24 00:00: 00 06-09 00:00 :00 No [id number] 325mg Take 1 tablet by mouth 2 (two) times daily. [facility] ascorbic acid, vitamin C, 500 mg tablet 2-24 00:00: 00 06-09 00:00 :00 No [id number] 500mg Take 1 tablet by mouth 3 (three) times daily. [facility] ferrous sulfate 325 mg (65 mg iron) tablet 224 00:00: 00 06-09 00:00 :00 No [id number] 325mg Take 1 tablet by mouth 2 (two) times daily. [facility] ascorbic acid, vitamin C, 500 mg tablet 07-20 00:00: 00 06-09 00:00 :00 No [id number] 500mg Take 1 tablet by mouth 3 (three) times daily. [facility] progesteron e micronized (CRINONE) 8 % vaginal gel 2019-05 00:00: 00 09-06 00:00 :00 No [id number] Insert 100 mg nightly into vaginal as far back as possible [facility] progesteron e micronized (CRINONE) 8 % vaginal gel 2019-05 00:00: 00 09-06 00:00 :00 No [id number] Insert 100 mg nightly into vaginal as far back as possible [facility] progesteron e micronized (CRINONE) 8 % vaginal gel 2019-05 00:00: 09-06 00:00 :00 No [id number] Insert 100 mg nightly into vaginal as far back as possible [facility] etonogestre l (NEXPLANON) 68 mg implant 2019-05 07:09: 43 05-19 00:00 :00 No 68mg 68 mg by Subdermal route once now. [facility] etonogestre l (NEXPLANON) 68 mg implant 2019-05 07:09: 43 05-19 00:00 :00 No 68mg 68 mg by Subdermal route once now. [facility] ascorbic acid, vitamin C, 500 mg tablet 2019-05 00:00: 00 09-06 00:00 :00 No [id number] 500mg Take 1 tablet by mouth daily. [facility] ascorbic acid, vitamin C, 500 mg tablet 2019-05 00:00: 00 09-06 00:00 :00 No [id number] 500mg Take 1 tablet by mouth daily. [facility] ascorbic acid, vitamin C, 500 mg tablet 2019-05 00:00: 00 09-06 00:00 :00 No [id number] 500mg Take 1 tablet by mouth daily. [facility] vit 33-iron-fol ic-dha (SELECT-OB + DHA) 29 mg iron-1 mg -250 mg combo pack 2019-05 00:00: 00 09-06 00:00 :00 No [id number] 1{packe t} Take 1 Packet by mouth daily. [facility] vit 33-iron-fol ic-dha (SELECT-OB + DHA) 29 mg iron-1 mg -250 mg combo pack 2019-05 00:00: 00 09-06 00:00 :00 No [id number] 1{packe t} Take 1 Packet by mouth daily. [facility] vit 33-iron-fol ic-dha (SELECT-OB + DHA) 29 mg iron-1 mg -250 mg combo pack 2019-05 2 00:00: 00 09-06 00:00 :00 No [id number] 1{packe t} Take 1 Packet by mouth daily. [facility] vit 33-iron-fol ic-dha (SELECT-OB + DHA) 29 mg iron-1 mg -250 mg combo pack 2019-05 2 00:00: 00 09-06 00:00 :00 No [id number] 1{packe t} Take 1 Packet by mouth daily. [facility] vit 33-iron-fol ic-dha (SELECT-OB + DHA) 29 mg iron-1 mg -250 mg combo pack 2019-05 2-08 00:00: 09-06 00:00 :00 No [id number] 1{packe t} Take 1 Packet by mouth daily. [facility] iron ps cmplx-vitam in D3 (NOVAFERRUM 125) 125 mg iron- 100 unit/5 mL liquid 2017-05 0 00:00: 00 09-06 00:00 :00 No 5mL Take 5 mL by mouth 2 (two) times daily. [facility] iron ps cmplx-vitam in D3 (NOVAFERRUM 125) 125 mg iron- 100 unit/5 mL liquid 2017-05 0 00:00: 00 09-06 00:00 :00 No 5mL Take 5 mL by mouth 2 (two) times daily. [facility] iron ps cmplx-vitam in D3 (NOVAFERRUM 125) 125 mg iron- 100 unit/5 mL liquid 2017-05 0 00:00: 00 09-06 00:00 :00 No 5mL Take 5 mL by mouth 2 (two) times daily. [facility] iron ps cmplx-vitam in D3 (NOVAFERRUM 125) 125 mg iron- 100 unit/5 mL liquid 2017-05 0 00:00: 00 09-06 00:00 :00 No 5mL Take 5 mL by mouth 2 (two) times daily. [facility] iron ps cmplx-vitam in D3 (NOVAFERRUM 125) 125 mg iron- 100 unit/5 mL liquid 2017-05 0 00:00: 00 09-06 00:00 :00 No 5mL Take 5 mL by mouth 2 (two) times daily. [facility] 325 mg (65 mg iron) tablet 12-18 00:00: 00 05-19 00:00 :00 No 650mg Take 2 tablets by mouth 2 (two) times daily. [facility] [facility] ferrous sulfate 325 mg (65 mg iron) tablet 2018-0 7-25 00:00: 00 05-19 00:00 :00 No 650mg Take 2 tablets by mouth 2 (two) times daily. [facility] Immunizations Ordered Immunization Name Filled Immunization Name Date Status Comments Source SARS-COV-2 COVID-19 PFIZER VACCINE 2020-09-15 00:00:00 Completed [facility] SARS-COV-2 COVID-19 PFIZER VACCINE 2020-09-15 00:00:00 Completed [facility] SARS-COV-2 COVID-19 PFIZER VACCINE 2020-09-15 00:00:00 Completed [facility] SARS-COV-2 COVID-19 PFIZER VACCINE 2020-09-15 00:00:00 Completed [facility] SARS-COV-2 COVID-19 PFIZER VACCINE 2020-09-15 00:00:00 Completed [facility] SARS-COV-2 COVID-19 PFIZER VACCINE 2020-09-15 00:00:00 Completed [facility] SARS-COV-2 COVID-19 PFIZER VACCINE 2020-09-15 00:00:00 Completed [facility] SARS-COV-2 COVID-19 PFIZER VACCINE 2020-09-15 00:00:00 Completed [facility] SARS-COV-2 COVID-19 PFIZER VACCINE 2020-09-15 00:00:00 Completed [facility] TDAP 2020-07-19 00:00:00 Completed [facility] TDAP 2020-07-19 00:00:00 Completed [facility] TDAP 2020-07-19 00:00:00 Completed [facility] TDAP 2020-07-19 00:00:00 Completed [facility] TDAP 2020-07-19 00:00:00 Completed [facility] TDAP 2020-07-19 00:00:00 Completed [facility] TDAP 2020-07-19 00:00:00 Completed [facility] TDAP 2020-07-19 00:00:00 Completed [facility] TDAP 2020-07-19 00:00:00 Completed [facility] TDAP 2020-07-19 00:00:00 Completed [facility] TDAP 2020-07-19 00:00:00 Completed [facility] TDAP 2020-07-19 00:00:00 Completed [facility] Influenza Virus Vaccine Quad .5 mL IM 6+ MO 2020-05-03 00:00:00 Completed [facility] Influenza Virus Vaccine Quad .5 mL IM 6+ MO 2020-05-03 00:00:00 Completed [facility] Influenza Virus Vaccine Quad .5 mL IM 6+ MO 2020-05-03 00:00:00 Completed [facility] Influenza Virus Vaccine Quad .5 mL IM 6+ MO 2020-05-03 00:00:00 Completed [facility] Influenza Virus Vaccine Quad .5 mL IM 6+ MO 2020-05-03 00:00:00 Completed [facility] Influenza Virus Vaccine Quad .5 mL IM 6+ MO 2020-05-03 00:00:00 Completed [facility] Influenza Virus Vaccine Quad .5 mL IM 6+ MO 2020-05-03 00:00:00 Completed [facility] Influenza Virus Vaccine Quad .5 mL IM + MO 2020-05-03 00:00:00 Completed [facility] Influenza Virus Vaccine Quad .5 mL IM 6+ MO 2020-05-03 00:00:00 Completed [facility] Influenza Virus Vaccine Quad .5 mL IM 6+ MO 2020-05-03 00:00:00 Completed [facility] Influenza Virus Vaccine Quad .5 mL IM + MO 2020-05-03 00:00:00 Completed [facility] Influenza Virus Vaccine Quad .5 mL IM 6+ MO 2020-05-03 00:00:00 Completed [facility] Influenza Virus Vaccine Quad .5 mL IM 6+ MO 2018-03-25 00:00:00 Completed [facility] Influenza Virus Vaccine Quad .5 mL IM 6+ MO 2018-03-25 00:00:00 Completed [facility] Influenza Virus Vaccine Quad .5 mL IM 6+ MO 2018-03-25 00:00:00 Completed [facility] Influenza Virus Vaccine Quad .5 mL IM 6+ MO 2018-03-25 00:00:00 Completed [facility] Influenza Virus Vaccine Quad .5 mL IM 6+ MO 2018-03-25 00:00:00 Completed [facility] Influenza Virus Vaccine Quad .5 mL IM 6+ MO 2018-03-25 00:00:00 Completed [facility] Influenza Virus Vaccine Quad .5 mL IM 6+ MO 2018-03-25 00:00:00 Completed [facility] Influenza Virus Vaccine Quad .5 mL IM 6+ MO 2018-03-25 00:00:00 Completed [facility] Influenza Virus Vaccine Quad .5 mL IM 6+ MO 2018-03-25 00:00:00 Completed [facility] Influenza Virus Vaccine Quad .5 mL IM 6+ MO 2018-03-25 00:00:00 Completed [facility] Influenza Virus Vaccine Quad .5 mL IM 6+ MO 2018-03-25 00:00:00 Completed [facility] Influenza Virus Vaccine Quad .5 mL IM 6+ MO 2018-03-25 00:00:00 Completed [facility] HPV9 2017-10-15 00:00:00 Completed [facility] HPV9 2017-10-15 00:00:00 Completed [facility] HPV9 2017-10-15 00:00:00 Completed [facility] HPV9 2017-10-15 00:00:00 Completed [facility] HPV9 2017-10-15 00:00:00 Completed [facility] HPV9 2017-10-15 00:00:00 Completed [facility] HPV9 2017-10-15 00:00:00 Completed [facility] HPV9 2017-10-15 00:00:00 Completed [facility] HPV9 2017-10-15 00:00:00 Completed [facility] HPV9 2017-10-15 00:00:00 Completed [facility] HPV9 2017-10-15 00:00:00 Completed [facility] HPV9 2017-10-15 00:00:00 Completed [facility] HPV9 2017-06-17 00:00:00 Completed [facility] HPV9 2017-06-17 00:00:00 Completed [facility] HPV9 2017-06-17 00:00:00 Completed [facility] HPV9 2017-06-17 00:00:00 Completed [facility] HPV9 2017-06-17 00:00:00 Completed [facility] HPV9 2017-06-17 00:00:00 Completed [facility] HPV9 2017-06-17 00:00:00 Completed [facility] HPV9 2017-06-17 00:00:00 Completed [facility] HPV9 2017-06-17 00:00:00 Completed [facility] HPV9 2017-06-17 00:00:00 Completed [facility] HPV9 2017-06-17 00:00:00 Completed [facility] HPV9 2017-06-17 00:00:00 Completed [facility] HPV9 2017-04-17 00:00:00 Completed [facility] Influenza Virus Vaccine Quad IM 3+ YRS 2017-04-17 00:00:00 Completed [facility] HPV9 2017-04-17 00:00:00 Completed [facility] Influenza Virus Vaccine Quad IM 3+ YRS 2017-04-17 00:00:00 Completed [facility] HPV9 2017-04-17 00:00:00 Completed [facility] Influenza Virus Vaccine Quad IM 3+ YRS 2017-04-17 00:00:00 Completed [facility] HPV9 2017-04-17 00:00:00 Completed [facility] Influenza Virus Vaccine Quad IM 3+ YRS 2017-04-17 00:00:00 Completed [facility] HPV9 2017-04-17 00:00:00 Completed [facility] Influenza Virus Vaccine Quad IM 3+ YRS 2017-04-17 00:00:00 Completed [facility] HPV9 2017-04-17 00:00:00 Completed [facility] Influenza Virus Vaccine Quad IM 3+ YRS 2017-04-17 00:00:00 Completed [facility] HPV9 2017-04-17 00:00:00 Completed [facility] Influenza Virus Vaccine Quad IM 3+ YRS 2017-04-17 00:00:00 Completed [facility] HPV9 2017-04-17 00:00:00 Completed [facility] Influenza Virus Vaccine Quad IM 3+ YRS 2017-04-17 00:00:00 Completed [facility] HPV9 2017-04-17 00:00:00 Completed [facility] Influenza Virus Vaccine Quad IM 3+ YRS 2017-04-17 00:00:00 Completed [facility] HPV9 2017-04-17 00:00:00 Completed [facility] Influenza Virus Vaccine Quad IM 3+ YRS 2017-04-17 00:00:00 Completed [facility] HPV9 2017-04-17 00:00:00 Completed [facility] Influenza Virus Vaccine Quad IM 3+ YRS 2017-04-17 00:00:00 Completed [facility] HPV9 2017-04-17 00:00:00 Completed [facility] Influenza Virus Vaccine Quad IM 3+ YRS 2017-04-17 00:00:00 Completed [facility] Influenza Virus Vaccine - Whole 2016-04-06 00:00:00 Completed [facility] Influenza Virus Vaccine - Whole 2016-04-06 00:00:00 Completed [facility] Influenza Virus Vaccine - Whole 2016-04-06 00:00:00 Completed [facility] Influenza Virus Vaccine - Whole 2016-04-06 00:00:00 Completed [facility] Influenza Virus Vaccine - Whole 2016-04-06 00:00:00 Completed [facility] Influenza Virus Vaccine - Whole 2016-04-06 00:00:00 Completed [facility] Influenza Virus Vaccine - Whole 2016-04-06 00:00:00 Completed [facility] Influenza Virus Vaccine - Whole 2016-04-06 00:00:00 Completed [facility] Influenza Virus Vaccine - Whole 2016-04-06 00:00:00 Completed [facility] TDAP 2013-05-27 00:00:00 Completed [facility] TDAP 2013-05-27 00:00:00 Completed [facility] TDAP 2013-05-27 00:00:00 Completed [facility] TDAP 2013-05-27 00:00:00 Completed [facility] TDAP 2013-05-27 00:00:00 Completed [facility] TDAP 2013-05-27 00:00:00 Completed [facility] TDAP 2013-05-27 00:00:00 Completed [facility] TDAP 2013-05-27 00:00:00 Completed [facility] TDAP 2013-05-27 00:00:00 Completed [facility] TDAP 2013-05-27 00:00:00 Completed [facility] TDAP 2013-05-27 00:00:00 Completed [facility] TDAP 2013-05-27 00:00:00 Completed [facility] HEPATITIS A 2011-01-08 00:00:00 Completed [facility] HPV 2011-01-08 00:00:00 Completed [facility] Meningococcal Polysaccharide (groups A, C, Y and W-135) conjugate vaccine (MCV4P) 2011-01-08 00:00:00 Completed [facility] TDAP 2011-01-08 00:00:00 Completed [facility] HEPATITIS A 2011-01-08 00:00:00 Completed [facility] HPV 2011-01-08 00:00:00 Completed [facility] Meningococcal Polysaccharide (groups A, C, Y and W-135) conjugate vaccine (MCV4P) 2011-01-08 00:00:00 Completed [facility] TDAP 2011-01-08 00:00:00 Completed [facility] HEPATITIS A 2011-01-08 00:00:00 Completed [facility] HPV 2011-01-08 00:00:00 Completed [facility] Meningococcal Polysaccharide (groups A, C, Y and W-135) conjugate vaccine (MCV4P) 2011-01-08 00:00:00 Completed [facility] TDAP 2011-01-08 00:00:00 Completed [facility] HEPATITIS A 2011-01-08 00:00:00 Completed [facility] HPV 2011-01-08 00:00:00 Completed [facility] Meningococcal Polysaccharide (groups A, C, Y and W-135) conjugate vaccine (MCV4P) 2011-01-08 00:00:00 Completed [facility] TDAP 2011-01-08 00:00:00 Completed [facility] HEPATITIS A 2011-01-08 00:00:00 Completed [facility] HPV 2011-01-08 00:00:00 Completed [facility] Meningococcal Polysaccharide (groups A, C, Y and W-135) conjugate vaccine (MCV4P) 2011-01-08 00:00:00 Completed [facility] TDAP 2011-01-08 00:00:00 Completed [facility] HEPATITIS A 2011-01-08 00:00:00 Completed [facility] HPV 2011-01-08 00:00:00 Completed [facility] Meningococcal Polysaccharide (groups A, C, Y and W-135) conjugate vaccine (MCV4P) 2011-01-08 00:00:00 Completed [facility] TDAP 2011-01-08 00:00:00 Completed [facility] HEPATITIS A 2011-01-08 00:00:00 Completed [facility] HPV 2011-01-08 00:00:00 Completed [facility] Meningococcal Polysaccharide (groups A, C, Y and W-135) conjugate vaccine (MCV4P) 2011-01-08 00:00:00 Completed [facility] TDAP 2011-01-08 00:00:00 Completed [facility] HEPATITIS A 2011-01-08 00:00:00 Completed [facility] HPV 2011-01-08 00:00:00 Completed [facility] Meningococcal Polysaccharide (groups A, C, Y and W-135) conjugate vaccine (MCV4P) 2011-01-08 00:00:00 Completed [facility] TDAP 2011-01-08 00:00:00 Completed [facility] HEPATITIS A 2011-01-08 00:00:00 Completed [facility] HPV 2011-01-08 00:00:00 Completed [facility] Meningococcal Polysaccharide (groups A, C, Y and W-135) conjugate vaccine (MCV4P) 2011-01-08 00:00:00 Completed [facility] TDAP 2011-01-08 00:00:00 Completed [facility] Meningococcal Polysaccharide (groups A, C, Y and W-135) conjugate vaccine (MCV4P) 2010-08-10 00:00:00 Completed [facility] TDAP 2010-08-10 00:00:00 Completed [facility] Varicella (varivax)(chicken pox) 2010-08-10 00:00:00 Completed [facility] Meningococcal Polysaccharide (groups A, C, Y and W-135) conjugate vaccine (MCV4P) 2010-08-10 00:00:00 Completed [facility] TDAP 2010-08-10 00:00:00 Completed [facility] Varicella (varivax)(chicken pox) 2010-08-10 00:00:00 Completed [facility] Meningococcal Polysaccharide (groups A, C, Y and W-135) conjugate vaccine (MCV4P) 2010-08-10 00:00:00 Completed [facility] TDAP 2010-08-10 00:00:00 Completed [facility] Varicella (varivax)(chicken pox) 2010-08-10 00:00:00 Completed [facility] Meningococcal Polysaccharide (groups A, C, Y and W-135) conjugate vaccine (MCV4P) 2010-08-10 00:00:00 Completed [facility] TDAP 2010-08-10 00:00:00 Completed [facility] Varicella (varivax)(chicken pox) 2010-08-10 00:00:00 Completed [facility] Meningococcal Polysaccharide (groups A, C, Y and W-135) conjugate vaccine (MCV4P) 2010-08-10 00:00:00 Completed [facility] TDAP 2010-08-10 00:00:00 Completed [facility] Varicella (varivax)(chicken pox) 2010-08-10 00:00:00 Completed [facility] Meningococcal Polysaccharide (groups A, C, Y and W-135) conjugate vaccine (MCV4P) 2010[facility]08[facility] Varicella (varivax)(chicken pox) 2010-08-10 00:00:00 Completed [facility] Meningococcal Polysaccharide (groups A, C, Y and W-135) conjugate vaccine (MCV4P) 2010-08-10 00:00:00 Completed [facility] TDAP 2010-08-10 00:00:00 Completed [facility] Varicella (varivax)(chicken pox) 2010-08-10 00:00:00 Completed [facility] Meningococcal Polysaccharide (groups A, C, Y and W-135) conjugate vaccine (MCV4P) 2010-08-10 00:00:00 Completed [facility] TDAP 2010-08-10 00:00:00 Completed [facility] Varicella (varivax)(chicken pox) 2010-08-10 00:00:00 Completed [facility] Meningococcal Polysaccharide (groups A, C, Y and W-135) conjugate vaccine (MCV4P) 2010-08-10 00:00:00 Completed [facility] TDAP 2010-08-10 00:00:00 Completed [facility] Varicella (varivax)(chicken pox) 2010-08-10 00:00:00 Completed [facility] HEPATITIS A 2009-01-13 00:00:00 Completed [facility] HEPATITIS A 2009-01-13 00:00:00 Completed [facility] HEPATITIS A 2009-01-13 00:00:00 Completed [facility] HEPATITIS A 2009-01-13 00:00:00 Completed [facility] HEPATITIS A 2009-01-13 00:00:00 Completed [facility] HEPATITIS A 2009-01-13 00:00:00 Completed [facility] HEPATITIS A 2009-01-13 00:00:00 Completed [facility] HEPATITIS A 2009-01-13 00:00:00 Completed [facility] HEPATITIS A 2009-01-13 00:00:00 Completed [facility] DTaP, Unspecified Formulation 2003-07-23 00:00:00 Completed [facility] MMR 2003-07-23 00:00:00 Completed [facility] IPV 2003-07-23 00:00:00 Completed [facility] DTaP, Unspecified Formulation 2003-07-23 00:00:00 Completed [facility] MMR 2003-07-23 00:00:00 Completed [facility] IPV 2003-07-23 00:00:00 Completed [facility] DTaP, Unspecified Formulation 2003-07-23 00:00:00 Completed [facility] MMR 2003-07-23 00:00:00 Completed [facility] IPV 2003-07-23 00:00:00 Completed [facility] DTaP, Unspecified Formulation 2003-07-23 00:00:00 Completed [facility] MMR 2003-07-23 00:00:00 Completed [facility] IPV 2003-07-23 00:00:00 Completed [facility] DTaP, Unspecified Formulation 2003-07-23 00:00:00 Completed [facility] MMR 2003-07-23 00:00:00 Completed [facility] IPV 2003-07-23 00:00:00 Completed [facility] DTaP, Unspecified Formulation 2003-07-23 00:00:00 Completed [facility] MMR 2003-07-23 00:00:00 Completed [facility] IPV 2003-07-23 00:00:00 Completed [facility] DTaP, Unspecified Formulation 2003-07-23 00:00:00 Completed [facility] MMR 2003-07-23 00:00:00 Completed [facility] IPV 2003-07-23 00:00:00 Completed [facility] DTaP, Unspecified Formulation 2003-07-23 00:00:00 Completed [facility] MMR 2003-07-23 00:00:00 Completed [facility] IPV 2003-07-23 00:00:00 Completed [facility] DTaP, Unspecified Formulation 2003-07-23 00:00:00 Completed [facility] MMR 2003-07-23 00:00:00 Completed [facility] IPV 2003-07-23 00:00:00 Completed [facility] DTaP, Unspecified Formulation 2002-07-08 00:00:00 Completed [facility] HIB 4 Dose Schedule 2002-07-08 00:00:00 Completed [facility] DTaP, Unspecified Formulation 2002-07-08 00:00:00 Completed [facility] HIB 4 Dose Schedule 2002-07-08 00:00:00 Completed [facility] DTaP, Unspecified Formulation 2002-07-08 00:00:00 Completed [facility] HIB 4 Dose Schedule 2002-07-08 00:00:00 Completed [facility] DTaP, Unspecified Formulation 2002-07-08 00:00:00 Completed [facility] HIB 4 Dose Schedule 2002-07-08 00:00:00 Completed [facility] DTaP, Unspecified Formulation 2002-07-08 00:00:00 Completed [facility] HIB 4 Dose Schedule 2002-07-08 00:00:00 Completed [facility] DTaP, Unspecified Formulation 2002-07-08 00:00:00 Completed [facility] HIB 4 Dose Schedule 2002-07-08 00:00:00 Completed [facility] DTaP, Unspecified Formulation 2002-07-08 00:00:00 Completed [facility] HIB 4 Dose Schedule 2002-07-08 00:00:00 Completed [facility] DTaP, Unspecified Formulation 2002-07-08 00:00:00 Completed [facility] HIB 4 Dose Schedule 2002-07-08 00:00:00 Completed [facility] DTaP, Unspecified Formulation 2002-07-08 00:00:00 Completed [facility] HIB 4 Dose Schedule 2002-07-08 00:00:00 Completed [facility] MMR 2001-12-02 00:00:00 Completed [facility] IPV 2001-12-02 00:00:00 Completed [facility] Varicella (varivax)(chicken pox) 2001-12-02 00:00:00 Completed [facility] DTaP, Unspecified Formulation 2001-12-02 00:00:00 Completed [facility] Hep B, Adol or Pedi Dosage 2001-12-02 00:00:00 Completed [facility] HIB 4 Dose Schedule 2001-12-02 00:00:00 Completed [facility] MMR 2001-12-02 00:00:00 Completed [facility] IPV 2001-12-02 00:00:00 Completed [facility] Varicella (varivax)(chicken pox) 2001-12-02 00:00:00 Completed [facility] DTaP, Unspecified Formulation 2001-12-02 00:00:00 Completed [facility] Hep B, Adol or Pedi Dosage 2001-12-02 00:00:00 Completed [facility] HIB 4 Dose Schedule 2001-12-02 00:00:00 Completed [facility] MMR 2001-12-02 00:00:00 Completed [facility] IPV 2001-12-02 00:00:00 Completed [facility] Varicella (varivax)(chicken pox) 2001-12-02 00:00:00 Completed [facility] DTaP, Unspecified Formulation 2001-12-02 00:00:00 Completed [facility] Hep B, Adol or Pedi Dosage 2001-12-02 00:00:00 Completed [facility] HIB 4 Dose Schedule 2001-12-02 00:00:00 Completed [facility] MMR 2001-12-02 00:00:00 Completed [facility] IPV 2001-12-02 00:00:00 Completed [facility] Varicella (varivax)(chicken pox) 2001-12-02 00:00:00 Completed [facility] DTaP, Unspecified Formulation 2001-12-02 00:00:00 Completed [facility] Hep B, Adol or Pedi Dosage 2001-12-02 00:00:00 Completed [facility] HIB 4 Dose Schedule 2001-12-02 00:00:00 Completed [facility] MMR 2001-12-02 00:00:00 Completed [facility] IPV 2001-12-02 00:00:00 Completed [facility] Varicella (varivax)(chicken pox) 2001-12-02 00:00:00 Completed [facility] DTaP, Unspecified Formulation 2001-12-02 00:00:00 Completed [facility] Hep B, Adol or Pedi Dosage 2001-12-02 00:00:00 Completed [facility] HIB 4 Dose Schedule 2001-12-02 00:00:00 Completed [facility] MMR 2001-12-02 00:00:00 [facility] [place] [facility] 2001-12-02 00:00:00 Completed [facility] [place] Varicella (varivax)(chicken pox) 2001-12-02 00:00:00 Completed [facility] [place] DTaP, Unspecified Formulation 2001-12-02 00:00:00 Completed [facility] [place] Hep B, Adol or Pedi Dosage 2001-12-02 00:00:00 Completed [facility] [place] HIB 4 Dose Schedule 2001-12-02 00:00:00 Completed [facility] [place] MMR 2001-12-02 00:00:00 Completed [facility] [place] IPV 2001-12-02 00:00:00 Completed [facility] [place] Varicella (varivax)(chicken pox) 2001-12-02 00:00:00 Completed [facility] [place] DTaP, Unspecified Formulation 2001-12-02 00:00:00 Completed [facility] [place] Hep B, Adol or Pedi Dosage 2001-12-02 00:00:00 Completed [facility] [place] HIB 4 Dose Schedule 2001-12-02 00:00:00 Completed [facility] [place] MMR 2001-12-02 00:00:00 Completed [facility] [place] IPV 2001-12-02 00:00:00 Completed [facility] [place] Varicella (varivax)(chicken pox) 2001-12-02 00:00:00 Completed [facility] [place] DTaP, Unspecified Formulation 2001-12-02 00:00:00 Completed [facility] [place] Hep B, Adol or Pedi Dosage 2001-12-02 00:00:00 Completed [facility] [place] HIB 4 Dose Schedule 2001-12-02 00:00:00 Completed [facility] [place] MMR 2001-12-02 00:00:00 Completed [facility] [place] IPV 2001-12-02 00:00:00 Completed [facility] [place] Varicella (varivax)(chicken pox) 2001-12-02 00:00:00 Completed [facility] [place] DTaP, Unspecified Formulation 2001-12-02 00:00:00 Completed [facility] [place] Hep B, Adol or Pedi Dosage 2001-12-02 00:00:00 Completed [facility] [place] HIB 4 Dose Schedule 2001-12-02 00:00:00 Completed [facility] [place] DTaP, Unspecified Formulation 2000-06-25 00:00:00 Completed [facility] [place] Hep B, Adol or Pedi Dosage 2000-06-25 00:00:00 Completed [facility] [place] HIB 4 Dose Schedule 2000-06-25 00:00:00 Completed [facility] [place] IPV 2000-06-25 00:00:00 Completed [facility] [place] DTaP, Unspecified Formulation 2000-06-25 00:00:00 Completed [facility] [place] Hep B, Adol or Pedi Dosage 2000-06-25 00:00:00 Completed [facility] [place] HIB 4 Dose Schedule 2000-06-25 00:00:00 Completed [facility] [place] IPV 2000-06-25 00:00:00 Completed [facility] [place] DTaP, Unspecified Formulation 2000-06-25 00:00:00 Completed [facility] [place] Hep B, Adol or Pedi Dosage 2000-06-25 00:00:00 Completed [facility] [place] HIB 4 Dose Schedule 2000-06-25 00:00:00 Completed [facility] [place] IPV 2000-06-25 00:00:00 Completed [facility] [place] DTaP, Unspecified Formulation 2000-06-25 00:00:00 Completed [facility] [place] Hep B, Adol or Pedi Dosage 2000-06-25 00:00:00 Completed [facility] [place] HIB 4 Dose Schedule 2000-06-25 00:00:00 Completed [facility] [place] IPV 2000-06-25 00:00:00 Completed [facility] [place] DTaP, Unspecified Formulation 2000-06-25 00:00:00 Completed [facility] [place] Hep B, Adol or Pedi Dosage 2000-06-25 00:00:00 Completed [facility] [place] HIB 4 Dose Schedule 2000-06-25 00:00:00 Completed [facility] [place] IPV 2000-06-25 00:00:00 Completed [facility] [place] DTaP, Unspecified Formulation 2000-06-25 00:00:00 Completed [facility] [place] Hep B, Adol or Pedi Dosage 2000-06-25 00:00:00 Completed [facility] [place] HIB 4 Dose Schedule 2000-06-25 00:00:00 Completed [facility] [place] IPV 2000-06-25 00:00:00 Completed [facility] [place] DTaP, Unspecified Formulation 2000-06-25 00:00:00 Completed [facility] [place] Hep B, Adol or Pedi Dosage 2000-06-25 00:00:00 Completed [facility] [place] HIB 4 Dose Schedule 2000-06-25 00:00:00 Completed [facility] [place] IPV 2000-06-25 00:00:00 Completed [facility] [place] DTaP, Unspecified Formulation 2000-06-25 00:00:00 Completed [facility] [place] Hep B, Adol or Pedi Dosage 2000-06-25 00:00:00 Completed [facility] [place] HIB 4 Dose Schedule 2000-06-25 00:00:00 Completed [facility] [place] IPV 2000-06-25 00:00:00 Completed [facility] [place] DTaP, Unspecified Formulation 2000-06-25 00:00:00 Completed [facility] [place] Hep B, Adol or Pedi Dosage 2000-06-25 00:00:00 Completed [facility] [place] HIB 4 Dose Schedule 2000-06-25 00:00:00 Completed [facility] [place] IPV 2000-06-25 00:00:00 Completed [facility] DTaP, Unspecified Formulation 1999 00:00:00 Completed [facility] [place] Hep B, Adol or Pedi Dosage 1999 00:00:00 Completed [facility] [place] HIB 4 Dose Schedule 1999 00:00:00 Completed [facility] [place] IPV 1999 00:00:00 Completed [facility] [place] DTaP, Unspecified Formulation 1999 00:00:00 Completed [facility] [place] Hep B, Adol or Pedi Dosage 1999 00:00:00 Completed [facility] [place] HIB 4 Dose Schedule 1999 00:00:00 Completed [facility] [place] IPV 1999 00:00:00 Completed [facility] [place] DTaP, Unspecified Formulation 1999 00:00:00 Completed [facility] [place] Hep B, Adol or Pedi Dosage 1999 00:00:00 Completed [facility] [place] HIB 4 Dose Schedule 1999 00:00:00 Completed [facility] [place] IPV 1999 00:00:00 Completed [facility] [place] DTaP, Unspecified Formulation 1999 00:00:00 Completed [facility] [place] Hep B, Adol or Pedi Dosage 1999 00:00:00 Completed [facility] [place] HIB 4 Dose Schedule 1999 00:00:00 Completed [facility] [place] IPV 1999 00:00:00 Completed [facility] [place] DTaP, Unspecified Formulation 1999 00:00:00 Completed [facility] [place] Hep B, Adol or Pedi Dosage 1999 00:00:00 Completed [facility] [place] HIB 4 Dose Schedule 1999 00:00:00 Completed [facility] [place] IPV 1999 00:00:00 Completed [facility] [place] DTaP, Unspecified Formulation 1999 00:00:00 Completed [facility] [place] Hep B, Adol or Pedi Dosage 1999 00:00:00 Completed [facility] [place] HIB 4 Dose Schedule 1999 00:00:00 Completed [facility] [place] IPV 1999 00:00:00 Completed [facility] [place] DTaP, Unspecified Formulation 1999 00:00:00 Completed [facility] [place] Hep B, Adol or Pedi Dosage 1999 00:00:00 Completed [facility] [place] HIB 4 Dose Schedule 1999 00:00:00 Completed [facility] [place] IPV 1999 00:00:00 Completed [facility] [place] DTaP, Unspecified Formulation 1999 00:00:00 Completed [facility] [place] Hep B, Adol or Pedi Dosage 1999 00:00:00 Completed [facility] [place] HIB 4 Dose Schedule 1999 00:00:00 Completed [facility] [place] IPV 1999 00:00:00 Completed [facility] [place] DTaP, Unspecified Formulation 1999 00:00:00 Completed [facility] [place] Hep B, Adol or Pedi Dosage 1999 00:00:00 Completed [facility] [place] HIB 4 Dose Schedule 1999 00:00:00 Completed [facility] [place] IPV 1999 00:00:00 Completed [facility] [place] TDAP Unknown Completed [facility] [place] HPV9 Unknown Completed [facility] [place] Influenza Virus Vaccine Quad IM 3+ YRS Unknown Completed [facility] [place] HPV9 Unknown Completed [facility] [place] HPV9 Unknown Completed [facility] [place] Influenza Virus Vaccine Quad .5 mL IM 6+ MO (FLUZONE/FLULAVAL/FL UARIX) Unknown Completed [facility] [place] Influenza Virus Vaccine Quad .5 mL IM 6+ MO (FLUZONE/FLULAVAL/FL UARIX) Unknown Completed [facility] [place] TDAP Unknown Completed [facility] [place] SARS-COV-2 COVID-19 PFIZER VACCINE Unknown Completed [facility] [place] DTaP, Unspecified Formulation Unknown Completed [facility] [place] DTaP, Unspecified Formulation Unknown Completed [facility] [place] DTaP, Unspecified Formulation Unknown Completed [facility] [place] DTaP, Unspecified Formulation Unknown Completed [facility] [place] DTaP, Unspecified Formulation Unknown Completed [facility] [place] Influenza Virus Vaccine - Whole Unknown Completed [facility]IS [facility] HEPATITIS A Unknown Completed [facility] Hep B, Adol or Pedi Dosage Unknown Completed [facility] [place] Hep B, Adol or Pedi Dosage Unknown Completed [facility] [place] Hep B, Adol or Pedi Dosage Unknown Completed [facility] [place] HIB 4 Dose Schedule Unknown Completed [facility] [place] HIB 4 Dose Schedule Unknown Completed [facility] [place] HIB 4 Dose Schedule Unknown Completed [facility] [place] HIB 4 Dose Schedule Unknown Completed [facility] [place] HPV Unknown Completed [facility] [place] Meningococcal Polysaccharide (groups A, C, Y and W-135) conjugate vaccine (MCV4P) Unknown Completed [facility] Meningococcal Polysaccharide (groups A, C, Y and W-135) conjugate vaccine (MCV4P) Unknown Completed [facility] MMR Unknown Completed [facility] [place] MMR Unknown Completed [facility] [place] IPV Unknown Completed [facility] [place] IPV Unknown Completed [facility] [place] IPV Unknown Completed [facility] [place] IPV Unknown Completed [facility] [place] TDAP Unknown Completed [facility] [place] TDAP Unknown Completed [facility] [place] Varicella (varivax)(chicken pox) Unknown Completed [facility] [place] Varicella (varivax)(chicken pox) Unknown Completed [facility] [place] TDAP Unknown Completed [facility] [place] HPV9 Unknown Completed [facility] [place] Influenza Virus Vaccine Quad IM 3+ YRS Unknown Completed [facility] [place] HPV9 Unknown Completed [facility] [place] HPV9 Unknown Completed [facility] [place] Influenza Virus Vaccine Quad .5 mL IM 6+ MO (FLUZONE/FLULAVAL/FL UARIX) Unknown Completed [facility] [place] Influenza Virus Vaccine Quad .5 mL IM 6+ MO (FLUZONE/FLULAVAL/FL UARIX) Unknown Completed [facility] [place] TDAP Unknown Completed [facility] [place] SARS-COV-2 COVID-19 PFIZER VACCINE Unknown Completed [facility] [place] DTaP, Unspecified Formulation Unknown Completed [facility] [place] DTaP, Unspecified Formulation Unknown Completed [facility] [place] DTaP, Unspecified Formulation Unknown Completed [facility] [place] DTaP, Unspecified Formulation Unknown Completed [facility] [place] DTaP, Unspecified Formulation Unknown Completed [facility] [place] Influenza Virus Vaccine - Whole Unknown Completed [facility] HEPATITIS A Unknown [facility] HEPATITIS A Unknown [facility] Hep B, Adol or Pedi Dosage Unknown Completed [facility] [place] Hep B, Adol or Pedi Dosage Unknown Completed [facility] [place] Hep B, Adol or Pedi Dosage Unknown Completed [facility] [place] HIB 4 Dose Schedule Unknown Completed [facility] [place] HIB 4 Dose Schedule Unknown Completed [facility] [place] HIB 4 Dose Schedule Unknown Completed [facility] [place] HIB 4 Dose Schedule Unknown Completed [facility] [place] HPV Unknown Completed [facility] [place] Meningococcal Polysaccharide (groups A, C, Y and W-135) conjugate vaccine (MCV4P) Unknown Completed [facility] Meningococcal Polysaccharide (groups A, C, Y and W-135) conjugate vaccine (MCV4P) Unknown Completed [facility] MMR Unknown Completed [facility] [place] MMR Unknown Completed [facility] [place] IPV Unknown Completed [facility] [place] IPV Unknown Completed [facility] [place] IPV Unknown Completed [facility] [place] IPV Unknown Completed [facility] [place] TDAP Unknown Completed [facility] [place] TDAP Unknown Completed [facility] [place] Varicella (varivax)(chicken pox) Unknown Completed [facility] [place] Varicella (varivax)(chicken pox) Unknown Completed [facility] [place] TDAP Unknown Completed [facility] [place] HPV9 Unknown Completed [facility] [place] Influenza Virus Vaccine Quad IM 3+ YRS Unknown Completed [facility] [place] HPV9 Unknown Completed [facility] [place] HPV9 Unknown Completed [facility] [place] Influenza Virus Vaccine Quad .5 mL IM 6+ MO (FLUZONE/FLULAVAL/FL UARIX) Unknown Completed [facility] [place] Influenza Virus Vaccine Quad .5 mL IM 6+ MO (FLUZONE/FLULAVAL/FL UARIX) Unknown Completed [facility] [place] TDAP Unknown Completed [facility] [place] SARS-COV-2 COVID-19 PFIZER VACCINE Unknown Completed [facility] [place] DTaP, Unspecified Formulation Unknown Completed [facility] [place] DTaP, Unspecified Formulation Unknown Completed [facility] [place] DTaP, Unspecified Formulation Unknown Completed [facility] [place] DTaP, Unspecified Formulation Unknown Completed [facility] [place] DTaP, Unspecified Formulation Unknown Completed [facility] [place] Influenza Virus Vaccine - Whole Unknown Completed [facility] HEPATITIS A Unknown [facility] HEPATITIS A Unknown Completed [facility] Hep B, Adol or Pedi Dosage Unknown Completed [facility] [place] Hep B, Adol or Pedi Dosage Unknown Completed [facility] [place] Hep B, Adol or Pedi Dosage Unknown Completed [facility] [place] HIB 4 Dose Schedule Unknown Completed [facility] [place] HIB 4 Dose Schedule Unknown Completed [facility] [place] HIB 4 Dose Schedule Unknown Completed [facility] [place] HIB 4 Dose Schedule Unknown Completed [facility] [place] HPV Unknown Completed [facility] [place] Meningococcal Polysaccharide (groups A, C, Y and W-135) conjugate vaccine (MCV4P) Unknown Completed [facility] Meningococcal Polysaccharide (groups A, C, Y and W-135) conjugate vaccine (MCV4P) Unknown Completed [facility] MMR Unknown Completed [facility] [place] MMR Unknown Completed [facility] [place] IPV Unknown Completed [facility] [place] IPV Unknown Completed [facility] [place] IPV Unknown Completed [facility] [place] IPV Unknown Completed [facility] [place] TDAP Unknown Completed [facility] [place] TDAP Unknown Completed [facility] [place] Varicella (varivax)(chicken pox) Unknown Completed [facility] [place] Varicella (varivax)(chicken pox) Unknown Completed [facility] [place] TDAP Unknown Completed [facility] [place] HPV9 Unknown Completed [facility] [place] Influenza Virus Vaccine Quad IM 3+ YRS Unknown Completed [facility] [place] HPV9 Unknown Completed [facility] [place] HPV9 Unknown Completed [facility] [place] Influenza Virus Vaccine Quad .5 mL IM 6+ MO (FLUZONE/FLULAVAL/FL UARIX) Unknown Completed [facility] [place] Influenza Virus Vaccine Quad .5 mL IM 6+ MO (FLUZONE/FLULAVAL/FL UARIX) Unknown Completed [facility] [place] TDAP Unknown Completed [facility] [place] DTaP, Unspecified Formulation Unknown Completed [facility] [place] DTaP, Unspecified Formulation Unknown Completed [facility] [place] DTaP, Unspecified Formulation Unknown Completed [facility] [place] DTaP, Unspecified Formulation Unknown Completed [facility] [place] DTaP, Unspecified Formulation Unknown Completed [facility] [place] Influenza Virus Vaccine - Whole Unknown Completed [facility] HEPATITIS A Unknown Com[facility] HEPATITIS A Unknown Completed [facility] Hep B, Adol or Pedi Dosage Unknown Completed [facility] [place] Hep B, Adol or Pedi Dosage Unknown Completed [facility] [place] Hep B, Adol or Pedi Dosage Unknown Completed [facility] [place] HIB 4 Dose Schedule Unknown Completed [facility] [place] HIB 4 Dose Schedule Unknown Completed [facility] [place] HIB 4 Dose Schedule Unknown Completed [facility] [place] HIB 4 Dose Schedule Unknown Completed [facility] [place] HPV Unknown Completed [facility] [place] Meningococcal Polysaccharide (groups A, C, Y and W-135) conjugate vaccine (MCV4P) Unknown Completed [facility] Meningococcal Polysaccharide (groups A, C, Y and W-135) conjugate vaccine (MCV4P) Unknown Completed [facility] MMR Unknown Completed [facility] [place] MMR Unknown Completed [facility] [place] IPV Unknown Completed [facility] [place] IPV Unknown Completed [facility] [place] IPV Unknown Completed [facility] [place] IPV Unknown Completed [facility] [place] TDAP Unknown Completed [facility] [place] TDAP Unknown Completed [facility] [place] Varicella (varivax)(chicken pox) Unknown Completed [facility] [place] Varicella (varivax)(chicken pox) Unknown Completed [facility] [place] TDAP Unknown Completed [facility] [place] HPV9 Unknown Completed [facility] [place] Influenza Virus Vaccine Quad IM 3+ YRS Unknown Completed [facility] [place] HPV9 Unknown Completed [facility] [place] HPV9 Unknown Completed [facility] [place] Influenza Virus Vaccine Quad .5 mL IM 6+ MO (FLUZONE/FLULAVAL/FL UARIX) Unknown Completed [facility] [place] Influenza Virus Vaccine Quad .5 mL IM 6+ MO (FLUZONE/FLULAVAL/FL UARIX) Unknown Completed [facility] [place] TDAP Unknown Completed [facility] [place] DTaP, Unspecified Formulation Unknown Completed [facility] [place] DTaP, Unspecified Formulation Unknown Completed [facility] [place] DTaP, Unspecified Formulation Unknown Completed [facility] [place] DTaP, Unspecified Formulation Unknown Completed [facility] [place] DTaP, Unspecified Formulation Unknown Completed [facility] [place] Influenza Virus Vaccine - Whole Unknown Completed [facility] HEPATITIS A Unknown Completed [facility] HEPATITIS A Unknown Completed [facility] Hep B, Adol or Pedi Dosage Unknown Completed [facility] [place] Hep B, Adol or Pedi Dosage Unknown Completed [facility] [place] Hep B, Adol or Pedi Dosage Unknown Completed [facility] [place] HIB 4 Dose Schedule Unknown Completed [facility] [place] HIB 4 Dose Schedule Unknown Completed [facility] [place] HIB 4 Dose Schedule Unknown Completed [facility] [place] HIB 4 Dose Schedule Unknown Completed [facility] [place] HPV Unknown Completed [facility] [place] Meningococcal Polysaccharide (groups A, C, Y and W-135) conjugate vaccine (MCV4P) Unknown Completed [facility] Meningococcal Polysaccharide (groups A, C, Y and W-135) conjugate vaccine (MCV4P) Unknown Completed [facility] MMR Unknown Completed [facility] [place] MMR Unknown Completed [facility] [place] IPV Unknown Completed [facility] [place] IPV Unknown Completed [facility] [place] IPV Unknown Completed [facility] [place] IPV Unknown Completed [facility] [place] TDAP Unknown Completed [facility] [place] TDAP Unknown Completed [facility] [place] Varicella (varivax)(chicken pox) Unknown Completed [facility] [place] Varicella (varivax)(chicken pox) Unknown Completed [facility] [place] TDAP Unknown Completed [facility] [place] HPV9 Unknown Completed [facility] [place] Influenza Virus Vaccine Quad IM 3+ YRS Unknown Completed [facility] [place] HPV9 Unknown Completed [facility] [place] HPV9 Unknown Completed [facility] [place] Influenza Virus Vaccine Quad .5 mL IM 6+ MO (FLUZONE/FLULAVAL/FL UARIX) Unknown Completed [facility] [place] Influenza Virus Vaccine Quad .5 mL IM 6+ MO (FLUZONE/FLULAVAL/FL UARIX) Unknown Completed [facility] [place] TDAP Unknown Completed [facility] [place] DTaP, Unspecified Formulation Unknown Completed [facility] [place] DTaP, Unspecified Formulation Unknown Completed [facility] [place] DTaP, Unspecified Formulation Unknown Completed [facility] [place] DTaP, Unspecified Formulation Unknown Completed [facility] [place] DTaP, Unspecified Formulation Unknown Completed [facility] [place] Influenza Virus Vaccine - Whole Unknown Completed [facility] HEPATITIS A [place] [facility] Com[facility] Hep B, Adol or Pedi Dosage Unknown Completed [facility] Hep B, Adol or Pedi Dosage Unknown Completed [facility] Hep B, Adol or Pedi Dosage Unknown Completed [facility] HIB 4 Dose Schedule Unknown Completed [facility] HIB 4 Dose Schedule Unknown Completed [facility] HIB 4 Dose Schedule Unknown Completed [facility] HIB 4 Dose Schedule Unknown Completed [facility] HPV Unknown Completed [facility] Meningococcal Polysaccharide (groups A, C, Y and W-135) conjugate vaccine (MCV4P) Unknown Completed [facility] Meningococcal Polysaccharide (groups A, C, Y and W-135) conjugate vaccine (MCV4P) Unknown Completed [facility] MMR Unknown Completed [facility] MMR Unknown Completed [facility] IPV Unknown Completed [facility] IPV Unknown Completed [facility] IPV Unknown Completed [facility] IPV Unknown Completed [facility] TDAP Unknown Completed [facility] TDAP Unknown Completed [facility] Varicella (varivax)(chicken pox) Unknown Completed [facility] Varicella (varivax)(chicken pox) Unknown Completed [facility] TDAP Unknown Completed [facility] HPV9 Unknown Completed [facility] Influenza Virus Vaccine Quad IM 3+ YRS Unknown Completed [facility] HPV9 Unknown Completed [facility] HPV9 Unknown Completed [facility] Influenza Virus Vaccine Quad .5 mL IM 6+ MO (FLUZONE/FLULAVAL/FL UARIX) Unknown Completed [facility] Influenza Virus Vaccine Quad .5 mL IM 6+ MO (FLUZONE/FLULAVAL/FL UARIX) Unknown Completed [facility] TDAP Unknown Completed [facility] DTaP, Unspecified Formulation Unknown Completed [facility] DTaP, Unspecified Formulation Unknown Completed [facility] DTaP, Unspecified Formulation Unknown Completed [facility] DTaP, Unspecified Formulation Unknown Completed [facility] DTaP, Unspecified Formulation Unknown Completed [facility] Influenza Virus Vaccine - Whole Unknown Completed [facility] HEPATITIS A Unknown Completed [facility] HEPATITIS A Unknown Completed [facility] Hep B, Adol or Pedi Dosage Unknown Completed [facility] Hep B, Adol or Pedi Dosage Unknown Completed [facility] Hep B, Adol or Pedi Dosage Unknown Completed [facility] HIB 4 Dose Schedule Unknown Completed [facility] HIB 4 Dose Schedule Unknown Completed [facility] HIB 4 Dose Schedule Unknown Completed [facility] HIB 4 Dose Schedule Unknown Completed [facility] HPV Unknown Completed [facility] Meningococcal Polysaccharide (groups A, C, Y and W-135) conjugate vaccine (MCV4P) Unknown Completed [facility] Meningococcal Polysaccharide (groups A, C, Y and W-135) conjugate vaccine (MCV4P) Unknown Completed [facility] MMR Unknown Completed [facility] MMR Unknown Completed [facility] IPV Unknown Completed [facility] IPV Unknown Completed [facility] IPV Unknown Completed [facility] IPV Unknown Completed [facility] TDAP Unknown Completed [facility] TDAP Unknown Completed [facility] Varicella (varivax)(chicken pox) Unknown Completed [facility] Varicella (varivax)(chicken pox) Unknown Completed [facility] TDAP Unknown Completed [facility] HPV9 Unknown Completed [facility] Influenza Virus Vaccine Quad IM 3+ YRS Unknown Completed [facility] HPV9 Unknown Completed [facility] HPV9 Unknown Completed [facility] Influenza Virus Vaccine Quad .5 mL IM 6+ MO (FLUZONE/FLULAVAL/FL UARIX) Unknown Completed [facility] Influenza Virus Vaccine Quad .5 mL IM 6+ MO (FLUZONE/FLULAVAL/FL UARIX) Unknown Completed [facility] DTaP, Unspecified Formulation Unknown Completed [facility] DTaP, Unspecified Formulation Unknown Completed [facility] DTaP, Unspecified Formulation Unknown Completed [facility] DTaP, Unspecified Formulation Unknown Completed [facility] DTaP, Unspecified Formulation Unknown Completed [facility] Influenza Virus Vaccine - Whole Unknown Completed [facility] HEPATITIS A Unknown Completed [facility] HEPATITIS A Unknown Completed [facility] Hep B, Adol or Pedi Dosage Unknown Completed [facility] Hep B, Adol or Pedi Dosage Unknown Completed [facility] Hep B, Adol or Pedi Dosage Unknown Completed [facility] HIB 4 Dose Schedule Unknown Completed [facility] HIB 4 Dose Schedule Unknown Completed [facility] HIB 4 Dose Schedule Unknown Completed [facility] HIB 4 Dose Schedule Unknown Completed [facility] HPV Unknown Completed [facility] Meningococcal Polysaccharide (groups A, C, Y and W-135) conjugate vaccine (MCV4P) Unknown Completed [facility] Meningococcal Polysaccharide (groups A, C, Y and W-135) conjugate vaccine (MCV4P) Unknown Completed [facility] MMR Unknown Completed [facility] MMR Unknown Completed [facility] IPV Unknown Completed [facility] IPV Unknown Completed [facility] IPV Unknown Completed [facility] IPV Unknown Completed [facility] TDAP Unknown Completed [facility] TDAP Unknown Completed [facility] Varicella (varivax)(chicken pox) Unknown Completed [facility] Varicella (varivax)(chicken pox) Unknown Completed [facility] TDAP Unknown Completed [facility] HPV9 Unknown Completed [facility] Influenza Virus Vaccine Quad IM 3+ YRS Unknown Completed [facility] HPV9 Unknown Completed [facility] HPV9 Unknown Completed [facility] Influenza Virus Vaccine Quad .5 mL IM 6+ MO (FLUZONE/FLULAVAL/FL UARIX) Unknown Completed [facility] Influenza Virus Vaccine Quad .5 mL IM 6+ MO (FLUZONE/FLULAVAL/FL UARIX) Unknown Completed [facility] DTaP, Unspecified Formulation Unknown Completed [facility] DTaP, Unspecified Formulation Unknown Completed [facility] DTaP, Unspecified Formulation Unknown Completed [facility] DTaP, Unspecified Formulation Unknown Completed [facility] DTaP, Unspecified Formulation Unknown Completed [facility] Influenza Virus Vaccine - Whole Unknown Completed [facility] HEPATITIS A Unknown Completed [facility] HEPATITIS A Unknown Completed [facility] Hep B, Adol or Pedi Dosage Unknown Completed [facility] Hep B, Adol or Pedi Dosage Unknown Completed [facility] Hep B, Adol or Pedi Dosage Unknown Completed [facility] HIB 4 Dose Schedule Unknown Completed [facility] HIB 4 Dose Schedule Unknown Completed [facility] HIB 4 Dose Schedule Unknown Completed [facility] HIB 4 Dose Schedule Unknown Completed [facility] HPV Unknown Completed [facility] Meningococcal Polysaccharide (groups A, C, Y and W-135) conjugate vaccine (MCV4P) Unknown Completed [facility] Meningococcal Polysaccharide (groups A, C, Y and W-135) conjugate vaccine (MCV4P) Unknown Completed [facility] MMR Unknown Completed [facility] MMR Unknown Completed [facility] IPV Unknown Completed [facility] IPV Unknown Completed [facility] IPV Unknown Completed [facility] IPV Unknown Completed [facility] TDAP Unknown Completed [facility] TDAP Unknown Completed [facility] Varicella (varivax)(chicken pox) Unknown Completed [facility] Varicella (varivax)(chicken pox) Unknown Completed [facility] TDAP Unknown Completed [facility] HPV9 Unknown Completed [facility] Influenza Virus Vaccine Quad IM 3+ YRS Unknown Completed [facility] HPV9 Unknown Completed [facility] HPV9 Unknown Completed [facility] Influenza Virus Vaccine Quad .5 mL IM 6+ MO (FLUZONE/FLULAVAL/FL UARIX) Unknown Completed [facility] Influenza Virus Vaccine Quad .5 mL IM 6+ MO (FLUZONE/FLULAVAL/FL UARIX) Unknown Completed [facility] DTaP, Unspecified Formulation Unknown Completed [facility] DTaP, Unspecified Formulation Unknown Completed [facility] DTaP, Unspecified Formulation Unknown Completed [facility] DTaP, Unspecified Formulation Unknown Completed [facility] DTaP, Unspecified Formulation Unknown Completed [facility] Influenza Virus Vaccine - Whole Unknown Completed [facility] HEPATITIS A Unknown Completed [facility] HEPATITIS A Unknown Completed [facility] Hep B, Adol or Pedi Dosage Unknown Completed [facility] Hep B, Adol or Pedi Dosage Unknown Completed [facility] Hep B, Adol or Pedi Dosage Unknown Completed [facility] HIB 4 Dose Schedule Unknown Completed [facility] HIB 4 Dose Schedule Unknown Completed [facility] HIB 4 Dose Schedule Unknown Completed [facility] HIB 4 Dose Schedule Unknown Completed [facility] HPV Unknown Completed [facility] Meningococcal Polysaccharide (groups A, C, Y and W-135) conjugate vaccine (MCV4P) Unknown Completed [facility] Meningococcal Polysaccharide (groups A, C, Y and W-135) conjugate vaccine (MCV4P) Unknown Completed [facility] MMR Unknown Completed [facility] MMR Unknown Completed [facility] IPV Unknown Completed [facility] IPV Unknown Completed [facility] IPV Unknown Completed [facility] IPV Unknown Completed [facility] TDAP Unknown Completed [facility] TDAP Unknown Completed [facility] Varicella (varivax)(chicken pox) Unknown Completed [facility] Varicella (varivax)(chicken pox) Unknown Completed [facility] TDAP Unknown Completed [facility] HPV9 Unknown Completed [facility] Influenza Virus Vaccine Quad IM 3+ YRS Unknown Completed [facility] HPV9 Unknown Completed [facility] HPV9 Unknown Completed [facility] Influenza Virus Vaccine Quad .5 mL IM 6+ MO (FLUZONE/FLULAVAL/FL UARIX) Unknown Completed [facility] Influenza Virus Vaccine Quad .5 mL IM 6+ MO (FLUZONE/FLULAVAL/FL UARIX) Unknown Completed [facility] DTaP, Unspecified Formulation Unknown Completed [facility] DTaP, Unspecified Formulation Unknown Completed [facility] DTaP, Unspecified Formulation Unknown Completed [facility] DTaP, Unspecified Formulation Unknown Completed [facility] DTaP, Unspecified Formulation Unknown Completed [facility] Influenza Virus Vaccine - Whole Unknown Completed [facility] HEPATITIS A Unknown Completed [facility] HEPATITIS A Unknown Completed [facility] Hep B, Adol or Pedi Dosage Unknown Completed [facility] Hep B, Adol or Pedi Dosage Unknown Completed [facility] Hep B, Adol or Pedi Dosage Unknown Completed [facility] HIB 4 Dose Schedule Unknown Completed [facility] HIB 4 Dose Schedule Unknown Completed [facility] HIB 4 Dose Schedule Unknown Completed [facility] HIB 4 Dose Schedule Unknown Completed [facility] HPV Unknown Completed [facility] Meningococcal Polysaccharide (groups A, C, Y and W-135) conjugate vaccine (MCV4P) Unknown Completed [facility] Meningococcal Polysaccharide (groups A, C, Y and W-135) conjugate vaccine (MCV4P) Unknown Completed [facility] MMR Unknown Completed [facility] MMR Unknown Completed [facility] IPV Unknown Completed [facility] IPV Unknown Completed [facility] IPV Unknown Completed [facility] IPV Unknown Completed [facility] TDAP Unknown Completed [facility] TDAP Unknown Completed [facility] Varicella (varivax)(chicken pox) Unknown Completed [facility] Varicella (varivax)(chicken pox) Unknown Completed [facility] TDAP Unknown Completed [facility] HPV9 Unknown Completed [facility] Influenza Virus Vaccine Quad IM 3+ YRS Unknown Completed [facility] HPV9 Unknown Completed [facility] HPV9 Unknown Completed [facility] Influenza Virus Vaccine Quad .5 mL IM 6+ MO (FLUZONE/FLULAVAL/FL UARIX) Unknown Completed [facility] Influenza Virus Vaccine Quad .5 mL IM 6+ MO (FLUZONE/FLULAVAL/FL UARIX) Unknown Completed [facility] TDAP Unknown Completed [facility] SARS-COV-2 COVID-19 PFIZER VACCINE Unknown Completed [facility] DTaP, Unspecified Formulation Unknown Completed [facility] DTaP, Unspecified Formulation Unknown Completed [facility] DTaP, Unspecified Formulation Unknown Completed [facility] DTaP, Unspecified Formulation Unknown Completed [facility] DTaP, Unspecified Formulation Unknown Completed [facility] Influenza Virus Vaccine - Whole Unknown Completed [facility] HEPATITIS A Unknown Completed [facility] HEPATITIS A Unknown Completed [facility] Hep B, Adol or Pedi Dosage Unknown Completed [facility] Hep B, Adol or Pedi Dosage Unknown Completed [facility] Hep B, Adol or Pedi Dosage Unknown Completed [facility] HIB 4 Dose Schedule Unknown Completed [facility] HIB 4 Dose Schedule Unknown Completed [facility] HIB 4 Dose Schedule Unknown Completed [facility] HIB 4 Dose Schedule Unknown Completed [facility] HPV Unknown Completed [facility] Meningococcal Polysaccharide (groups A, C, Y and W-135) conjugate vaccine (MCV4P) Unknown Completed [facility] Meningococcal Polysaccharide (groups A, C, Y and W-135) conjugate vaccine (MCV4P) Unknown Completed [facility] MMR Unknown Completed [facility] MMR Unknown Completed [facility] IPV Unknown Completed [facility] IPV Unknown Completed [facility] IPV Unknown Completed [facility] IPV Unknown Completed [facility] TDAP Unknown Completed [facility] TDAP Unknown Completed [facility] Varicella (varivax)(chicken pox) Unknown Completed [facility] Varicella (varivax)(chicken pox) Unknown Completed [facility] TDAP Unknown Completed [facility] HPV9 Unknown Completed [facility] Influenza Virus Vaccine Quad IM 3+ YRS Unknown Completed [facility] HPV9 Unknown Completed [facility] HPV9 Unknown Completed [facility] Influenza Virus Vaccine Quad .5 mL IM 6+ MO (FLUZONE/FLULAVAL/FL UARIX) Unknown Completed [facility] Influenza Virus Vaccine Quad .5 mL IM 6+ MO (FLUZONE/FLULAVAL/FL UARIX) Unknown Completed [facility] TDAP Unknown Completed [facility] SARS-COV-2 COVID-19 PFIZER VACCINE Unknown Completed [facility] DTaP, Unspecified Formulation Unknown Completed [facility] DTaP, Unspecified Formulation Unknown Completed [facility] DTaP, Unspecified Formulation Unknown Completed [facility] DTaP, Unspecified Formulation Unknown Completed [facility] DTaP, Unspecified Formulation Unknown Completed [facility] Influenza Virus Vaccine - Whole Unknown Completed [facility] HEPATITIS A Unknown Completed [facility] HEPATITIS A Unknown Completed [facility] Hep B, Adol or Pedi Dosage Unknown Completed [facility] Hep B, Adol or Pedi Dosage Unknown Completed [facility] Hep B, Adol or Pedi Dosage Unknown Completed [facility] HIB 4 Dose Schedule Unknown Completed [facility] HIB 4 Dose Schedule Unknown Completed [facility] HIB 4 Dose Schedule Unknown Completed [facility] HIB 4 Dose Schedule Unknown Completed [facility] HPV Unknown Completed [facility] Meningococcal Polysaccharide (groups A, C, Y and W-135) conjugate vaccine (MCV4P) Unknown Completed [facility] Meningococcal Polysaccharide (groups A, C, Y and W-135) conjugate vaccine (MCV4P) Unknown Completed [facility] MMR Unknown Completed [facility] MMR Unknown Completed [facility] IPV Unknown Completed [facility] IPV Unknown Completed [facility] IPV Unknown Completed [facility] IPV Unknown Completed [facility] TDAP Unknown Completed [facility] TDAP Unknown Completed [facility] Varicella (varivax)(chicken pox) Unknown Completed [facility] Varicella (varivax)(chicken pox) Unknown Completed [facility] TDAP Unknown Completed [facility] HPV9 Unknown Completed [facility] Influenza Virus Vaccine Quad IM 3+ YRS Unknown Completed [facility] HPV9 Unknown Completed [facility] HPV9 Unknown Completed [facility] Influenza Virus Vaccine Quad .5 mL IM 6+ MO (FLUZONE/FLULAVAL/FL UARIX) Unknown Completed [facility] Influenza Virus Vaccine Quad .5 mL IM 6+ MO (FLUZONE/FLULAVAL/FL UARIX) Unknown Completed [facility] TDAP Unknown Completed [facility] SARS-COV-2 COVID-19 PFIZER VACCINE Unknown Completed [facility] DTaP, Unspecified Formulation Unknown Completed [facility] DTaP, Unspecified Formulation Unknown Completed [facility] DTaP, Unspecified Formulation Unknown Completed [facility] DTaP, Unspecified Formulation Unknown Completed [facility] DTaP, Unspecified Formulation Unknown Completed [facility] Influenza Virus Vaccine - Whole Unknown Completed [facility] HEPATITIS A Unknown Completed [facility] HEPATITIS A Unknown Completed [facility] Hep B, Adol or Pedi Dosage Unknown Completed [facility] Hep B, Adol or Pedi Dosage Unknown Completed [facility] Hep B, Adol or Pedi Dosage Unknown Completed [facility] HIB 4 Dose Schedule Unknown Completed [facility] HIB 4 Dose Schedule Unknown Completed [facility] HIB 4 Dose Schedule Unknown Completed [facility] HIB 4 Dose Schedule Unknown Completed [facility] HPV Unknown Completed [facility] Meningococcal Polysaccharide (groups A, C, Y and W-135) conjugate vaccine (MCV4P) Unknown Completed [facility] Meningococcal Polysaccharide (groups A, C, Y and W-135) conjugate vaccine (MCV4P) Unknown Completed [facility] MMR Unknown Completed [facility] MMR Unknown Completed [facility] IPV Unknown Completed [facility] IPV Unknown Completed [facility] IPV Unknown Completed [facility] IPV Unknown Completed [facility] TDAP Unknown Completed [facility] TDAP Unknown Completed [facility] Varicella (varivax)(chicken pox) Unknown Completed [facility] Varicella (varivax)(chicken pox) Unknown Completed [facility] TDAP Unknown Completed [facility] HPV9 Unknown Completed [facility] Influenza Virus Vaccine Quad IM 3+ YRS Unknown Completed [facility] HPV9 Unknown Completed [facility] HPV9 Unknown Completed [facility] Influenza Virus Vaccine Quad .5 mL IM 6+ MO (FLUZONE/FLULAVAL/FL UARIX) Unknown Completed [facility] Influenza Virus Vaccine Quad .5 mL IM 6+ MO (FLUZONE/FLULAVAL/FL UARIX) Unknown Completed [facility] TDAP Unknown Completed [facility] SARS-COV-2 COVID-19 PFIZER VACCINE Unknown Completed [facility] DTaP, Unspecified Formulation Unknown Completed [facility] DTaP, Unspecified Formulation Unknown Completed [facility] DTaP, Unspecified Formulation Unknown Completed [facility] DTaP, Unspecified Formulation Unknown Completed [facility] DTaP, Unspecified Formulation Unknown Completed [facility] Influenza Virus Vaccine - Whole Unknown Completed [facility] HEPATITIS A Unknown Completed [facility] HEPATITIS A Unknown Completed [facility] Hep B, Adol or Pedi Dosage Unknown Completed [facility] Hep B, Adol or Pedi Dosage Unknown Completed [facility] Hep B, Adol or Pedi Dosage Unknown Completed [facility] HIB 4 Dose Schedule Unknown Completed [facility] HIB 4 Dose Schedule Unknown Completed [facility] HIB 4 Dose Schedule Unknown Completed [facility] HIB 4 Dose Schedule Unknown Completed [facility] HPV Unknown Completed [facility] Meningococcal Polysaccharide (groups A, C, Y and W-135) conjugate vaccine (MCV4P) Unknown Completed [facility] Meningococcal Polysaccharide (groups A, C, Y and W-135) conjugate vaccine (MCV4P) Unknown Completed [facility] MMR Unknown Completed [facility] MMR Unknown Completed [facility] IPV Unknown Completed [facility] IPV Unknown Completed [facility] IPV Unknown Completed [facility] IPV Unknown Completed [facility] TDAP Unknown Completed [facility] TDAP Unknown Completed [facility] Varicella (varivax)(chicken pox) Unknown Completed [facility] Varicella (varivax)(chicken pox) Unknown Completed [facility] TDAP Unknown Completed [facility] HPV9 Unknown Completed [facility] Influenza Virus Vaccine Quad IM 3+ YRS Unknown Completed [facility] HPV9 Unknown Completed [facility] HPV9 Unknown Completed [facility] Influenza Virus Vaccine Quad .5 mL IM 6+ MO (FLUZONE/FLULAVAL/FL UARIX) Unknown Completed [facility] Influenza Virus Vaccine Quad .5 mL IM 6+ MO (FLUZONE/FLULAVAL/FL UARIX) Unknown Completed [facility] TDAP Unknown Completed [facility] SARS-COV-2 COVID-19 PFIZER VACCINE Unknown Completed [facility] DTaP, Unspecified Formulation Unknown Completed [facility] DTaP, Unspecified Formulation Unknown Completed [facility] DTaP, Unspecified Formulation Unknown Completed [facility] DTaP, Unspecified Formulation Unknown Completed [facility] DTaP, Unspecified Formulation Unknown Completed [facility] Influenza Virus Vaccine - Whole Unknown Completed [facility] HEPATITIS A Unknown Completed [facility] HEPATITIS A Unknown Completed [facility] Hep B, Adol or Pedi Dosage Unknown Completed [facility] Hep B, Adol or Pedi Dosage Unknown Completed [facility] Hep B, Adol or Pedi Dosage Unknown Completed [facility] HIB 4 Dose Schedule Unknown Completed [facility] HIB 4 Dose Schedule Unknown Completed [facility] HIB 4 Dose Schedule Unknown Completed [facility] HIB 4 Dose Schedule Unknown Completed [facility] HPV Unknown Completed [facility] Meningococcal Polysaccharide (groups A, C, Y and W-135) conjugate vaccine (MCV4P) Unknown Completed [facility] Meningococcal Polysaccharide (groups A, C, Y and W-135) conjugate vaccine (MCV4P) Unknown Completed [facility] MMR Unknown Completed [facility] MMR Unknown Completed [facility] IPV Unknown Completed [facility] IPV Unknown Completed [facility] IPV Unknown Completed [facility] IPV Unknown Completed [facility] TDAP Unknown Completed [facility] TDAP Unknown Completed [facility] Varicella (varivax)(chicken pox) Unknown Completed [facility] Varicella (varivax)(chicken pox) Unknown Completed [facility] TDAP Unknown Completed [facility] HPV9 Unknown Completed [facility] Influenza Virus Vaccine Quad IM 3+ YRS Unknown Completed [facility] HPV9 Unknown Completed [facility] HPV9 Unknown Completed [facility] Influenza Virus Vaccine Quad .5 mL IM 6+ MO (FLUZONE/FLULAVAL/FL UARIX) Unknown Completed [facility] Influenza Virus Vaccine Quad .5 mL IM 6+ MO (FLUZONE/FLULAVAL/FL UARIX) Unknown Completed [facility] TDAP Unknown Completed [facility] SARS-COV-2 COVID-19 PFIZER VACCINE Unknown Completed [facility] DTaP, Unspecified Formulation Unknown Completed [facility] DTaP, Unspecified Formulation Unknown Completed [facility] DTaP, Unspecified Formulation Unknown Completed [facility] DTaP, Unspecified Formulation Unknown Completed [facility] DTaP, Unspecified Formulation Unknown Completed [facility] Influenza Virus Vaccine - Whole Unknown Completed [facility] HEPATITIS A Unknown Completed [facility] HEPATITIS A Unknown Completed [facility] Hep B, Adol or Pedi Dosage Unknown Completed [facility] Hep B, Adol or Pedi Dosage Unknown Completed [facility] Hep B, Adol or Pedi Dosage Unknown Completed [facility] HIB 4 Dose Schedule Unknown Completed [facility] HIB 4 Dose Schedule Unknown Completed [facility] HIB 4 Dose Schedule Unknown Completed [facility] HIB 4 Dose Schedule Unknown Completed [facility] HPV Unknown Completed [facility] Meningococcal Polysaccharide (groups A, C, Y and W-135) conjugate vaccine (MCV4P) Unknown Completed [facility] Meningococcal Polysaccharide (groups A, C, Y and W-135) conjugate vaccine (MCV4P) Unknown Completed [facility] MMR Unknown Completed [facility] MMR Unknown Completed [facility] IPV Unknown Completed [facility] IPV Unknown Completed [facility] IPV Unknown Completed [facility] IPV Unknown Completed [facility] TDAP Unknown Completed [facility] TDAP Unknown Completed [facility] Varicella (varivax)(chicken pox) Unknown Completed [facility] Varicella (varivax)(chicken pox) Unknown Completed [facility] TDAP Unknown Completed [facility] HPV9 Unknown Completed [facility] Influenza Virus Vaccine Quad IM 3+ YRS Unknown Completed [facility] HPV9 Unknown Completed [facility] HPV9 Unknown Completed [facility] Influenza Virus Vaccine Quad .5 mL IM 6+ MO (FLUZONE/FLULAVAL/FL UARIX) Unknown Completed [facility] Influenza Virus Vaccine Quad .5 mL IM 6+ MO (FLUZONE/FLULAVAL/FL UARIX) Unknown Completed [facility] TDAP Unknown Completed [facility] SARS-COV-2 COVID-19 PFIZER VACCINE Unknown Completed [facility] DTaP, Unspecified Formulation Unknown Completed [facility] DTaP, Unspecified Formulation Unknown Completed [facility] DTaP, Unspecified Formulation Unknown Completed [facility] DTaP, Unspecified Formulation Unknown Completed [facility] DTaP, Unspecified Formulation Unknown Completed [facility] Influenza Virus Vaccine - Whole Unknown Completed [facility] HEPATITIS A Unknown Completed [facility] HEPATITIS A Unknown Completed [facility] Hep B, Adol or Pedi Dosage Unknown Completed [facility] Hep B, Adol or Pedi Dosage Unknown Completed [facility] Hep B, Adol or Pedi Dosage Unknown Completed [facility] HIB 4 Dose Schedule Unknown Completed [facility] HIB 4 Dose Schedule Unknown Completed [facility] HIB 4 Dose Schedule Unknown Completed [facility] HIB 4 Dose Schedule Unknown Completed [facility] HPV Unknown Completed [facility] Meningococcal Polysaccharide (groups A, C, Y and W-135) conjugate vaccine (MCV4P) Unknown Completed [facility] Meningococcal Polysaccharide (groups A, C, Y and W-135) conjugate vaccine (MCV4P) Unknown Completed [facility] MMR Unknown Completed [facility] MMR Unknown Completed [facility] IPV Unknown Completed [facility] IPV Unknown Completed [facility] IPV Unknown Completed [facility] IPV Unknown Completed [facility] TDAP Unknown Completed [facility] TDAP Unknown Completed [facility] Varicella (varivax)(chicken pox) Unknown Completed [facility] Varicella (varivax)(chicken pox) Unknown Completed [facility] TDAP Unknown Completed [facility] HPV9 Unknown Completed [facility] Influenza Virus Vaccine Quad IM 3+ YRS Unknown Completed [facility] HPV9 Unknown Completed [facility] HPV9 Unknown Completed [facility] Influenza Virus Vaccine Quad .5 mL IM 6+ MO (FLUZONE/FLULAVAL/FL UARIX) Unknown Completed [facility] Influenza Virus Vaccine Quad .5 mL IM 6+ MO (FLUZONE/FLULAVAL/FL UARIX) Unknown Completed [facility] TDAP Unknown Completed [facility] SARS-COV-2 COVID-19 PFIZER VACCINE Unknown Completed [facility] DTaP, Unspecified Formulation Unknown Completed [facility] DTaP, Unspecified Formulation Unknown Completed [facility] DTaP, Unspecified Formulation Unknown Completed [facility] DTaP, Unspecified Formulation Unknown Completed [facility] DTaP, Unspecified Formulation Unknown Completed [facility] Influenza Virus Vaccine - Whole Unknown Completed [facility] HEPATITIS A Unknown Completed [facility] HEPATITIS A Unknown Completed [facility] Hep B, Adol or Pedi Dosage Unknown Completed [facility] Hep B, Adol or Pedi Dosage Unknown Completed [facility] Hep B, Adol or Pedi Dosage Unknown Completed [facility] HIB 4 Dose Schedule Unknown Completed [facility] HIB 4 Dose Schedule Unknown Completed [facility] HIB 4 Dose Schedule Unknown Completed [facility] HIB 4 Dose Schedule Unknown Completed [facility] HPV Unknown Completed [facility] Meningococcal Polysaccharide (groups A, C, Y and W-135) conjugate vaccine (MCV4P) Unknown Completed [facility] Meningococcal Polysaccharide (groups A, C, Y and W-135) conjugate vaccine (MCV4P) Unknown Completed [facility] MMR Unknown Completed [facility] MMR Unknown Completed [facility] IPV Unknown Completed [facility] IPV Unknown Completed [facility] IPV Unknown Completed [facility] IPV Unknown Completed [facility] TDAP Unknown Completed [facility] TDAP Unknown Completed [facility] Varicella (varivax)(chicken pox) Unknown Completed [facility] Varicella (varivax)(chicken pox) Unknown Completed [facility] TDAP Unknown Completed [facility] HPV9 Unknown Completed [facility] Influenza Virus Vaccine Quad IM 3+ YRS Unknown Completed [facility] HPV9 Unknown Completed [facility] HPV9 Unknown Completed [facility] Influenza Virus Vaccine Quad .5 mL IM 6+ MO (FLUZONE/FLULAVAL/FL UARIX) Unknown Completed [facility] Influenza Virus Vaccine Quad .5 mL IM 6+ MO (FLUZONE/FLULAVAL/FL UARIX) Unknown Completed [facility] TDAP Unknown Completed [facility] SARS-COV-2 COVID-19 PFIZER VACCINE Unknown Completed [facility] DTaP, Unspecified Formulation Unknown Completed [facility] DTaP, Unspecified Formulation Unknown Completed [facility] DTaP, Unspecified Formulation Unknown Completed [facility] DTaP, Unspecified Formulation Unknown Completed [facility] DTaP, Unspecified Formulation Unknown Completed [facility] Influenza Virus Vaccine - Whole Unknown Completed [facility] HEPATITIS A Unknown Completed [facility] HEPATITIS A Unknown Completed [facility] Hep B, Adol or Pedi Dosage Unknown Completed [facility] Hep B, Adol or Pedi Dosage Unknown Completed [facility] Hep B, Adol or Pedi Dosage Unknown Completed [facility] HIB 4 Dose Schedule Unknown Completed [facility] HIB 4 Dose Schedule Unknown Completed [facility] HIB 4 Dose Schedule Unknown Completed [facility] HIB 4 Dose Schedule Unknown Completed [facility] HPV Unknown Completed [facility] Meningococcal Polysaccharide (groups A, C, Y and W-135) conjugate vaccine (MCV4P) Unknown Completed [facility] Meningococcal Polysaccharide (groups A, C, Y and W-135) conjugate vaccine (MCV4P) Unknown Completed [facility] MMR Unknown Completed [facility] MMR Unknown Completed [facility] IPV Unknown Completed [facility] IPV Unknown Completed [facility] IPV Unknown Completed [facility] IPV Unknown Completed [facility] TDAP Unknown Completed [facility] TDAP Unknown Completed [facility] Varicella (varivax)(chicken pox) Unknown Completed [facility] Varicella (varivax)(chicken pox) Unknown Completed [facility] TDAP Unknown Completed [facility] HPV9 Unknown Completed [facility] Influenza Virus Vaccine Quad IM 3+ YRS Unknown Completed [facility] HPV9 Unknown Completed [facility] HPV9 Unknown Completed [facility] Influenza Virus Vaccine Quad .5 mL IM 6+ MO (FLUZONE/FLULAVAL/FL UARIX) Unknown Completed [facility] Influenza Virus Vaccine Quad .5 mL IM 6+ MO (FLUZONE/FLULAVAL/FL UARIX) Unknown Completed [facility] TDAP Unknown Completed [facility] SARS-COV-2 COVID-19 PFIZER VACCINE Unknown Completed [facility] DTaP, Unspecified Formulation Unknown Completed [facility] DTaP, Unspecified Formulation Unknown Completed [facility] DTaP, Unspecified Formulation Unknown Completed [facility] DTaP, Unspecified Formulation Unknown Completed [facility] DTaP, Unspecified Formulation Unknown Completed [facility] Influenza Virus Vaccine - Whole Unknown Completed [facility] HEPATITIS A Unknown Completed [facility] HEPATITIS A Unknown Completed [facility] Hep B, Adol or Pedi Dosage Unknown Completed [facility] Hep B, Adol or Pedi Dosage Unknown Completed [facility] Hep B, Adol or Pedi Dosage Unknown Completed [facility] HIB 4 Dose Schedule Unknown Completed [facility] HIB 4 Dose Schedule Unknown Completed [facility] HIB 4 Dose Schedule Unknown Completed [facility] HIB 4 Dose Schedule Unknown Completed [facility] HPV Unknown Completed [facility] Meningococcal Polysaccharide (groups A, C, Y and W-135) conjugate vaccine (MCV4P) Unknown Completed [facility] Meningococcal Polysaccharide (groups A, C, Y and W-135) conjugate vaccine (MCV4P) Unknown Completed [facility] MMR Unknown Completed [facility] MMR Unknown Completed [facility] IPV Unknown Completed [facility] IPV Unknown Completed [facility] IPV Unknown Completed [facility] IPV Unknown Completed [facility] TDAP Unknown Completed [facility] TDAP Unknown Completed [facility] Varicella (varivax)(chicken pox) Unknown Completed [facility] Varicella (varivax)(chicken pox) Unknown Completed [facility] TDAP Unknown Completed [facility] HPV9 Unknown Completed [facility] Influenza Virus Vaccine Quad IM 3+ YRS Unknown Completed [facility] HPV9 Unknown Completed [facility] HPV9 Unknown Completed [facility] Influenza Virus Vaccine Quad .5 mL IM 6+ MO (FLUZONE/FLULAVAL/FL UARIX) Unknown Completed [facility] Influenza Virus Vaccine Quad .5 mL IM 6+ MO (FLUZONE/FLULAVAL/FL UARIX) Unknown Completed [facility] TDAP Unknown Completed [facility] SARS-COV-2 COVID-19 PFIZER VACCINE Unknown Completed [facility] DTaP, Unspecified Formulation Unknown Completed [facility] DTaP, Unspecified Formulation Unknown Completed [facility] DTaP, Unspecified Formulation Unknown Completed [facility] DTaP, Unspecified Formulation Unknown Completed [facility] DTaP, Unspecified Formulation Unknown Completed [facility] Influenza Virus Vaccine - Whole Unknown Completed [facility] HEPATITIS A Unknown Completed [facility] HEPATITIS A Unknown Completed [facility] Hep B, Adol or Pedi Dosage Unknown Completed [facility] Hep B, Adol or Pedi Dosage Unknown Completed [facility] Hep B, Adol or Pedi Dosage Unknown Completed [facility] HIB 4 Dose Schedule Unknown Completed [facility] HIB 4 Dose Schedule Unknown Completed [facility] HIB 4 Dose Schedule Unknown Completed [facility] HIB 4 Dose Schedule Unknown Completed [facility] HPV Unknown Completed [facility] Meningococcal Polysaccharide (groups A, C, Y and W-135) conjugate vaccine (MCV4P) Unknown Completed [facility] Meningococcal Polysaccharide (groups A, C, Y and W-135) conjugate vaccine (MCV4P) Unknown Completed [facility] MMR Unknown Completed [facility] MMR Unknown Completed [facility] IPV Unknown Completed [facility] IPV Unknown Completed [facility] IPV Unknown Completed [facility] IPV Unknown Completed [facility] TDAP Unknown Completed [facility] TDAP Unknown Completed [facility] Varicella (varivax)(chicken pox) Unknown Completed [facility] Varicella (varivax)(chicken pox) Unknown Completed [facility] TDAP Unknown Completed [facility] HPV9 Unknown Completed [facility] Influenza Virus Vaccine Quad IM 3+ YRS Unknown Completed [facility] HPV9 Unknown Completed [facility] HPV9 Unknown Completed [facility] Influenza Virus Vaccine Quad .5 mL IM 6+ MO (FLUZONE/FLULAVAL/FL UARIX) Unknown Completed [facility] Influenza Virus Vaccine Quad .5 mL IM 6+ MO (FLUZONE/FLULAVAL/FL UARIX) Unknown Completed [facility] TDAP Unknown Completed [facility] SARS-COV-2 COVID-19 PFIZER VACCINE Unknown Completed [facility] DTaP, Unspecified Formulation Unknown Completed [facility] DTaP, Unspecified Formulation Unknown Completed [facility] DTaP, Unspecified Formulation Unknown Completed [facility] DTaP, Unspecified Formulation Unknown Completed [facility] DTaP, Unspecified Formulation Unknown Completed [facility] Influenza Virus Vaccine - Whole Unknown Completed [facility] HEPATITIS A Unknown Completed [facility] HEPATITIS A Unknown Completed [facility] Hep B, Adol or Pedi Dosage Unknown Completed [facility] Hep B, Adol or Pedi Dosage Unknown Completed [facility] Hep B, Adol or Pedi Dosage Unknown Completed [facility] HIB 4 Dose Schedule Unknown Completed [facility] HIB 4 Dose Schedule Unknown Completed [facility] HIB 4 Dose Schedule Unknown Completed [facility] HIB 4 Dose Schedule Unknown Completed [facility] HPV Unknown Completed [facility] Meningococcal Polysaccharide (groups A, C, Y and W-135) conjugate vaccine (MCV4P) Unknown Completed [facility] Meningococcal Polysaccharide (groups A, C, Y and W-135) conjugate vaccine (MCV4P) Unknown Completed [facility] MMR Unknown Completed [facility] MMR Unknown Completed [facility] IPV Unknown Completed [facility] IPV Unknown Completed [facility] IPV Unknown Completed [facility] IPV Unknown Completed [facility] TDAP Unknown Completed [facility] TDAP Unknown Completed [facility] Varicella (varivax)(chicken pox) Unknown Completed [facility] Varicella (varivax)(chicken pox) Unknown Completed [facility] TDAP Unknown Completed [facility] HPV9 Unknown Completed [facility] Influenza Virus Vaccine Quad IM 3+ YRS Unknown Completed [facility] HPV9 Unknown Completed [facility] HPV9 Unknown Completed [facility] Influenza Virus Vaccine Quad .5 mL IM 6+ MO (FLUZONE/FLULAVAL/FL UARIX) Unknown Completed [facility] Influenza Virus Vaccine Quad .5 mL IM 6+ MO (FLUZONE/FLULAVAL/FL UARIX) Unknown Completed [facility] TDAP Unknown Completed [facility] SARS-COV-2 COVID-19 PFIZER VACCINE Unknown Completed [facility] DTaP, Unspecified Formulation Unknown Completed [facility] DTaP, Unspecified Formulation Unknown Completed [facility] DTaP, Unspecified Formulation Unknown Completed [facility] DTaP, Unspecified Formulation Unknown Completed [facility] DTaP, Unspecified Formulation Unknown Completed [facility] Influenza Virus Vaccine - Whole Unknown Completed [facility] HEPATITIS A Unknown Completed [facility] HEPATITIS A Unknown Completed [facility] Hep B, Adol or Pedi Dosage Unknown Completed [facility] Hep B, Adol or Pedi Dosage Unknown Completed [facility] Hep B, Adol or Pedi Dosage Unknown Completed [facility] HIB 4 Dose Schedule Unknown Completed [facility] HIB 4 Dose Schedule Unknown Completed [facility] HIB 4 Dose Schedule Unknown Completed [facility] HIB 4 Dose Schedule Unknown Completed [facility] HPV Unknown Completed [facility] Meningococcal Polysaccharide (groups A, C, Y and W-135) conjugate vaccine (MCV4P) Unknown Completed [facility] Meningococcal Polysaccharide (groups A, C, Y and W-135) conjugate vaccine (MCV4P) Unknown Completed [facility] MMR Unknown Completed [facility] MMR Unknown Completed [facility] IPV Unknown Completed [facility] IPV Unknown Completed [facility] IPV Unknown Completed [facility] IPV Unknown Completed [facility] TDAP Unknown Completed [facility] TDAP Unknown Completed [facility] Varicella (varivax)(chicken pox) Unknown Completed [facility] Varicella (varivax)(chicken pox) Unknown Completed [facility] TDAP Unknown Completed [facility] HPV9 Unknown Completed [facility] Influenza Virus Vaccine Quad IM 3+ YRS Unknown Completed [facility] HPV9 Unknown Completed [facility] HPV9 Unknown Completed [facility] Influenza Virus Vaccine Quad .5 mL IM 6+ MO (FLUZONE/FLULAVAL/FL UARIX) Unknown Completed [facility] Influenza Virus Vaccine Quad .5 mL IM 6+ MO (FLUZONE/FLULAVAL/FL UARIX) Unknown Completed [facility] TDAP Unknown Completed [facility] SARS-COV-2 COVID-19 PFIZER VACCINE Unknown Completed [facility] DTaP, Unspecified Formulation Unknown Completed [facility] DTaP, Unspecified Formulation Unknown Completed [facility] DTaP, Unspecified Formulation Unknown Completed [facility] DTaP, Unspecified Formulation Unknown Completed [facility] DTaP, Unspecified Formulation Unknown Completed [facility] Influenza Virus Vaccine - Whole Unknown Completed [facility] HEPATITIS A Unknown Completed [facility] HEPATITIS A Unknown Completed [facility] Hep B, Adol or Pedi Dosage Unknown Completed [facility] Hep B, Adol or Pedi Dosage Unknown Completed [facility] Hep B, Adol or Pedi Dosage Unknown Completed [facility] HIB 4 Dose Schedule Unknown Completed [facility] HIB 4 Dose Schedule Unknown Completed [facility] HIB 4 Dose Schedule Unknown Completed [facility] HIB 4 Dose Schedule Unknown Completed [facility] HPV Unknown Completed [facility] Meningococcal Polysaccharide (groups A, C, Y and W-135) conjugate vaccine (MCV4P) Unknown Completed [facility] Meningococcal Polysaccharide (groups A, C, Y and W-135) conjugate vaccine (MCV4P) Unknown Completed [facility] MMR Unknown Completed [facility] MMR Unknown Completed [facility] IPV Unknown Completed [facility] IPV Unknown Completed [facility] IPV Unknown Completed [facility] IPV Unknown Completed [facility] TDAP Unknown Completed [facility] TDAP Unknown Completed [facility] Varicella (varivax)(chicken pox) Unknown Completed [facility] Varicella (varivax)(chicken pox) Unknown Completed [facility] TDAP Unknown Completed [facility] HPV9 Unknown Completed [facility] Influenza Virus Vaccine Quad IM 3+ YRS Unknown Completed [facility] HPV9 Unknown Completed [facility] HPV9 Unknown Completed [facility] Influenza Virus Vaccine Quad .5 mL IM 6+ MO (FLUZONE/FLULAVAL/FL UARIX) Unknown Completed [facility] Influenza Virus Vaccine Quad .5 mL IM 6+ MO (FLUZONE/FLULAVAL/FL UARIX) Unknown Completed [facility] TDAP Unknown Completed [facility] SARS-COV-2 COVID-19 PFIZER VACCINE Unknown Completed [facility] DTaP, Unspecified Formulation Unknown Completed [facility] DTaP, Unspecified Formulation Unknown Completed [facility] DTaP, Unspecified Formulation Unknown Completed [facility] DTaP, Unspecified Formulation Unknown Completed [facility] DTaP, Unspecified Formulation Unknown Completed [facility] Influenza Virus Vaccine - Whole Unknown Completed [facility] HEPATITIS A Unknown Completed [facility] HEPATITIS A Unknown Completed [facility] Hep B, Adol or Pedi Dosage Unknown Completed [facility] Hep B, Adol or Pedi Dosage Unknown Completed [facility] Hep B, Adol or Pedi Dosage Unknown Completed [facility] HIB 4 Dose Schedule Unknown Completed [facility] HIB 4 Dose Schedule Unknown Completed [facility] HIB 4 Dose Schedule Unknown Completed [facility] HIB 4 Dose Schedule Unknown Completed [facility] HPV Unknown Completed [facility] Meningococcal Polysaccharide (groups A, C, Y and W-135) conjugate vaccine (MCV4P) Unknown Completed [facility] Meningococcal Polysaccharide (groups A, C, Y and W-135) conjugate vaccine (MCV4P) Unknown Completed [facility] MMR Unknown Completed [facility] MMR Unknown Completed [facility] IPV Unknown Completed [facility] IPV Unknown Completed [facility] IPV Unknown Completed [facility] IPV Unknown Completed [facility] TDAP Unknown Completed [facility] TDAP Unknown Completed [facility] Varicella (varivax)(chicken pox) Unknown Completed [facility] Varicella (varivax)(chicken pox) Unknown Completed [facility] TDAP Unknown Completed [facility] HPV9 Unknown Completed [facility] Influenza Virus Vaccine Quad IM 3+ YRS Unknown Completed [facility] HPV9 Unknown Completed [facility] HPV9 Unknown Completed [facility] Influenza Virus Vaccine Quad .5 mL IM 6+ MO (FLUZONE/FLULAVAL/FL UARIX) Unknown Completed [facility] Influenza Virus Vaccine Quad .5 mL IM 6+ MO (FLUZONE/FLULAVAL/FL UARIX) Unknown Completed [facility] TDAP Unknown Completed [facility] SARS-COV-2 COVID-19 PFIZER VACCINE Unknown Completed [facility] DTaP, Unspecified Formulation Unknown Completed [facility] DTaP, Unspecified Formulation Unknown Completed [facility] DTaP, Unspecified Formulation Unknown Completed [facility] DTaP, Unspecified Formulation Unknown Completed [facility] DTaP, Unspecified Formulation Unknown Completed [facility] Influenza Virus Vaccine - Whole Unknown Completed [facility] HEPATITIS A Unknown Completed [facility] HEPATITIS A Unknown Completed [facility] Hep B, Adol or Pedi Dosage Unknown Completed [facility] Hep B, Adol or Pedi Dosage Unknown Completed [facility] Hep B, Adol or Pedi Dosage Unknown Completed [facility] HIB 4 Dose Schedule Unknown Completed [facility] HIB 4 Dose Schedule Unknown Completed [facility] HIB 4 Dose Schedule Unknown Completed [facility] HIB 4 Dose Schedule Unknown Completed [facility] HPV Unknown Completed [facility] Meningococcal Polysaccharide (groups A, C, Y and W-135) conjugate vaccine (MCV4P) Unknown Completed [facility] Meningococcal Polysaccharide (groups A, C, Y and W-135) conjugate vaccine (MCV4P) Unknown Completed [facility] MMR Unknown Completed [facility] MMR Unknown Completed [facility] IPV Unknown Completed [facility] IPV Unknown Completed [facility] IPV Unknown Completed [facility] IPV Unknown Completed [facility] TDAP Unknown Completed [facility] TDAP Unknown Completed [facility] Varicella (varivax)(chicken pox) Unknown Completed [facility] Varicella (varivax)(chicken pox) Unknown Completed [facility] TDAP Unknown Completed [facility] HPV9 Unknown Completed [facility] Influenza Virus Vaccine Quad IM 3+ YRS Unknown Completed [facility] HPV9 Unknown Completed [facility] HPV9 Unknown Completed [facility] Influenza Virus Vaccine Quad .5 mL IM 6+ MO (FLUZONE/FLULAVAL/FL UARIX) Unknown Completed [facility] Influenza Virus Vaccine Quad .5 mL IM 6+ MO (FLUZONE/FLULAVAL/FL UARIX) Unknown Completed [facility] TDAP Unknown Completed [facility] SARS-COV-2 COVID-19 PFIZER VACCINE Unknown Completed [facility] DTaP, Unspecified Formulation Unknown Completed [facility] DTaP, Unspecified Formulation Unknown Completed [facility] DTaP, Unspecified Formulation Unknown Completed [facility] DTaP, Unspecified Formulation Unknown Completed [facility] DTaP, Unspecified Formulation Unknown Completed [facility] Influenza Virus Vaccine - Whole Unknown Completed [facility] HEPATITIS A Unknown Completed [facility] HEPATITIS A Unknown Completed [facility] Hep B, Adol or Pedi Dosage Unknown Completed [facility] Hep B, Adol or Pedi Dosage Unknown Completed [facility] Hep B, Adol or Pedi Dosage Unknown Completed [facility] HIB 4 Dose Schedule Unknown Completed [facility] HIB 4 Dose Schedule Unknown Completed [facility] HIB 4 Dose Schedule Unknown Completed [facility] HIB 4 Dose Schedule Unknown Completed [facility] HPV Unknown Completed [facility] Meningococcal Polysaccharide (groups A, C, Y and W-135) conjugate vaccine (MCV4P) Unknown Completed [facility] Meningococcal Polysaccharide (groups A, C, Y and W-135) conjugate vaccine (MCV4P) Unknown Completed [facility] MMR Unknown Completed [facility] MMR Unknown Completed [facility] IPV Unknown Completed [facility] IPV Unknown Completed [facility] IPV Unknown Completed [facility] IPV Unknown Completed [facility] TDAP Unknown Completed [facility] TDAP Unknown Completed [facility] Varicella (varivax)(chicken pox) Unknown Completed [facility] Varicella (varivax)(chicken pox) Unknown Completed [facility] TDAP Unknown Completed [facility] HPV9 Unknown Completed [facility] Influenza Virus Vaccine Quad IM 3+ YRS Unknown Completed [facility] HPV9 Unknown Completed [facility] HPV9 Unknown Completed [facility] Influenza Virus Vaccine Quad .5 mL IM 6+ MO (FLUZONE/FLULAVAL/FL UARIX) Unknown Completed [facility] Influenza Virus Vaccine Quad .5 mL IM 6+ MO (FLUZONE/FLULAVAL/FL UARIX) Unknown Completed [facility] TDAP Unknown Completed [facility] SARS-COV-2 COVID-19 PFIZER VACCINE Unknown Completed [facility] DTaP, Unspecified Formulation Unknown Completed [facility] DTaP, Unspecified Formulation Unknown Completed [facility] DTaP, Unspecified Formulation Unknown Completed [facility] DTaP, Unspecified Formulation Unknown Completed [facility] DTaP, Unspecified Formulation Unknown Completed [facility] Influenza Virus Vaccine - Whole Unknown Completed [facility] HEPATITIS A Unknown Completed [facility] HEPATITIS A Unknown Completed [facility] Hep B, Adol or Pedi Dosage Unknown Completed [facility] Hep B, Adol or Pedi Dosage Unknown Completed [facility] Hep B, Adol or Pedi Dosage Unknown Completed [facility] HIB 4 Dose Schedule Unknown Completed [facility] HIB 4 Dose Schedule Unknown Completed [facility] HIB 4 Dose Schedule Unknown Completed [facility] HIB 4 Dose Schedule Unknown Completed [facility] HPV Unknown Completed [facility] Meningococcal Polysaccharide (groups A, C, Y and W-135) conjugate vaccine (MCV4P) Unknown Completed [facility] Meningococcal Polysaccharide (groups A, C, Y and W-135) conjugate vaccine (MCV4P) Unknown Completed [facility] MMR Unknown Completed [facility] MMR Unknown Completed [facility] IPV Unknown Completed [facility] IPV Unknown Completed [facility] IPV Unknown Completed [facility] IPV Unknown Completed [facility] TDAP Unknown Completed [facility] TDAP Unknown Completed [facility] Varicella (varivax)(chicken pox) Unknown Completed [facility] Varicella (varivax)(chicken pox) Unknown Completed [facility] TDAP Unknown Completed [facility] HPV9 Unknown Completed [facility] Influenza Virus Vaccine Quad IM 3+ YRS Unknown Completed [facility] HPV9 Unknown Completed [facility] HPV9 Unknown Completed [facility] Influenza Virus Vaccine Quad .5 mL IM 6+ MO (FLUZONE/FLULAVAL/FL UARIX) Unknown Completed [facility] Influenza Virus Vaccine Quad .5 mL IM 6+ MO (FLUZONE/FLULAVAL/FL UARIX) Unknown Completed [facility] TDAP Unknown Completed [facility] SARS-COV-2 COVID-19 PFIZER VACCINE Unknown Completed [facility] DTaP, Unspecified Formulation Unknown Completed [facility] DTaP, Unspecified Formulation Unknown Completed [facility] DTaP, Unspecified Formulation Unknown Completed [facility] DTaP, Unspecified Formulation Unknown Completed [facility] DTaP, Unspecified Formulation Unknown Completed [facility] Influenza Virus Vaccine - Whole Unknown Completed [facility] HEPATITIS A Unknown Completed [facility] HEPATITIS A Unknown Completed [facility] Hep B, Adol or Pedi Dosage Unknown Completed [facility] Hep B, Adol or Pedi Dosage Unknown Completed [facility] Hep B, Adol or Pedi Dosage Unknown Completed [facility] HIB 4 Dose Schedule Unknown Completed [facility] HIB 4 Dose Schedule Unknown Completed [facility] HIB 4 Dose Schedule Unknown Completed [facility] HIB 4 Dose Schedule Unknown Completed [facility] HPV Unknown Completed [facility] Meningococcal Polysaccharide (groups A, C, Y and W-135) conjugate vaccine (MCV4P) Unknown Completed [facility] Meningococcal Polysaccharide (groups A, C, Y and W-135) conjugate vaccine (MCV4P) Unknown Completed [facility] MMR Unknown Completed [facility] MMR Unknown Completed [facility] IPV Unknown Completed [facility] IPV Unknown Completed [facility] IPV Unknown Completed [facility] IPV Unknown Completed [facility] TDAP Unknown Completed [facility] TDAP Unknown Completed [facility] Varicella (varivax)(chicken pox) Unknown Completed [facility] Varicella (varivax)(chicken pox) Unknown Completed [facility] TDAP Unknown Completed [facility] HPV9 Unknown Completed [facility] Influenza Virus Vaccine Quad IM 3+ YRS Unknown Completed [facility] HPV9 Unknown Completed [facility] HPV9 Unknown Completed [facility] Influenza Virus Vaccine Quad .5 mL IM 6+ MO (FLUZONE/FLULAVAL/FL UARIX) Unknown Completed [facility] Influenza Virus Vaccine Quad .5 mL IM 6+ MO (FLUZONE/FLULAVAL/FL UARIX) Unknown Completed [facility] TDAP Unknown Completed [facility] SARS-COV-2 COVID-19 PFIZER VACCINE Unknown Completed [facility] DTaP, Unspecified Formulation Unknown Completed [facility] DTaP, Unspecified Formulation Unknown Completed [facility] DTaP, Unspecified Formulation Unknown Completed [facility] DTaP, Unspecified Formulation Unknown Completed [facility] DTaP, Unspecified Formulation Unknown Completed [facility] Influenza Virus Vaccine - Whole Unknown Completed [facility] HEPATITIS A Unknown Completed [facility] HEPATITIS A Unknown [facility] [facility], Adol or Pedi Dosage Unknown Completed [facility] Hep B, Adol or Pedi Dosage Unknown Completed [facility] Hep B, Adol or Pedi Dosage Unknown Completed [facility] HIB 4 Dose Schedule Unknown Completed [facility] HIB 4 Dose Schedule Unknown Completed [facility] HIB 4 Dose Schedule Unknown Completed [facility] HIB 4 Dose Schedule Unknown Completed [facility] HPV Unknown Completed [facility] Meningococcal Polysaccharide (groups A, C, Y and W-135) conjugate vaccine (MCV4P) Unknown Completed [facility] Meningococcal Polysaccharide (groups A, C, Y and W-135) conjugate vaccine (MCV4P) Unknown Completed [facility] MMR Unknown Completed [facility] MMR Unknown Completed [facility] IPV Unknown Completed [facility] IPV Unknown Completed [facility] IPV Unknown Completed [facility] IPV Unknown Completed [facility] TDAP Unknown Completed [facility] TDAP Unknown Completed [facility] Varicella (varivax)(chicken pox) Unknown Completed [facility] Varicella (varivax)(chicken pox) Unknown Completed [facility] TDAP Unknown Completed [facility] HPV9 Unknown Completed [facility] Influenza Virus Vaccine Quad IM 3+ YRS Unknown Completed [facility] HPV9 Unknown Completed [facility] HPV9 Unknown Completed [facility] Influenza Virus Vaccine Quad .5 mL IM 6+ MO (FLUZONE/FLULAVAL/FL UARIX) Unknown Completed [facility] Influenza Virus Vaccine Quad .5 mL IM 6+ MO (FLUZONE/FLULAVAL/FL UARIX) Unknown Completed [facility] TDAP Unknown Completed [facility] SARS-COV-2 COVID-19 PFIZER VACCINE Unknown Completed [facility] DTaP, Unspecified Formulation Unknown Completed [facility] DTaP, Unspecified Formulation Unknown Completed [facility] DTaP, Unspecified Formulation Unknown Completed [facility] DTaP, Unspecified Formulation Unknown Completed [facility] DTaP, Unspecified Formulation Unknown Completed [facility] Influenza Virus Vaccine - Whole Unknown Completed [facility] HEPATITIS A Unknown Completed [facility] HEPATITIS A Unknown Completed [facility] Hep B, Adol or Pedi Dosage Unknown Completed [facility] Hep B, Adol or Pedi Dosage Unknown Completed [facility] Hep B, Adol or Pedi Dosage Unknown Completed [facility] HIB 4 Dose Schedule Unknown Completed [facility] HIB 4 Dose Schedule Unknown Completed [facility] HIB 4 Dose Schedule Unknown Completed [facility] HIB 4 Dose Schedule Unknown Completed [facility] HPV Unknown Completed [facility] Meningococcal Polysaccharide (groups A, C, Y and W-135) conjugate vaccine (MCV4P) Unknown Completed [facility] Meningococcal Polysaccharide (groups A, C, Y and W-135) conjugate vaccine (MCV4P) Unknown Completed [facility] MMR Unknown Completed [facility] MMR Unknown Completed [facility] IPV Unknown Completed [facility] IPV Unknown Completed [facility] IPV Unknown Completed [facility] IPV Unknown Completed [facility] TDAP Unknown Completed [facility] TDAP Unknown Completed [facility] Varicella (varivax)(chicken pox) Unknown Completed [facility] Varicella (varivax)(chicken pox) Unknown Completed [facility] TDAP Unknown Completed [facility] HPV9 Unknown Completed [facility] Influenza Virus Vaccine Quad IM 3+ YRS Unknown Completed [facility] HPV9 Unknown Completed [facility] HPV9 Unknown Completed [facility] Influenza Virus Vaccine Quad .5 mL IM 6+ MO (FLUZONE/FLULAVAL/FL UARIX) Unknown Completed [facility] Influenza Virus Vaccine Quad .5 mL IM 6+ MO (FLUZONE/FLULAVAL/FL UARIX) Unknown Completed [facility] TDAP Unknown Completed [facility] SARS-COV-2 COVID-19 PFIZER VACCINE Unknown Completed [facility] DTaP, Unspecified Formulation Unknown Completed [facility] DTaP, Unspecified Formulation Unknown Completed [facility] DTaP, Unspecified Formulation Unknown Completed [facility] DTaP, Unspecified Formulation Unknown Completed [facility] DTaP, Unspecified Formulation Unknown Completed [facility] Influenza Virus Vaccine - Whole Unknown Completed [facility] HEPATITIS A Unknown Completed [facility] HEPATITIS A Unknown Completed [facility] Hep B, Adol or Pedi Dosage Unknown Completed [facility] Hep B, Adol or Pedi Dosage Unknown Completed [facility] Hep B, Adol or Pedi Dosage Unknown Completed [facility] HIB 4 Dose Schedule Unknown Completed [facility] HIB 4 Dose Schedule Unknown Completed [facility] HIB 4 Dose Schedule Unknown Completed [facility] HIB 4 Dose Schedule Unknown Completed [facility] HPV Unknown Completed [facility] Meningococcal Polysaccharide (groups A, C, Y and W-135) conjugate vaccine (MCV4P) Unknown Completed [facility] Meningococcal Polysaccharide (groups A, C, Y and W-135) conjugate vaccine (MCV4P) Unknown Completed [facility] MMR Unknown Completed [facility] MMR Unknown Completed [facility] IPV Unknown Completed [facility] IPV Unknown Completed [facility] IPV Unknown Completed [facility] IPV Unknown Completed [facility] TDAP Unknown Completed [facility] TDAP Unknown Completed [facility] Varicella (varivax)(chicken pox) Unknown Completed [facility] Varicella (varivax)(chicken pox) Unknown Completed [facility] TDAP Unknown Completed [facility] HPV9 Unknown Completed [facility] Influenza Virus Vaccine Quad IM 3+ YRS Unknown Completed [facility] HPV9 Unknown Completed [facility] HPV9 Unknown Completed [facility] Influenza Virus Vaccine Quad .5 mL IM 6+ MO (FLUZONE/FLULAVAL/FL UARIX) Unknown Completed [facility] Influenza Virus Vaccine Quad .5 mL IM 6+ MO (FLUZONE/FLULAVAL/FL UARIX) Unknown Completed [facility] TDAP Unknown Completed [facility] SARS-COV-2 COVID-19 PFIZER VACCINE Unknown Completed [facility] DTaP, Unspecified Formulation Unknown Completed [facility] DTaP, Unspecified Formulation Unknown Completed [facility] DTaP, Unspecified Formulation Unknown Completed [facility] DTaP, Unspecified Formulation Unknown Completed [facility] DTaP, Unspecified Formulation Unknown Completed [facility] Influenza Virus Vaccine - Whole Unknown Completed [facility] HEPATITIS A Unknown Completed [facility] HEPATITIS A Unknown Completed [facility] Hep B, Adol or Pedi Dosage Unknown Completed [facility] Hep B, Adol or Pedi Dosage Unknown Completed [facility] Hep B, Adol or Pedi Dosage Unknown Completed [facility] HIB 4 Dose Schedule Unknown Completed [facility] HIB 4 Dose Schedule Unknown Completed [facility] HIB 4 Dose Schedule Unknown Completed [facility] HIB 4 Dose Schedule Unknown Completed [facility] HPV Unknown Completed [facility] Meningococcal Polysaccharide (groups A, C, Y and W-135) conjugate vaccine (MCV4P) Unknown Completed [facility] Meningococcal Polysaccharide (groups A, C, Y and W-135) conjugate vaccine (MCV4P) Unknown Completed [facility] MMR Unknown Completed [facility] MMR Unknown Completed [facility] IPV Unknown Completed [facility] IPV Unknown Completed [facility] IPV Unknown Completed [facility] IPV Unknown Completed [facility] TDAP Unknown Completed [facility] TDAP Unknown Completed [facility] Varicella (varivax)(chicken pox) Unknown Completed [facility] Varicella (varivax)(chicken pox) Unknown Completed [facility] TDAP Unknown Completed [facility] HPV9 Unknown Completed [facility] Influenza Virus Vaccine Quad IM 3+ YRS Unknown Completed [facility] HPV9 Unknown Completed [facility] HPV9 Unknown Completed [facility] Influenza Virus Vaccine Quad .5 mL IM 6+ MO (FLUZONE/FLULAVAL/FL UARIX) Unknown Completed [facility] Influenza Virus Vaccine Quad .5 mL IM 6+ MO (FLUZONE/FLULAVAL/FL UARIX) Unknown Completed [facility] TDAP Unknown Completed [facility] SARS-COV-2 COVID-19 PFIZER VACCINE Unknown Completed [facility] DTaP, Unspecified Formulation Unknown Completed [facility] DTaP, Unspecified Formulation Unknown Completed [facility] DTaP, Unspecified Formulation Unknown Completed [facility] DTaP, Unspecified Formulation Unknown Completed [facility] DTaP, Unspecified Formulation Unknown Completed [facility] Influenza Virus Vaccine - Whole Unknown Completed [facility] HEPATITIS A Unknown Completed [facility] HEPATITIS A Unknown Completed [facility] Hep B, Adol or Pedi Dosage Unknown Completed [facility] Hep B, Adol or Pedi Dosage Unknown Completed [facility] Hep B, Adol or Pedi Dosage Unknown Completed [facility] HIB 4 Dose Schedule Unknown Completed [facility] HIB 4 Dose Schedule Unknown Completed [facility] HIB 4 Dose Schedule Unknown Completed [facility] HIB 4 Dose Schedule Unknown Completed [facility] HPV Unknown Completed [facility] Meningococcal Polysaccharide (groups A, C, Y and W-135) conjugate vaccine (MCV4P) Unknown Completed [facility] Meningococcal Polysaccharide (groups A, C, Y and W-135) conjugate vaccine (MCV4P) Unknown Completed [facility] MMR Unknown Completed [facility] MMR Unknown Completed [facility] IPV Unknown Completed [facility] IPV Unknown Completed [facility] IPV Unknown Completed [facility] IPV Unknown Completed [facility] TDAP Unknown Completed [facility] TDAP Unknown Completed [facility] Varicella (varivax)(chicken pox) Unknown Completed [facility] Varicella (varivax)(chicken pox) Unknown Completed [facility] TDAP Unknown Completed [facility] HPV9 Unknown Completed [facility] Influenza Virus Vaccine Quad IM 3+ YRS Unknown Completed [facility] HPV9 Unknown Completed [facility] HPV9 Unknown Completed [facility] Influenza Virus Vaccine Quad .5 mL IM 6+ MO (FLUZONE/FLULAVAL/FL UARIX) Unknown Completed [facility] Influenza Virus Vaccine Quad .5 mL IM 6+ MO (FLUZONE/FLULAVAL/FL UARIX) Unknown Completed [facility] TDAP Unknown Completed [facility] SARS-COV-2 COVID-19 PFIZER VACCINE Unknown Completed [facility] DTaP, Unspecified Formulation Unknown Completed [facility] DTaP, Unspecified Formulation Unknown Completed [facility] DTaP, Unspecified Formulation Unknown Completed [facility] DTaP, Unspecified Formulation Unknown Completed [facility] DTaP, Unspecified Formulation Unknown Completed [facility] Influenza Virus Vaccine - Whole Unknown Completed [facility] HEPATITIS A Unknown Completed [facility] HEPATITIS A Unknown Completed [facility] Hep B, Adol or Pedi Dosage Unknown Completed [facility] Hep B, Adol or Pedi Dosage Unknown Completed [facility] Hep B, Adol or Pedi Dosage Unknown Completed [facility] HIB 4 Dose Schedule Unknown Completed [facility] HIB 4 Dose Schedule Unknown Completed [facility] HIB 4 Dose Schedule Unknown Completed [facility] HIB 4 Dose Schedule Unknown Completed [facility] HPV Unknown Completed [facility] Meningococcal Polysaccharide (groups A, C, Y and W-135) conjugate vaccine (MCV4P) Unknown Completed [facility] Meningococcal Polysaccharide (groups A, C, Y and W-135) conjugate vaccine (MCV4P) Unknown Completed [facility] MMR Unknown Completed [facility] MMR Unknown Completed [facility] IPV Unknown Completed [facility] IPV Unknown Completed [facility] IPV Unknown Completed [facility] IPV Unknown Completed [facility] TDAP Unknown Completed [facility] TDAP Unknown Completed [facility] Varicella (varivax)(chicken pox) Unknown Completed [facility] Varicella (varivax)(chicken pox) Unknown Completed [facility] TDAP Unknown Completed [facility] HPV9 Unknown Completed [facility] Influenza Virus Vaccine Quad IM 3+ YRS Unknown Completed [facility] HPV9 Unknown Completed [facility] HPV9 Unknown Completed [facility] Influenza Virus Vaccine Quad .5 mL IM 6+ MO (FLUZONE/FLULAVAL/FL UARIX) Unknown Completed [facility] Influenza Virus Vaccine Quad .5 mL IM 6+ MO (FLUZONE/FLULAVAL/FL UARIX) Unknown Completed [facility] TDAP Unknown Completed [facility] SARS-COV-2 COVID-19 PFIZER VACCINE Unknown Completed [facility] DTaP, Unspecified Formulation Unknown Completed [facility] DTaP, Unspecified Formulation Unknown Completed [facility] DTaP, Unspecified Formulation Unknown Completed [facility] DTaP, Unspecified Formulation Unknown Completed [facility] DTaP, Unspecified Formulation Unknown Completed [facility] Influenza Virus Vaccine - Whole Unknown Completed [facility] HEPATITIS A Unknown Completed [facility] HEPATITIS A Unknown Completed [facility] Hep B, Adol or Pedi Dosage Unknown Completed [facility] Hep B, Adol or Pedi Dosage Unknown Completed [facility] Hep B, Adol or Pedi Dosage Unknown Completed [facility] HIB 4 Dose Schedule Unknown Completed [facility] HIB 4 Dose Schedule Unknown Completed [facility] HIB 4 Dose Schedule Unknown Completed [facility] HIB 4 Dose Schedule Unknown Completed [facility] HPV Unknown Completed [facility] Meningococcal Polysaccharide (groups A, C, Y and W-135) conjugate vaccine (MCV4P) Unknown Completed [facility] Meningococcal Polysaccharide (groups A, C, Y and W-135) conjugate vaccine (MCV4P) Unknown Completed [facility] MMR Unknown Completed [facility] MMR Unknown Completed [facility] IPV Unknown Completed [facility] IPV Unknown Completed [facility] IPV Unknown Completed [facility] IPV Unknown Completed [facility] TDAP Unknown Completed [facility] TDAP Unknown Completed [facility] Varicella (varivax)(chicken pox) Unknown Completed [facility] Varicella (varivax)(chicken pox) Unknown Completed [facility] TDAP Unknown Completed [facility] HPV9 Unknown Completed [facility] Influenza Virus Vaccine Quad IM 3+ YRS Unknown Completed [facility] HPV9 Unknown Completed [facility] HPV9 Unknown Completed [facility] Influenza Virus Vaccine Quad .5 mL IM 6+ MO (FLUZONE/FLULAVAL/FL UARIX) Unknown Completed [facility] Influenza Virus Vaccine Quad .5 mL IM 6+ MO (FLUZONE/FLULAVAL/FL UARIX) Unknown Completed [facility] TDAP Unknown Completed [facility] SARS-COV-2 COVID-19 PFIZER VACCINE Unknown Completed [facility] DTaP, Unspecified Formulation Unknown Completed [facility] DTaP, Unspecified Formulation Unknown Completed [facility] DTaP, Unspecified Formulation Unknown Completed [facility] DTaP, Unspecified Formulation Unknown Completed [facility] DTaP, Unspecified Formulation Unknown Completed [facility] Influenza Virus Vaccine - Whole Unknown Completed [facility] HEPATITIS A Unknown Completed [facility] HEPATITIS A Unknown Completed [facility] Hep B, Adol or Pedi Dosage Unknown Completed [facility] Hep B, Adol or Pedi Dosage Unknown Completed [facility] Hep B, Adol or Pedi Dosage Unknown Completed [facility] HIB 4 Dose Schedule Unknown Completed [facility] HIB 4 Dose Schedule Unknown Completed [facility] HIB 4 Dose Schedule Unknown Completed [facility] HIB 4 Dose Schedule Unknown Completed [facility] HPV Unknown Completed [facility] Meningococcal Polysaccharide (groups A, C, Y and W-135) conjugate vaccine (MCV4P) Unknown Completed [facility] Meningococcal Polysaccharide (groups A, C, Y and W-135) conjugate vaccine (MCV4P) Unknown Completed [facility] MMR Unknown Completed [facility] MMR Unknown Completed [facility] IPV Unknown Completed [facility] IPV Unknown Completed [facility] IPV Unknown Completed [facility] IPV Unknown Completed [facility] TDAP Unknown Completed [facility] TDAP Unknown Completed [facility] Varicella (varivax)(chicken pox) Unknown Completed [facility] Varicella (varivax)(chicken pox) Unknown Completed [facility] TDAP Unknown Completed [facility] HPV9 Unknown Completed [facility] Influenza Virus Vaccine Quad IM 3+ YRS Unknown Completed [facility] HPV9 Unknown Completed [facility] HPV9 Unknown Completed [facility] Influenza Virus Vaccine Quad .5 mL IM 6+ MO (FLUZONE/FLULAVAL/FL UARIX) Unknown Completed [facility] Influenza Virus Vaccine Quad .5 mL IM 6+ MO (FLUZONE/FLULAVAL/FL UARIX) Unknown Completed [facility] TDAP Unknown Completed [facility] SARS-COV-2 COVID-19 PFIZER VACCINE Unknown Completed [facility] DTaP, Unspecified Formulation Unknown Completed [facility] DTaP, Unspecified Formulation Unknown Completed [facility] DTaP, Unspecified Formulation Unknown Completed [facility] DTaP, Unspecified Formulation Unknown Completed [facility] DTaP, Unspecified Formulation Unknown Completed [facility] Influenza Virus Vaccine - Whole Unknown Completed [facility] HEPATITIS A Unknown Completed [facility] HEPATITIS A Unknown Completed [facility] Hep B, Adol or Pedi Dosage Unknown Completed [facility] Hep B, Adol or Pedi Dosage Unknown Completed [facility] Hep B, Adol or Pedi Dosage Unknown Completed [facility] HIB 4 Dose Schedule Unknown Completed [facility] HIB 4 Dose Schedule Unknown Completed [facility] HIB 4 Dose Schedule Unknown Completed [facility] HIB 4 Dose Schedule Unknown Completed [facility] HPV Unknown Completed [facility] Meningococcal Polysaccharide (groups A, C, Y and W-135) conjugate vaccine (MCV4P) Unknown Completed [facility] Meningococcal Polysaccharide (groups A, C, Y and W-135) conjugate vaccine (MCV4P) Unknown Completed [facility] MMR Unknown Completed [facility] MMR Unknown Completed [facility] IPV Unknown Completed [facility] IPV Unknown Completed [facility] IPV Unknown Completed [facility] IPV Unknown Completed [facility] TDAP Unknown Completed [facility] TDAP Unknown Completed [facility] Varicella (varivax)(chicken pox) Unknown Completed [facility] Varicella (varivax)(chicken pox) Unknown Completed [facility] TDAP Unknown Completed [facility] HPV9 Unknown Completed [facility] Influenza Virus Vaccine Quad IM 3+ YRS Unknown Completed [facility] HPV9 Unknown Completed [facility] HPV9 Unknown Completed [facility] Influenza Virus Vaccine Quad .5 mL IM 6+ MO (FLUZONE/FLULAVAL/FL UARIX) Unknown Completed [facility] Influenza Virus Vaccine Quad .5 mL IM 6+ MO (FLUZONE/FLULAVAL/FL UARIX) Unknown Completed [facility] TDAP Unknown Completed [facility] SARS-COV-2 COVID-19 PFIZER VACCINE Unknown Completed [facility] DTaP, Unspecified Formulation Unknown Completed [facility] DTaP, Unspecified Formulation Unknown Completed [facility] DTaP, Unspecified Formulation Unknown Completed [facility] DTaP, Unspecified Formulation Unknown Completed [facility] DTaP, Unspecified Formulation Unknown Completed [facility] Influenza Virus Vaccine - Whole Unknown Completed [facility] HEPATITIS A Unknown Completed [facility] HEPATITIS A Unknown Completed [facility] Hep B, Adol or Pedi Dosage Unknown Completed [facility] Hep B, Adol or Pedi Dosage Unknown Completed [facility] Hep B, Adol or Pedi Dosage Unknown Completed [facility] HIB 4 Dose Schedule Unknown Completed [facility] HIB 4 Dose Schedule Unknown Completed [facility] HIB 4 Dose Schedule Unknown Completed [facility] HIB 4 Dose Schedule Unknown Completed [facility] HPV Unknown Completed [facility] Meningococcal Polysaccharide (groups A, C, Y and W-135) conjugate vaccine (MCV4P) Unknown Completed [facility] Meningococcal Polysaccharide (groups A, C, Y and W-135) conjugate vaccine (MCV4P) Unknown Completed [facility] MMR Unknown Completed [facility] MMR Unknown Completed [facility] IPV Unknown Completed [facility] IPV Unknown Completed [facility] IPV Unknown Completed [facility] IPV Unknown Completed [facility] TDAP Unknown Completed [facility] TDAP Unknown Completed [facility] Varicella (varivax)(chicken pox) Unknown Completed [facility] Varicella (varivax)(chicken pox) Unknown Completed [facility] TDAP Unknown Completed [facility] HPV9 Unknown Completed [facility] Influenza Virus Vaccine Quad IM 3+ YRS Unknown Completed [facility] HPV9 Unknown Completed [facility] HPV9 Unknown Completed [facility] Influenza Virus Vaccine Quad .5 mL IM 6+ MO (FLUZONE/FLULAVAL/FL UARIX) Unknown Completed [facility] Influenza Virus Vaccine Quad .5 mL IM 6+ MO (FLUZONE/FLULAVAL/FL UARIX) Unknown Completed [facility] TDAP Unknown Completed [facility] SARS-COV-2 COVID-19 PFIZER VACCINE Unknown Completed [facility] DTaP, Unspecified Formulation Unknown Completed [facility] DTaP, Unspecified Formulation Unknown Completed [facility] DTaP, Unspecified Formulation Unknown Completed [facility] DTaP, Unspecified Formulation Unknown Completed [facility] DTaP, Unspecified Formulation Unknown Completed [facility] Influenza Virus Vaccine - Whole Unknown Completed [facility] HEPATITIS A Unknown Completed [facility] HEPATITIS A Unknown Completed [facility] Hep B, Adol or Pedi Dosage Unknown Completed [facility] Hep B, Adol or Pedi Dosage Unknown Completed [facility] Hep B, Adol or Pedi Dosage Unknown Completed [facility] HIB 4 Dose Schedule Unknown Completed [facility] HIB 4 Dose Schedule Unknown Completed [facility] HIB 4 Dose Schedule Unknown Completed [facility] HIB 4 Dose Schedule Unknown Completed [facility] HPV Unknown Completed [facility] Meningococcal Polysaccharide (groups A, C, Y and W-135) conjugate vaccine (MCV4P) Unknown Completed [facility] Meningococcal Polysaccharide (groups A, C, Y and W-135) conjugate vaccine (MCV4P) Unknown Completed [facility] MMR Unknown Completed [facility] MMR Unknown Completed [facility] IPV Unknown Completed [facility] IPV Unknown Completed [facility] IPV Unknown Completed [facility] IPV Unknown Completed [facility] TDAP Unknown Completed [facility] TDAP Unknown Completed [facility] Varicella (varivax)(chicken pox) Unknown Completed [facility] Varicella (varivax)(chicken pox) Unknown Completed [facility] TDAP Unknown Completed [facility] HPV9 Unknown Completed [facility] Influenza Virus Vaccine Quad IM 3+ YRS Unknown Completed [facility] HPV9 Unknown Completed [facility] HPV9 Unknown Completed [facility] Influenza Virus Vaccine Quad .5 mL IM 6+ MO (FLUZONE/FLULAVAL/FL UARIX) Unknown Completed [facility] Influenza Virus Vaccine Quad .5 mL IM 6+ MO (FLUZONE/FLULAVAL/FL UARIX) Unknown Completed [facility] TDAP Unknown Completed [facility] SARS-COV-2 COVID-19 PFIZER VACCINE Unknown Completed [facility] DTaP, Unspecified Formulation Unknown Completed [facility] DTaP, Unspecified Formulation Unknown Completed [facility] DTaP, Unspecified Formulation Unknown Completed [facility] DTaP, Unspecified Formulation Unknown Completed [facility] DTaP, Unspecified Formulation Unknown Completed [facility] Influenza Virus Vaccine - Whole Unknown Completed [facility] HEPATITIS A Unknown Completed [facility] HEPATITIS A Unknown Completed [facility] Hep B, Adol or Pedi Dosage Unknown Completed [facility] Hep B, Adol or Pedi Dosage Unknown Completed [facility] Hep B, Adol or Pedi Dosage Unknown Completed [facility] HIB 4 Dose Schedule Unknown Completed [facility] HIB 4 Dose Schedule Unknown Completed [facility] HIB 4 Dose Schedule Unknown Completed [facility] HIB 4 Dose Schedule Unknown Completed [facility] HPV Unknown Completed [facility] Meningococcal Polysaccharide (groups A, C, Y and W-135) conjugate vaccine (MCV4P) Unknown Completed [facility] Meningococcal Polysaccharide (groups A, C, Y and W-135) conjugate vaccine (MCV4P) Unknown Completed [facility] MMR Unknown Completed [facility] MMR Unknown Completed [facility] IPV Unknown Completed [facility] IPV Unknown Completed [facility] IPV Unknown Completed [facility] IPV Unknown Completed [facility] TDAP Unknown Completed [facility] TDAP Unknown Completed [facility] Varicella (varivax)(chicken pox) Unknown Completed [facility] Varicella (varivax)(chicken pox) Unknown Completed [facility] TDAP Unknown Completed [facility] HPV9 Unknown Completed [facility] Influenza Virus Vaccine Quad IM 3+ YRS Unknown Completed [facility] HPV9 Unknown Completed [facility] HPV9 Unknown Completed [facility] Influenza Virus Vaccine Quad .5 mL IM 6+ MO (FLUZONE/FLULAVAL/FL UARIX) Unknown Completed [facility] Influenza Virus Vaccine Quad .5 mL IM 6+ MO (FLUZONE/FLULAVAL/FL UARIX) Unknown Completed [facility] TDAP Unknown Completed [facility] SARS-COV-2 COVID-19 PFIZER VACCINE Unknown Completed [facility] DTaP, Unspecified Formulation Unknown Completed [facility] DTaP, Unspecified Formulation Unknown Completed [facility] DTaP, Unspecified Formulation Unknown Completed [facility] DTaP, Unspecified Formulation Unknown Completed [facility] DTaP, Unspecified Formulation Unknown Completed [facility] Influenza Virus Vaccine - Whole Unknown Completed [facility] HEPATITIS A Unknown Completed [facility] HEPATITIS A Unknown Completed [facility] Hep B, Adol or Pedi Dosage Unknown Completed [facility] Hep B, Adol or Pedi Dosage Unknown Completed [facility] Hep B, Adol or Pedi Dosage Unknown Completed [facility] HIB 4 Dose Schedule Unknown Completed [facility] HIB 4 Dose Schedule Unknown Completed [facility] HIB 4 Dose Schedule Unknown Completed [facility] HIB 4 Dose Schedule Unknown Completed [facility] HPV Unknown Completed [facility] Meningococcal Polysaccharide (groups A, C, Y and W-135) conjugate vaccine (MCV4P) Unknown Completed [facility] Meningococcal Polysaccharide (groups A, C, Y and W-135) conjugate vaccine (MCV4P) Unknown Completed [facility] MMR Unknown Completed [facility] MMR Unknown Completed [facility] IPV Unknown Completed [facility] IPV Unknown Completed [facility] IPV Unknown Completed [facility] IPV Unknown Completed [facility] TDAP Unknown Completed [facility] TDAP Unknown Completed [facility] Varicella (varivax)(chicken pox) Unknown Completed [facility] Varicella (varivax)(chicken pox) Unknown Completed [facility] Vital Signs Vital Name Observation Time Observation Value Comments S ource Systolic blood pressure 2023-08-07 15:30:00 125 mm[Hg] [facility] Diastolic blood pressure 2023-08-07 15:30:00 72 mm[Hg] [facility] Heart rate 2023-08-07 15:30:00 102 /min [facility] Body temperature 2023-08-07 15:29:00 36.5 Radha [facility] Respiratory rate 2023-08-07 15:29:00 18 /min [facility] Body height 2023-08-07 15:29:00 172.7 cm Univ [facility] Body weight 2023-08-07 15:29:00 71.016 kg [facility] BMI 2023-08-07 15:29:00 23.81 kg/m2 Univ [facility] Systolic blood pressure 2023-07-10 21:09:00 139 mm[Hg] [facility] Diastolic blood pressure 2023-07-10 21:09:00 65 mm[Hg] [facility] Heart rate 2023-07-10 21:09:00 107 /min [facility] Body temperature 2023-07-10 21:09:00 36.56 Radha [facility] Respiratory rate 2023-07-10 21:09:00 19 /min [facility] Body height 2023-07-10 21:09:00 172.7 cm Univ [facility] Body weight 2023-07-10 21:09:00 68.221 kg Univ [facility] BMI 2023-07-10 21:09:00 22.87 kg/m2 Univ [facility] Systolic blood pressure 2023-06-12 17:19:00 122 mm[Hg] [facility] Diastolic blood pressure 2023-06-12 17:19:00 78 mm[Hg] [facility] Heart rate 2023-06-12 17:19:00 87 /min [facility] Body temperature 2023-06-12 17:19:00 36.39 Radha [facility] Respiratory rate 2023-06-12 17:19:00 18 /min [facility] Body height 2023-06-12 17:19:00 172.7 cm Univ [facility] Body weight 2023-06-12 17:19:00 66.769 kg Univ [facility] BMI 2023-06-12 17:19:00 22.38 kg/m2 Univ [facility] Systolic blood pressure 2023-05-15 18:49:00 117 mm[Hg] [facility] Diastolic blood pressure 2023-05-15 18:49:00 75 mm[Hg] [facility] Heart rate 2023-05-15 18:49:00 95 /min [facility] Body temperature 2023-05-15 18:49:00 36.39 Radha [facility] Respiratory rate 2023-05-15 18:49:00 18 /min [facility] Body height 2023-05-15 18:49:00 172.7 cm Univ [facility] Body weight 2023-05-15 18:49:00 62.852 kg Univ [facility] BMI 2023-05-15 18:49:00 21.07 kg/m2 Univ [facility] Systolic blood pressure 2023-04-24 19:29:00 134 mm[Hg] [facility] Diastolic blood pressure 2023-04-24 19:29:00 74 mm[Hg] [facility] Heart rate 2023-04-24 19:29:00 98 /min [facility] Body temperature 2023-04-24 19:29:00 36.61 Radha [facility] Respiratory rate 2023-04-24 19:29:00 18 /min [facility] Body height 2023-04-24 19:29:00 172.7 cm Univ [facility] Body weight 2023-04-24 19:29:00 60.98 kg Univ [facility] BMI 2023-04-24 19:29:00 20.44 kg/m2 Univ [facility] Systolic blood pressure 2023-04-10 18:54:00 119 mm[Hg] [facility] Diastolic blood pressure 2023-04-10 18:54:00 79 mm[Hg] [facility] Heart rate 2023-04-10 18:54:00 106 /min [facility] Body temperature 2023-04-10 18:54:00 36.22 Radha [facility] Respiratory rate 2023-04-10 18:54:00 16 /min [facility] Body height 2023-04-10 18:54:00 172.7 cm [facility] Body weight 2023-04-10 18:54:00 58.106 kg [facility] BMI 2023-04-10 18:54:00 19.48 kg/m2 Univ [facility] Systolic blood pressure 2023-03-08 18:03:00 120 mm[Hg] [facility] Diastolic blood pressure 2023-03-08 18:03:00 75 mm[Hg] [facility] Heart rate 2023-03-08 17:58:00 89 /min [facility] Body temperature 2023-03-08 17:58:00 36.33 Radha [facility] Respiratory rate 2023-03-08 17:58:00 18 /min [facility] Body height 2023-03-08 17:58:00 172.7 cm [facility] Body weight 2023-03-08 17:58:00 55.611 kg [facility] BMI 2023-03-08 17:58:00 18.64 kg/m2 [facility] Systolic blood pressure 2022-10-05 18:31:00 111 mm[Hg] [facility] Diastolic blood pressure 2022-10-05 18:31:00 74 mm[Hg] [facility] Heart rate 2022-10-05 18:31:00 74 /min [facility] Body temperature 2022-10-05 18:31:00 36.61 Radha [facility] Respiratory rate 2022-10-05 18:31:00 18 /min [facility] Body height 2022-10-05 18:31:00 172.7 cm [facility] Body weight 2022-10-05 18:31:00 58.695 kg [facility] BMI 2022-10-05 18:31:00 19.68 kg/m2 [facility] Oxygen saturation in Arterial blood by Pulse oximetry 2022-10-05 18:31:00 100 /min [facility] Systolic blood pressure 2022-07-18 22:05:00 115 mm[Hg] [facility] Diastolic blood pressure 2022-07-18 22:05:00 80 mm[Hg] [facility] Respiratory rate 2022-07-18 22:05:00 18 /min [facility] Body height 2022-07-18 22:05:00 172.7 cm [facility] Body weight 2022-07-18 22:05:00 58.06 kg [facility] BMI 2022-07-18 22:05:00 19.46 kg/m2 [facility] Systolic blood pressure 2021-12-15 14:03:00 112 mm[Hg] [facility] Diastolic blood pressure 2021-12-15 14:03:00 77 mm[Hg] [facility] Heart rate 2021-12-15 14:03:00 94 /min [facility] 2021-12-15 14:03:00 18 /min [facility] Body height 2021-12-15 14:03:00 170.2 cm [facility] Body weight 2021-12-15 14:03:00 62.869 kg [facility] BMI 2021-12-15 14:03:00 21.71 kg/m2 [facility] Oxygen saturation in Arterial blood by Pulse oximetry 2021-12-15 14:03:00 100 /min [facility] Procedures Procedure Date / Time Performed Performing Clinicia n Source SECOND AND THIRD TRIMESTER ULTRASOUND 2023-07-19 21:25:00 Disha Roa [facility] POCT URINALYSIS 2023-07-10 21:11:00 Disha Roa [facility] SECOND AND THIRD TRIMESTER ULTRASOUND 2023-06-14 20:23:00 Disha Roa [facility] POCT URINALYSIS 2023-06-12 17:21:00 Disha Roa [facility] POCT URINALYSIS 2023-05-15 18:50:00 Disha Roa [facility] CONSENT FOR NIPT 2023-04-25 06:01:00 Doctor Unas signed, [place] [facility] POCT URINALYSIS 2023-04-24 19:29:00 Disha Roa [facility] POCT URINALYSIS 2023-04-10 00:00:00 Disha Roa [facility] SECOND AND THIRD TRIMESTER ULTRASOUND 2023-03-21 19:47:00 Disha Roa [facility] POCT TEST 2023-03-08 17:51:00 Sahil Roa [facility] POCT URINALYSIS W/O SPECIFIC GRAVITY 2023-03-08 17:51:00 Disha Roa [facility] CONSENT/REFUSAL FOR DIAGNOSIS AND TREATMENT 2023-03-08 17:24:15 Doctor Unassigned, [place] [facility] ASSIGNMENT OF BENEFITS 2023-03-08 17:23:54 Docto r Unassigned, [place] [facility] RPR (MONITOR)$W/REFL TITER-Q 2022-07-19 18:45:00 Lisbet Corbett [facility] POCT URINALYSIS 2021-12-15 14:20:00 Brent Wilkerson [facility] POCT TEST 2021-12-15 14:20:00 Brent Wilkerson [facility] Encounters Start Date/Time End Date/Time Encounter Type Admission Type Attending [facility] Care Facility Care Department Encounter ID Source 2021-03-26 11:59:17 Outpatient [facility] [id number] [facility] 2021-03-25 13:57:31 Outpatient P [facility] SUSIE [id number] [facility] 2021-03-25 13:07:03 Outpatient P [facility] [id number] [facility] 2023-10-11 14:00:00 2023-10-11 14:00:00 Outpatient R BRENT WILKERSON [facility] [id number] [facility] 2023-08-15 08:00:00 2023-08-15 08:00:00 Outpatient R JOAQUINA TURNER [facility] [id number] [facility] 2023-08-12 00:00:00 2023-08-12 00:00:00 Nurse Triage Javy Neal [facility] 1..840.114 350.1.13.10 [id number] [id number] [facility] 2023-08-08 00:00:00 2023-08-08 00:00:00 Telephone Joaquina Turner [facility] ELECTRICAL [employer]SEMBLY TECHNICIAN [facility] 1..840.114 350.1.13.10 4.2.7.2.686 [id number] [facility] 2023-08-07 10:30:00 2023-08-07 10:45:00 Routine Visit Joaquina Turner [facility] ELECT[employer]ICAL [employer]SEM[employer] TECHNICIAN [facility] [id number] 350.1.13.10 4.2.7.2.686 [id number] [facility] 2023-08-07 10:30:00 2023-08-07 10:30:00 Outpatient R JOAQUINA TURNER [facility] [id number] [facility] 2023-07-23 00:00:00 2023-07-23 00:00:00 Abstract Disha Roa [facility] ELECTRICAL [employer]SEM[employer] TECHNICIAN [facility] [id number] 350.1.13.10 4.2.7.2.686 [id number] [facility] 2023-07-19 15:00:00 2023-07-19 15:42:01 Outpatient P HASEEB CHICAS [facility] [place] [id number] [facility] 2023-07-19 15:00:00 2023-07-19 15:42:01 Edge Grinder Visit Ultrasound, [facility] ELECTRICAL ASSEMBLY TECHNICIAN [facility] 1.840.114 350.1.13.10 4.2.7.2.686 [id number] [facility] 2023-07-10 15:15:00 2023-07-10 15:21:04 Outpatient R JOAQUINA TURNER [facility] [id number] [facility] 2023-07-10 15:15:00 2023-07-10 15:21:04 Routine Visit Joaquina Turner [facility] ELECTRICAL [employer]SEM[employer]Y TECHNICIAN [facility] 1.840.114 350.1.13.10 4.2.7.2.686 [id number] [facility] 2023-07-10 10:30:00 2023-07-10 10:30:00 Outpatient DISHA SINGH [facility] [id number] [facility] 2023-07-10 00:00:00 2023-07-10 00:00:00 Karena Fournier [facility] ELECTRICAL ASSEMBLY TECHNICIAN [facility] 1.840.114 350.1.13.10 4.2.7.2.686 [id number] [facility] 2023-07-10 00:00:00 2023-07-10 00:00:00 Disha Ash [facility] ELECTRICAL ASSEM[employer]Y TECHNICIAN [facility] [id number] 350.1.13.10 4.2.7.2.686 [id number] [facility] 2023-06-14 13:00:00 2023-06-14 13:52:55 Outpatient P SARA ARELY Lubna COATS [facility] [id number] [facility] 2023-06-14 13:00:00 2023-06-14 13:52:55 Edge Grinder Visit Ultrasound, Ang-m Sara ElliottdimitryPauly moreno [facility] ELECTRICAL ASSEMBLY TECHNICIAN [facility] 1.2.840.114 350.1.13.10 4.2.7.2.686 [id number] [facility] 2023-06-14 00:00:00 2023-06-14 00:00:00 Letter (Out) Garecs Arely lubna [facility] ELECTRICAL ASSEMBLY TECHNICIAN [facility] 1.2.840.114 350.1.13.10 4.2.7.2.686 [id number] 107 [id number] [facility] 2023-06-14 00:00:00 2023-06-14 00:00:00 Abstract Disha Roa [facility] 1.2.840.114 350.1.13.10 4.2.7.2.686 [id number] 107 [id number] [facility] 2023-06-12 11:00:00 2023-06-12 11:44:14 Outpatient R DISHA ROA [facility] [id number] [facility] 2023-06-12 11:00:00 2023-06-12 11:44:14 Routine Visit Disha Roa [facility] 1.2.840.114 350.1.13.10 4.2.7.2.686 [id number] 107 [id number] [facility] 2023-06-06 00:00:00 2023-06-06 00:00:00 Patient Secure Msg Janina Disha C [facility] ELECTRICAL ASSEMBLY TECHNICIAN [facility] 1.0.114 350.1.13.10 4.2.7.2.686 [id number] 107 [id number] [facility] 2023-05-15 11:00:00 2023-05-15 13:17:31 Outpatient R DISHA ROA [facility] [id number] [facility] 2023-05-15 11:00:00 2023-05-15 13:17:31 Routine Visit Disha Roa [facility] ELECTRICAL ASSEMBLY TECHNICIAN [facility] 1..114 350.1.13.10 4.2.7.2.686 [id number] 107 [id number] [facility] 2023-04-25 00:00:00 2023-04-25 00:00:00 Orders Only Doctor Unassigned, [place] [facility] 1..114 350.1.13.10 4.2.7.2.686 [id number] [facility] 2023-04-24 13:00:00 2023-04-24 14:39:52 Outpatient R KARENA DANIELS [facility] [id number] [facility] 2023-04-24 13:00:00 2023-04-24 14:39:52 Routine Visit Risk, Ang-Rmchp-N p/High Karena Daniels [facility] ELECTRICAL ASSEMBLY TECHNICIAN [facility] 1..114 350.1.13.10 4.2.7.2.686 [id number] 107 [id number] [facility] 2023-04-22 00:00:00 2023-04-22 00:00:00 Patient Secure Msg Zeyadcartermiya Disha Cunha [facility] ELECTRICAL ASSEMBLY TECHNICIAN [facility] 1..114 350.1.13.10 4.2.7.2.686 [id number] 107 [id number] [facility] 2023-04-10 13:00:00 2023-04-10 13:21:55 Outpatient R KARENA DANIELS [facility] [id number] [facility] 2023-04-10 13:00:00 2023-04-10 13:21:55 Routine Visit Risk, Ang-Rmchp-N p/High Karena Daniels [facility] ELECTRICAL ASSEMBLY TECHNICIAN [facility] 1..840.114 350.1.13.10 4.2.7.2.686 [id number] 107 [id number] [facility] 2023-04-03 10:00:00 2023-04-03 10:00:00 Outpatient R [facility] [id number] [facility] 2023-03-29 10:30:00 2023-03-29 10:30:00 Outpatient P [facility] [id number] [facility] 2023-03-29 00:00:00 2023-03-29 00:00:00 Telephone Disha Roa [facility] ELECTRICAL ASSEMBLY TECHNICIAN [facility] 1..840.114 350.1.13.10 4.2.7.2.686 [id number] 107 [id number] [facility] 2023-03-28 11:30:00 2023-03-28 11:30:00 Outpatient P [facility] [id number] [facility] 2023-03-28 00:00:00 2023-03-28 00:00:00 Patient Secure Msg Disha Roa [facility] ELECTRICAL ASSEMBLY TECHNICIAN [facility] 1..840.114 350.1.13.10 4.2.7.2.686 [id number] 107 [id number] [facility] 2023-03-27 00:00:00 2023-03-27 00:00:00 Abstract Disha Roa [facility] ELECTRICAL ASSEMBLY TECHNICIAN [facility] 1.2.840.114 350.1.13.10 4.2.7.2.686 [id number] 107 [id number] [facility] 2023-03-25 00:00:00 2023-03-25 00:00:00 Patient Secure Msg Doctor Unassigned, [place] [facility] 1.0.114 350.1.13.10 4.2.7.2.686 [id number] [facility] 2023-03-21 14:15:00 2023-03-21 14:39:51 Outpatient P DISHA ROA [facility] [id number] [facility] 2023-03-21 14:15:00 2023-03-21 14:39:51 Edge Grinder Visit Ultrasound, [facility] Disha Roa [facility] ELECTRICAL ASSEMBLY TECHNICIAN [facility] 1.840.114 350.1.13.10 4.2.7.2.686 [id number] [facility] 2023-03-19 00:00:00 2023-03-19 00:00:00 Patient Secure Msg Disha Roa [facility] ELECTRICAL ASSEMBLY TECHNICIAN [facility] 1.2840.114 350.1.13.10 4.2.7.2.686 [id number] 107 [id number] [facility] 2023-03-08 13:00:00 2023-03-08 14:06:31 Outpatient R DISHA ROA [facility] [id number] [facility] 2023-03-08 13:00:00 2023-03-08 14:06:31 Initial Visit Disha Roa [facility] ELECTRICAL ASSEMBLY TECHNICIAN [facility] 1.2840.114 350.1.13.10 4.2.7.2.686 [id number] 107 [id number] [facility] 2023-03-08 00:00:00 2023-03-08 00:00:00 Orders Only Doctor Unassigned, [place] [facility] 1.2.840.114 350.1.13.10 4.2.7.2.686 [id number] [facility] 2022-10-10 00:00:00 2022-10-10 00:00:00 Patient Secure Msg Doctor Unassigned, [place] [facility] 1.2.840.114 350.1.13.10 4.2.7.2.686 [id number] 134 [id number] [facility] 2022-10-08 00:00:00 2022-10-08 00:00:00 Patient Secure Msg Brent Wilkerson [facility] [place] 1.2.840.114 350.1.13.10 4.2.7.2.686 [id number] 134 [id number] [facility] 2022-10-07 00:00:00 2022-10-07 00:00:00 Case Management Wilkerson Brent [facility] 1.2.840.114 350.1.13.10 4.2.7.2.686 [id number] 134 [id number] [facility] 2022-10-05 14:00:00 2022-10-05 14:02:48 Outpatient R BRENT WILKERSON [facility] [id number] [facility] 2022-10-05 14:00:00 2022-10-05 14:02:48 Office Visit Ravinder Brent [facility] [place] 1.2.840.114 350.1.13.10 4.2.7.2.686 [id number] [facility] 2022-08-13 14:30:00 2022-08-13 14:30:00 Outpatient R LISBET CORBETT CHERYAL [facility] [id number] [facility] 2022-07-19 00:00:00 2022-07-19 00:00:00 Orders Only Lisbet Corbett [facility] 1..114 350.1.13.10 4.2.7.2.686 [id number] [facility] 2022-07-18 16:00:00 2022-07-18 16:26:12 Office Visit Lisbet Corbett [facility] 1..114 350.1.13.10 4.2.7.2.686 [id number] 134 [id number] [facility] 2022-07-18 16:00:00 2022-07-18 16:26:12 [facility] [id number] [facility] 2022-06-15 10:30:00 2022-06-15 10:30:00 Outpatient R BRENT WILKERSON [facility] [id number] [facility] 2022-06-15 10:30:00 2022-06-15 10:30:00 Outpatient BRENT CARTER [facility] [id number] [facility] 2022-06-08 00:00:00 2022-06-08 00:00:00 Pre Visit Outreach Bridget Madelaine SANDERSDavon [facility] 1..114 350.1.13.10 4.2.7.2.686 [id number] [facility] 2022-04-26 09:45:00 2022-04-26 09:45:00 Outpatient R JOAQUINA TURNER [facility] [id number] [facility] 2021-12-19 00:00:00 2021-12-19 00:00:00 Case Management Jeanie Thomas [facility] 1..114 350.1.13.10 4.2.7.2.686 [id number] [facility] 2021-12-15 08:30:00 2021-12-15 09:20:26 Outpatient R BRENT WILKERSON [facility] [id number] [facility] 2021-12-15 08:30:00 2021-12-15 09:20:26 Office Visit Brent Wilkerson [facility] 1.2.840.114 350.1.13.10 4.2.7.2.686 [id number] 134 [id number] [facility] 2021-12-05 09:30:00 2021-12-05 09:30:00 Outpatient R LISBET CORBETT CHERYAL [facility] [id number] [facility] 2021-10-20 11:30:00 2021-10-20 11:30:00 [id number] 2021-10-20 10:00:00 2021-10-20 10:40:52 [facility] [id number] [facility] 2021-10-20 10:00:00 2021-10-20 10:40:52 Office Visit Brent Wilkerson [facility] [place] 1.2.840.114 350.1.13.10 4.2.7.2.686 [id number] 134 [id number] [facility] 2021-10-20 00:00:00 2021-10-20 00:00:00 Orders Only Doctor Unassigned, [place] [facility] 1.2.840.114 350.1.13.10 4.2.7.2.686 [id number] [facility] 2021-09-06 10:00:00 2021-09-06 10:00:00 Outpatient R [facility] [id number] [facility] 2021-09-06 10:00:00 2021-09-06 10:00:00 Outpatient R [facility] [id number] [facility] 2021-09-01 08:30:00 2021-09-01 08:30:00 Outpatient R BRENT WILKERSON [facility] [id number] [facility] 2021-08-01 11:00:00 2021-08-01 11:00:00 Outpatient R LISBET CORBETT CHERYAL [facility] [id number] [facility] 2021-06-14 00:00:00 2021-06-14 00:00:00 Patient Secure Msg Doctor Unassigned, [place] [facility] 1.840.114 350.1.13.10 4.2.7.2.686 [id number] [facility] 2021-06-09 08:30:00 2021-06-09 09:32:49 Outpatient R BRENT WILKERSON [facility] [id number] [facility] 2021-06-09 08:30:00 2021-06-09 09:32:49 Office Visit Brent Wilkerson [facility] 1.840.114 350.1.13.10 4.2.7.2.686 [id number] 134 [id number] [facility] 2021-06-09 08:30:00 2021-06-09 09:32:49 Outpatient R BRENT WILKERSON [facility] [id number] [facility] 2021-06-09 00:00:00 2021-06-09 00:00:00 Orders Only Doctor Unassigned, [place] [facility] 1.840.114 350.1.13.10 4.2.7.2.686 [id number] [facility] 2021-02-08 13:30:00 2021-02-08 13:30:00 Outpatient R TERA MONTGOMERY [facility] [id number] [facility] 2020-09-26 09:45:00 2020-09-26 09:45:00 Outpatient R DISHA ROA [facility] [id number] [facility] 2020-09-26 00:00:00 2020-09-26 00:00:00 Patient Secure Msjose alfredo Amezcuamiya Disha Cunha [facility] ELECTRICAL ASSEMBLY TECHNICIAN [facility] 1.2.840.114 350.1.13.10 4.2.7.2.686 [id number] 107 [id number] [facility] 2020-09-24 00:00:00 2020-09-24 00:00:00 Refill Disha Roa [facility] ELECTRICAL ASSEMBLY TECHNICIAN [facility] 1.2.840.114 350.1.13.10 4.2.7.2.686 [id number] 107 [id number] [facility] 2020-09-24 00:00:00 2020-09-24 00:00:00 Refill SevenLeonardo hollidayDisha C [facility] ELECTRICAL ASSEMBLY TECHNICIAN [facility] 1.2.840.114 350.1.13.10 4.2.7.2.686 [id number] 107 [id number] 2020-09-12 13:58:18 2020-09-12 14:13:18 Nurse Visit Visit, Adalberto Nurse Disha Roa [facility] ELECTRICAL ASSEMBLY TECHNICIAN [facility] 1.2.840.114 350.1.13.10 4.2.7.2.686 [id number] 107 [id number] [facility] 2020-09-12 13:58:18 2020-09-12 14:13:18 Nurse Visit Visit, Adalberto Nurse [facility] ELECTRICAL ASSEMBLY TECHNICIAN [facility] 1.2.840.114 350.1.13.10 4.2.7.2.686 [id number] 2020-09-12 13:00:00 2020-09-12 13:00:00 Outpatient R DISHA ORA [facility] [id number] [facility] 2020-09-09 09:15:00 2020-09-09 09:15:00 Outpatient R BRAYAN GARYCLAYUlysses [facility] [id number] [facility] 2020-09-03 00:19:00 2020-09-07 11:07:00 [facility] 1.2.840.114 350.1.13.10 4.2.7.2.686 [id number] [facility] 2020-09-03 00:19:00 2020-09-07 11:07:00 Hospital Encounter CromonaColby [facility] 1.2840.114 350.1.13.10 4.2.7.2.686 [id number] 2020-09-05 09:45:00 2020-09-05 09:45:00 Outpatient R [facility] [id number] [facility] 2020-09-05 00:00:00 2020-09-05 00:00:00 Abstract GaryArin [facility] ELECTRICAL ASSEMBLY TECHNICIAN [facility] 1.2840.114 350.1.13.10 4.2.7.2.686 [id number] [facility] 2020-09-05 00:00:00 2020-09-05 00:00:00 Abstract GaryArin [facility] ELECTRICAL ASSEMBLY TECHNICIAN [facility] 1.2.840.114 350.1.13.10 4.2.7.2.686 [id number] 2020-09-04 03:03:00 2020-09-04 07:28:00 Anesthesia Event Ryan Mckeon Michael [facility] 1.2.840.114 350.1.13.10 4.2.7.2.686 [id number] [facility] 2020-09-04 03:03:00 2020-09-04 07:28:00 Anesthesia Event Ryan Mckeon Michael JOHN [facility] 1.2.840.114 350.1.13.10 4.2.7.2.686 [id number] 2020-09-04 05:10:00 2020-09-04 07:00:00 Surgery AloRaghav mathis TERESA CROCKER [facility] 1.2.840.114 350.1.13.10 4.2.7.2.686 [id number] [id number] [facility] 2020-09-04 05:10:00 2020-09-04 07:00:00 Surgery TERESA LIZZETTE ANN[facility] 1.2.840.114 350.1.13.10 4.2.7.2.686 [id number] [id number] 2020-09-02 11:31:43 2020-09-02 12:13:06 Edge Grinder [facility] ELECTRICAL ASSEMBLY TECHNICIAN [facility] 1.2.840.114 350.1.13.10 4.2.7.2.686 [id number] [facility] 2020-09-02 11:31:43 2020-09-02 12:13:06 Edge Grinder [facility]NIC[facility] 1.2.840.114 350.1.13.10 4.2.7.2.686 [id number] 2020-09-02 11:30:00 2020-09-02 11:30:00 Outpatient P [facility] [id number] [facility] 2020-09-02 00:00:00 2020-09-02 00:00:00 [facility] 1.2.840.114 350.1.13.10 4.2.7.2.686 [id number] [facility] 2020-09-02 00:00:00 2020-09-02 00:00:00 Nurse Triage BeauJeanie Morrow [facility] 1.840.114 350.1.13.10 4.2.7.2.686 [id number] 2020-09-01 10:19:51 2020-09-01 11:05:59 Routine Visit Arin Gary [facility] ELECTRICAL ASSEMBLY TECHNICIAN [facility] 1.2.840.114 350.1.13.10 4.2.7.2.686 [id number] 107 [id number] 2020-09-01 10:19:51 2020-09-01 11:05:59 Routine Visit Arin Gary [facility] ELECTRICAL ASSEMBLY TECHNICIAN [facility] 1.2840.114 350.1.13.10 4.2.7.2.686 [id number] 107 [id number] [facility] 2020-09-01 10:15:00 2020-09-01 10:15:00 Outpatient R ARIN GARY [facility] [id number] [facility] 2020-08-30 00:00:00 2020-08-30 00:00:00 Patient Secure Msg Doctor Unassigned, [place] [facility] ELECTRICAL ASSEMBLY TECHNICIAN [facility] 1.2840.114 350.1.13.10 4.2.7.2.686 [id number] 107 [id number] [facility] 2020-08-26 00:00:00 2020-08-26 00:00:00 Patient Secure Msg Doctor Unassigned, [place] [facility] 1.2840.114 350.1.13.10 4.2.7.2.686 [id number] [facility] 2020-08-26 00:00:00 2020-08-26 00:00:00 Patient Secure Msg Doctor Unassigned, [place] [facility] 1.2840.114 350.1.13.10 4.2.7.2.686 [id number] [facility] 2020-08-24 15:12:27 2020-08-24 15:12:48 Telemedici ne Visit Noelle Savage Joseph W [facility] ELECTRICAL ASSEMBLY TECHNICIAN [facility] 1.2.840.114 350.1.13.10 4.2.7.2.686 [id number] [facility] 2020-08-24 13:45:00 2020-08-24 13:45:00 Outpatient P [facility] [id number] [facility] 2020-08-23 00:00:00 2020-08-23 00:00:00 Arin Anderson [facility] ELECTRICAL ASSEMBLY TECHNICIAN [facility] 1..840.114 350.1.13.10 4.2.7.2.686 [id number] 107 [id number] [facility] 2020-08-22 11:11:24 2020-08-22 11:41:24 Edge Grinder Visit Ultrasound, Pauly Mcmanus [facility] ELECTRICAL ASSEMBLY TECHNICIAN [facility] 1..840.114 350.1.13.10 4.2.7.2.686 [id number] [facility] 2020-08-22 11:30:00 2020-08-22 11:30:00 Outpatient P [facility] [id number] [facility] 2020-08-17 13:15:00 2020-08-17 13:15:00 Outpatient ARIN RICHARD [facility] [id number] [facility] 2020-08-17 09:45:00 2020-08-17 09:45:00 Outpatient ARIN RICHARD [facility] [id number] [facility] 2020-08-08 13:00:00 2020-08-08 13:00:00 Outpatient ARIN RICHARD [facility] [id number] [facility] 2020-08-04 14:45:00 2020-08-04 14:45:00 Outpatient R MARCELINO MICHELE [facility] [id number] [facility] 2020-08-04 00:00:00 2020-08-04 00:00:00 Patient Secure Msg Doctor Unassigned, [place] [facility] ELECTRICAL ASSEMBLY TECHNICIAN [facility] 1.840.114 350.1.13.10 4.2.7.2.686 [id number] 107 [id number] [facility] 2020-08-03 08:00:00 2020-08-03 08:00:00 Outpatient R ARIN GARY [facility] [id number] [facility] 2020-08-02 08:00:00 2020-08-02 08:00:00 Outpatient R ARIN GARY [facility] [id number] [facility] 2020-07-20 13:58:30 2020-07-20 14:52:44 Edge Grinder Visit 2, [facility] Us Room [facility] ..114 350.1.13.10 4.2.7.2.686 [id number] [facility] 2020-07-20 14:00:00 2020-07-20 14:00:00 Outpatient P [facility] [id number] [facility] 2020-07-20 00:00:00 2020-07-20 00:00:00 Telephone Arin Gary [facility] ELECTRICAL ASSEMBLY TECHNICIAN [facility] ..114 350.1.13.10 4.2.7.2.686 [id number] [facility] 2020-07-20 00:00:00 2020-07-20 00:00:00 Abstract Arin Gary [facility] ELECTRICAL ASSEMBLY TECHNICIAN [facility] 1.840.114 350.1.13.10 4.2.7.2.686 [id number] [facility] 2020-07-19 08:44:47 2020-07-19 09:30:34 Routine Visit Disha Roa [facility] ELECTRICAL ASSEMBLY TECHNICIAN [facility] ..840.114 350.1.13.10 4.2.7.2.686 [id number] 107 [id number] [facility] 2020-07-19 08:45:00 2020-07-19 08:45:00 Outpatient R DISHA ROA [facility] [id number] [facility] 2020-07-13 14:30:00 2020-07-13 14:30:00 Outpatient HECTOR LINDSAY [facility] [id number] [facility] 2020-07-11 10:30:00 2020-07-11 10:30:00 Outpatient R DISHA ROA [facility] [id number] [facility] 2020-06-30 14:15:00 2020-06-30 14:15:00 Outpatient R DISHA ROA [facility] [id number] [facility] 2020-06-29 14:45:00 2020-06-29 14:45:00 Outpatient R [facility] [id number] [facility] 2020-06-29 14:20:00 2020-06-29 14:40:00 Urgent Care Provider, [facility] ..840.114 350.1.13.10 4.2.7.2.686 [id number] [facility] 2020-06-29 14:20:00 2020-06-29 14:20:00 Outpatient R [facility] [id number] [facility] 2020-06-28 10:15:00 2020-06-28 10:15:00 Outpatient R ARIN GARY [facility] [id number] [facility] 2020-06-27 00:00:00 2020-06-27 00:00:00 Patient Secure Msg Doctor Unassigned, [place] [facility] ELECTRICAL ASSEMBLY TECHNICIAN [facility] 1.2840.114 350.1.13.10 4.2.7.2.686 [id number] [facility] 2020-06-22 11:18:37 2020-06-22 12:43:58 Edge Grinder Visit 2, [facility] Us Room Edvin Carter [facility] 1..114 350.1.13.10 4.2.7.2.686 [id number] [facility] 2020-06-22 10:45:00 2020-06-22 10:45:00 Outpatient P EDVIN CARTER SHANNON [facility] [id number] [facility] 2020-06-22 00:00:00 2020-06-22 00:00:00 Orders Only Doctor Unassigned, [place] [facility] 1.0.114 350.1.13.10 4.2.7.2.686 [id number] [facility] 2020-06-22 00:00:00 2020-06-22 00:00:00 Abstract Arin Gary [facility] ELECTRICAL ASSEMBLY TECHNICIAN [facility] 1.2840.114 350.1.13.10 4.2.7.2.686 [id number] [facility] 2020-06-22 00:00:00 2020-06-22 00:00:00 Abstract Arin Gary [facility] ELECTRICAL [employer]SEM[employer] TECHNICIAN [facility] 1.2840.114 350.1.13.10 4.2.7.2.686 [id number] [facility] 2020-06-07 00:00:00 2020-06-07 00:00:00 Patient Secure Msg Doctor Unassigned, [place] [facility] ELECTRICAL ASSEM[employer] TECHNICIAN [facility] 1.2.840.114 350.1.13.10 4.2.7.2.686 [id number] [facility] 2020-06-07 00:00:00 2020-06-07 00:00:00 Telephone Arin Gary [facility] ELECTRICAL [employer] TECHNICIAN [facility] 1.2.840.114 350.1.13.10 4.2.7.2.686 [id number] [facility] 2020-06-05 00:00:00 2020-06-05 00:00:00 Patient Secure Msg Doctor Unassigned, [place] [facility] ELECTRICAL [employer]SEM[employer] TECHNICIAN [facility] 1.2840.114 350.1.13.10 4.2.7.2.686 [id number] [facility] 2020-05-31 10:38:40 2020-05-31 11:10:41 Routine Visit Cookie Terrijosebharti Centeno [facility] ELECTRICAL [employer]SEM[employer] TECHNICIAN [facility] 1.2840.114 350.1.13.10 4.2.7.2.686 [id number] [facility] 2020-05-31 10:45:00 2020-05-31 10:45:00 Outpatient R GARYBRAYAN HurtBHARTI [facility] [id number] [facility] 2020-05-24 16:30:00 2020-05-25 17:45:00 Hospital Encounter Haseeb Chicas [facility] 1..114 350.1.13.10 4.2.7.2.686 [id number] [facility] 2020-05-25 11:54:13 2020-05-25 16:02:10 Edge Grinder Visit 5, [facility] 1..114 350.1.13.10 4.2.7.2.686 [id number] [facility] 2020-05-24 09:13:52 2020-05-24 10:13:52 Edge Grinder Visit Ultrasound, Michael Wolfe [facility] ELECTRICAL ASSEMBLY TECHNICIAN [facility] 1.840.114 350.1.13.10 4.2.7.2.686 [id number] [facility] 2020-05-24 09:00:00 2020-05-24 09:00:00 Outpatient P [facility] [id number] [facility] 2020-05-24 00:00:00 2020-05-24 00:00:00 Telephone Disha Roa [facility] ELECTRICAL ASSEMBLY TECHNICIAN [facility] 1.0.114 350.1.13.10 4.2.7.2.686 [id number] [facility] 2020-05-24 00:00:00 2020-05-24 00:00:00 Abstract Arin Gary [facility] ELECTRICAL ASSEMBLY TECHNICIAN [facility] 1.840.114 350.1.13.10 4.2.7.2.686 [id number] [facility] 2020-05-24 00:00:00 2020-05-24 00:00:00 Orders Only Doctor Unassigned, [place] [facility] 1.0.114 350.1.13.10 4.2.7.2.686 [id number] [facility] 2020-05-18 02:08:00 2020-05-19 14:43:00 Outpatient P EDVIN CARTER SHANNON [facility] [id number] [facility] 2020-05-18 02:08:00 2020-05-19 14:43:00 Hospital Encounter Edvin Carter [facility] 1.0.114 350.1.13.10 4.2.7.2.686 [id number] [facility] 2020-05-18 00:00:00 2020-05-18 00:00:00 Orders Only Doctor Unassigned, [place] [facility] 1..114 350.1.13.10 4.2.7.2.686 [id number] [facility] 2020-05-17 00:00:00 2020-05-17 00:00:00 Telephone Disha Roa [facility] ELECTRICAL ASSEMBLY TECHNICIAN [facility] 1..114 350.1.13.10 4.2.7.2.686 [id number] [facility] 2020-05-11 13:14:18 2020-05-11 13:50:54 Routine Visit Arin Gary [facility] ELECTRICAL ASSEMBLY TECHNICIAN [facility] 1.114 350.1.13.10 4.2.7.2.686 [id number] [facility] 2020-05-11 13:30:00 2020-05-11 13:30:00 Outpatient R ARIN GARY [facility] [id number] [facility] 2020-05-10 00:00:00 2020-05-10 00:00:00 Telephone Disha Roa [facility] ELECTRICAL ASSEMBLY TECHNICIAN [facility] 1.114 350.1.13.10 4.2.7.2.686 [id number] [facility] 2020-05-10 00:00:00 2020-05-10 00:00:00 Patient Secure Msg Doctor Unassigned, [place] [facility] 1..114 350.1.13.10 4.2.7.2.686 [id number] [facility] 2020-05-05 00:00:00 2020-05-05 00:00:00 Patient Secure Msg Doctor Unassigned, [place] [facility] ELECTRICAL ASSEMBLY TECHNICIAN [facility] 1.2.840.114 350.1.13.10 4.2.7.2.686 [id number] [facility] 2020-05-03 08:45:06 2020-05-03 10:33:11 Initial Visit Arin Gary [facility] ELECTRICAL ASSEMBLY TECHNICIAN [facility] 1.2.840.114 350.1.13.10 4.2.7.2.686 [id number] [facility] 2020-05-03 08:30:00 2020-05-03 08:30:00 Outpatient R ARIN GARY [facility] [id number] [facility] 2020-05-03 00:00:00 2020-05-03 00:00:00 Orders Only Doctor Unassigned, [place] [facility] 1..840.114 350.1.13.10 4.2.7.2.686 [id number] [facility] Results Test Description Test Time Test Comments Results Result Co mments Source [facility] SPECIFIC [id number] 17:21:00* Test Item Value Reference Range Interpretation Comme nts POCT U SP GRAV (test code = 3255) . 1.005-1.025 POCT PH U (test code = 3254) . 5-8 POCT U LEUK EST (test code = 3263) . Negative - N egative POCT U NIT (test code = 3262) . Negative - Negati ve POCT U PROT (test code = 3259) trace Negative - Negat nunu POCT U GLU (test code = 3256) neg Negative - Negati ve POCT U KETONE (test code = 3258) . Negative - Neg ative POCT U UROBILI (test code = 3260) . 0.2-1 POCT U BILI (test code = 3261) . Negative - Negat nunu POCT U BLD (test code = 3257) . Negative - Negati ve POCT U COLOR (test code = 3266) . POCT U APPEAR (test code = 3267) . [facility] URINALYSIS W SPECIFIC [id number] 18:50:00* Test Item Value Reference Range Interpretation Comme nts POCT U SP GRAV (test code = 3255) . 1.005-1.025 POCT PH U (test code = 3254) . 5-8 POCT U LEUK EST (test code = 3263) . Negative - N egative POCT U NIT (test code = 3262) . Negative - Negati ve POCT U PROT (test code = 3259) Trace Negative - Negat nunu POCT U GLU (test code = 3256) Nml Negative - Negati ve POCT U KETONE (test code = 3258) . Negative - Neg ative POCT U UROBILI (test code = 3260) . 0.2-1 POCT U BILI (test code = 3261) . Negative - Negat nunu POCT U BLD (test code = 3257) . Negative - Negati ve POCT U COLOR (test code = 3266) POCT U APPEAR (test code = 3267) [facility] URINALYSIS W SPECIFIC [id number] 18:50:00* Test Item Value Reference Range Interpretation Comme nts POCT U SP GRAV (test code = 3255) . 1.005-1.025 POCT PH U (test code = 3254) . 5-8 POCT U LEUK EST (test code = 3263) . Negative - N egative POCT U NIT (test code = 3262) . Negative - Negati ve POCT U PROT (test code = 3259) Trace Negative - Negat nunu POCT U GLU (test code = 3256) Nml Negative - Negati ve POCT U KETONE (test code = 3258) . Negative - Neg ative POCT U UROBILI (test code = 3260) . 0.2-1 POCT U BILI (test code = 3261) . Negative - Negat nunu POCT U BLD (test code = 3257) . Negative - Negati ve POCT U COLOR (test code = 3266) POCT U APPEAR (test code = 3267) [facility] URINALYSIS W SPECIFIC [id number] 18:50:00* Test Item Value Reference Range Interpretation Comme nts POCT U SP GRAV (test code = 3255) . 1.005-1.025 POCT PH U (test code = 3254) . 5-8 POCT U LEUK EST (test code = 3263) . Negative - N egative POCT U NIT (test code = 3262) . Negative - Negati ve POCT U PROT (test code = 3259) Trace Negative - Negat nunu POCT U GLU (test code = 3256) Nml Negative - Negati ve POCT U KETONE (test code = 3258) . Negative - Neg ative POCT U UROBILI (test code = 3260) . 0.2-1 POCT U BILI (test code = 3261) . Negative - Negat nunu POCT U BLD (test code = 3257) . Negative - Negati ve POCT U COLOR (test code = 3266) POCT U APPEAR (test code = 3267) [facility] URINALYSIS W SPECIFIC [id number] 19:29:00* Test Item Value Reference Range Interpretation Comme nts POCT U SP GRAV (test code = 3255) . 1.005-1.025 POCT PH U (test code = 3254) 5 mg/dl 5-8 POCT U LEUK EST (test code = 3263) Trace Negative - Negative POCT U NIT (test code = 3262) Neg Negative - Negati ve POCT U PROT (test code = 3259) Trace Negative - Negat nunu POCT U GLU (test code = 3256) Nml Negative - Negati ve POCT U KETONE (test code = 3258) None Negative - Neg ative POCT U UROBILI (test code = 3260) . 0.2-1 POCT U BILI (test code = 3261) . Negative - Negat nunu POCT U BLD (test code = 3257) Trace Negative - Negati ve POCT U COLOR (test code = 3266) . POCT U APPEAR (test code = 3267) [facility] URINALYSIS W SPECIFIC [id number] 18:56:00* Test Item Value Reference Range Interpretation Comme nts POCT U SP GRAV (test code = 3255) . 1.005-1.025 POCT PH U (test code = 3254) 6 mg/dl 5-8 POCT U LEUK EST (test code = 3263) trace Negative - Negative POCT U NIT (test code = 3262) negative Negative - Negati ve POCT U PROT (test code = 3259) trace Negative - Negat nunu POCT U GLU (test code = 3256) normal Negative - Negati ve POCT U KETONE (test code = 3258) negative Negative - Neg ative POCT U UROBILI (test code = 3260) . 0.2-1 POCT U BILI (test code = 3261) . Negative - Negat nunu POCT U BLD (test code = 3257) negative Negative - Negati ve POCT U COLOR (test code = 3266) . POCT U APPEAR (test code = 3267) . [facility] [id number] 17:51:00* Test Item Value Reference Range Interpretation Comme nts POCT PREG (test code = 1605) Positive On board controls acceptable with C Line (test code = 3574) Yes POCT PREG LOT # (test code = 3575) POCT PREG TEST DATE ( test code = 357) [facility] URINALYSIS W/O SPECIFIC [id number] 17:51:00* Test Item Value Reference Range Interpretation Comme nts POCT PH U (test code = 3254) 6 mg/dl 5-8 POCT U LEUK EST (test code = 3263) 1+ Negative - Negative POCT U NIT (test code = 3262) pos Negative - Negati ve POCT U PROT (test code = 3259) 1+ Negative - Negat nunu POCT U GLU (test code = 3256) neg Negative - Negati ve POCT U KETONE (test code = 3258) 2+ Negative - Neg ative POCT U BLD (test code = 3257) neg Negative - Negati ve [facility] [id number] 17:51:00* Test Item Value Reference Range Interpretation Comme nts POCT PREG (test code = 1605) Positive On board controls acceptable with C Line (test code = 3574) Yes POCT PREG LOT # (test code = 3575) POCT PREG TEST DATE ( test code = 357) [facility] URINALYSIS W/O SPECIFIC [id number] 17:51:00* Test Item Value Reference Range Interpretation Comme nts POCT PH U (test code = 3254) 6 mg/dl 5-8 POCT U LEUK EST (test code = 3263) 1+ Negative - Negative POCT U NIT (test code = 3262) pos Negative - Negati ve POCT U PROT (test code = 3259) 1+ Negative - Negat nunu POCT U GLU (test code = 3256) neg Negative - Negati ve POCT U KETONE (test code = 3258) 2+ Negative - Neg ative POCT U BLD (test code = 3257) neg Negative - Negati ve [facility] [id number] 17:51:00* Test Item Value Reference Range Interpretation Comme nts POCT PREG (test code = 1605) Positive On board controls acceptable with C Line (test code = 3574) Yes POCT PREG LOT # (test code = 3575) POCT PREG TEST DATE ( test code = 357) [facility] URINALYSIS W/O SPECIFIC [id number] 17:51:00* Test Item Value Reference Range Interpretation Comme nts POCT PH U (test code = 3254) 6 mg/dl 5-8 POCT U LEUK EST (test code = 3263) 1+ Negative - Negative POCT U NIT (test code = 3262) pos Negative - Negati ve POCT U PROT (test code = 3259) 1+ Negative - Negat nunu POCT U GLU (test code = 3256) neg Negative - Negati ve POCT U KETONE (test code = 3258) 2+ Negative - Neg ative POCT U BLD (test code = 3257) neg Negative - Negati ve [facility] [id number] 17:51:00* Test Item Value Reference Range Interpretation Comme nts POCT PREG (test code = 1605) Positive On board controls acceptable with C Line (test code = 3574) Yes POCT PREG LOT # (test code = 3575) POCT PREG TEST DATE ( test code = 357) [facility] URINALYSIS W/O SPECIFIC [id number] 17:51:00* Test Item Value Reference Range Interpretation Comme nts POCT PH U (test code = 3254) 6 mg/dl 5-8 POCT U LEUK EST (test code = 3263) 1+ Negative - Negative POCT U NIT (test code = 3262) pos Negative - Negati ve POCT U PROT (test code = 3259) 1+ Negative - Negat nunu POCT U GLU (test code = 3256) neg Negative - Negati ve POCT U KETONE (test code = 3258) 2+ Negative - Neg ative POCT U BLD (test code = 3257) neg Negative - Negati ve [facility] [id number] 17:51:00* Test Item Value Reference Range Interpretation Comme nts POCT PREG (test code = 1605) Positive On board controls acceptable with C Line (test code = 3574) Yes POCT PREG LOT # (test code = 3575) POCT PREG TEST DATE ( test code = 3576) [facility] URINALYSIS W/O SPECIFIC [id number] 17:51:00* Test Item Value Reference Range Interpretation Comme nts POCT PH U (test code = 3254) 6 mg/dl 5-8 POCT U LEUK EST (test code = 3263) 1+ Negative - Negative POCT U NIT (test code = 3262) pos Negative - Negati ve POCT U PROT (test code = 3259) 1+ Negative - Negat nunu POCT U GLU (test code = 3256) neg Negative - Negati ve POCT U KETONE (test code = 3258) 2+ Negative - Neg ative POCT U BLD (test code = 3257) neg Negative - Negati ve [facility] AustinRPR (MONITOR)$W/REFL [id number] 20:00:00* Test Item Value Reference Range Interpretation Comme nts RPR (MONITOR)$W/REF L TITER-Q (test code = 00205-7) NON-REACTIVE NON-REACTI REPORT COMMENT:FASTING:NO DARREL (test code = DARREL) PERFORMED BY [employer] [place]; [address] [place] [address]; MALLORIE HERNANDEZ MD [facility] URINALYS[facility] W SPECIFIC [id number] 14:21:00* Test Item Value Reference Range Interpretation Comme nts POCT U SP GRAV (test code = 3255) 1.015 mg/dl 1.005-1.025 POCT PH U (test code = 3254) 7 mg/dl 5-8 POCT U LEUK EST (test code = 3263) negative Negative - Negative POCT U NIT (test code = 3262) negative Negative - Negati ve POCT U PROT (test code = 3259) negative Negative - Negative POCT U GLU (test code = 3256) negative Negative - Negati ve POCT U KETONE (test code = 3258) negative Negative - Negative POCT U UROBILI (test code = 3260) negative 0.2-1 POCT U BILI (test code = 3261) negative Negative - Negative POCT U BLD (test code = 3257) negative Negative - Negati ve POCT U COLOR (test code = 3266) POCT U APPEAR (test code = 3267) Lab Interpretation (test cod e = 95766-7) Normal [facility] [id number] 14:20:00* Test Item Value Reference Range Interpretation Comme nts POCT PREG (test code = 1605) Negative On board controls acceptable with C Line (test code = 3574) Yes POCT PREG LOT # (test code = 3575) POCT PREG TEST DATE ( test code = 3576) Lab Interpretation (test cod e = 80729-8) Normal [facility] Notes Date/Time Note Provider Source 2023-08-12 16:10:00 8il5BLpgIpejjb4tmfTJ ibmI5bZ7b9K lBghL7VwmxXsBkmPkfDo9RFlfeb/pJa KJ4499-78-48P53:10:00 Regarding: have contraction and they are intense/feels like cramping with pressure and pain in lower back----- Message from Keisha Calvert sent at 08/12/2023 4:09 PM CDT -----Pilar Cuba is a 23 year old female calling having contraction getting more intense / feels like cramping with pressure and lower back pain x 2 hrs 32534-4Eunexbkpo encounter MudtCD6456-99-79Z66:10:13Teleph one encounter NoteTXT1.2.840.354924.1.13.104. 2.7.2.575952|[id number] ble for patient yamr33482-5HpuqMXMXRGEFIYJXgeyq tted C-CDA narrative [id number] T Ross [facility] - [address] LgygUrntzehdrYaeawzkjqOJOT72998 41454WEVRMWOAZWZIHDYTRGHCIE9994 -03-18T16:10:131.2.840.868044.1 .72.3.15|1.2.840.256778.1.13.10 4.2.7.2.727879_[id number] Javy Neal RN [facility] 2023-08-12 16:10:00 rziYYREMZyh7VhZi2Vgy /CPeHSIfQ3k Ex32DLsIzstmy4rXRcxilY4azGoYK3P ZP6024-38-56V36:10:00 Triage AssessmentLast Clinic Visit: 08/07/2023 routine prenatalPrimary Symptom: contractionsOnset / Duration: 2 hours ago, persistentLocation / Description: "javier bell", lower back and stomachPain / Severity: 7 out of 10Associated Symptoms: brown discharge when wiping r8Ffuui / Method: deniesHydration: last void 10 min ago, total fluid intake today 2 30ml of waterTreatment so far: took a showerEffect on ADL's: someGestational Weeks: 26 weeks 6 daysRupture Membranes: deniesBleeding / Spotting / Pads per hour: brown when wipingFetal Movement: last movement within last hourPara / : EDC: 11/12/2023re-existing condition / Immunocompromised: asthma, multiparity, anxietyReason for Disposition[1] Contractions AND [2] any vaginal bleeding (including: red blood, clots, spotting, or pink/brown mucous)Protocols used: - Labor - Iaojeyf-UKSBY-KDTcncq Note: after assessment, pt was instructed per protocol to go to L&D. Closest hospital is acceptable however may be transferred to [facility]. If driving to [place], enter through ER. Pt states she does not have a ride, this RN let pt know EMS could assist with getting her to hospital. Pt verbalized understanding and states "I will figure it out."[facility] [place] [address]-8Mexkejiaf encounter OubvBL2438-19-81Y65:34:23Teleph one encounter NoteTXT1.2.840.413439.1.13.104. 2.7.2.225099|[id number] ble for patient mlpw48929-9BgtuVSJGSMDKEQORrreo tted C-CDA narrative [address] XzkrGnkxtinszGmztwvaabMCZA24413 94207EMTUVJDEXZIUYMGIYOZSOP5952 -03-18T16:34:231.2.840.042334.1 .72.3.15|1.2.840.165078.1.13.10 4.2.7.2.727879_[id number] [facility] 2023-08-08 14:43:08 WyjgLuCstgOcWy+4iaIw IE1iLauGJ61 7oZ7j56S48NDHXAHGH+t5zNOlQqVkG9 U69221-04-78E26:43:08 Patient informed of results and need for 3 hr gtt. Lab appt made for 08/14, informed to be fasting, verbalized understanding. 21211-5Swwpdbnpj encounter WbphHZ9059-63-59Q19:46:41Teleph one encounter NoteTXT1.2.840.105939.1.13.104. 2.7.2.492741|[id number] ble for patient rufg46953-7MjfoZRXMOIEJOFFVrbbv tted C-CDA narrative [id number] Garcia [address]Gal[place]on[place]on[place] 69652HHPNJQVRZHXBCYFFRDIVMV6998 -03-14T14:46:411.2.840.649827.1 .72.3.15|1.2.840.069598.1.13.10 4.2.7.2.727879_[id number] Heidy Taylor [facility] 2023-08-08 08:14:02 CEhjRN7IRHQWZgHn4C3H 5EG3Zk1q66f Nuxq0AaxVS+bbRC22poz2ta+dXXAh8c Gv5167-05-89B43:14:02 Called pt, no answer. Left vm.Marissa Harper RN 08/08/23 8:14 AM 15237-0Puzmbhlww encounter NrlsZX5022-36-59G84:14:50Teleph one encounter NoteTXT1.2.840.698552.1.13.104. 2.7.2.354527|[id number] ble for patient xucw57448-7MusnHIOAWTPUVJRIliee tted C-CDA narrative text[address] 52347HFEHSZOUOUIGZERPXOBDEB6027 -03-14T08:14:501.2.840.982840.1 .72.3.15|1.2.840.905588.1.13.10 4.2.7.2.727879_[id number] [facility] 2023-08-08 07:54:55 Q+k3AJo27Frf+qPCxut/ 2j1+gfwHovT OYsRpUW3CeTg2z1qf+SwMYes1BUj3tI sl3470-24-77E78:54:55 Please call patient and set up 3 hour GTT and let her know I erx integra plus iron supplement for anemia. 82972-2Pvvljiqlw encounter NnhgFI1985-94-10S37:58:01Teleph one encounter NoteTXT1.2.840.087887.1.13.104. 2.7.2.860205|[id number] ble for patient gmnh26699-5UlkdYQBKLPKFTNNEjnpj tted C-CDA narrative textUT[address] MjndDtvgqdmruIikoyckwmDRMC[address] 97825QAKJNZQPOVYXCPWCSJPLAU9578 -03-14T07:58:011.2.840.440407.1 .72.3.15|1.2.840.637242.1.13.10 4.2.7.2.727879_[id number] [facility]
[2023-08-12 19:58] LABS: Specific Gravity 1.029 (1.005-1.030); Urine Bacteria <20 /HPF (<20); Urine Bilirubin NEGATIVE (Negative); Urine Blood Negative (Negative); Urine Clarity Extremely Turbid (Clear); Urine Color Yellow (Yellow); Urine Culture Reflex Order REFLEXED; Urine Glucose NEGATIVE (Negative); Urine Ketones NEGATIVE (Negative); Urine Microscopic Reflex YN ORDER UMIC; Urine Mucus 1+ /HPF (None Seen); Urine Nitrite NEGATIVE (Negative); Urine Protein 1+ (Negative); Urine RBC 21-50 /HPF (None Seen); Urine Urobilinogen 1+ (Normal); Urine WBC 20-50 /HPF (<5); Urine Yeast (Budding) Occasional /HPF (None Seen)
[2023-08-12 20:03] LABS: Absolute Lymphocytes (CBC) 1.9 K/uL (0.7-4.9); Absolute Monocytes 0.9 K/uL (0.1-1.3); Absolute Neutrophil 6.8 K/uL (1.8-8.0); Basophils % 0.1 % (0-1.3); Eosinophils % 0.3 % (0-4.4); Hematocrit 28.5 % (36.0-45.0); Hemoglobin 9.2 g/dL (12.0-15.0); Lymphocytes % 19.7 % (15.3-44.8); MCH 23.9 pg (27.0-35.0); MCHC 32.3 g/dL (32.0-36.0); MCV 74.1 fL (80-100); MPV 8.4 fL (7.6-11.3); Monocytes % 9.1 % (3.3-12.3); Neutrophils % 70.8 % (41.7-73.7); Nucleated Red Blood Cells % 0.1 % (0-0); Platelets 313 thou/uL (152-406); RBC Red Blood Cell Count 3.85 M/uL (3.86-4.86); Red Cell Distribution Width 15.7 % (12.1-15.2)
[2023-08-12 20:04] LABS: Specific Gravity 1.029 (1.005-1.030)
[2023-08-12 20:38] LABS: Anion Gap 8.8 mEq/L (5.0-15.0); Potassium 3.8 mEq/L (3.5-5.1)
--- NOTE | 2023-08-12 21:01 | RAD REPORT ---
EXAM DESCRIPTION: US - OB Limited - 08/12/2023 8:21 pm CLINICAL HISTORY: Abd cramping, ;Vaginal bleeding COMPARISON: Matter Eval Tm 1 dated 04/11/2020 TECHNIQUE: Sonographic grayscale and color flow images of a first-trimester were obtained through transvaginal and transabdominal approach. FINDINGS: A single live intrauterine is identified. Fetus is in transverse presentation. P lacenta is formed anteriorly. Cervical canal is closed. Femur length measures 47 millimeters, corresponding to gestational age of 25 weeks, 5 days. heart rate: 139 BPM Maternal ovaries are not visualized. No free fluid. IMPRESSION: 1. Single live intrauterine . 2. Calculated gestational age: 25 weeks, 5 days. Estimated due date by ultrasound: 11/20/2023.
--- NOTE | 2023-08-12 21:22 | EDPHYS ---
Physician Documentation [facility] Name: Pilar Cuba Age: 23 yrs Sex: Female : 2000 Arrival Date: 08/12/2023 Time: 18:59 Bed 1 Private MD: ED Physician Luciano Sanchez HPI: 08/11 19:25 This 23 yrs old Black Female presents to ER via Ambulatory with complaints of 27 Weeks cp Contractions. 19:25 The patient presents to the emergency department with possible uterine contractions, cp today, about 1600, abdominal pain, of the lower abdomen, vaginal bleeding, described as spotting. The estimated gestational age is 27 weeks. course: care: private OB physician, Leakage of Fluid: none appreciated, Risk/complications: premature labor. Associated signs and symptoms: Pertinent negatives: chest pain, fever, nausea, vomiting. MANAGER CHEMICAL: 19:25 2, Premature 1, Living 1, Verified cp 19:57 2, Premature 1, Living 1, Verified cm10 Historical: - Allergies: 19:24 Albuterol; ph - PMHx: 19:24 Anemia; ph - PSHx: 19:24 section; ph - Immunization history:: Adult Immunizations up to date. - Social history:: Smoking status: Patient denies any tobacco usage or history of. ROS: 19:30 Constitutional: Negative for body aches, chills, fever, poor PO intake, cp 19:30 Eyes: Negative for injury, pain, redness, and discharge, cp 19:30 Respiratory: Negative for cough, shortness of breath, wheezing, 19:30 Abdomen/GI: Positive for abdominal contractions, 19:30 Back: Negative for pain at rest, pain with movement, 19:30 : Positive for vaginal bleeding, Negative for urinary symptoms, 19:30 Cardiovascular: Negative for chest pain, edema, cp 19:30 Neuro: Negative for altered mental status, dizziness, headache, weakness, 19:30 All other systems are negative, Exam: 19:35 Constitutional: The patient appears in no acute distress, alert, awake, non-toxic, well cp developed, well nourished, 19:35 Head/Face: Normocephalic, atraumatic. cp 19:35 Eyes: Periorbital structures: appear normal, Conjunctiva: normal, no exudate, no injection, Sclera: no appreciated abnormality, Lids and lashes: appear normal, bilaterally, 19:35 ENT: External ear(s): are unremarkable, Nose: is normal, Mouth: Lips: moist, Oral mucosa: pink and intact, moist, Posterior pharynx: is normal, airway is patent, no erythema, no exudate, 19:35 Chest/axilla: Inspection: normal, 19:35 Cardiovascular: Rate: tachycardic, Rhythm: regular, Edema: is not appreciated, JVD: is not appreciated, 19:35 Respiratory: the patient does not display signs of respiratory distress, Respirations: normal, no use of accessory muscles, no retractions, labored breathing, is not present, Breath sounds: are clear throughout, no decreased breath sounds, no stridor, no wheezing, 19:35 Abdomen/GI: Inspection: gravid appearance, is noted, Bowel sounds: active, all quadrants, Palpation: soft, in all quadrants, mild abdominal tenderness, in the right lower quadrant and left lower quadrant, rebound tenderness, is not appreciated, involuntary guarding, is not appreciated, 19:35 Back: CVA tenderness, is absent, 19:35 : Pelvic Exam: External exam: is normal, bimanual exam reveals no cervical motion tenderness, os that is closed, gravid uterus, discharge, white, the nurse was present for the exam, 19:35 Neuro: Orientation: to person, place \T\ time. Mentation: is normal, Motor: moves all fours, strength is normal, Vital Signs: 19:21 BP 137 / 83; Pulse 102; Resp 18; Temp 98; Pulse Ox 98% on R/A; Weight 70.76 kg; Height ph 5 ft. 8 in. ; 21:42 BP 127 / 85; Pulse 102; Resp 18; Pulse Ox 99% on R/A; cm10 22:53 BP 118 / 69; Pulse 89; Resp 18; Pulse Ox 99% on R/A; cm10 19:21 Body Mass Index 23.72 (70.76 kg, 172.72 cm) ph MDM: 19:14 Patient medically screened. cp 21:10 Data reviewed: vital signs, nurses notes, lab test result(s), radiologic studies, cp ultrasound. 21:10 Differential diagnosis: Beckham bell, delivery of , threatened Ab, inevitable cp Ab. I considered the following discharge prescriptions or medication management in the emergency department Medications were administered in the Emergency Department. See MAR. Counseling: I had a detailed discussion with the patient and/or guardian regarding the historical points, exam findings, and any diagnostic results supporting the discharge/admit diagnosis, lab results, radiology results, the need to transfer to another facility, [facility] does not immediately have the required specialist. Response to treatment: the patient's symptoms have mildly improved after treatment. 21:40 ED course: consult with DR Wilkinson, MANAGER CHEMICAL \T\[facility], will accept patient as cp transfer. 08/11 19:20 Order name: Abo/rh Typing; Complete Time: 20:49 08/11 20:50 Interpretation: ABO/RH TYPE <p>O POSITIVE</p>; Reviewed. 08/11 19:20 Order name: Basic Metabolic Panel; Complete Time: 20:49 08/11 20:49 Interpretation: Normal except: CL 110; GLUC 71. 08/11 19:20 Order name: CBC with Diff; Complete Time: 20:49 08/11 20:49 Interpretation: Normal except: RBC 3.85; HGB 9.2; HCT 28.5; MCV 74.1; MCH 23.9; RDW cp 15.7. 08/11 19:20 Order name: Test, Urine; Complete Time: 20:49 08/11 19:20 Order name: Quantitative Hcg; Complete Time: 20:49 08/11 20:49 Interpretation: HCGQ 1921; Reviewed. 08/11 19:20 Order name: Urinalysis w/ reflexes; Complete Time: 20:49 08/11 20:50 Interpretation: Normal except: [facility] Extremely Turbid; UPROT 1+; UUROB 1+; UESTR 500; cp UWBC 20-50; URBC 21-50; BYST Occasional. 08/11 20:05 Order name: Urine Culture EDCO 08/11 19:20 Order name: US OB Limited; Complete Time: 21:02 08/11 21:03 Interpretation: Report reviewed. 08/11 20:24 Order name: TRANSVAG OB CERVIX ASSESSMENT EDCO 08/11 19:20 Order name: IV Saline Lock; Complete Time: 19:36 08/11 19:20 Order name: Labs collected and sent; Complete Time: 19:36 cp 08/11 19:20 Order name: NPO; Complete Time: 19:36 cp 08/11 19:20 Order name: Pelvic Exam Setup; Complete Time: 19:53 cp Administered Medications: 19:53 Drug: NS 0.9% IV 1000 ml IV at 500 ml/hr Per protocol Route: IV; Rate: 500 ml/hr; Site: cm10 left antecubital; 21:24 Follow up: Response: No adverse reaction; IV Status: Completed infusion; IV Intake: cm10 1000ml 19:53 Drug: Acetaminophen PO 650 mg PO once Route: PO; cm10 20:37 Follow up: Response: No adverse reaction cm10 21:52 Drug: Dicyclomine IM 20 mg IM once Route: IM; Site: right deltoid; rv 22:56 Follow up: Response: No adverse reaction cm10 Disposition Summary: 08/12/23 21:22 Transfer Ordered Notes: [facility] Reason: Higher level of care cp Condition: Stable cp Problem: new cp Symptoms: have improved cp Accepting Physician: DR Wilkinson(08/12/23 22:58) cm10 Diagnosis - related conditions, unspecified, second trimester - abdominal contractionscp Forms: - Medication Reconciliation Form cp - SBAR form cp Signatures: Dispatcher [employer] Belia Bass, RN RN Luciano Perez PA PA cp Dirk Moncada RN RN rv Martinez, Clarissa RN RN cm10 Corrections: (The following items were deleted from the chart) 21:39 21:22 Doctor cp cp 22:58 21:39 DR Wilkinson cp cm10
--- NOTE | 2023-08-12 21:22 | ER ---
Nurse's Notes [facility] Name: Pilar Cuba Age: 23 yrs Sex: Female : 2000 Arrival Date: 08/12/2023 Time: 18:59 Bed 1 Private MD: Diagnosis: related conditions, unspecified, second trimester-abdominal contractions Presentation: 08/11 19:21 Chief complaint: Patient states: 27 weeks w/ second , began having ph contraction-like pains at 4 pm today, radiating from stomach to back, also reports vaginal spotting, 1st was a pre-term delivery. Coronavirus screen: Vaccine status: Patient reports receiving the 2nd dose of the covid vaccine. Ebola Screen: No symptoms or risks identified at this time. Initial Sepsis Screen: Does the patient meet any 2 criteria? No. Patient's initial sepsis screen is negative. Does the patient have a suspected source of infection? No. Patient's initial sepsis screen is negative. Risk Assessment: Do you want to hurt yourself or someone else? Patient reports no desire to harm self or others. Onset of symptoms was August 12, 2023. 19:21 Method Of Arrival: Ambulatory 19:21 Acuity: RENALDO 2 ph Triage Assessment: 19:24 General: Appears in no apparent distress. comfortable, well groomed, Behavior is calm, ph cooperative, appropriate for age. Pain: Complains of pain in abdomen. Neuro: Level of Consciousness is awake, alert, obeys commands, Oriented to person, place, time, situation. : Reports vaginal bleeding that is brown, spotty. CRAFT CENTER DIRECTOR: 19:25 2, Premature 1, Living 1, Verified cp 19:57 2, Premature 1, Living 1, Verified cm10 Historical: - Allergies: 19:24 Albuterol; ph - PMHx: 19:24 Anemia; ph - PSHx: 19:24 section; ph - Immunization history:: Adult Immunizations up to date. - Social history:: Smoking status: Patient denies any tobacco usage or history of. Screenin:54 [facility] ED Fall Risk Assessment (Adult) History of falling in the last 3 months, cm10 including since admission No falls in past 3 months (0 pts) Confusion or Disorientation No (0 pts) Intoxicated or Sedated No (0 pts) Impaired Gait No (0 pts) Mobility Assist Device Used No (0 pt) Altered Elimination No (0 pt) Score/Fall Risk Level 0 - 2 = Low Risk Oriented to surroundings, Maintained a safe environment, Hourly rounding (assess needs \T\ fall precautionary measures) done. 22:58 Abuse screen: Denies threats or abuse. Denies injuries from another. Nutritional cm10 screening: No deficits noted. Tuberculosis screening: No symptoms or risk factors identified. Assessment: 19:54 Obstetrical Assessment: General assessment: awake and alert, Rupture of membranes not cm10 noted. Patient reports abdominal cramping, Abdominal pain, back pain. General: Appears in no apparent distress. comfortable, Behavior is calm, cooperative. Pain: Complains of pain in abdomen Pain does not radiate. Neuro: No deficits noted. Level of Consciousness is awake, alert, obeys commands, Oriented to person, place, time, situation. Cardiovascular: No deficits noted. Patient's skin is warm and dry. Respiratory: No deficits noted. Airway is patent Respiratory effort is even, unlabored, Respiratory pattern is regular, agonal. Musculoskeletal: No deficits noted. Range of motion: intact in all extremities. 19:57 : Reports vaginal bleeding that is spotty. cm10 21:24 Reassessment: Pt reports that she continues to have increased pain. Provider made aware.cm10 Vital Signs: 19:21 BP 137 / 83; Pulse 102; Resp 18; Temp 98; Pulse Ox 98% on R/A; Weight 70.76 kg; Height ph 5 ft. 8 in. ; 21:42 BP 127 / 85; Pulse 102; Resp 18; Pulse Ox 99% on R/A; cm10 22:53 BP 118 / 69; Pulse 89; Resp 18; Pulse Ox 99% on R/A; cm10 19:21 Body Mass Index 23.72 (70.76 kg, 172.72 cm) ph Vitals: 20:17 Heart Tones 138 BPM via ultrasound. cm10 ED Course: 19:01 Patient arrived in ED. rg4 19:08 Luciano Barba PA is PHCP. cp 19:08 Luiz Rene MD is Attending Physician. cp 19:24 Triage completed. ph 19:25 Arm band placed on Patient placed in an exam room, on a stretcher. ph 19:32 Gretchen De La Rosa RN is Primary Nurse. cm10 19:45 Test, Urine Sent. oe 19:46 Urinalysis w/ reflexes Sent. oe 19:46 Urine collected: clean catch specimen, alina colored. oe 19:53 Abo/rh Typing Sent. cm10 19:53 Basic Metabolic Panel Sent. cm10 19:53 CBC with Diff Sent. cm10 19:53 Quantitative Hcg Sent. cm10 19:53 Initial lab(s) drawn, by hi, sent to lab. Inserted saline lock: 18 gauge in left cm10 antecubital area, using aseptic technique. Blood collected. 20:16 initiated transfer with faith burgos at [facility]. kmf 20:23 US OB Limited In Process Unspecified. EDMS 20:24 TRANSVAG OB CERVIX ASSESSMENT In Process Unspecified. EDMS 20:36 Assist provider with pelvic exam: Set up pelvic tray. Performed by Luciano LOERA cm10 Patient tolerated well. 20:37 Patient has correct armband on for positive identification. Placed in gown. Bed in low cm10 position. Call light in reach. Provided Education on: ER process and procedures.. 21:02 Luciano Sanchez MD is Attending Physician. cp 21:43 pt accepted to [facility], by Rosalee Juanis \T\ 214. Admin approval given by [facility] Faith Burgos \T\ 214. Pt will go to [facility] to L \T\ D triage. Number for Nurse to nurse [phone]. 22:03 Report given to WERNER Bernal at [facility] L\T\D. 10 22:56 Report given to Aga with [facility] who assumes care of patient. Pt leaving 10 A\T\Ox4, respirations even and unlabored. Pt reports that her pain is improved but continues having pressure. 22:56 Patient transferred, IV remains in place. cm10 Administered Medications: 19:53 Drug: NS 0.9% IV 1000 ml IV at 500 ml/hr Per protocol Route: IV; Rate: 500 ml/hr; Site: cm10 left antecubital; 21:24 Follow up: Response: No adverse reaction; IV Status: Completed infusion; IV Intake: cm10 1000ml 19:53 Drug: Acetaminophen PO 650 mg PO once Route: PO; cm10 20:37 Follow up: Response: No adverse reaction cm10 21:52 Drug: Dicyclomine IM 20 mg IM once Route: IM; Site: right deltoid; rv 22:56 Follow up: Response: No adverse reaction cm10 Medication: 19:56 VIS not applicable for this client. cm10 Intake: 21:24 IV: 1000ml; Total: 1000ml. cm10 Outcome: 21:22 ER care complete, transfer ordered by . cp 22:57 Transferred by ground EMS [place] . to [facility], cm10 Transfer form completed. 22:57 Condition: good 22:57 Instructed on the need for transfer, 22:58 Patient left the ED. cm10 Signatures: Dispatcher [employer] EDMS Belia Vilchis RN RN Luciano Perez PA PA Mary Witt rg4 Burak Alonso Ronaldo, RN RN Gretchen De La Rosa RN RN 10 Codie Scott [facility] Corrections: (The following items were deleted from the chart) 19:54 19:37 Inserted saline lock: 20 gauge in left forearm, using aseptic technique. Blood cm10 collected. rv 08/12 03:52 [facility]
[2023-08-12 23:44] VITALS: BP 118/69; TEMP 98; O2SAT 99
--- NOTE | 2023-08-13 15:53 | RAD REPORT ---
EXAM DESCRIPTION: US - TRANSVAG OB CERVIX ASSESSMENT - 08/12/2023 8:22 pm CLINICAL HISTORY: pain Pain and swelling COMPARISON: OB Limited dated 08/12/2023 FINDINGS: Transvaginal assessment of the cervix was performed. The cervix appears long and closed. S everal nabothian cysts are present.
== END ==
LOC: ER 18:59
DX: O47.02 False labor before 37 completed weeks of gestation, second trimester (principal); Z3A.27 27 weeks gestation of pregnancy; Z88.8 Allergy status to other drugs, medicaments and biological substances
CPT/HCPCS: 96361; 87088; 85025; 81001; 87086; 80048; 36415; 86900; 81025; 86901; 84702; 76815; 76817; 96360; 96372; 99285; J0500; J7030

== ENCOUNTER 2025-02-16 19:51 | Emergency (ER) | payer OTHER ==
--- OUTSIDE RECORDS SUMMARY | 2025-02-16 20:04 | XMS REPORT | Continuity of Care Document ---
Author Name Unknown Address [address] [facility] [address] [place] [address] [facility] Address [address] [place] [address] Care Team Providers Care Sample Display Preparer Name Role Phone REMINGTON RUBIO Primary Care Physician UnavailKRISSY Petersen Attending Clinician Unavailable CARMEN POWELL Attending Clinician Unavailable CARMEN POWELL Attending Clinician Unavailable Carmen Powell MD Attending Clinician [phone] Krissy Bahena DNP Attending Clinician [phone] Doctor Unassigned, Orlinda Attending Clinician U JOAQUINA Sierra Attending Clinician Unavaila DISHA Delarosa Attending Clinician Unavail able Joaquina Shoemaker CNM Attending Clinician [phone] TERESA ARREAGA Attending Clinician Unavailable Doctor Unassigned, Orlinda Attending Clinician U ARYAN Dumas Attending Clinician Unavail able BRENT WILKERSON Attending Clinician Unavailable ARYAN GAMEZ Attending Clinician Unavail able MACHO CHAU Attending Clinician Unavaila Oliva Seals Attending Clinician Disha Curran Attending Clinician + AMBER CORDOVA Attending Clinician Unav ailable Ultrasound, Aissatouyecenia Attending Clinician Unavailmaría Cordova MD, Amber Robles Attending Clinician + Ángel CALDERA, Javy Delacruz Attending Clinician Unavaila [facility] Attending Clinician Unavailable Minh SPANN, Bucky Ventura Attending Clinician [phone] BUCKY WILKINSON Attending Clinician Unavaila HASEEB Morgan Attending Clinician Unavailable HASEEB PAYTON Attending Clinician Unavailable Haseeb Payton MD Attending Clinician [phone] Frances Karena CAMACHO Attending Clinician [phone] PAULY GONZALEZ Attending Clinician Unav ailable Dez Landry MD, Pauly Attending Clinician + KARENA DANIELS Attending Clinician Unavailable Risk, Kev-Ycuka-Zw/High Attending Clinician Unav ailable Brent Wilkerson MD Attending Clinician [phone] LISBET CORBETT Attending Clinician Unavaila LISBET Vieyra Attending Clinician Unavaila Madelaine Tellez MA Attending Clinician UnavailJeanie Trujillo PA-C Attending Clinician [phone] Visit, [facility] Nurse Attending Clinician Unava ilable ARIN GARY Attending Clinician UnavailColby Harkins MD Attending Clinician [phone] Raghav Prajapati MD Attending Clinician + [phone] Arin Colvin Attending Clinician + [phone] Ryan Mckeon DO Attending Clinician [phone] Ramses Vogt MD Attending Clinician + [phone] Edvin Gould MD Attending Clinician + [phone] Radha Vincent RN, Jeanie Attending Clinician Unavailable Noelle Savage Attending Clinician Unavailscooby Mariscal MD, Hector Weems Attending Clinician [phone] MARCELINO MICHELE Attending Clinician Unavailabl e 2, [facility] Attending Clinician Unavaila HECTOR Chirinos Attending Clinician Unavailable Provider, [facility] Attending Clinician Un available EDVIN GOULD Attending Clinician Unavailable EDVIN GOULD Attending Clinician Unavailable 5, [facility] Attending Clinician Unavaila ruddy Short MD, Deidra Mera Attending Clinician [phone] Michael Hanna MD Attending Clinician [phone] BUCKY WILKINSON Admitting Clinician Unavaila ruddy PAYTON, HASEEB Admitting Clinician Unavailable EDVIN GOULD Admitting Clinician Unavailable ARYAN GAMEZ Admitting Clinician Unavail able Minh SPANN, Bucky Ventura Admitting Clinician Raghav Prajapati MD Admitting Clinician [phone] Fito SPANN, Haseeb Admitting Clinician [phone] Edvin Gould MD Admitting Clinician [phone] Payers Payer Name Policy Type Policy Number Effective Date Expirati on Date Source [facility] [id number] 2023 00:00:00 [employer] [place] [employer] [place] [id number] 2017 00:00:00 2025 00:00:00 [facility] STAR [id number] 2023 00:00:00 MEDICAID [facility] [id number] 2014 00:00:00 2016 00:00:00 Problems Condition Name Condition Details Condition Category Status Onset Date Resolution Date Last Treatment Date Treating Clinician Comments Source Multiparit y Multiparit y Disease Active 2022-05 00:00: 00 [facility] History of delivery History of delivery Disease Active 2022-05 00:00: 00 Overview: Formattin g of this note might be different from the original. 34,4 see chart review [facility] Fibular hemimelia, unspecifie d laterality Fibular hemimelia, unspecifie d laterality Disease Active 2022-05 00:00: 00 Overview: Formattin g of this note might be different from the original. 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 Never been dx [facility] Asthma Asthma Disease Active 2019-05 2- 00:00: 00 [facility] Anemia, unspecifie d type Anemia, unspecifie d type Disease Active 02-13 00:00: 00 [facility] GBS (group B Streptococ cus carrier), +RV culture, currently GBS (group B Streptococ cus carrier), +RV culture, currently Disease Resolve d 2023-0 5-08 00:00: 00 2024-07-20 00:00:00 2024-07-20 16:56:07 [facility] Abnormal maternal glucose tolerance, antepartum Abnormal maternal glucose tolerance, antepartum Disease Resolve d 2023-0 3-14 00:00: 00 2024-07-20 00:00:00 2024-07-20 16:56:05 [facility] Supervisio n of high-risk Supervisio n of high-risk Disease Resolve d 2022-05 0-13 00:00: 00 2024-07-20 00:00:00 2024-07-20 16:55:57 [facility] History of prior with IUGR History of prior with IUGR Disease Resolve d 2022-05 0-13 00:00: 00 2024-07-20 00:00:00 2024-07-20 16:56:02 [facility] Cyst of Bartholin' s gland Cyst of Bartholin' s gland Disease Resolve d 2022-0 5-12 00:00: 00 2024-07-20 00:00:00 2024-07-20 16:55:51 [facility] Previous delivery affecting , antepartum Previous delivery affecting , antepartum Disease Resolve d 2020-0 4-14 00:00: 00 2024-07-20 00:00:00 2024-07-20 16:55:55 [facility] Anemia of mother in , antepartum Anemia of mother in , antepartum Disease Resolve d 2020-0 2-23 00:00: 00 2024-07-20 00:00:00 2024-07-20 16:56:14 [facility] Back pain affecting Back pain affecting Disease Resolve d 2023-0 3-13 00:00: 00 2023-10-02 00:00:00 2023-10-02 11:28:35 [facility] 27 weeks gestation of 27 weeks gestation of Disease Resolve d 2023-0 3-19 00:00: 00 2023-10-01 00:00:00 2023-10-01 15:36:37 [facility] Chronic anemia Chronic anemia Disease Resolve d 2015-0 9-20 00:00: 00 2023-03-08 00:00:00 2023-03-08 13:16:19 [facility] Screening examinatio n for STD (sexually transmitte d disease) Screening examinatio n for STD (sexually transmitte d disease) Disease Resolve d 2014-0 2-05 00:00: 00 2023-03-08 00:00:00 2023-03-08 13:16:23 [facility] Vulvar cellulitis Vulvar cellulitis Disease Resolve d 2022-0 2-22 00:00: 00 2022-10-05 00:00:00 2022-10-05 14:31:02 [facility] Depo-Prove ra contracept nunu status Depo-Prove ra contracept nunu status Disease Resolve d 1-14 00:00: 00 2021-10-20 00:00:00 2021-10-20 14:03:43 [facility] 35 weeks gestation of 35 weeks gestation of Disease Resolve d 2020-0 4-10 00:00: 00 2021-06-09 00:00:00 2021-06-09 08:54:56 [facility] Tachycardi a Tachycardi a Disease Resolve d 2020-0 4-10 00:00: 00 2021-06-09 00:00:00 2021-06-09 08:54:58 [facility] Suspected anomaly, antepartum Suspected anomaly, antepartum Disease Resolve d 0 4-10 00:00: 00 2021-06-09 00:00:00 2021-06-09 08:55:00 [facility] contractio ns contractio ns Disease Resolve d 4-10 00:00: 00 2021-06-09 00:00:00 2021-06-09 08:55:27 [facility] Labor and delivery, indication for care Labor and delivery, indication for care Disease Resolve d 4-10 00:00: 00 2021-06-09 00:00:00 2021-06-09 08:55:06 [facility] IUGR (intrauter ine growth restrictio n) affecting care of mother, third trimester, fetus 1 IUGR (intrauter ine growth restrictio n) affecting care of mother, third trimester, fetus 1 Disease Resolve d 4-08 00:00: 00 2021-06-09 00:00:00 2021-06-09 08:55:01 [facility] 20 weeks gestation of 20 weeks gestation of Disease Resolve d 2019-05 2-29 00:00: 00 2021-06-09 00:00:00 2021-06-09 08:55:05 [facility] Dizziness Dizziness Disease Resolve d 2019-05 2-23 00:00: 00 2021-06-09 00:00:00 2021-06-09 08:55:11 [facility] Shortness of breath Shortness of breath Disease Resolve d 2019-05 2-23 00:00: 00 2021-06-09 00:00:00 2021-06-09 08:55:10 [facility] 19 weeks gestation of 19 weeks gestation of Disease Resolve d 2019-05 2-23 00:00: 00 2021-06-09 00:00:00 2021-06-09 08:55:08 [facility] UTI (urinary tract infection) UTI (urinary tract infection) Disease Resolve d 2019-05 2-23 00:00: 00 2021-06-09 00:00:00 2021-06-09 08:55:29 [facility] Supervisio n of high risk in second trimester Supervisio n of high risk in second trimester Disease Resolve d 2019-05 2-08 00:00: 00 2021-06-09 00:00:00 2021-06-09 08:55:18 [facility] Primigravi da in second trimester Primigravi da in second trimester Disease Resolve d 2019-05 208 00:00: 00 2021-06-09 00:00:00 2021-06-09 08:55:14 [facility] Screening for viral disease Screening for viral disease Disease Resolve d 2019-05 208 00:00: 00 2021-06-09 00:00:00 2021-06-09 08:55:15 [facility] Need for prophylact ic vaccinatio n and inoculatio n against influenza Need for prophylact ic vaccinatio n and inoculatio n against influenza Disease Resolve d 2019-05 208 00:00: 00 2021-06-09 00:00:00 2021-06-09 08:55:16 [facility] Need for prophylact ic vaccinatio n and inoculatio n against influenza Need for prophylact ic vaccinatio n and inoculatio n against influenza Disease Resolve d 2019-05 208 00:00: 00 2021-06-09 00:00:00 2021-06-09 08:55:16 [facility] Contracept nunu management Contracept nunu management Disease Resolve d 2016-05 00:00: 00 2021-06-09 00:00:00 2021-06-09 08:55:20 [facility] Nexplanon removal Nexplanon removal Disease Resolve d 2016-05 00:00: 00 2021-06-09 00:00:00 2021-06-09 08:55:19 [facility] Vaginal cyst Vaginal cyst Disease Resolve d 2016-05 0 00:00: 00 2021-06-09 00:00:00 2021-06-09 09:49:57 [facility] Symptoms of depression Symptoms of depression Disease Resolve d 2016-05 00:00: 00 2017-07-23 00:00:00 2017-07-23 09:14:37 [facility] Allergies, Adverse Reactions, Alerts Allergy Name Allergy Type Status Severity Reaction(s) Onset Date Inactive Date Treating Clinician Comments Source Albutero l Propensi ty to adverse reaction s Active Palpitations 2019-05 00:00: 00 [facility] ALBUTERO L DRUG INGREDI Active Med Palpitations 2019-05 00:00: 00 [facility] Family History Family Member Diagnosis Comments Start Date Stop Date Sourc e [facility] Natural father High cholesterol [facility] Natural [facility] Hy[facility]aternal grandfather [facility] Maternal grandmother [facility] Natural mother Asthma Unive [facility] Paternal grandfather [facility] Paternal grandmother Arthritis [facility] Paternal grandmother Asthma [facility] Paternal grandmother Depression [facility] Paternal grandmother High cholesterol [facility] Paternal grandmother Hypertension [facility] Natural sister Asthma Unive [facility] Social History Social Habit Start Date Stop Date Quantity Comments Source ASSERTION 2023-02-19 00:00:00 Not [facility] Alcoholic beverage intake 2024-10-22 00:00:00 2024-10-22 00:00:00 Ex-drinker (finding) [facility] Alcohol Comment 2024-07-20 00:00:00 2024-07-20 00:00:00 occasional [facility] Alcohol intake 2023-08-07 00:00:00 2023-08-07 00:00:00 Current non-drinker of alcohol (finding) [facility] Exposure to SARS-CoV-2 (event) 2022-09-25 00:00:00 2022-10-05 10:20:00 Not sure [facility] Tobacco use and exposure 2021-12-15 00:00:00 2021-12-15 00:00:00 Smokeless tobacco non-user [facility] History of Social function 2021-06-09 00:00:00 2021-06-09 00:00:00 [facility] Sex assigned at 2000 00:00:00 2000 00:00:00 [facility] Smoking Status Start Date Stop Date Source Never smoked tobacco [facility] Medications Ordered Medication Name Filled Medication Name Start Date Stop Date Current Medication? Ordering Clinician Indication Dosage Frequency Signature (SIG) Comments Components Source busPIRone 10 mg tablet - 00:00: 00 Yes [id number] 10mg Take 1 tablet by mouth in the morning and 1 tablet in the evening. [facility] metroNIDAZO LE 500 mg tablet 07-22 00:00: 00 07-30 05:59 :00 No [id number] 500mg Take 1 tablet by mouth in the morning and 1 tablet in the evening. Do all this for 7 days. [facility] norelgestro min-ethinyl estradiol (XULANE) 150-35 mcg/24 hr patch - 00:00: 00 Yes [id number] 1{patch } Apply 1 Patch to skin weekly. [facility] Breast Pump Pretty 6-11 00:00: 00 07-20 00:00 :00 No [id number] Use as directed [facility] metroNIDAZO LE 500 mg tablet 5-07 00:00: 00 10-08 04:59 :00 No [id number] 500mg Take 1 tablet by mouth in the morning and 1 tablet in the evening. Do all this for 7 days. [facility] lactated ringers IV infusion 500 mL 08-12 07:16: 00 08-12 07:40 :00 No 500mL at 999 mL/hr, 500 mL, Intravenou s, ONCE, 1 dose, On Sat08/13/23 at 0230, Routine [facility] fluconazole (DIFLUCAN) tablet 150 mg 08-12 06:00: 00 08-12 06:04 :00 No 150mg 150 mg, Oral, ONCE, 1 dose, On Sat08/13/23 at 0100, TOMMIE
Re ason for Anti-Infec tive: Documented Infection< br>Documen osman Infection Site: Pelvic
Duration of Therapy: Other (see Comments) [facility] SERTraline 25 mg tablet 08-12 00:00: 00 10-21 00:00 :00 No [id number] 25mg Take 1 tablet by mouth in the morning. [facility] Iron Fum & P-FA-Vit B & C No.9 (INTEGRA PLUS) 125 mg iron- 1 mg Cap 08-07 00:00: 00 10-21 00:00 :00 No [id number] 1{capsu le} Take 1 capsule by mouth in the morning. [facility] loratadine (CLARITIN) 10 mg tablet 07-10 00:00: 00 10-21 00:00 :00 No [id number] 10mg Take 1 tablet by mouth in the morning. [facility] THRIVITE RX tablet 2022-05- 00:00: 00 10-21 00:00 :00 No [facility] loratadine (CLARITIN) 10 mg tablet 2022-05 1-15 00:00: 00 07-10 00:00 :00 No [id number] 10mg Take 1 tablet by mouth in the morning for 120 days. [facility] ytd03-ubin- folic acid 29 mg iron- 1 mg per tablet 2022-05 0-13 00:00: 00 10-21 00:00 :00 No [id number] 1{tbl} Take 1 tablet by mouth in the morning. [facility] metroNIDAZO LE (FLAGYL) 500 mg tablet 5-14 00:00: 00 10-15 04:59 :00 No [id number] 500mg Take 1 tablet by mouth in the morning and 1 tablet in the evening. Do all this for 7 days. [facility] sulfamethox azole-trime thoprim (BACTRIM DS) 800-160 mg per tablet - 00:00: 00 07-29 05:59 :00 No [id number] 1{tbl} Take 1 tablet by mouth in the morning and 1 tablet in the evening. Do all this for 10 days. [facility] metroNIDAZO LE 500 mg tablet 12-19 00:00: 00 10-05 00:00 :00 No [id number] 500mg Take 1 tablet by mouth every 12 (twelve) hours. [facility] No known medications 12-15 09:38: 46 No No known medication s [facility] foLIC acid 1 mg tablet 09-06 00:00: 00 06-09 00:00 :00 No [id number] 1mg Take 1 tablet by mouth daily. [facility] docusate calcium 240 mg capsule 09-06 00:00: 00 06-09 00:00 :00 No [id number] 240mg Take 1 capsule by mouth once daily as needed for Constipati on. [facility] vitamin w/FA tablet 09-06 00:00: 00 06-09 00:00 :00 No [id number] 1{tbl} Take 1 tablet by mouth daily. [facility] ibuprofen 600 mg tablet 09-06 00:00: 00 06-09 00:00 :00 No [id number] 600mg Take 1 tablet by mouth every 6 (six) hours as needed (Pain). Take with food or milk. [facility] ferrous sulfate 325 mg (65 mg iron) tablet 07-20 00:00: 00 06-09 00:00 :00 No [id number] 325mg Take 1 tablet by mouth 2 (two) times daily. [facility] ascorbic acid, vitamin C, 500 mg tablet 07-20 00:00: 00 06-09 00:00 :00 No [id number] 500mg Take 1 tablet by mouth 3 (three) times daily. [facility] progesteron e micronized (CRINONE) 8 % vaginal gel 2019-05 00:00: 00 09-06 00:00 :00 No [id number] Insert 100 mg nightly into vaginal as far back as possible [facility] etonogestre l (NEXPLANON) 68 mg implant 2019-05 07:09: 43 05-19 00:00 :00 No 68mg 68 mg by Subdermal route once now. [facility] ascorbic acid, vitamin C, 500 mg tablet 2019-05 00:00: 00 09-06 00:00 :00 No [id number] 500mg Take 1 tablet by mouth daily. [facility] vit 33-iron-fol ic-dha (SELECT-OB + DHA) 29 mg iron-1 mg -250 mg combo pack 2019-05 00:00: 00 09-06 00:00 :00 No [id number] 1{packe t} Take 1 Packet by mouth daily. [facility] iron ps cmplx-vitam in D3 (NOVAFERRUM 125) 125 mg iron- 100 unit/5 mL liquid 2017-05 0-29 00:00: 00 09-06 00:00 :00 No 5mL Take 5 mL by mouth 2 (two) times daily. [facility] ferrous sulfate 325 mg (65 mg iron) tablet 7 00:00: 00 05-19 00:00 :00 No 650mg Take 2 tablets by mouth 2 (two) times daily. [facility] Immunizations Ordered Immunization Name Filled Immunization Name Date Status Comments Source SARS-COV-2 COVID-19 PFIZER VACCINE 2020-09-15 00:00:00 Completed [facility] SARS-COV-2 COVID-19 PFIZER VACCINE 2020-09-15 00:00:00 Completed [facility] SARS-COV-2 COVID-19 PFIZER VACCINE 2020-09-15 00:00:00 Completed [facility] SARS-COV-2 COVID-19 PFIZER VACCINE 2020-09-15 00:00:00 Completed [facility] SARS-COV-2 COVID-19 PFIZER VACCINE 2020-09-15 00:00:00 Completed [facility] SARS-COV-2 COVID-19 PFIZER VACCINE 2020-09-15 00:00:00 Completed [facility] TDAP 2020-07-19 00:00:00 Completed [facility] TDAP 2020-07-19 00:00:00 Completed [facility] TDAP 2020-07-19 00:00:00 Completed [facility] TDAP 2020-07-19 00:00:00 Completed [facility] TDAP 2020-07-19 00:00:00 Completed [facility] TDAP 2020-07-19 00:00:00 Completed [facility] TDAP 2020-07-19 00:00:00 Completed [facility] TDAP 2020-07-19 00:00:00 Completed [facility] TDAP 2020-07-19 00:00:00 Completed Influenza Virus Vaccine Quad .5 mL IM 6+ MO 2020-05-03 00:00:00 Completed [facility] Influenza Virus Vaccine Quad .5 mL IM 6+ MO 2020-05-03 00:00:00 Completed [facility] Influenza Virus Vaccine Quad .5 mL IM 6+ MO 2020-05-03 00:00:00 Completed [facility] Influenza Virus Vaccine Quad .5 mL IM 6+ MO 2020-05-03 00:00:00 Completed [facility] Influenza Virus Vaccine Quad .5 mL IM 6+ MO 2020-05-03 00:00:00 Completed [facility] Influenza Virus Vaccine Quad .5 mL IM 6+ MO 2020-05-03 00:00:00 Completed [facility] Influenza Virus Vaccine Quad .5 mL IM 6+ MO 2020-05-03 00:00:00 Completed [facility] Influenza Virus Vaccine Quad .5 mL IM 6+ MO 2020-05-03 00:00:00 Completed [facility] Influenza Virus Vaccine Quad .5 mL IM 6+ MO (FLUZONE/FLULAVAL/FL UARIX) 2020-05-03 00:00:00 Completed Influenza Virus Vaccine Quad .5 mL IM 6+ MO 2018-03-25 00:00:00 Completed [facility] Influenza Virus Vaccine Quad .5 mL IM 6+ MO 2018-03-25 00:00:00 Completed [facility] Influenza Virus Vaccine Quad .5 mL IM 6+ MO 2018-03-25 00:00:00 Completed [facility] Influenza Virus Vaccine Quad .5 mL IM 6+ MO 2018-03-25 00:00:00 Completed [facility] Influenza Virus Vaccine Quad .5 mL IM 6+ MO 2018-03-25 00:00:00 Completed [facility] Influenza Virus Vaccine Quad .5 mL IM 6+ MO 2018-03-25 00:00:00 Completed [facility] Influenza Virus Vaccine Quad .5 mL IM 6+ MO 2018-03-25 00:00:00 Completed [facility] Influenza Virus Vaccine Quad .5 mL IM 6+ MO 2018-03-25 00:00:00 Completed [facility] Influenza Virus Vaccine Quad .5 mL IM 6+ MO (FLUZONE/FLULAVAL/FL UARIX) 2018-03-25 00:00:00 Completed [facility] HPV9 2017-10-15 00:00:00 Completed [facility] HPV9 2017-10-15 00:00:00 Completed [facility] HPV9 2017-10-15 00:00:00 Completed [facility] HPV9 2017-10-15 00:00:00 Completed HPV9 2017-10-15 00:00:00 Completed [facility] HPV9 2017-10-15 00:00:00 Completed [facility] HPV9 2017-10-15 00:00:00 Completed [facility] HPV9 2017-10-15 00:00:00 Completed [facility] HPV9 2017-10-15 00:00:00 Completed [facility] HPV9 2017-06-17 00:00:00 Completed [facility] HPV9 2017-06-17 00:00:00 Completed [facility] HPV9 2017-06-17 00:00:00 Completed [facility] HPV9 2017-06-17 00:00:00 Completed [facility] HPV9 2017-06-17 00:00:00 Completed [facility] HPV9 2017-06-17 00:00:00 Completed [facility] HPV9 2017-06-17 00:00:00 Completed [facility] HPV9 2017-06-17 00:00:00 Completed [facility] HPV9 2017-06-17 00:00:00 Completed HPV9 2017-04-17 00:00:00 Completed [facility] Influenza Virus Vaccine Quad IM 3+ YRS 2017-04-17 00:00:00 Completed [facility] HPV9 2017-04-17 00:00:00 Completed [facility] Influenza Virus Vaccine Quad IM 3+ YRS 2017-04-17 00:00:00 Completed [facility] HPV9 2017-04-17 00:00:00 Completed [facility] Influenza Virus Vaccine Quad IM 3+ YRS 2017-04-17 00:00:00 Completed [facility] HPV9 2017-04-17 00:00:00 Completed [facility] Influenza Virus Vaccine Quad IM 3+ YRS 2017-04-17 00:00:00 Completed [facility] HPV9 2017-04-17 00:00:00 Completed [facility] Influenza Virus Vaccine Quad IM 3+ YRS 2017-04-17 00:00:00 Completed [facility] HPV9 2017-04-17 00:00:00 Completed [facility] Influenza Virus Vaccine Quad IM 3+ YRS 2017-04-17 00:00:00 Completed [facility] HPV9 2017-04-17 00:00:00 Completed [facility] Influenza Virus Vaccine Quad IM 3+ YRS 2017-04-17 00:00:00 Completed [facility] HPV9 2017-04-17 00:00:00 Completed [facility] Influenza Virus Vaccine Quad IM 3+ YRS 2017-04-17 00:00:00 Completed [facility] HPV9 2017-04-17 00:00:00 Completed [facility] Influenza Virus Vaccine Quad IM 3+ YRS 2017-04-17 00:00:00 Completed Influenza Virus Vaccine - Whole 2016-04-06 00:00:00 Completed [facility] Influenza Virus Vaccine - Whole 2016-04-06 00:00:00 Completed [facility] Influenza Virus Vaccine - Whole 2016-04-06 00:00:00 Completed [facility] Influenza Virus Vaccine - Whole 2016-04-06 00:00:00 Completed [facility] Influenza Virus Vaccine - Whole 2016-04-06 00:00:00 Completed [facility] Influenza Virus Vaccine - Whole 2016-04-06 00:00:00 Completed TDAP 2013-05-27 00:00:00 Completed [facility] TDAP 2013-05-27 00:00:00 Completed [facility] TDAP 2013-05-27 00:00:00 Completed [facility] TDAP 2013-05-27 00:00:00 Completed [facility] TDAP 2013-05-27 00:00:00 Completed [facility] TDAP 2013-05-27 00:00:00 Completed [facility] TDAP 2013-05-27 00:00:00 Completed [facility] TDAP 2013-05-27 00:00:00 Completed [facility] TDAP 2013-05-27 00:00:00 Completed HEPATITIS A 2011-01-08 00:00:00 Completed [facility] HPV 2011-01-08 00:00:00 Completed [facility] Meningococcal Polysaccharide (groups A, C, Y and W-135) conjugate vaccine (MCV4P) 2011-01-08 00:00:00 Completed [facility] TDAP 2011-01-08 00:00:00 Completed [facility] HEPATITIS A 2011-01-08 00:00:00 Completed [facility] HPV 2011-01-08 00:00:00 Completed [facility] Meningococcal Polysaccharide (groups A, C, Y and W-135) conjugate vaccine (MCV4P) 2011-01-08 00:00:00 Completed [facility] TDAP 2011-01-08 00:00:00 Completed [facility] HEPATITIS A 2011-01-08 00:00:00 Completed [facility] HPV 2011-01-08 00:00:00 Completed [facility] Meningococcal Polysaccharide (groups A, C, Y and W-135) conjugate vaccine (MCV4P) 2011-01-08 00:00:00 Completed [facility] TDAP 2011-01-08 00:00:00 Completed [facility] HEPATITIS A 2011-01-08 00:00:00 Completed [facility] HPV 2011-01-08 00:00:00 Completed [facility] Meningococcal Polysaccharide (groups A, C, Y and W-135) conjugate vaccine (MCV4P) 2011-01-08 00:00:00 Completed [facility] TDAP 2011-01-08 00:00:00 Completed [facility] HEPATITIS A 2011-01-08 00:00:00 Completed [facility] HPV 2011-01-08 00:00:00 Completed [facility] Meningococcal Polysaccharide (groups A, C, Y and W-135) conjugate vaccine (MCV4P) 2011-01-08 00:00:00 Completed [facility] TDAP 2011-01-08 00:00:00 Completed [facility] HEPATITIS A 2011-01-08 00:00:00 Completed HPV 2011-01-08 00:00:00 Completed Meningococcal Polysaccharide (groups A, C, Y and W-135) conjugate vaccine (MCV4P) 2011-01-08 00:00:00 Completed TDAP 2011-01-08 00:00:00 Completed Meningococcal Polysaccharide (groups A, C, Y and W-135) conjugate vaccine (MCV4P) 2010-08-10 00:00:00 Completed [facility] TDAP 2010-08-10 00:00:00 Completed [facility] Varicella (varivax)(chicken pox) 2010-08-10 00:00:00 Completed [facility] Meningococcal Polysaccharide (groups A, C, Y and W-135) conjugate vaccine (MCV4P) 2010-08-10 00:00:00 Completed [facility] TDAP 2010-08-10 00:00:00 Completed [facility] Varicella (varivax)(chicken pox) 2010-08-10 00:00:00 Completed [facility] Meningococcal Polysaccharide (groups A, C, Y and W-135) conjugate vaccine (MCV4P) 2010-08-10 00:00:00 Completed [facility] TDAP 2010-08-10 00:00:00 Completed [facility] Varicella (varivax)(chicken pox) 2010-08-10 00:00:00 Completed [facility] Meningococcal Polysaccharide (groups A, C, Y and W-135) conjugate vaccine (MCV4P) 2010-08-10 00:00:00 Completed [facility] TDAP 2010-08-10 00:00:00 Completed [facility] Varicella (varivax)(chicken pox) 2010-08-10 00:00:00 Completed [facility] Meningococcal Polysaccharide (groups A, C, Y and W-135) conjugate vaccine (MCV4P) 2010-08-10 00:00:00 Completed [facility] TDAP 2010-08-10 00:00:00 Completed [facility] Varicella (varivax)(chicken pox) 2010-08-10 00:00:00 Completed [facility] Meningococcal Polysaccharide (groups A, C, Y and W-135) conjugate vaccine (MCV4P) 2010-08-10 00:00:00 Completed TDAP 2010-08-10 00:00:00 Completed Varicella (varivax)(chicken pox) 2010-08-10 00:00:00 Completed HEPATITIS A 2009-01-13 00:00:00 Completed [facility] HEPATITIS A 2009-01-13 00:00:00 Completed [facility] HEPATITIS A 2009-01-13 00:00:00 Completed [facility] HEPATITIS A 2009-01-13 00:00:00 Completed [facility] HEPATITIS A 2009-01-13 00:00:00 Completed [facility] HEPATITIS A 2009-01-13 00:00:00 Completed DTaP, Unspecified Formulation 2003-07-23 00:00:00 Completed [facility] MMR 2003-07-23 00:00:00 Completed [facility] IPV 2003-07-23 00:00:00 Completed [facility] DTaP, Unspecified Formulation 2003-07-23 00:00:00 Completed [facility] MMR 2003-07-23 00:00:00 Completed [facility] IPV 2003-07-23 00:00:00 Completed [facility] DTaP, Unspecified Formulation 2003-07-23 00:00:00 Completed [facility] MMR 2003-07-23 00:00:00 Completed [facility] IPV 2003-07-23 00:00:00 Completed [facility] DTaP, Unspecified Formulation 2003-07-23 00:00:00 Completed [facility] MMR 2003-07-23 00:00:00 Completed [facility] IPV 2003-07-23 00:00:00 Completed [facility] DTaP, Unspecified Formulation 2003-07-23 00:00:00 Completed [facility] MMR 2003-07-23 00:00:00 Completed [facility] IPV 2003-07-23 00:00:00 Completed [facility] DTaP, Unspecified Formulation 2003-07-23 00:00:00 Completed MMR 2003-07-23 00:00:00 Completed IPV 2003-07-23 00:00:00 Completed DTaP, Unspecified Formulation 2002-07-08 00:00:00 Completed [facility] HIB 4 Dose Schedule 2002-07-08 00:00:00 Completed [facility] DTaP, Unspecified Formulation 2002-07-08 00:00:00 Completed [facility] HIB 4 Dose Schedule 2002-07-08 00:00:00 Completed [facility] DTaP, Unspecified Formulation 2002-07-08 00:00:00 Completed [facility] HIB 4 Dose Schedule 2002-07-08 00:00:00 Completed [facility] DTaP, Unspecified Formulation 2002-07-08 00:00:00 Completed [facility] HIB 4 Dose Schedule 2002-07-08 00:00:00 Completed [facility] DTaP, Unspecified Formulation 2002-07-08 00:00:00 Completed [facility] HIB 4 Dose Schedule 2002-07-08 00:00:00 Completed [facility] DTaP, Unspecified Formulation 2002-07-08 00:00:00 Completed HIB 4 Dose Schedule 2002-07-08 00:00:00 Completed DTaP, Unspecified Formulation 2001-12-02 00:00:00 Completed [facility] Hep B, Adol or Pedi Dosage 2001-12-02 00:00:00 Completed [facility] HIB 4 Dose Schedule 2001-12-02 00:00:00 Completed [facility] MMR 2001-12-02 00:00:00 Completed [facility] IPV 2001-12-02 00:00:00 Completed [facility] Varicella (varivax)(chicken pox) 2001-12-02 00:00:00 Completed [facility] DTaP, Unspecified Formulation 2001-12-02 00:00:00 Completed [facility] Hep B, Adol or Pedi Dosage 2001-12-02 00:00:00 Completed [facility] HIB 4 Dose Schedule 2001-12-02 00:00:00 Completed [facility] MMR 2001-12-02 00:00:00 Completed [facility] IPV 2001-12-02 00:00:00 Completed [facility] Varicella (varivax)(chicken pox) 2001-12-02 00:00:00 Completed [facility] DTaP, Unspecified Formulation 2001-12-02 00:00:00 Completed [facility] Hep B, Adol or Pedi Dosage 2001-12-02 00:00:00 Completed [facility] HIB 4 Dose Schedule 2001-12-02 00:00:00 Completed [facility] MMR 2001-12-02 00:00:00 Completed [facility] IPV 2001-12-02 00:00:00 Completed [facility] Varicella (varivax)(chicken pox) 2001-12-02 00:00:00 Completed [facility] DTaP, Unspecified Formulation 2001-12-02 00:00:00 Completed [facility] Hep B, Adol or Pedi Dosage 2001-12-02 00:00:00 Completed [facility] HIB 4 Dose Schedule 2001-12-02 00:00:00 Completed [facility] MMR 2001-12-02 00:00:00 Completed [facility] IPV 2001-12-02 00:00:00 Completed [facility] Varicella (varivax)(chicken pox) 2001-12-02 00:00:00 Completed [facility] DTaP, Unspecified Formulation 2001-12-02 00:00:00 Completed [facility] Hep B, Adol or Pedi Dosage 2001-12-02 00:00:00 Completed [facility] HIB 4 Dose Schedule 2001-12-02 00:00:00 Completed [facility] MMR 2001-12-02 00:00:00 Completed [facility] IPV 2001-12-02 00:00:00 Completed [facility] Varicella (varivax)(chicken pox) 2001-12-02 00:00:00 Completed [facility] DTaP, Unspecified Formulation 2001-12-02 00:00:00 Completed Hep B, Adol or Pedi Dosage 2001-12-02 00:00:00 Completed HIB 4 Dose Schedule 2001-12-02 00:00:00 Completed MMR 2001-12-02 00:00:00 Completed IPV 2001-12-02 00:00:00 Completed Varicella (varivax)(chicken pox) 2001-12-02 00:00:00 Completed DTaP, Unspecified Formulation 2000-06-25 00:00:00 Completed [facility] Hep B, Adol or Pedi Dosage 2000-06-25 00:00:00 Completed [facility] HIB 4 Dose Schedule 2000-06-25 00:00:00 Completed [facility] IPV 2000-06-25 00:00:00 Completed [facility] DTaP, Unspecified Formulation 2000-06-25 00:00:00 Completed [facility] Hep B, Adol or Pedi Dosage 2000-06-25 00:00:00 Completed [facility] HIB 4 Dose Schedule 2000-06-25 00:00:00 Completed [facility] IPV 2000-06-25 00:00:00 Completed [facility] DTaP, Unspecified Formulation 2000-06-25 00:00:00 Completed [facility] Hep B, Adol or Pedi Dosage 2000-06-25 00:00:00 Completed [facility] HIB 4 Dose Schedule 2000-06-25 00:00:00 Completed [facility] IPV 2000-06-25 00:00:00 Completed [facility] DTaP, Unspecified Formulation 2000-06-25 00:00:00 Completed [facility] Hep B, Adol or Pedi Dosage 2000-06-25 00:00:00 Completed [facility] HIB 4 Dose Schedule 2000-06-25 00:00:00 Completed [facility] IPV 2000-06-25 00:00:00 Completed [facility] DTaP, Unspecified Formulation 2000-06-25 00:00:00 Completed [facility] Hep B, Adol or Pedi Dosage 2000-06-25 00:00:00 Completed [facility] HIB 4 Dose Schedule 2000-06-25 00:00:00 Completed [facility] IPV 2000-06-25 00:00:00 Completed [facility] DTaP, Unspecified Formulation 2000-06-25 00:00:00 Completed Hep B, Adol or Pedi Dosage 2000-06-25 00:00:00 Completed HIB 4 Dose Schedule 2000-06-25 00:00:00 Completed IPV 2000-06-25 00:00:00 Completed DTaP, Unspecified Formulation 1999 00:00:00 Completed [facility] Hep B, Adol or Pedi Dosage 1999 00:00:00 Completed [facility] HIB 4 Dose Schedule 1999 00:00:00 Completed [facility] IPV 1999 00:00:00 Completed [facility] DTaP, Unspecified Formulation 1999 00:00:00 Completed [facility] Hep B, Adol or Pedi Dosage 1999 00:00:00 Completed [facility] HIB 4 Dose Schedule 1999 00:00:00 Completed [facility] IPV 1999 00:00:00 Completed [facility] DTaP, Unspecified Formulation 1999 00:00:00 Completed [facility] Hep B, Adol or Pedi Dosage 1999 00:00:00 Completed [facility] HIB 4 Dose Schedule 1999 00:00:00 Completed [facility] IPV 1999 00:00:00 Completed [facility] DTaP, Unspecified Formulation 1999 00:00:00 Completed [facility] Hep B, Adol or Pedi Dosage 1999 00:00:00 Completed [facility] HIB 4 Dose Schedule 1999 00:00:00 Completed [facility] IPV 1999 00:00:00 Completed [facility] DTaP, Unspecified Formulation 1999 00:00:00 Completed [facility] Hep B, Adol or Pedi Dosage 1999 00:00:00 Completed [facility] HIB 4 Dose Schedule 1999 00:00:00 Completed [facility] IPV 1999 00:00:00 Completed [facility] DTaP, Unspecified Formulation 1999 00:00:00 Completed Hep B, Adol or Pedi Dosage 1999 00:00:00 Completed HIB 4 Dose Schedule 1999 00:00:00 Completed IPV 1999 00:00:00 Completed HPV9 Unknown Completed [facility] Influenza Virus Vaccine Quad IM 3+ YRS Unknown Completed [facility] SARS-COV-2 COVID-19 PFIZER VACCINE Unknown Completed [facility] DTaP, Unspecified Formulation Unknown Completed [facility] Influenza Virus Vaccine - Whole Unknown Completed [facility] HEPATITIS A Unknown Completed [facility] Hep B, Adol or Pedi Dosage Unknown Completed [facility] HIB 4 Dose Schedule Unknown Completed [facility] HPV Unknown Completed [facility] Meningococcal Polysaccharide (groups A, C, Y and W-135) conjugate vaccine (MCV4P) Unknown Completed [facility] MMR Unknown Completed [facility] IPV Unknown Completed [facility] TDAP Unknown Completed [facility] Varicella (varivax)(chicken pox) Unknown Completed [facility] HPV9 Unknown Completed [facility] Influenza Virus Vaccine Quad IM 3+ YRS Unknown Completed [facility] SARS-COV-2 COVID-19 PFIZER VACCINE Unknown Completed [facility] DTaP, Unspecified Formulation Unknown Completed [facility] Influenza Virus Vaccine - Whole Unknown Completed [facility] HEPATITIS A Unknown Completed [facility] Hep B, Adol or Pedi Dosage Unknown Completed [facility] HIB 4 Dose Schedule Unknown Completed [facility] HPV Unknown Completed [facility] Meningococcal Polysaccharide (groups A, C, Y and W-135) conjugate vaccine (MCV4P) Unknown Completed [facility] MMR Unknown Completed [facility] IPV Unknown Completed [facility] TDAP Unknown Completed [facility] Varicella (varivax)(chicken pox) Unknown Completed [facility] HPV9 Unknown Completed [facility] Influenza Virus Vaccine Quad IM 3+ YRS Unknown Completed [facility] SARS-COV-2 COVID-19 PFIZER VACCINE Unknown Completed [facility] DTaP, Unspecified Formulation Unknown Completed [facility] Influenza Virus Vaccine - Whole Unknown Completed [facility] HEPATITIS A Unknown Completed [facility] Hep B, Adol or Pedi Dosage Unknown Completed [facility] HIB 4 Dose Schedule Unknown Completed [facility] HPV Unknown Completed [facility] Meningococcal Polysaccharide (groups A, C, Y and W-135) conjugate vaccine (MCV4P) Unknown Completed [facility] MMR Unknown Completed [facility] IPV Unknown Completed [facility] TDAP Unknown Completed [facility] Varicella (varivax)(chicken pox) Unknown Completed [facility] HPV9 Unknown Completed [facility] Influenza Virus Vaccine Quad IM 3+ YRS Unknown Completed [facility] DTaP, Unspecified Formulation Unknown Completed [facility] Influenza Virus Vaccine - Whole Unknown Completed [facility] HEPATITIS A Unknown Completed [facility] Hep B, Adol or Pedi Dosage Unknown Completed [facility] HIB 4 Dose Schedule Unknown Completed [facility] HPV Unknown Completed [facility] Meningococcal Polysaccharide (groups A, C, Y and W-135) conjugate vaccine (MCV4P) Unknown Completed [facility] MMR Unknown Completed [facility] IPV Unknown Completed [facility] TDAP Unknown Completed [facility] Varicella (varivax)(chicken pox) Unknown Completed [facility] HPV9 Unknown Completed [facility] Influenza Virus Vaccine Quad IM 3+ YRS Unknown Completed [facility] DTaP, Unspecified Formulation Unknown Completed [facility] Influenza Virus Vaccine - Whole Unknown Completed [facility] HEPATITIS A Unknown Completed [facility] Hep B, Adol or Pedi Dosage Unknown Completed [facility] HIB 4 Dose Schedule Unknown Completed [facility] HPV Unknown Completed [facility] Meningococcal Polysaccharide (groups A, C, Y and W-135) conjugate vaccine (MCV4P) Unknown Completed [facility] MMR Unknown Completed [facility] IPV Unknown Completed [facility] TDAP Unknown Completed [facility] Varicella (varivax)(chicken pox) Unknown Completed [facility] HPV9 Unknown Completed [facility] Influenza Virus Vaccine Quad IM 3+ YRS Unknown Completed [facility] DTaP, Unspecified Formulation Unknown Completed [facility] Influenza Virus Vaccine - Whole Unknown Completed [facility] HEPATITIS A Unknown Completed [facility] Hep B, Adol or Pedi Dosage Unknown Completed [facility] HIB 4 Dose Schedule Unknown Completed [facility] HPV Unknown Completed [facility] Meningococcal Polysaccharide (groups A, C, Y and W-135) conjugate vaccine (MCV4P) Unknown Completed [facility] MMR Unknown Completed [facility] IPV Unknown Completed [facility] TDAP Unknown Completed [facility] Varicella (varivax)(chicken pox) Unknown Completed [facility] HPV9 Unknown Completed [facility] Influenza Virus Vaccine Quad IM 3+ YRS Unknown Completed [facility] DTaP, Unspecified Formulation Unknown Completed [facility] Influenza Virus Vaccine - Whole Unknown Completed [facility] HEPATITIS A Unknown Completed [facility] Hep B, Adol or Pedi Dosage Unknown Completed [facility] HIB 4 Dose Schedule Unknown Completed [facility] HPV Unknown Completed [facility] Meningococcal Polysaccharide (groups A, C, Y and W-135) conjugate vaccine (MCV4P) Unknown Completed [facility] MMR Unknown Completed [facility] IPV Unknown Completed [facility] TDAP Unknown Completed [facility] Varicella (varivax)(chicken pox) Unknown Completed [facility] HPV9 Unknown Completed [facility] Influenza Virus Vaccine Quad IM 3+ YRS Unknown Completed [facility] DTaP, Unspecified Formulation Unknown Completed [facility] Influenza Virus Vaccine - Whole Unknown Completed [facility] HEPATITIS A Unknown Completed [facility] Hep B, Adol or Pedi Dosage Unknown Completed [facility] HIB 4 Dose Schedule Unknown Completed [facility] HPV Unknown Completed [facility] Meningococcal Polysaccharide (groups A, C, Y and W-135) conjugate vaccine (MCV4P) Unknown Completed [facility] MMR Unknown Completed [facility] IPV Unknown Completed [facility] TDAP Unknown Completed [facility] Varicella (varivax)(chicken pox) Unknown Completed [facility] HPV9 Unknown Completed [facility] Influenza Virus Vaccine Quad IM 3+ YRS Unknown Completed [facility] DTaP, Unspecified Formulation Unknown Completed [facility] Influenza Virus Vaccine - Whole Unknown Completed [facility]PATITIS A Unknown [facility], Adol or Pedi Dosage Unknown Completed [facility] HIB 4 Dose Schedule Unknown Completed [facility] HPV Unknown Completed [facility] Meningococcal Polysaccharide (groups A, C, Y and W-135) conjugate vaccine (MCV4P) Unknown Completed [facility] MMR Unknown Completed [facility] IPV Unknown Completed [facility] TDAP Unknown Completed [facility] Varicella (varivax)(chicken pox) Unknown Completed [facility] HPV9 Unknown Completed [facility] Influenza Virus Vaccine Quad IM 3+ YRS Unknown Completed [facility] DTaP, Unspecified Formulation Unknown Completed [facility] Influenza Virus Vaccine - Whole Unknown Completed [facility] HEPATITIS A Unknown Completed [facility] Hep B, Adol or Pedi Dosage Unknown Completed [facility] HIB 4 Dose Schedule Unknown Completed [facility] HPV Unknown Completed [facility] Meningococcal Polysaccharide (groups A, C, Y and W-135) conjugate vaccine (MCV4P) Unknown Completed [facility] MMR Unknown Completed [facility] IPV Unknown Completed [facility] TDAP Unknown Completed [facility] Varicella (varivax)(chicken pox) Unknown Completed [facility] HPV9 Unknown Completed [facility] Influenza Virus Vaccine Quad IM 3+ YRS Unknown Completed [facility] DTaP, Unspecified Formulation Unknown Completed [facility] Influenza Virus Vaccine - Whole Unknown Completed [facility] HEPATITIS A Unknown Completed [facility] [facility] Hep B, Adol or Pedi Dosage Unknown Completed [facility] HIB 4 Dose Schedule Unknown Completed [facility] HPV Unknown Completed [facility] Meningococcal Polysaccharide (groups A, C, Y and W-135) conjugate vaccine (MCV4P) Unknown Completed [facility] MMR Unknown Completed [facility] IPV Unknown Completed [facility] TDAP Unknown Completed [facility] Varicella (varivax)(chicken pox) Unknown Completed [facility] HPV9 Unknown Completed [facility] Influenza Virus Vaccine Quad IM 3+ YRS Unknown Completed [facility] SARS-COV-2 COVID-19 PFIZER VACCINE Unknown Completed [facility] DTaP, Unspecified Formulation Unknown Completed [facility] Influenza Virus Vaccine - Whole Unknown Completed [facility] HEPATITIS A Unknown Completed [facility] Hep B, Adol or Pedi Dosage Unknown Completed [facility] HIB 4 Dose Schedule Unknown Completed [facility] HPV Unknown Completed [facility] Meningococcal Polysaccharide (groups A, C, Y and W-135) conjugate vaccine (MCV4P) Unknown Completed [facility] MMR Unknown Completed [facility] IPV Unknown Completed [facility] TDAP Unknown Completed [facility] Varicella (varivax)(chicken pox) Unknown Completed [facility] HPV9 Unknown Completed [facility] Influenza Virus Vaccine Quad IM 3+ YRS Unknown Completed [facility] SARS-COV-2 COVID-19 PFIZER VACCINE Unknown Completed [facility] DTaP, Unspecified Formulation Unknown Completed [facility] Influenza Virus Vaccine - Whole Unknown Completed [facility] HEPATITIS A Unknown Completed [facility] Hep B, Adol or Pedi Dosage Unknown Completed [facility] HIB 4 Dose Schedule Unknown Completed [facility] HPV Unknown Completed [facility] Meningococcal Polysaccharide (groups A, C, Y and W-135) conjugate vaccine (MCV4P) Unknown Completed [facility] MMR Unknown Completed [facility] IPV Unknown Completed [facility] TDAP Unknown Completed [facility] Varicella (varivax)(chicken pox) Unknown Completed [facility] HPV9 Unknown Completed [facility] Influenza Virus Vaccine Quad IM 3+ YRS Unknown Completed [facility] SARS-COV-2 COVID-19 PFIZER VACCINE Unknown Completed [facility] DTaP, Unspecified Formulation Unknown Completed [facility] Influenza Virus Vaccine - Whole Unknown Completed [facility] HEPATITIS A Unknown Completed [facility] Hep B, Adol or Pedi Dosage Unknown Completed [facility] HIB 4 Dose Schedule Unknown Completed [facility] HPV Unknown Completed [facility] Meningococcal Polysaccharide (groups A, C, Y and W-135) conjugate vaccine (MCV4P) Unknown Completed [facility] MMR Unknown Completed [facility] IPV Unknown Completed [facility] TDAP Unknown Completed [facility] Varicella (varivax)(chicken pox) Unknown Completed [facility] TDAP Unknown Completed [facility] HPV9 Unknown Completed [facility] Influenza Virus Vaccine Quad IM 3+ YRS Unknown Completed [facility] SARS-COV-2 COVID-19 PFIZER VACCINE Unknown Completed [facility] DTaP, Unspecified Formulation Unknown Completed [facility] Influenza Virus Vaccine - Whole Unknown Completed [facility] HEPATITIS A Unknown Completed [facility] Hep B, Adol or Pedi Dosage Unknown Completed [facility] HIB 4 Dose Schedule Unknown Completed [facility] HPV Unknown Completed [facility] Meningococcal Polysaccharide (groups A, C, Y and W-135) conjugate vaccine (MCV4P) Unknown Completed [facility] MMR Unknown Completed [facility] IPV Unknown Completed [facility] Varicella (varivax)(chicken pox) Unknown Completed [facility] TDAP Unknown Completed [facility] HPV9 Unknown Completed [facility] Influenza Virus Vaccine Quad IM 3+ YRS Unknown Completed [facility] SARS-COV-2 COVID-19 PFIZER VACCINE Unknown Completed [facility] DTaP, Unspecified Formulation Unknown Completed [facility] Influenza Virus Vaccine - Whole Unknown Completed [facility] HEPATITIS A Unknown Completed [facility] Hep B, Adol or Pedi Dosage Unknown Completed [facility] HIB 4 Dose Schedule Unknown Completed [facility] HPV Unknown Completed [facility] Meningococcal Polysaccharide (groups A, C, Y and W-135) conjugate vaccine (MCV4P) Unknown Completed [facility] MMR Unknown Completed [facility] IPV Unknown Completed [facility] Varicella (varivax)(chicken pox) Unknown Completed [facility] TDAP Unknown Completed [facility] HPV9 Unknown Completed [facility] Influenza Virus Vaccine Quad IM 3+ YRS Unknown Completed [facility] SARS-COV-2 COVID-19 PFIZER VACCINE Unknown Completed [facility] DTaP, Unspecified Formulation Unknown Completed [facility] Influenza Virus Vaccine - Whole Unknown Completed [facility] HEPATITIS A Unknown Completed [facility] Hep B, Adol or Pedi Dosage Unknown Completed [facility] HIB 4 Dose Schedule Unknown Completed [facility] HPV Unknown Completed [facility] Meningococcal Polysaccharide (groups A, C, Y and W-135) conjugate vaccine (MCV4P) Unknown Completed [facility] MMR Unknown Completed [facility] IPV Unknown Completed [facility] Varicella (varivax)(chicken pox) Unknown Completed [facility] TDAP Unknown Completed [facility] HPV9 Unknown Completed [facility] Influenza Virus Vaccine Quad IM 3+ YRS Unknown Completed [facility] SARS-COV-2 COVID-19 PFIZER VACCINE Unknown Completed [facility] DTaP, Unspecified Formulation Unknown Completed [facility] Influenza Virus Vaccine - Whole Unknown Completed [facility] HEPATITIS A Unknown Completed [facility] Hep B, Adol or Pedi Dosage Unknown Completed [facility] HIB 4 Dose Schedule Unknown Completed [facility] HPV Unknown Completed [facility] Meningococcal Polysaccharide (groups A, C, Y and W-135) conjugate vaccine (MCV4P) Unknown Completed [facility] MMR Unknown Completed [facility] IPV Unknown Completed [facility] Varicella (varivax)(chicken pox) Unknown Completed [facility] TDAP Unknown Completed [facility] HPV9 Unknown Completed [facility] Influenza Virus Vaccine Quad IM 3+ YRS Unknown Completed [facility] SARS-COV-2 COVID-19 PFIZER VACCINE Unknown Completed [facility] DTaP, Unspecified Formulation Unknown Completed [facility] Influenza Virus Vaccine - Whole Unknown Completed [facility] HEPATITIS A Unknown Completed [facility] Hep B, Adol or Pedi Dosage Unknown Completed [facility] HIB 4 Dose Schedule Unknown Completed [facility] HPV Unknown Completed [facility] Meningococcal Polysaccharide (groups A, C, Y and W-135) conjugate vaccine (MCV4P) Unknown Completed [facility] MMR Unknown Completed [facility] IPV Unknown Completed [facility] Varicella (varivax)(chicken pox) Unknown Completed [facility] TDAP Unknown Completed [facility] HPV9 Unknown Completed [facility] Influenza Virus Vaccine Quad IM 3+ YRS Unknown Completed [facility] SARS-COV-2 COVID-19 PFIZER VACCINE Unknown Completed [facility] DTaP, Unspecified Formulation Unknown Completed [facility] Influenza Virus Vaccine - Whole Unknown Completed [facility] HEPATITIS A Unknown Completed [facility] Hep B, Adol or Pedi Dosage Unknown Completed [facility] HIB 4 Dose Schedule Unknown Completed [facility] HPV Unknown Completed [facility] Meningococcal Polysaccharide (groups A, C, Y and W-135) conjugate vaccine (MCV4P) Unknown Completed [facility] MMR Unknown Completed [facility] IPV Unknown Completed [facility] Varicella (varivax)(chicken pox) Unknown Completed [facility] TDAP Unknown Completed [facility] HPV9 Unknown Completed [facility] Influenza Virus Vaccine Quad IM 3+ YRS Unknown Completed [facility] SARS-COV-2 COVID-19 PFIZER VACCINE Unknown Completed [facility] DTaP, Unspecified Formulation Unknown Completed [facility] Influenza Virus Vaccine - Whole Unknown Completed [facility] HEPATITIS A Unknown Completed [facility] Hep B, Adol or Pedi Dosage Unknown Completed [facility] HIB 4 Dose Schedule Unknown Completed [facility] HPV Unknown Completed [facility] Meningococcal Polysaccharide (groups A, C, Y and W-135) conjugate vaccine (MCV4P) Unknown Completed [facility] MMR Unknown Completed [facility] IPV Unknown Completed [facility] Varicella (varivax)(chicken pox) Unknown Completed [facility] TDAP Unknown Completed [facility] HPV9 Unknown Completed [facility] Influenza Virus Vaccine Quad IM 3+ YRS Unknown Completed [facility] SARS-COV-2 COVID-19 PFIZER VACCINE Unknown Completed [facility] DTaP, Unspecified Formulation Unknown Completed [facility] Influenza Virus Vaccine - Whole Unknown Completed [facility] HEPATITIS A Unknown Completed [facility] Hep B, Adol or Pedi Dosage Unknown Completed [facility] HIB 4 Dose Schedule Unknown Completed [facility] HPV Unknown Completed [facility] Meningococcal Polysaccharide (groups A, C, Y and W-135) conjugate vaccine (MCV4P) Unknown Completed [facility] MMR Unknown Completed [facility] IPV Unknown Completed [facility] Varicella (varivax)(chicken pox) Unknown Completed [facility] TDAP Unknown Completed [facility] HPV9 Unknown Completed [facility] Influenza Virus Vaccine Quad IM 3+ YRS Unknown Completed [facility] SARS-COV-2 COVID-19 PFIZER VACCINE Unknown Completed [facility] DTaP, Unspecified Formulation Unknown Completed [facility] Influenza Virus Vaccine - Whole Unknown Completed [facility] HEPATITIS A Unknown Completed [facility] Hep B, Adol or Pedi Dosage Unknown Completed [facility] HIB 4 Dose Schedule Unknown Completed [facility] HPV Unknown Completed [facility] Meningococcal Polysaccharide (groups A, C, Y and W-135) conjugate vaccine (MCV4P) Unknown Completed [facility] MMR Unknown Completed [facility] IPV Unknown Completed [facility] Varicella (varivax)(chicken pox) Unknown Completed [facility] TDAP Unknown Completed [facility] HPV9 Unknown Completed [facility] Influenza Virus Vaccine Quad IM 3+ YRS Unknown Completed [facility] SARS-COV-2 COVID-19 PFIZER VACCINE Unknown Completed [facility] DTaP, Unspecified Formulation Unknown Completed [facility] Influenza Virus Vaccine - Whole Unknown Completed [facility] HEPATITIS A Unknown Completed [facility] Hep B, Adol or Pedi Dosage Unknown Completed [facility] HIB 4 Dose Schedule Unknown Completed [facility] HPV Unknown Completed [facility] Meningococcal Polysaccharide (groups A, C, Y and W-135) conjugate vaccine (MCV4P) Unknown Completed [facility] MMR Unknown Completed [facility] IPV Unknown Completed [facility] Varicella (varivax)(chicken pox) Unknown Completed [facility] TDAP Unknown Completed [facility] HPV9 Unknown Completed [facility] Influenza Virus Vaccine Quad IM 3+ YRS Unknown Completed [facility] SARS-COV-2 COVID-19 PFIZER VACCINE Unknown Completed [facility] DTaP, Unspecified Formulation Unknown Completed [facility] Influenza Virus Vaccine - Whole Unknown Completed [facility] HEPATITIS A Unknown Completed [facility] Hep B, Adol or Pedi Dosage Unknown Completed [facility] HIB 4 Dose Schedule Unknown Completed [facility] HPV Unknown Completed [facility] Meningococcal Polysaccharide (groups A, C, Y and W-135) conjugate vaccine (MCV4P) Unknown Completed [facility] MMR Unknown Completed [facility] IPV Unknown Completed [facility] Varicella (varivax)(chicken pox) Unknown Completed [facility] TDAP Unknown Completed [facility] HPV9 Unknown Completed [facility] Influenza Virus Vaccine Quad IM 3+ YRS Unknown Completed [facility] SARS-COV-2 COVID-19 PFIZER VACCINE Unknown Completed [facility] DTaP, Unspecified Formulation Unknown Completed [facility] Influenza Virus Vaccine - Whole Unknown Completed [facility] HEPATITIS A Unknown Completed [facility] Hep B, Adol or Pedi Dosage Unknown Completed [facility] HIB 4 Dose Schedule Unknown Completed [facility] HPV Unknown Completed [facility] Meningococcal Polysaccharide (groups A, C, Y and W-135) conjugate vaccine (MCV4P) Unknown Completed [facility] MMR Unknown Completed [facility] IPV Unknown Completed [facility] Varicella (varivax)(chicken pox) Unknown Completed [facility] TDAP Unknown Completed [facility] HPV9 Unknown Completed [facility] Influenza Virus Vaccine Quad IM 3+ YRS Unknown Completed [facility] SARS-COV-2 COVID-19 PFIZER VACCINE Unknown Completed [facility] DTaP, Unspecified Formulation Unknown Completed [facility] Influenza Virus Vaccine - Whole Unknown Completed [facility]ITIS A [facility], Adol or Pedi Dosage Unknown Completed [facility] HIB 4 Dose Schedule Unknown Completed [facility] HPV Unknown Completed [facility] Meningococcal Polysaccharide (groups A, C, Y and W-135) conjugate vaccine (MCV4P) Unknown Completed [facility] MMR Unknown Completed [facility] IPV Unknown Completed [facility] Varicella (varivax)(chicken pox) Unknown Completed [facility] TDAP Unknown Completed [facility] HPV9 Unknown Completed [facility] Influenza Virus Vaccine Quad IM 3+ YRS Unknown Completed [facility] SARS-COV-2 COVID-19 PFIZER VACCINE Unknown Completed [facility] DTaP, Unspecified Formulation Unknown Completed [facility] Influenza Virus Vaccine - Whole Unknown Completed [facility] HEPATITIS A Unknown Completed [facility] Hep B, Adol or Pedi Dosage Unknown Completed [facility] HIB 4 Dose Schedule Unknown Completed [facility] HPV Unknown Completed [facility] Meningococcal Polysaccharide (groups A, C, Y and W-135) conjugate vaccine (MCV4P) Unknown Completed [facility] MMR Unknown Completed [facility] IPV Unknown Completed [facility] Varicella (varivax)(chicken pox) Unknown Completed [facility] TDAP Unknown Completed [facility] HPV9 Unknown Completed [facility] Influenza Virus Vaccine Quad IM 3+ YRS Unknown Completed [facility] SARS-COV-2 COVID-19 PFIZER VACCINE Unknown Completed [facility] DTaP, Unspecified Formulation Unknown Completed [facility] Influenza Virus Vaccine - Whole Unknown Completed [facility] HEPATITIS A Unknown [facility] Hep B, Adol or Pedi Dosage Unknown Completed [facility] HIB 4 Dose Schedule Unknown Completed [facility] HPV Unknown Completed [facility] Meningococcal Polysaccharide (groups A, C, Y and W-135) conjugate vaccine (MCV4P) Unknown Completed [facility] MMR Unknown Completed [facility] IPV Unknown Completed [facility] Varicella (varivax)(chicken pox) Unknown Completed [facility] TDAP Unknown Completed [facility] HPV9 Unknown Completed [facility] Influenza Virus Vaccine Quad IM 3+ YRS Unknown Completed [facility] SARS-COV-2 COVID-19 PFIZER VACCINE Unknown Completed [facility] DTaP, Unspecified Formulation Unknown Completed [facility] Influenza Virus Vaccine - Whole Unknown Completed [facility] HEPATITIS A Unknown Completed [facility] Hep B, Adol or Pedi Dosage Unknown Completed [facility] HIB 4 Dose Schedule Unknown Completed [facility] HPV Unknown Completed [facility] Meningococcal Polysaccharide (groups A, C, Y and W-135) conjugate vaccine (MCV4P) Unknown Completed [facility] MMR Unknown Completed [facility] IPV Unknown Completed [facility] Varicella (varivax)(chicken pox) Unknown Completed [facility] TDAP Unknown Completed [facility] HPV9 Unknown Completed [facility] Influenza Virus Vaccine Quad IM 3+ YRS Unknown Completed [facility] SARS-COV-2 COVID-19 PFIZER VACCINE Unknown Completed [facility] DTaP, Unspecified Formulation Unknown Completed [facility] Influenza Virus Vaccine - Whole Unknown Completed [facility] HEPATITIS A Unknown Completed [facility] Hep B, Adol or Pedi Dosage Unknown Completed [facility] HIB 4 Dose Schedule Unknown Completed [facility] HPV Unknown Completed [facility] Meningococcal Polysaccharide (groups A, C, Y and W-135) conjugate vaccine (MCV4P) Unknown Completed [facility] MMR Unknown Completed [facility] IPV Unknown Completed [facility] Varicella (varivax)(chicken pox) Unknown Completed [facility] TDAP Unknown Completed [facility] HPV9 Unknown Completed [facility] Influenza Virus Vaccine Quad IM 3+ YRS Unknown Completed [facility] SARS-COV-2 COVID-19 PFIZER VACCINE Unknown Completed [facility] DTaP, Unspecified Formulation Unknown Completed [facility] Influenza Virus Vaccine - Whole Unknown Completed [facility] HEPATITIS A Unknown Completed [facility] Hep B, Adol or Pedi Dosage Unknown Completed [facility] HIB 4 Dose Schedule Unknown Completed [facility] HPV Unknown Completed [facility] Meningococcal Polysaccharide (groups A, C, Y and W-135) conjugate vaccine (MCV4P) Unknown Completed [facility] MMR Unknown Completed [facility] IPV Unknown Completed [facility] Varicella (varivax)(chicken pox) Unknown Completed [facility] HPV9 Unknown Completed [facility] Influenza Virus Vaccine Quad IM 3+ YRS Unknown Completed [facility] SARS-COV-2 COVID-19 PFIZER VACCINE Unknown Completed [facility] DTaP, Unspecified Formulation Unknown Completed [facility] Influenza Virus Vaccine - Whole Unknown Completed [facility] HEPATITIS A Unknown Completed [facility] Hep B, Adol or Pedi Dosage Unknown Completed [facility] HIB 4 Dose Schedule Unknown Completed [facility] HPV Unknown Completed [facility] Meningococcal Polysaccharide (groups A, C, Y and W-135) conjugate vaccine (MCV4P) Unknown Completed [facility] MMR Unknown Completed [facility] IPV Unknown Completed [facility] TDAP Unknown Completed [facility] Varicella (varivax)(chicken pox) Unknown Completed [facility] TDAP Unknown Completed [facility] HPV9 Unknown Completed [facility] Influenza Virus Vaccine Quad IM 3+ YRS Unknown Completed [facility] SARS-COV-2 COVID-19 PFIZER VACCINE Unknown Completed [facility] DTaP, Unspecified Formulation Unknown Completed [facility] Influenza Virus Vaccine - Whole Unknown Completed [facility] HEPATITIS A Unknown Completed [facility] Hep B, Adol or Pedi Dosage Unknown Completed [facility] HIB 4 Dose Schedule Unknown Completed [facility] HPV Unknown Completed [facility] Meningococcal Polysaccharide (groups A, C, Y and W-135) conjugate vaccine (MCV4P) Unknown Completed [facility] MMR Unknown Completed [facility] IPV Unknown Completed [facility] Varicella (varivax)(chicken pox) Unknown Completed [facility] TDAP Unknown Completed [facility] HPV9 Unknown Completed [facility] Influenza Virus Vaccine Quad IM 3+ YRS Unknown Completed [facility] SARS-COV-2 COVID-19 PFIZER VACCINE Unknown Completed [facility] DTaP, Unspecified Formulation Unknown Completed [facility] Influenza Virus Vaccine - Whole Unknown Completed [facility] HEPATITIS A Unknown Completed [facility] Hep B, Adol or Pedi Dosage Unknown Completed [facility] HIB 4 Dose Schedule Unknown Completed [facility] HPV Unknown Completed [facility] Meningococcal Polysaccharide (groups A, C, Y and W-135) conjugate vaccine (MCV4P) Unknown Completed [facility] MMR Unknown Completed [facility] IPV Unknown Completed [facility] Varicella (varivax)(chicken pox) Unknown Completed [facility] TDAP Unknown Completed [facility] HPV9 Unknown Completed [facility] Influenza Virus Vaccine Quad IM 3+ YRS Unknown Completed [facility] SARS-COV-2 COVID-19 PFIZER VACCINE Unknown Completed [facility] DTaP, Unspecified Formulation Unknown Completed [facility] Influenza Virus Vaccine - Whole Unknown Completed [facility] HEPATITIS A Unknown Completed [facility] Hep B, Adol or Pedi Dosage Unknown Completed [facility] HIB 4 Dose Schedule Unknown Completed [facility] HPV Unknown Completed [facility] Meningococcal Polysaccharide (groups A, C, Y and W-135) conjugate vaccine (MCV4P) Unknown Completed [facility] MMR Unknown Completed [facility] IPV Unknown Completed [facility] Varicella (varivax)(chicken pox) Unknown Completed [facility] TDAP Unknown Completed [facility] HPV9 Unknown Completed [facility] Influenza Virus Vaccine Quad IM 3+ YRS Unknown Completed [facility] SARS-COV-2 COVID-19 PFIZER VACCINE Unknown Completed [facility] DTaP, Unspecified Formulation Unknown Completed [facility] Influenza Virus Vaccine - Whole Unknown Completed [facility] HEPATITIS A Unknown Completed [facility] Hep B, Adol or Pedi Dosage Unknown Completed [facility] HIB 4 Dose Schedule Unknown Completed [facility] HPV Unknown Completed [facility] Meningococcal Polysaccharide (groups A, C, Y and W-135) conjugate vaccine (MCV4P) Unknown Completed [facility] MMR Unknown Completed [facility] IPV Unknown Completed [facility] Varicella (varivax)(chicken pox) Unknown Completed [facility] TDAP Unknown Completed [facility] HPV9 Unknown Completed [facility] Influenza Virus Vaccine Quad IM 3+ YRS Unknown Completed [facility] SARS-COV-2 COVID-19 PFIZER VACCINE Unknown Completed [facility] DTaP, Unspecified Formulation Unknown Completed [facility] Influenza Virus Vaccine - Whole Unknown Completed [facility] HEPATITIS A Unknown Completed [facility] Hep B, Adol or Pedi Dosage Unknown Completed [facility] HIB 4 Dose Schedule Unknown Completed [facility] HPV Unknown Completed [facility] Meningococcal Polysaccharide (groups A, C, Y and W-135) conjugate vaccine (MCV4P) Unknown Completed [facility] MMR Unknown Completed [facility] IPV Unknown Completed [facility] Varicella (varivax)(chicken pox) Unknown Completed [facility] TDAP Unknown Completed [facility] HPV9 Unknown Completed [facility] Influenza Virus Vaccine Quad IM 3+ YRS Unknown Completed [facility] SARS-COV-2 COVID-19 PFIZER VACCINE Unknown Completed [facility] DTaP, Unspecified Formulation Unknown Completed [facility] Influenza Virus Vaccine - Whole Unknown Completed [facility] HEPATITIS A Unknown Completed [facility] Hep B, Adol or Pedi Dosage Unknown Completed [facility] HIB 4 Dose Schedule Unknown Completed [facility] HPV Unknown Completed [facility] Meningococcal Polysaccharide (groups A, C, Y and W-135) conjugate vaccine (MCV4P) Unknown Completed [facility] MMR Unknown Completed [facility] IPV Unknown Completed [facility] Varicella (varivax)(chicken pox) Unknown Completed [facility] TDAP Unknown Completed [facility] HPV9 Unknown Completed [facility] Influenza Virus Vaccine Quad IM 3+ YRS Unknown Completed [facility] SARS-COV-2 COVID-19 PFIZER VACCINE Unknown Completed [facility] DTaP, Unspecified Formulation Unknown Completed [facility] Influenza Virus Vaccine - Whole Unknown Completed [facility] HEPATITIS A Unknown Completed [facility] Hep B, Adol or Pedi Dosage Unknown Completed [facility] HIB 4 Dose Schedule Unknown Completed [facility] HPV Unknown Completed [facility] Meningococcal Polysaccharide (groups A, C, Y and W-135) conjugate vaccine (MCV4P) Unknown Completed [facility] MMR Unknown Completed [facility] IPV Unknown Completed [facility] Varicella (varivax)(chicken pox) Unknown Completed [facility] TDAP Unknown Completed [facility] HPV9 Unknown Completed [facility] Influenza Virus Vaccine Quad IM 3+ YRS Unknown Completed [facility] SARS-COV-2 COVID-19 PFIZER VACCINE Unknown Completed [facility] DTaP, Unspecified Formulation Unknown Completed [facility] Influenza Virus Vaccine - Whole Unknown Completed [facility] HEPATITIS A Unknown Completed [facility] Hep B, Adol or Pedi Dosage Unknown Completed [facility] HIB 4 Dose Schedule Unknown Completed [facility] HPV Unknown Completed [facility] Meningococcal Polysaccharide (groups A, C, Y and W-135) conjugate vaccine (MCV4P) Unknown Completed [facility] MMR Unknown Completed [facility] IPV Unknown Completed [facility] Varicella (varivax)(chicken pox) Unknown Completed [facility] TDAP Unknown Completed [facility] HPV9 Unknown Completed [facility] Influenza Virus Vaccine Quad IM 3+ YRS Unknown Completed [facility] SARS-COV-2 COVID-19 PFIZER VACCINE Unknown Completed [facility] DTaP, Unspecified Formulation Unknown Completed [facility] Influenza Virus Vaccine - Whole Unknown Completed [facility] HEPATITIS A Unknown Completed [facility] Hep B, Adol or Pedi Dosage Unknown Completed [facility] HIB 4 Dose Schedule Unknown Completed [facility] HPV Unknown Completed [facility] Meningococcal Polysaccharide (groups A, C, Y and W-135) conjugate vaccine (MCV4P) Unknown Completed [facility] MMR Unknown Completed [facility] IPV Unknown Completed [facility] Varicella (varivax)(chicken pox) Unknown Completed [facility] TDAP Unknown Completed [facility] HPV9 Unknown Completed [facility] Influenza Virus Vaccine Quad IM 3+ YRS Unknown Completed [facility] SARS-COV-2 COVID-19 PFIZER VACCINE Unknown Completed [facility] DTaP, Unspecified Formulation Unknown Completed [facility] Influenza Virus Vaccine - Whole Unknown Completed [facility] HEPATITIS A Unknown Completed [facility] Hep B, Adol or Pedi Dosage Unknown Completed [facility] HIB 4 Dose Schedule Unknown Completed [facility] HPV Unknown Completed [facility] Meningococcal Polysaccharide (groups A, C, Y and W-135) conjugate vaccine (MCV4P) Unknown Completed [facility] MMR Unknown Completed [facility] IPV Unknown Completed [facility] Varicella (varivax)(chicken pox) Unknown Completed [facility] TDAP Unknown Completed [facility] HPV9 Unknown Completed [facility] Influenza Virus Vaccine Quad IM 3+ YRS Unknown Completed [facility] SARS-COV-2 COVID-19 PFIZER VACCINE Unknown Completed [facility] DTaP, Unspecified Formulation Unknown Completed [facility] Influenza Virus Vaccine - Whole Unknown Completed [facility] HEPATITIS A Unknown Completed [facility] Hep B, Adol or Pedi Dosage Unknown Completed [facility] HIB 4 Dose Schedule Unknown Completed [facility] HPV Unknown Completed [facility] Meningococcal Polysaccharide (groups A, C, Y and W-135) conjugate vaccine (MCV4P) Unknown Completed [facility] MMR Unknown Completed [facility] IPV Unknown Completed [facility] Varicella (varivax)(chicken pox) Unknown Completed [facility] TDAP Unknown Completed [facility] HPV9 Unknown Completed [facility] Influenza Virus Vaccine Quad IM 3+ YRS Unknown Completed [facility] SARS-COV-2 COVID-19 PFIZER VACCINE Unknown Completed [facility] DTaP, Unspecified Formulation Unknown Completed [facility] Influenza Virus Vaccine - Whole Unknown Completed [facility] HEPATITIS A Unknown Completed [facility] Hep B, Adol or Pedi Dosage Unknown Completed [facility] HIB 4 Dose Schedule Unknown Completed [facility] HPV Unknown Completed [facility] Meningococcal Polysaccharide (groups A, C, Y and W-135) conjugate vaccine (MCV4P) Unknown Completed [facility] MMR Unknown Completed [facility] IPV Unknown Completed [facility] Varicella (varivax)(chicken pox) Unknown Completed [facility] TDAP Unknown Completed [facility] HPV9 Unknown Completed [facility] Influenza Virus Vaccine Quad IM 3+ YRS Unknown Completed [facility] SARS-COV-2 COVID-19 PFIZER VACCINE Unknown Completed [facility] DTaP, Unspecified Formulation Unknown Completed [facility] Influenza Virus Vaccine - Whole Unknown Completed [facility] HEPATITIS A Unknown Completed [facility] Hep B, Adol or Pedi Dosage Unknown Completed [facility] HIB 4 Dose Schedule Unknown Completed [facility] HPV Unknown Completed [facility] Meningococcal Polysaccharide (groups A, C, Y and W-135) conjugate vaccine (MCV4P) Unknown Completed [facility] MMR Unknown Completed [facility] IPV Unknown Completed [facility] Varicella (varivax)(chicken pox) Unknown Completed [facility] TDAP Unknown Completed [facility] HPV9 Unknown Completed [facility] Influenza Virus Vaccine Quad IM 3+ YRS Unknown Completed [facility] SARS-COV-2 COVID-19 PFIZER VACCINE Unknown Completed [facility] DTaP, Unspecified Formulation Unknown Completed [facility] Influenza Virus Vaccine - Whole Unknown Completed [facility] HEPATITIS A Unknown Completed [facility] Hep B, Adol or Pedi Dosage Unknown Completed [facility] HIB 4 Dose Schedule Unknown Completed [facility] HPV Unknown Completed [facility] Meningococcal Polysaccharide (groups A, C, Y and W-135) conjugate vaccine (MCV4P) Unknown Completed [facility] MMR Unknown Completed [facility] IPV Unknown Completed [facility] Varicella (varivax)(chicken pox) Unknown Completed [facility] TDAP Unknown Completed [facility] HPV9 Unknown Completed [facility] Influenza Virus Vaccine Quad IM 3+ YRS Unknown Completed [facility] SARS-COV-2 COVID-19 PFIZER VACCINE Unknown Completed [facility] DTaP, Unspecified Formulation Unknown Completed [facility] Influenza Virus Vaccine - Whole Unknown Completed [facility] HEPATITIS A Unknown Completed [facility] Hep B, Adol or Pedi Dosage Unknown Completed [facility] HIB 4 Dose Schedule Unknown Completed [facility] HPV Unknown Completed [facility] Meningococcal Polysaccharide (groups A, C, Y and W-135) conjugate vaccine (MCV4P) Unknown Completed [facility] MMR Unknown Completed [facility] IPV Unknown Completed [facility] Varicella (varivax)(chicken pox) Unknown Completed [facility] TDAP Unknown Completed [facility] HPV9 Unknown Completed [facility] Influenza Virus Vaccine Quad IM 3+ YRS Unknown Completed [facility] SARS-COV-2 COVID-19 PFIZER VACCINE Unknown Completed [facility] DTaP, Unspecified Formulation Unknown Completed [facility] Influenza Virus Vaccine - Whole Unknown Completed [facility] HEPATITIS A Unknown Completed [facility] Hep B, Adol or Pedi Dosage Unknown Completed [facility] HIB 4 Dose Schedule Unknown Completed [facility] HPV Unknown Completed [facility] Meningococcal Polysaccharide (groups A, C, Y and W-135) conjugate vaccine (MCV4P) Unknown Completed [facility] MMR Unknown Completed [facility] IPV Unknown Completed [facility] Varicella (varivax)(chicken pox) Unknown Completed [facility] TDAP Unknown Completed [facility] HPV9 Unknown Completed [facility] Influenza Virus Vaccine Quad IM 3+ YRS Unknown Completed [facility] SARS-COV-2 COVID-19 PFIZER VACCINE Unknown Completed [facility] DTaP, Unspecified Formulation Unknown Completed [facility] Influenza Virus Vaccine - Whole Unknown Completed [facility] HEPATITIS A Unknown Completed [facility] Hep B, Adol or Pedi Dosage Unknown Completed [facility] HIB 4 Dose Schedule Unknown Completed [facility] HPV Unknown Completed [facility] Meningococcal Polysaccharide (groups A, C, Y and W-135) conjugate vaccine (MCV4P) Unknown Completed [facility] MMR Unknown Completed [facility] IPV Unknown Completed [facility] Varicella (varivax)(chicken pox) Unknown Completed [facility] Vital Signs Vital Name Observation Time Observation Value Comments S ource Systolic blood pressure 2024-10-21 18:21:00 120 mm[Hg] [facility] Diastolic blood pressure 2024-10-21 18:21:00 76 mm[Hg] [facility] Heart rate 2024-10-21 18:21:00 68 /min [facility] Body temperature 2024-10-21 18:21:00 36.72 Radha [facility] Respiratory rate 2024-10-21 18:21:00 18 /min [facility] Body height 2024-10-21 18:21:00 170.2 cm [facility] Body weight 2024-10-21 18:21:00 60.011 kg [facility] BMI 2024-10-21 18:21:00 20.72 kg/m2 [facility] Oxygen saturation in Arterial blood by Pulse oximetry 2024-10-21 18:21:00 99 /min [facility] Systolic blood pressure 2024-07-20 22:56:00 114 mm[Hg] [facility] Diastolic blood pressure 2024-07-20 22:56:00 73 mm[Hg] [facility] Heart rate 2024-07-20 22:56:00 79 /min [facility] Body temperature 2024-07-20 22:56:00 36.72 Radha [facility] Respiratory rate 2024-07-20 22:56:00 18 /min [facility] Body height 2024-07-20 22:56:00 170.2 cm [facility] Body weight 2024-07-20 22:56:00 60.328 kg [facility] BMI 2024-07-20 22:56:00 20.83 kg/m2 [facility] Systolic blood pressure 2023-10-01 20:27:00 129 mm[Hg] [facility] Diastolic blood pressure 2023-10-01 20:27:00 87 mm[Hg] [facility] Heart rate 2023-10-01 20:27:00 113 /min [facility] Body temperature 2023-10-01 20:27:00 36.33 Radha [facility] Respiratory rate 2023-10-01 20:27:00 16 /min [facility] Body height 2023-10-01 20:27:00 172.7 cm [facility] Body weight 2023-10-01 20:27:00 73.171 kg [facility] BMI 2023-10-01 20:27:00 24.53 kg/m2 [facility] Respiratory rate 2023-08-13 07:30:00 18 /min [facility] Heart rate 2023-08-13 07:00:00 104 [facility] Oxygen saturation in Arterial blood by Pulse oximetry 2023-08-13 07:00:00 100 /min [facility] Systolic blood pressure 2023-08-13 05:26:00 125 mm[Hg] [facility] Diastolic blood pressure 2023-08-13 05:26:00 76 mm[Hg] [facility] Body temperature 2023-08-13 05:26:00 36.56 Radha [facility] Body height 2023-08-13 05:26:00 172.7 cm [facility] Body weight 2023-08-13 05:26:00 70.761 kg [facility] BMI 2023-08-13 05:26:00 23.72 kg/m2 [facility] Systolic blood pressure 2023-08-07 15:30:00 125 mm[Hg] [facility] Diastolic blood pressure 2023-08-07 15:30:00 72 mm[Hg] [facility] Heart rate 2023-08-07 15:30:00 102 /min [facility] Body temperature 2023-08-07 15:29:00 36.5 Radha [facility] Respiratory rate 2023-08-07 15:29:00 18 /min [facility] Body height 2023-08-07 15:29:00 172.7 cm [facility] Body weight 2023-08-07 15:29:00 71.016 kg [facility] BMI 2023-08-07 15:29:00 23.81 kg/m2 [facility] Systolic blood pressure 2023-07-10 21:09:00 139 mm[Hg] [facility] Diastolic blood pressure 2023-07-10 21:09:00 65 mm[Hg] [facility] Heart rate 2023-07-10 21:09:00 107 /min [facility] Body temperature 2023-07-10 21:09:00 36.56 Radha [facility] Respiratory rate 2023-07-10 21:09:00 19 /min [facility] Body height 2023-07-10 21:09:00 172.7 cm [facility] Body weight 2023-07-10 21:09:00 68.221 kg [facility] BMI 2023-07-10 21:09:00 22.87 kg/m2 [facility] Systolic blood pressure 2023-06-12 17:19:00 122 mm[Hg] [facility] Diastolic blood pressure 2023-06-12 17:19:00 78 mm[Hg] [facility] Heart rate 2023-06-12 17:19:00 87 /min [facility] Body temperature 2023-06-12 17:19:00 36.39 Radha [facility] Respiratory rate 2023-06-12 17:19:00 18 /min [facility] Body height 2023-06-12 17:19:00 172.7 cm [facility] Body weight 2023-06-12 17:19:00 66.769 kg [facility] BMI 2023-06-12 17:19:00 22.38 kg/m2 [facility] Systolic blood pressure 2023-05-15 18:49:00 117 mm[Hg] [facility] Diastolic blood pressure 2023-05-15 18:49:00 75 mm[Hg] [facility] Heart rate 2023-05-15 18:49:00 95 /min [facility] Body temperature 2023-05-15 18:49:00 36.39 Radha [facility] Respiratory rate 2023-05-15 18:49:00 18 /min [facility] Body height 2023-05-15 18:49:00 172.7 cm [facility] Body weight 2023-05-15 18:49:00 62.852 kg [facility] BMI 2023-05-15 18:49:00 21.07 kg/m2 [facility] Systolic blood pressure 2023-04-24 19:29:00 134 mm[Hg] [facility] Diastolic blood pressure 2023-04-24 19:29:00 74 mm[Hg] [facility] Heart rate 2023-04-24 19:29:00 98 /min [facility] Body temperature 2023-04-24 19:29:00 36.61 Radha [facility] Respiratory rate 2023-04-24 19:29:00 18 /min [facility] Body height 2023-04-24 19:29:00 172.7 cm [facility] Body weight 2023-04-24 19:29:00 60.98 kg [facility] BMI 2023-04-24 19:29:00 20.44 kg/m2 [facility] Systolic blood pressure 2023-04-10 18:54:00 119 mm[Hg] [facility] Diastolic blood pressure 2023-04-10 18:54:00 79 mm[Hg] [facility] Heart rate 2023-04-10 18:54:00 106 /min [facility] Body temperature 2023-04-10 18:54:00 36.22 Radha [facility] Respiratory rate 2023-04-10 18:54:00 16 /min [facility] Body height 2023-04-10 18:54:00 172.7 cm [facility] Body weight 2023-04-10 18:54:00 58.106 kg [facility] BMI 2023-04-10 18:54:00 19.48 kg/m2 [facility] Systolic blood pressure 2023-03-08 18:03:00 120 mm[Hg] [facility] Diastolic blood pressure 2023-03-08 18:03:00 75 mm[Hg] [facility] Heart rate 2023-03-08 17:58:00 89 /min [facility] Body temperature 2023-03-08 17:58:00 36.33 Radha [facility] Respiratory rate 2023-03-08 17:58:00 18 /min [facility] Body height 2023-03-08 17:58:00 172.7 cm [facility] Body weight 2023-03-08 17:58:00 55.611 kg [facility] BMI 2023-03-08 17:58:00 18.64 kg/m2 [facility] [facility] Systolic blood pressure 2022-10-05 18:31:00 111 mm[Hg] [facility] Diastolic blood pressure 2022-10-05 18:31:00 74 mm[Hg] [facility] Heart rate 2022-10-05 18:31:00 74 /min [facility] Body temperature 2022-10-05 18:31:00 36.61 Radha [facility] Respiratory rate 2022-10-05 18:31:00 18 /min [facility] Body height 2022-10-05 18:31:00 172.7 cm [facility] Body weight 2022-10-05 18:31:00 58.695 kg [facility] BMI 2022-10-05 18:31:00 19.68 kg/m2 [facility] Oxygen saturation in Arterial blood by Pulse oximetry 2022-10-05 18:31:00 100 /min [facility] Systolic blood pressure 2022-07-18 22:05:00 115 mm[Hg] [facility] Diastolic blood pressure 2022-07-18 22:05:00 80 mm[Hg] [facility] Respiratory rate 2022-07-18 22:05:00 18 /min [facility] Body height 2022-07-18 22:05:00 172.7 cm [facility] Body weight 2022-07-18 22:05:00 58.06 kg [facility] BMI 2022-07-18 22:05:00 19.46 kg/m2 [facility] Systolic blood pressure 2021-12-15 14:03:00 112 mm[Hg] [facility] Diastolic blood pressure 2021-12-15 14:03:00 77 mm[Hg] [facility] Heart rate 2021-12-15 14:03:00 94 /min [facility] Respiratory rate 2021-12-15 14:03:00 18 /min [facility] Body height 2021-12-15 14:03:00 170.2 cm [facility] 2021-12-15 14:03:00 62.869 kg [facility] BMI 2021-12-15 14:03:00 21.71 kg/m2 [facility] Oxygen saturation in Arterial blood by Pulse oximetry 2021-12-15 14:03:00 100 /min [facility] Systolic blood pressure 2024-10-21 18:21:00 120 mm[Hg] [facility] Diastolic blood pressure 2024-10-21 18:21:00 76 mm[Hg] [facility] Heart rate 2024-10-21 18:21:00 68 /min [facility] Body temperature 2024-10-21 18:21:00 36.72 Radha [facility] Respiratory rate 2024-10-21 18:21:00 18 /min [facility] Body height 2024-10-21 18:21:00 170.2 cm [facility] Body weight 2024-10-21 18:21:00 60.011 kg [facility] BMI 2024-10-21 18:21:00 20.72 kg/m2 [facility] Oxygen saturation in Arterial blood by Pulse oximetry 2024-10-21 18:21:00 99 /min [facility] Procedures Procedure Date / Time Performed Performing Clinician Source POCT TEST 2024-10-21 18:27:00 Adum, Carmen Moctezuma [facility] POCT TEST 2024-10-21 18:27:00 Adum, Carmen Moctezuma [facility] POCT URINALYSIS W/O SPECIFIC GRAVITY 2024-10-21 18:26:00 Adum, Carmen Moctezuma [facility] POCT URINALYSIS W/O SPECIFIC GRAVITY 2024-10-21 18:26:00 Adum, Cramen Moctezuma [facility] POCT TEST 2024-07-20 00:00:00 Krissy Bahena [facility] DME/SUPPLY JUSTIFICATION 2023-10-23 21:47:29 Doc tor Unassigned, Orlinda [facility] DME/SUPPLY JUSTIFICATION 2023-10-14 22:10:20 Doc tor Unassigned, Orlinda [facility] DME/SUPPLY JUSTIFICATION 2023-10-08 21:44:48 Doc yahaira Unassigned, Orlinda [facility] DME/SUPPLY JUSTIFICATION 2023-10-08 19:31:56 Doc yahaira Unassigned, Orlinda [facility] HIV 1/2 AG-AB WITH REFLEX 2023-10-01 21:10:00 Joaquina Shoemaker [facility] SYPHILIS IGG/IGM 2023-10-01 21:10:00 Joaquina Shoemaker [facility] HIV 1/2 AG-AB WITH REFLEX 2023-10-01 21:10:00 Joaquina Shoemaker [facility] POCT URINALYSIS 2023-10-01 20:28:00 Disha Roa [facility] SECOND AND THIRD TRIMESTER ULTRASOUND 2023-09-13 20:53:32 Disha Roa [facility] URINALYSIS 2023-08-13 06:00:00 Trena Longoria [facility] SECOND AND THIRD TRIMESTER ULTRASOUND 2023-07-19 21:25:00 Disha Roa [facility] POCT URINALYSIS 2023-07-10 21:11:00 Disha Roa [facility] SECOND AND THIRD TRIMESTER ULTRASOUND 2023-06-14 20:23:00 Disha Roa [facility] POCT URINALYSIS 2023-06-12 17:21:00 Disha Roa [facility] POCT URINALYSIS 2023-05-15 18:50:00 Disha Roa [facility] CONSENT FOR NIPT 2023-04-25 06:01:00 Doctor Unas signed, Orlinda [facility] POCT URINALYSIS 2023-04-24 19:29:00 Disha Roa [facility] POCT URINALYSIS 2023-04-10 00:00:00 Disha Roa [facility] SECOND AND THIRD TRIMESTER ULTRASOUND 2023-03-21 19:47:00 Disha Roa [facility] POCT TEST 2023-03-08 17:51:00 Sahil Roa [facility] POCT URINALYSIS W/O SPECIFIC GRAVITY 2023-03-08 17:51:00 Disha Roa [facility] CONSENT/REFUSAL FOR DIAGNOSIS AND TREATMENT 2023-03-08 17:24:15 Doctor Unassigned, Orlinda [facility] ASSIGNMENT OF BENEFITS 2023-03-08 17:23:54 Docto r Unassigned, Orlinda [facility] RPR (MONITOR)$W/REFL TITER-Q 2022-07-19 18:45:00 Mauricio [facility] HEPATITIS C ANTIBODY-Q 2022-07-19 18:45:00 Mauricio [facility] POCT URINALYSIS 2021-12-15 14:20:00 Brent Wilkerson [facility] POCT TEST 2021-12-15 14:20:00 Brent Wilkerson [facility] LAB ONLY PAP SMEAR-LIQUID BASED 2021-06-09 15:24:00 Brent Wilkerson [facility] Encounters Start Date/Time End Date/Time Encounter Type Admission Type Attending Clinicians Care Facility Care Department Encounter ID Source 2023-08-13 04:45:58 Outpatient P [facility] [id number] [facility] 2021-03-26 11:59:17 [id number] 2021-03-25 13:57:31 Outpatient P [facility] [id number] [facility] 2021-03-25 13:07:03 Outpatient P [facility] [id number] [facility] 2025-01-22 15:45:00 2025-01-22 15:45:00 Outpatient KRISSY CASTRO [facility] [id number] [facility] 2024-12-08 12:45:00 2024-12-08 12:45:00 Outpatient KRISSY CASTRO [facility] [id number] [facility] 2024-12-04 15:45:00 2024-12-04 15:45:00 Outpatient KRISSY CASTRO [facility] [id number] [facility] 2024-11-25 11:00:00 2024-11-25 11:00:00 Outpatient CARMEN MELGOZA VIVIAN [facility] [id number] [facility] 2024-10-26 07:30:00 2024-10-26 07:30:00 Outpatient KRISSY CASTRO [facility] [id number] [facility] 2024-10-23 13:30:00 2024-10-23 13:30:00 Outpatient R [facility] [id number] [facility] 2024-10-23 11:15:00 2024-10-23 11:15:00 Outpatient KRISSY CASTRO [facility] [id number] [facility] 2024-10-21 00:00:00 2024-10-22 16:41:16 Patient Secure MsCarmen Hernandez 1.2.840.1 [id number] 3.104.2.7 .3.424377 .[id number] [facility] 2024-10-21 00:00:00 2024-10-22 09:09:36 Telephone Carmen Powell 1.2.840.1 [id number] 3.104.2.7 .3.494227 .8 [id number] [facility] 2024-10-21 14:15:00 2024-10-21 14:15:00 Outpatient R CARMEN POWELL [facility] [id number] [facility] 2024-10-21 00:00:00 2024-10-21 13:49:30 Letter (Out) Carmen Powell 1.2.840.1 16638.1.1 3.104.2.7 .3.295975 .8 [id number] [facility] 2024-10-21 13:00:00 2024-10-21 13:45:26 Initial Visit R Carmen Powell 1.2.840.1 [id number] 3.104.2.7 .3.628998 .8 [id number] [facility] 2024-10-21 00:00:00 2024-10-21 00:00:00 Travel 1.2.840.1 [id number] 3.104.2.7 .3.909505 .8 1.2.840.114 350.1.13.10 4.2.7.3.698 [id number] [facility] 2024-09-14 11:30:00 2024-09-14 11:30:00 Outpatient KRISSY CASTRO [facility] [id number] [facility] 2024-09-14 11:15:00 2024-09-14 11:15:00 Outpatient KRISSY CASTRO [facility] [id number] [facility] 2024-08-03 00:00:00 2024-08-04 08:24:58 Refill Krissy Bahena 1.2.840.1 56931.1.1 3.104.2.7 .3.319269 .8 [id number] [facility] 2024-07-22 00:00:00 2024-07-22 09:16:20 Case Management Willian Krissy [facility] 1.2840.114 350.1.13.10 4.2.7.2.686 [id number] [facility] 2024 11:30:00 2024 11:30:00 Outpatient R [facility] [id number] [facility] 2024-07-20 16:30:00 2024-07-20 17:13:39 Outpatient R WILLIAN KRISSY [facility] [id number] [facility] 2024-07-20 16:30:00 2024-07-20 17:13:39 Office Visit Eduardodana Krissy [facility] 1.0.114 350.1.13.10 4.2.7.2.686 [id number] [facility] 2023-10-08 00:00:00 2024-07-11 07:47:51 Orders Only Doctor Unassigned, Orlinda Doctor Unassigned, Orlinda [facility] 1.2840.114 350.1.13.10 4.2.7.2.686 [id number] [facility] 2023-10-08 00:00:00 2024-07-11 07:47:16 Orders Only Doctor Unassigned, Orlinda Doctor Unassigned, Orlinda [facility] 1.2840.114 350.1.13.10 4.2.7.2.686 [id number] [facility] 2023-10-14 00:00:00 2024-07-11 07:45:09 Orders Only Doctor Unassigned, Orlinda Doctor Unassigned, Orlinda [facility] 1.2.840.114 350.1.13.10 4.2.7.2.686 [id number] [facility] 2023-10-23 00:00:00 2024-07-11 07:40:26 Orders Only Doctor Unassigned, Orlinda Doctor Unassigned, Orlinda [facility] 1.2.840.114 350.1.13.10 4.2.7.2.686 [id number] [facility] 2024-06-03 10:15:00 2024-06-03 10:15:00 Outpatient JOAQUINA PHELPS [facility] [id number] [facility] 2023-11-19 09:45:00 2023-11-19 09:45:00 Outpatient R DISHA ROA [facility] [id number] [facility] 2023-10-12 00:00:00 2023-11-16 18:22:36 Patient Secure Joaquina Hadley [facility] 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 [facility] [[email or web address]] 1.2.840.114 350.1.13.10 4.2.7.2.686 [id number] [facility] 2023-10-31 10:45:00 2023-10-31 10:45:00 Outpatient R DISHA ROA [facility] [id number] [facility] 2023-10-16 15:15:00 2023-10-16 15:15:00 Outpatient R JOAQUINA SHOEMAKER [facility] [id number] [facility] 2023-09-06 00:00:00 2023-10-12 18:10:19 Patient Secure Joaquina Hadley [facility] 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 [facility] [[email or web address]] 1.0.114 350.1.13.10 4.2.7.2.686 [id number] [facility] 2023-09-10 00:00:00 2023-10-12 18:06:48 Patient Secure Msg Doctor Unassigned, Orlinda [facility] 1.0.114 350.1.13.10 4.2.7.2.686 [id number] [facility] 2023-10-10 09:25:00 2023-10-12 12:40:00 Inpatient E ARYAN GAMEZ [facility] [id number] [address] [place] [address] 2023-10-11 14:00:00 2023-10-11 14:00:00 Outpatient BRENT CARTER [facility] [id number] [facility] 2023-10-10 12:30:00 2023-10-10 12:30:00 Outpatient ARYAN GAMEZ [facility] [id number] [facility] 2023-10-10 00:56:00 2023-10-10 04:30:00 Emergency ER MACHO CHAU [facility] [id number] [facility] 2023-10-09 00:00:00 2023-10-09 23:58:21 Nurse Triage Oliva Abernathy [facility] 1..114 350.1.13.10 4.2.7.2.686 [id number] [facility] 2023-10-07 00:00:00 2023-10-08 09:35:37 Telephone Joaquina Shoemaker [facility] 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 [facility] [[email or web address]] 1..114 350.1.13.10 4.2.7.2.686 [id number] [facility] 2023-10-01 14:45:00 2023-10-01 16:10:40 Outpatient JOAQUINA PHELPS [facility] [id number] [facility] 2023-10-01 14:45:00 2023-10-01 16:10:40 Routine Visit Joaquina Shoemaker [facility] 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 [facility] [[email or web address]] 1.2840.114 350.1.13.10 4.2.7.2.686 [id number] [facility] 2023-09-25 00:00:00 2023-09-25 00:00:00 Telephone Joaquina Shoemaker [facility] 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 [facility] [[email or web address]] 1.0.114 350.1.13.10 4.2.7.2.686 [id number] [facility] 2023-09-17 00:00:00 2023-09-17 00:00:00 Abstract Disha Roa [facility] 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 [facility] [[email or web address]] 1.0.114 350.1.13.10 4.2.7.2.686 [id number] [facility] 2023-09-13 15:15:00 2023-09-13 15:58:05 Outpatient R AMBER CORDOVA [facility] [id number] [facility] 2023-09-13 15:15:00 2023-09-13 15:58:05 Repairer Recreational Vehicle Visit Ultrasound, Amber Alvarado Ikuvbogimil [facility] 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 [facility] [[email or web address]] 1.0.114 350.1.13.10 4.2.7.2.686 [id number] [facility] 2023-09-10 00:00:00 2023-09-10 00:00:00 Nurse Triage Javy Neal [facility] 1.840.114 350.1.13.10 4.2.7.2.686 [id number] [facility] 2023-09-04 00:00:00 2023-09-04 00:00:00 Telephone Joaquina Shoemaker [facility] 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 [facility] [[email or web address]] 1.840.114 350.1.13.10 4.2.7.2.686 [id number] [facility] 2023-09-02 10:45:00 2023-09-02 10:45:00 Outpatient R JOAQUINA SHOEMAKER [facility] [id number] [facility] 2023-08-21 15:15:00 2023-08-21 15:15:00 Outpatient R JOAQUINA SHOEMAKER [facility] [id number] [facility] 2023-08-15 08:00:00 2023-08-15 11:35:19 Repairer Recreational Vehicle Visit Lab, 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 [facility] [[email or web address]] 1.84.114 350.1.13.10 4.2.7.2.686 [id number] [facility] 2023-08-15 08:00:00 2023-08-15 08:00:00 Outpatient R JOAQUINA SHOEMAKER [facility] [id number] [facility] 2023-08-13 00:11:00 2023-08-13 04:30:00 Hospital Encounter Bucky Wilkinson [facility] 1.114 350.1.13.10 4.2.7.2.686 [id number] [facility] 2023-08-13 00:11:00 2023-08-13 04:30:00 [facility] [id number] [facility] 2023-08-12 00:00:00 2023-08-12 00:00:00 Nurse Triage Javy Neal [facility] 1..114 350.1.13.10 4.2.7.2.686 [id number] [facility] 2023-08-08 00:00:00 2023-08-08 00:00:00 Telephone Ronanvijaya Joaquina Arora [facility] 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 [facility] [[email or web address]] 1..840.114 350.1.13.10 4.2.7.2.686 [id number] [facility] 2023-08-07 10:30:00 2023-08-07 10:45:00 Routine Visit Ronanvijaya Joaquina Arora [facility] J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 [facility] [[email or web address]] 1..840.114 350.1.13.10 4.2.7.2.686 [id number] [facility] 2023-08-07 10:30:00 2023-08-07 10:30:00 [id number] [facility] 2023-07-23 00:00:00 2023-07-23 00:00:00 Abstract Disha Roa [facility] 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 [facility] [[email or web address]] 1..840.114 350.1.13.10 4.2.7.2.686 [id number] [facility] 2023-07-19 15:00:00 2023-07-19 15:42:01 Outpatient HASEEB DIAMOND SANGEETA [facility] [id number] [facility] 2023-07-19 15:00:00 2023-07-19 15:42:01 Repairer Recreational Vehicle Visit Ultrasound, Victoriano-Haseeb Walker [facility] 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 [facility] [[email or web address]] 1..840.114 350.1.13.10 4.2.7.2.686 [id number] [facility] 2023-07-10 15:15:00 2023-07-10 15:21:04 Outpatient JOAQUINA PHELPS [facility] [id number] [facility] 2023-07-10 15:15:00 2023-07-10 15:21:04 Routine Visit Joaquina Shoemaker [facility] J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 [facility] [[email or web address]] 1.2.840.114 350.1.13.10 4.2.7.2.686 [id number] [facility] 2023-07-10 10:30:00 2023-07-10 10:30:00 Outpatient R DISHA ROA [facility] [id number] [facility] 2023-07-10 00:00:00 2023-07-10 00:00:00 RefKarena Hill [facility] J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 [facility] [[email or web address]] 1..840.114 350.1.13.10 4.2.7.2.686 [id number] [facility] 2023-07-10 00:00:00 2023-07-10 00:00:00 Refill Disha Roa [facility] J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 [facility] [[email or web address]] 1..840.114 350.1.13.10 4.2.7.2.686 [id number] [facility] 2023-06-14 13:00:00 2023-06-14 13:52:55 Outpatient P PAULY BENAVIDES [facility] [id number] [facility] 2023-06-14 13:00:00 2023-06-14 13:52:55 Repairer Recreational Vehicle Visit Ultrasound, Ang-Mfm Pauly Benavides [facility] 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 [facility] [[email or web address]] 1..840.114 350.1.13.10 4.2.7.2.686 [id number] [facility] 2023-06-14 00:00:00 2023-06-14 00:00:00 Letter (Out) Pauly Benavides [facility] J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 [facility] [[email or web address]] 1.2.840.114 350.1.13.10 4.2.7.2.686 [id number] [facility] 2023-06-14 00:00:00 2023-06-14 00:00:00 Abstract Zeyadcartermiya Disha Cunha [facility] J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 [facility] [[email or web address]] 1.2.840.114 350.1.13.10 4.2.7.2.686 [id number] [facility] 2023-06-12 11:00:00 2023-06-12 11:44:14 Outpatient R DISHA ROA [facility] [id number] [facility] 2023-06-12 11:00:00 2023-06-12 11:44:14 Routine Visit Disha Roa [facility] J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 [facility] [[email or web address]] 1.2.840.114 350.1.13.10 4.2.7.2.686 [id number] [facility] 2023-06-06 00:00:00 2023-06-06 00:00:00 Patient Secure Msg ZeyadcarterDisha holliday [facility] J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 [facility] [[email or web address]] 1.2.840.114 350.1.13.10 4.2.7.2.686 [id number] [facility] 2023-05-15 11:00:00 2023-05-15 13:17:31 Outpatient R DISHA ROA [facility] [id number] [facility] 2023-05-15 11:00:00 2023-05-15 13:17:31 Routine Visit Disha Roa [facility] J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 [facility] [[email or web address]] 1.2.840.114 350.1.13.10 4.2.7.2.686 [id number] 107 [id number] [facility] 2023-04-25 00:00:00 2023-04-25 00:00:00 Orders Only Doctor Unassigned, Orlinda [facility] 1.840.114 350.1.13.10 4.2.7.2.686 [id number] [facility] 2023-04-24 13:00:00 2023-04-24 14:39:52 Outpatient R KARENA DANIELS [facility] [id number] [facility] 2023-04-24 13:00:00 2023-04-24 14:39:52 Routine Visit Risk, Ang-Rmchp-N p/High Karena Daniels [facility] J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 [facility] [[email or web address]] 1..840.114 350.1.13.10 4.2.7.2.686 [id number] [facility] 2023-04-22 00:00:00 2023-04-22 00:00:00 Patient Secure Msg Disha Roa Guerline [facility] J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 [facility] [[email or web address]] 1.840.114 350.1.13.10 4.2.7.2.686 [id number] [facility] 2023-04-10 13:00:00 2023-04-10 13:21:55 Outpatient R KARENA DANIELS [facility] [id number] [facility] 2023-04-10 13:00:00 2023-04-10 13:21:55 Routine Visit Risk, Ang-Rmchp-N p/High Karena Daniels [facility] 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 [facility] & CHILD [facility] [[email or web address]] 1.840.114 350.1.13.10 4.2.7.2.686 [id number] [facility] 2023-04-03 10:00:00 2023-04-03 10:00:00 Outpatient R [facility] [id number] [facility] 2023-03-29 10:30:00 2023-03-29 10:30:00 Outpatient P [facility] [id number] [facility] 2023-03-29 00:00:00 2023-03-29 00:00:00 Telephone Disha Roa [facility] 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 [facility] MATER[facility] & [facility]ILD [facility] 1.2.840.114 350.1.13.10 4.2.7.2.686 [id number] [facility] 2023-03-28 11:30:00 2023-03-28 11:30:00 Outpatient P [facility] [id number] [facility] 2023-03-28 00:00:00 2023-03-28 00:00:00 Patient Secure Msg Disha Roa [facility] 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 [facility] & CHILD [facility] [[email or web address]] 1..840.114 350.1.13.10 4.2.7.2.686 [id number] [facility] 2023-03-27 00:00:00 2023-03-27 00:00:00 Abstract Disha Roa [facility] 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 [facility] & CHILD [facility] [[email or web address]] 1.840.114 350.1.13.10 4.2.7.2.686 [id number] 107 [id number] [facility] 2023-03-25 00:00:00 2023-03-25 00:00:00 Patient Secure Msg Doctor Unassigned, Orlinda [facility] 1.84.114 350.1.13.10 4.2.7.2.686 [id number] [facility] 2023-03-21 14:15:00 2023-03-21 14:39:51 Outpatient P DISHA ROA [facility] [id number] [facility] 2023-03-21 14:15:00 2023-03-21 14:39:51 Repairer Recreational Vehicle Visit Ultrasound, Disha Thomason [facility] [employer]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 [email or web address]] 1.2.840.114 350.1.13.10 4.2.7.2.686 [id number] [facility] 2023-03-19 00:00:00 2023-03-19 00:00:00 Patient Secure Msg Leonardo Roaozzie Cunha [facility] [employer]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 [facility] [[email or web address]] 1.2.840.114 350.1.13.10 4.2.7.2.686 [id number] [facility] 2023-03-08 13:00:00 2023-03-08 14:06:31 Outpatient R DISHA ROA [facility] [id number] [facility] 2023-03-08 13:00:00 2023-03-08 14:06:31 Initial Visit Disha Roa [facility] 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 [[email or web address]] 1.2840.114 350.1.13.10 4.2.7.2.686 [id number] [facility] 2023-03-08 00:00:00 2023-03-08 00:00:00 Orders Only Doctor Unassigned, Orlinda [facility] 1.2840.114 350.1.13.10 4.2.7.2.686 [id number] [facility] 2022-10-10 00:00:00 2022-10-10 00:00:00 Patient Secure Msg Doctor Unassigned, Orlinda [facility] 1.2840.114 350.1.13.10 4.2.7.2.686 [id number] [facility] 2022-10-08 00:00:00 2022-10-08 00:00:00 Patient Secure Msg Brent Wilkerson [facility] 1.2840.114 350.1.13.10 4.2.7.2.686 [id number] [facility] 2022-10-07 00:00:00 2022-10-07 00:00:00 Case Management Brent Wilkerson [facility] 1..840.114 350.1.13.10 4.2.7.2.686 [id number] 134 [id number] [facility] 2022-10-05 14:00:00 2022-10-05 14:02:48 Outpatient R BRENT WILKERSON [facility] [id number] [facility] 2022-10-05 14:00:00 2022-10-05 14:02:48 Office Visit Brent Wilkerson [facility] 1.840.114 350.1.13.10 4.2.7.2.686 [id number] [facility] 2022-08-13 14:30:00 2022-08-13 14:30:00 [facility] [id number] [facility] 2022-07-19 00:00:00 2022-07-19 00:00:00 [facility] 1..840.114 350.1.13.10 4.2.7.2.686 [id number] [facility] 2022-07-18 16:00:00 2022-07-18 16:26:12 Outpatient R KIRAAILIN LISBET LYNCH [facility] [id number] [facility] 2022-07-18 16:00:00 2022-07-18 16:26:12 Office Visit [facility] 1..840.114 350.1.13.10 4.2.7.2.686 [id number] [facility] 2022-06-15 10:30:00 2022-06-15 10:30:00 Outpatient R BRENT WILKERSON [facility] [id number] [facility] 2022-06-15 10:30:00 2022-06-15 10:30:00 Outpatient R BRENT WILKERSON [facility] [id number] [facility] 2022-06-08 00:00:00 2022-06-08 00:00:00 Pre Visit Outreach Markus Gillher [facility] 1..840.114 350.1.13.10 4.2.7.2.686 [id number] [facility] 2022-04-26 09:45:00 2022-04-26 09:45:00 Outpatient JOAQUINA PHELPS [facility] [id number] [facility] 2021-12-19 00:00:00 2021-12-19 00:00:00 Case Management Jeanie Thomas [facility] 1..840.114 350.1.13.10 4.2.7.2.686 [id number] [facility] 2021-12-15 08:30:00 2021-12-15 09:20:26 Outpatient BRENT CARTER [facility] [id number] [facility] 2021-12-15 08:30:00 2021-12-15 09:20:26 Office Visit [facility] 1..840.114 350.1.13.10 4.2.7.2.686 [id number] [facility] 2021-12-05 09:30:00 2021-12-05 09:30:00 Outpatient LISBET ZARATE CHERYAL [facility] [id number] [facility] 2021-10-20 11:30:00 2021-10-20 11:30:00 Outpatient BRENT CARTER [facility] [id number] [facility] 2021-10-20 10:00:00 2021-10-20 10:40:52 Outpatient R BRENT WILKERSON [facility] [id number] [facility] 2021-10-20 10:00:00 2021-10-20 10:40:52 Office Visit Brent Wilkerson [facility] 1.84.114 350.1.13.10 4.2.7.2.686 [id number] [facility] 2021-10-20 00:00:00 2021-10-20 00:00:00 Orders Only Doctor Unassigned, Orlinda [facility] 1.840.114 350.1.13.10 4.2.7.2.686 [id number] [facility] 2021-09-06 10:00:00 2021-09-06 10:00:00 Outpatient R [facility] [id number] [facility] 2021-09-06 10:00:00 2021-09-06 10:00:00 Outpatient R [facility] [id number] [facility] 2021-09-01 08:30:00 2021-09-01 08:30:00 Outpatient R BRENT WILKERSON [facility] [id number] [facility] 2021-08-01 11:00:00 2021-08-01 11:00:00 Outpatient R LISBET CORBETT CHERYAL [facility] [id number] [facility] 2021-06-14 00:00:00 2021-06-14 00:00:00 Patient Secure Msg Doctor Unassigned, Orlinda [facility] 1.840.114 350.1.13.10 4.2.7.2.686 [id number] [facility] 2021-06-09 08:30:00 2021-06-09 09:32:49 Outpatient R BRENT WILKERSON [facility] [id number] [facility] 2021-06-09 08:30:00 2021-06-09 09:32:49 Office Visit Brent [facility] 1.114 350.1.13.10 4.2.7.2.686 [id number] [facility] 2021-06-09 08:30:00 2021-06-09 09:32:49 Outpatient R BRENT WILKERSON [facility] [id number] [facility] 2021-06-09 00:00:00 2021-06-09 00:00:00 Orders Only Doctor Unassigned, Orlinda [facility] 1.114 350.1.13.10 4.2.7.2.686 [id number] [facility] 2021-02-08 13:30:00 2021-02-08 13:30:00 Outpatient R CARMEN POWELL [facility] [id number] [facility] 2020-09-26 09:45:00 2020-09-26 09:45:00 Outpatient R DISHA ROA [facility] [id number] [facility] 2020-09-26 00:00:00 2020-09-26 00:00:00 Patient Secure Msg Leonardo Roailola Guerline [facility] [employer]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 [facility] [[email or web address]] 1..114 350.1.13.10 4.2.7.2.686 [id number] 107 [id number] [facility] 2020-09-24 00:00:00 2020-09-24 00:00:00 Refill Janina Disha C [facility] [employer]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 [email or web address]] 1..114 350.1.13.10 4.2.7.2.686 [id number] 2020-09-24 00:00:00 2020-09-24 00:00:00 Refill Janina Disha C [facility] [employer]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 [facility] [[email or web address]] 1.2.840.114 350.1.13.10 4.2.7.2.686 [id number] 107 [id number] [facility] 2020-09-12 13:58:18 2020-09-12 14:13:18 Nurse Visit Visit, Adalberto Reis [facility] J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 [facility] 1.2.840.114 350.1.13.10 4.2.7.2.686 [id number] 2020-09-12 13:58:18 2020-09-12 14:13:18 Nurse Visit Visit, Disha Ayala [facility] J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 [facility] CH[facility] [[email or web address]] 1.2.840.114 350.1.13.10 4.2.7.2.686 [id number] [facility] 2020-09-12 13:00:00 2020-09-12 13:00:00 Outpatient R DISHA ROA [facility] [id number] [facility] 2020-09-09 09:15:00 2020-09-09 09:15:00 Outpatient R ARIN GARY [facility] [id number] [facility] 2020-09-03 00:19:00 2020-09-07 11:07:00 [facility] 1.2.840.114 350.1.13.10 4.2.7.2.686 [id number] 2020-09-03 00:19:00 2020-09-07 11:07:00 Hospital Encounter ThaColby [facility] 1.2.840.114 350.1.13.10 4.2.7.2.686 [id number] [facility] 2020-09-05 09:45:00 2020-09-05 09:45:00 Outpatient R [facility] [id number] [facility] 2020-09-05 00:00:00 2020-09-05 00:00:00 Abstract Arin Gary [facility] J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 [facility] MATERNAL & CHILD [facility] [[email or web address]] 1.2.840.114 350.1.13.10 4.2.7.2.686 [id number] 2020-09-05 00:00:00 2020-09-05 00:00:00 Abstract Arin Gary [facility] J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 [facility] [[email or web address]] 1.2.840.114 350.1.13.10 4.2.7.2.686 [id number] [facility] 2020-09-04 03:03:00 2020-09-04 07:28:00 Anesthesia Event Ryan Mckeon Michael [facility] 1.2.840.114 350.1.13.10 4.2.7.2.686 [id number] [id number] 2020-09-04 03:03:00 2020-09-04 07:28:00 Anesthesia Event Ryan Mckeon Michael [facility] 1.2.840.114 350.1.13.10 4.2.7.2.686 [id number] [id number] [facility] 2020-09-04 05:10:00 2020-09-04 07:00:00 Surgery TERESA CROCKER [facility] 1.2.840.114 350.1.13.10 4.2.7.2.686 [id number] [id number] 2020-09-04 05:10:00 2020-09-04 07:00:00 Surgery Raghav Prajapati ANNEX 1.2.840.114 350.1.13.10 4.2.7.2.686 [id number] [id number] [facility] 2020-09-02 11:31:43 2020-09-02 12:13:06 Repairer Recreational Vehicle Visit Ultrasound, Tia [facility] J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 [facility] [[email or web address]] 1.2.840.114 350.1.13.10 4.2.7.2.686 [id number] 2020-09-02 11:31:43 2020-09-02 12:13:06 Repairer Recreational Vehicle Visit Ultrasound, Edvin Blanc [facility] J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 [facility] [[email or web address]] 1.2.840.114 350.1.13.10 4.2.7.2.686 [id number] [facility] 2020-09-02 11:30:00 2020-09-02 11:30:00 Outpatient P [facility] [id number] [facility] 2020-09-02 00:00:00 2020-09-02 00:00:00 Nurse Triage [facility] 1.2.840.114 350.1.13.10 4.2.7.2.686 [id number] 2020-09-02 00:00:00 2020-09-02 00:00:00 Nurse Triage [facility] 1.2.840.114 350.1.13.10 4.2.7.2.686 [id number] [facility] 2020-09-01 10:19:51 2020-09-01 11:05:59 Routine Visit Arin Gary [facility] J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 [facility] [[email or web address]] 1.2.840.114 350.1.13.10 4.2.7.2.686 [id number] 2020-09-01 10:19:51 2020-09-01 11:05:59 Routine Visit Arin Gary [facility] J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 [facility] [[email or web address]] 1.2.840.114 350.1.13.10 4.2.7.2.686 [id number] [facility] 2020-09-01 10:15:00 2020-09-01 10:15:00 Outpatient R ARIN GARY [facility] [id number] [facility] 2020-08-30 00:00:00 2020-08-30 00:00:00 Patient Secure Msg Doctor Unassigned, Orlinda [facility] J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 [facility] MATERNAL & CHILD [facility] [[email or web address]] 1.114 350.1.13.10 4.2.7.2.686 [id number] [facility] 2020-08-26 00:00:00 2020-08-26 00:00:00 Patient Secure Msg Doctor Unassigned, Orlinda [facility] 1.114 350.1.13.10 4.2.7.2.686 [id number] [facility] 2020-08-26 00:00:00 2020-08-26 00:00:00 Patient Secure Msg Doctor Unassigned, Orlinda [facility] 1.114 350.1.13.10 4.2.7.2.686 [id number] [facility] 2020-08-24 15:12:27 2020-08-24 15:12:48 Telemedici ne Visit Noelle Savage Joseph W [facility] J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 [facility] MATERNAL & CHILD [facility] .114 350.1.13.10 4.2.7.2.686 [id number] [facility] 2020-08-24 13:45:00 2020-08-24 13:45:00 Outpatient P [facility] [id number] [facility] 2020-08-23 00:00:00 2020-08-23 00:00:00 Abstract Arin Gary [facility] J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 [facility] MATERNAL & CHILD [facility] [[email or web address]] 1.114 350.1.13.10 4.2.7.2.686 [id number] 107 [id number] [facility] 2020-08-22 11:11:24 2020-08-22 11:41:24 Repairer Recreational Vehicle Visit Ultrasound, Pauly Mcmanus [facility] J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 [facility] MATERNAL & CHILD [facility] 05.28.840.114 350.1.13.10 4.2.7.2.686 [id number] [facility] 2020-08-22 11:30:00 2020-08-22 11:30:00 Outpatient P [facility] [id number] [facility] 2020-08-17 13:15:00 2020-08-17 13:15:00 Outpatient SOBIA RICHARDBHARTI [facility] [id number] [facility] 2020-08-17 09:45:00 2020-08-17 09:45:00 Outpatient SOBIA RICHARDBHARTI [facility] [id number] [facility] 2020-08-08 13:00:00 2020-08-08 13:00:00 Outpatient SOBIA RICHARDBHARTI [facility] [id number] [facility] 2020-08-04 14:45:00 2020-08-04 14:45:00 Outpatient MARCELINO DIAZ [facility] [id number] [facility] 2020-08-04 00:00:00 2020-08-04 00:00:00 Patient Secure Msg Doctor Unassigned, Orlinda [facility] J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 [facility] MATERNAL & CHILD [facility] [[email or web address]] 05.28.840.114 350.1.13.10 4.2.7.2.686 [id number] 107 [id number] [facility] 2020-08-03 08:00:00 2020-08-03 08:00:00 Outpatient SOBIA RICHARDBHARTI [facility] [id number] [facility] 2020-08-02 08:00:00 2020-08-02 08:00:00 Outpatient SOBIA RICHARDBHARTI [facility] [id number] [facility] 2020-07-20 13:58:30 2020-07-20 14:52:44 Repairer Recreational Vehicle Visit 2, [facility] 1.2.840.114 350.1.13.10 4.2.7.2.686 [id number] [facility] 2020-07-20 14:00:00 2020-07-20 14:00:00 Outpatient P [facility] [id number] [facility] 2020-07-20 00:00:00 2020-07-20 00:00:00 Telephone Arin Gary [facility] J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 [email or web address]] 1.2.840.114 350.1.13.10 4.2.7.2.686 [id number] 107 [id number] [facility] 2020-07-20 00:00:00 2020-07-20 00:00:00 Abstract Arin Gary [facility] J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 [email or web address]] 1.2.840.114 350.1.13.10 4.2.7.2.686 [id number] 107 [id number] [facility] 2020-07-19 08:44:47 2020-07-19 09:30:34 Routine Visit Disha Roa [facility] 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] 1.2.840.114 350.1.13.10 4.2.7.2.686 [id number] [facility] 2020-07-19 08:45:00 2020-07-19 08:45:00 Outpatient R DISHA ROA [facility] [id number] [facility] 2020-07-13 14:30:00 2020-07-13 14:30:00 Outpatient P HECTOR MARISCAL [facility] [id number] [facility] 2020-07-11 10:30:00 2020-07-11 10:30:00 Outpatient R DISHA ROA [facility] [id number] [facility] 2020-06-30 14:15:00 2020-06-30 14:15:00 Outpatient R DISHA ROA [facility] [id number] [facility] 2020-06-29 14:45:00 2020-06-29 14:45:00 Outpatient R [facility] [id number] [facility] 2020-06-29 14:20:00 2020-06-29 14:40:00 Urgent Care Provider, [facility]ly [facility] Profess[facility] nal [address] ..114 350.1.13.10 4.2.7.2.686 [id number] [facility] 2020-06-29 14:20:00 2020-06-29 14:20:00 Outpatient R [facility] [id number] [facility] 2020-06-28 10:15:00 2020-06-28 10:15:00 Outpatient R ARIN GARY [facility] [id number] [facility] 2020-06-27 00:00:00 2020-06-27 00:00:00 Patient Secure Msg Doctor Unassigned, Orlinda [facility] J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 [facility] MATERNAL & CHILD HEALTH [facility] 1..114 350.1.13.10 4.2.7.2.686 [id number] 107 [id number] [facility] 2020-06-22 11:18:37 2020-06-22 12:43:58 Repairer Recreational Vehicle Visit 2, [facility] Us Edvin Eng [facility] ..114 350.1.13.10 4.2.7.2.686 [id number] [facility] 2020-06-22 10:45:00 2020-06-22 10:45:00 Outpatient P EDVIN GOULD SHANNON [facility] [id number] [facility] 2020-06-22 00:00:00 2020-06-22 00:00:00 Orders Only Doctor Unassigned, Orlinda [facility] 1.2.840.114 350.1.13.10 4.2.7.2.686 [id number] [facility] 2020-06-22 00:00:00 2020-06-22 00:00:00 Abstract Arin Gary [facility] J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 [facility] CHILD [email or web address] 1.2.840.114 350.1.13.10 4.2.7.2.686 [id number] 107 [id number] [facility] 2020-06-22 00:00:00 2020-06-22 00:00:00 Abstract Arin Gary [facility] J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 [facility] 1.2.840.114 350.1.13.10 4.2.7.2.686 [id number] 107 [id number] [facility] 2020-06-07 00:00:00 2020-06-07 00:00:00 Patient Secure Msg Doctor Unassigned, Orlinda [facility] 1.2.840.114 350.1.13.10 4.2.7.2.686 [id number] [facility] 2020-06-07 00:00:00 2020-06-07 00:00:00 Telephone Arin Gary [facility] J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 [email or web address] 1.2.840.114 350.1.13.10 4.2.7.2.686 [id number] 107 [id number] [facility] 2020-06-05 00:00:00 2020-06-05 00:00:00 Patient Secure Msg Doctor Unassigned, Orlinda [facility] J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 [facility] 1.2.840.114 350.1.13.10 4.2.7.2.686 [id number] 107 [id number] [facility] 2020-05-31 10:38:40 2020-05-31 11:10:41 Routine Visit Arin Gary [facility] J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 [facility] MATERNAL & CHILD [facility] [[email or web address]] 1.20.114 350.1.13.10 4.2.7.2.686 [id number] [facility] 2020-05-31 10:45:00 2020-05-31 10:45:00 Outpatient R ARIN GARY [facility] [id number] [facility] 2020-05-24 16:30:00 2020-05-25 17:45:00 [facility] 1.[facility].114 350.1.13.10 4.2.7.2.686 [id number] [facility] 2020-05-25 11:54:13 2020-05-25 16:02:10 Repairer Recreational Vehicle Visit 5, [facility] 1..114 350.1.13.10 4.2.7.2.686 [id number] [facility] 2020-05-24 09:13:52 2020-05-24 10:13:52 Repairer Recreational Vehicle Visit Ultrasound, [facility] Michael Hanna [facility] J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 [facility] MATERNAL & CHILD [facility] [[email or web address]] 1.20.114 350.1.13.10 4.2.7.2.686 [id number] [facility] 2020-05-24 09:00:00 2020-05-24 09:00:00 Outpatient P [facility] [id number] [facility] 2020-05-24 00:00:00 2020-05-24 00:00:00 Telephone Disha Roa [facility] J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 [email or web address]] 1.0.114 350.1.13.10 4.2.7.2.686 [id number] [facility] 2020-05-24 00:00:00 2020-05-24 00:00:00 Abstract Arin Gary [facility] J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 [facility] [[email or web address]] 1.84.114 350.1.13.10 4.2.7.2.686 [id number] 107 [id number] [facility] 2020-05-24 00:00:00 2020-05-24 00:00:00 Orders Only Doctor Unassigned, Orlinda [facility] 1.20.114 350.1.13.10 4.2.7.2.686 [id number] [facility] 2020-05-18 02:08:00 2020-05-19 14:43:00 Outpatient P EDVIN [facility] [id number] [facility] 2020-05-18 02:08:00 2020-05-19 14:43:00 Hospital Encounter Edvin Gould [facility] 1..114 350.1.13.10 4.2.7.2.686 [id number] [facility] 2020-05-18 00:00:00 2020-05-18 00:00:00 Orders Only Doctor Unassigned, Orlinda [facility] 1.0.114 350.1.13.10 4.2.7.2.686 [id number] [facility] 2020-05-17 00:00:00 2020-05-17 00:00:00 Telephone Disha Roa [facility] 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 [facility] [[email or web address]] 1..114 350.1.13.10 4.2.7.2.686 [id number] 107 [id number] [facility] 2020-05-11 13:14:18 2020-05-11 13:50:54 Routine Visit Arin Gary [facility] 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 [facility] [[email or web address]] 1.20.114 350.1.13.10 4.2.7.2.686 [id number] [facility] 2020-05-11 13:30:00 2020-05-11 13:30:00 Outpatient R ARIN GARY [facility] [id number] [facility] 2020-05-10 00:00:00 2020-05-10 00:00:00 Telephone Disha Roa [facility] 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 [facility] [[email or web address]] 1.2840.114 350.1.13.10 4.2.7.2.686 [id number] 107 [id number] [facility] 2020-05-10 00:00:00 2020-05-10 00:00:00 Patient Secure Msg Doctor Unassigned, Orlinda 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] 1.840.114 350.1.13.10 4.2.7.2.686 [id number] [facility] 2020-05-05 00:00:00 2020-05-05 00:00:00 Patient Secure Msg Doctor Unassigned, Orlinda 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 [[email or web address]] 1.2.114 350.1.13.10 4.2.7.2.686 [id number] [facility] 2020-05-03 08:45:06 2020-05-03 10:33:11 Initial Visit Arin Gary [facility] 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 [facility] [[email or web address]] 1.284.114 350.1.13.10 4.2.7.2.686 [id number] [facility] 2020-05-03 08:30:00 2020-05-03 08:30:00 Outpatient R ARIN [facility] [id number] [facility] 2020-05-03 00:00:00 2020-05-03 00:00:00 Orders Only Doctor Unassigned, [facility] [id number] [facility] Results Test Description Test Time Test Comments Results Result Co mments Source [facility] w/o Specific [id number] 18:26:00* Test Item Value Reference Range Interpretation Comme nts POCT PH U (test code = 3254) na 5-8 POCT U LEUK EST (test code = 3263) na Negative - Negative POCT U NIT (test code = 3262) na Negative - Negati ve POCT U PROT (test code = 3259) negative Negative - Negat nunu POCT U GLU (test code = 3256) negative Negative - Negati ve POCT U KETONE (test code = 3258) na Negative - Neg ative POCT U BLD (test code = 3257) na Negative - Negati ve [facility] [id number] 23:19:00* Test Item Value Reference Range Interpretation Comme nts POCT PREG (test code = 1605) Negative On board controls acceptable with C Line (test code = 3574) Yes POCT PREG LOT # (test code = 3575) POCT PREG TEST DATE ( test code = 3576) [facility] [id number] 21:47:29 Ordered by an unspecified provider.[facility] [id number] 22:10:20Ordered by an unspecified provider[facility] [id number] 21:44:48Ordered by an unspecified provider.[facility] JUSTIFICATION 2023-10-08 19:31:56Ordered by an unspecified provider.[facility] W SPECIFIC [id number] 20:28:00* Test Item Value Reference Range Interpretation Comme [...] POCT U KETONE (test code = 3258) Neg Negative - Neg ative POCT U UROBILI (test code = 3260) . 0.2-1 POCT U BILI (test code = 3261) . Negative - Negat nunu POCT U BLD (test code = 3257) Trace Negative - Negati ve POCT U COLOR (test code = 3266) POCT U APPEAR (test code = 3267) [facility] URINALYSIS W SPECIFIC [id number] 20:28:00* Test Item Value Reference Range Interpretation Comme [...] POCT U KETONE (test code = 3258) Neg Negative - Neg ative POCT U UROBILI (test code = 3260) . 0.2-1 POCT U BILI (test code = 3261) . Negative - Negat nunu POCT U BLD (test code = 3257) Trace Negative - Negati ve POCT U COLOR (test code = 3266) POCT U APPEAR (test code = 3267) [facility] URINALYSIS W SPECIFIC [id number] 20:28:00* Test Item Value Reference Range Interpretation Comme [...] POCT U KETONE (test code = 3258) Neg Negative - Neg ative POCT U UROBILI (test code = 3260) . 0.2-1 POCT U BILI (test code = 3261) . Negative - Negat nunu POCT U BLD (test code = 3257) Trace Negative - Negati ve POCT U COLOR (test code = 3266) POCT U APPEAR (test code = 3267) [facility] URINALYSIS W SPECIFIC [id number] 21:13:00* Test Item Value Reference Range Interpretation Comme nts POCT U SP GRAV (test code = 3255) . 1.005-1.025 POCT PH U (test code = 3254) 6 mg/dl 5-8 POCT U LEUK EST (test code = 3263) trace Negative - Negative POCT U NIT (test code = 3262) neg Negative - Negati ve POCT U PROT (test code = 3259) trace Negative - Negat nunu POCT U GLU (test code = 3256) neg Negative - Negati ve POCT U KETONE (test code = 3258) neg Negative - Neg ative POCT U UROBILI (test code = 3260) . 0.2-1 POCT U BILI (test code = 3261) . Negative - Negat nunu POCT U BLD (test code = 3257) neg Negative - Negati ve POCT U COLOR (test code = 3266) POCT U APPEAR (test code = 3267) [facility] URINALYSIS W SPECIFIC [id number] 17:21:00* Test Item Value Reference Range Interpretation [...] U APPEAR (test code = 3267) . [facility] URINALYSIS W SPECIFIC [id number] 18:50:00* Test Item Value Reference Range Interpretation [...] POCT U APPEAR (test code = 3267) [facility] URINALYSIS W SPECIFIC [id number] 18:50:00* Test Item Value Reference Range Interpretation [...] POCT U APPEAR (test code = 3267) [facility] URINALYSIS W SPECIFIC [id number] 18:50:00* Test Item Value Reference Range Interpretation [...] POCT U APPEAR (test code = 3267) [facility] URINALYSIS W SPECIFIC [id number] 19:29:00* Test Item Value Reference Range Interpretation [...] POCT U APPEAR (test code = 3267) [facility] URINALYSIS W SPECIFIC [id number] 18:56:00* Test Item Value Reference Range Interpretation [...] U APPEAR (test code = 3267) . [facility] [id number] 17:51:00* Test Item Value Reference Range Interpretation Comme nts POCT PREG (test code = 1605) Positive On board controls acceptable with C Line (test code = 3574) Yes POCT PREG LOT # (test code = 3575) POCT PREG TEST DATE ( test code = 3576) [facility] URINALYSIS W/O SPECIFIC [id number] 17:51:00* Test Item Value Reference Range Interpretation [...] = 3257) neg Negative - Negati ve [facility] [id number] 17:51:00* Test Item Value Reference Range Interpretation Comme nts POCT PREG (test code = 1605) Positive On board controls acceptable with C Line (test code = 3574) Yes POCT PREG LOT # (test code = 3575) POCT PREG TEST DATE ( test code = 3576) [facility] URINALYSIS W/O SPECIFIC [id number] 17:51:00* Test Item Value Reference Range Interpretation [...] = 3257) neg Negative - Negati ve [facility] [id number] 17:51:00* Test Item Value Reference Range Interpretation Comme nts POCT PREG (test code = 1605) Positive On board controls acceptable with C Line (test code = 3574) Yes POCT PREG LOT # (test code = 3575) POCT PREG TEST DATE ( test code = 3576) [facility] URINALYSIS W/O SPECIFIC [id number] 17:51:00* Test Item Value Reference Range Interpretation [...] = 3257) neg Negative - Negati ve [facility] [id number] 17:51:00* Test Item Value Reference Range Interpretation Comme nts POCT PREG (test code = 1605) Positive On board controls acceptable with C Line (test code = 3574) Yes POCT PREG LOT # (test code = 3575) POCT PREG TEST DATE ( test code = 3576) [facility] URINALYSIS W/O SPECIFIC [id number] 17:51:00* Test Item Value Reference Range Interpretation [...] = 3257) neg Negative - Negati ve [facility] [id number] 17:51:00* Test Item Value Reference Range Interpretation Comme nts POCT PREG (test code = 1605) Positive On board controls acceptable with C Line (test code = 3574) Yes POCT PREG LOT # (test code = 3575) POCT PREG TEST DATE ( test code = 3576) [facility] URINALYSIS W/O SPECIFIC [id number] 17:51:00* Test Item Value Reference Range Interpretation [...] = 3257) neg Negative - Negati ve [facility] CenterR[facility] (MONITOR)$W/REFL [id number] 20:00:00* Test Item Value Reference Range Interpretation Comme nts RPR (MONITOR)$W/REF L TITER-Q (test code = 90446-5) NON-REACTIVE NON-REACTI REPORT COMMENT:FASTING:NO DARREL (test code = DARREL) PERFORMED BY [employer]; [address] [place] [address]; MALLORIE HERNANDEZ MD [facility] W SPECIFIC [id number] 14:21:00* Test Item Value Reference Range Interpretation [...] 3267) Lab Interpretation (test cod e = 29685-0) Normal [facility] [id number] 14:20:00* Test Item Value Reference Range Interpretation Comme nts POCT PREG (test code = 1605) Negative On board controls acceptable with C Line (test code = 3574) Yes POCT PREG LOT # (test code = 3575) POCT PREG TEST DATE ( test code = 3576) Lab Interpretation (test cod e = 21461-5) Normal [facility] Notes Date/Time Note Provider Source 2024-10-22 09:08:45 Please see mycRedDrummert message. OLIVA LARKIN RN 10/22/2024 9:09 AM Oliva Larkin RN [facility] 2024-10-21 16:52:17 Pilar Souza is a 24 year old female Is asking if the requested STD test were run today and if she can get the results if so, please advise [phone], thank you Hood Kwong [facility] 2023-10-14 08:55:21 Called patient and informed her that she needs to contact her Medicaid Provider and inform them she delivered early. Explained that since it's not a company that I have a support representative with she has to do it herself. Told her that an Rx was sent per the Medicaid company's request last week or so. Margarita Monet [facility] 2023-10-09 23:43:00 Regardin w 1 d , contractions 1 min apart ----- Message from Hood Kwong sent at 10/09/2023 11:43 PM CDT ----- Pilar Souza is a 23 year old female 35 w 1 d contractions since 1 pm she has been timing them they were 7 mins apart and now are 1 min apart and they are intense Call back [phone] Jeanie Vincent RN [facility] 2023-10-09 23:43:00 Triage Assessment Last Clinic Visit: 10/01/2023 Routine Visit Primary Symptom: Contractions Onset / Duration: Yesterday Location / Description: Complains of having contractions since yesterday. Earlier today contractions was 5 minutes apart, around 9-10 pm the contractions was 3 minutes apart, now the contractions are 1 minute apart. Complains of severe pain Pain / Severity: 8-9/10 Associated Symptoms: None Fever / Method: None Hydration: Referred to L&D Treatment so far: None Effect on ADL's: None Gestational Weeks: 35 w Rupture Membranes: Denies, states she has some discharge Bleeding / Spotting / Pads per hour: Denies Movement: Last movement felt around 6:30-7 pm Para / : EDC: 11/12/23 Pre-existing condition / Immunocompromised: Asthma Anemia of mother in , antepartum Previous delivery affecting , antepartum Cyst of Bartholin's gland Supervision of high-risk Multiparity History of delivery History of prior with IUGR Fibular hemimelia, unspecified laterality Anxiety Abnormal maternal glucose tolerance, antepartum GBS (group B Streptococcus carrier), +RV culture, currently Reason for Disposition MODERATE-SEVERE abdominal pain Protocols used: - Labor - Attrwpf-DWICZ-IP [facility] 2023-10-08 09:34:48 Order faxed to [employer] . Heidy Taylor LVN [facility] 2023-10-08 08:36:08 This request is from the patient's Medicaid provider for 2 companies that I have nothing to do with. We can ask the Provider if she would write out an Rx and then I can fax it. Margarita Monet [facility] 2023-10-07 15:32:35 Copied from [facility] #[id number]. Topic: Clinical - Order >> October 07, 2023 3:28 PM Patient Kalsominer wrote: Elin with [facility] on medicaid side asking for an order for an breast pump [employer] fax # or [employer] Keisha Calvert [facility] 2023-09-25 12:57:46 Noted. Heidy Taylor LVN [facility] 2023-09-25 08:07:18 Patient made an appointment for 10/01/23 for leaking and pressure, attempted to contact patient x3 unable to leave message due to voicemail not being set-up. Digna Gallo [facility] 2023-09-10 17:15:00 Regarding: pressure in vaginal and rectal area, nauseous x2days ----- Message from Nelia Boston sent at 09/10/2023 5:15 PM CDT ----- Pilar Souza is a 23 year old female Patients states she has pressure in vaginal and rectal area, pressures increases when walking around, no increase in discharge or fluid nauseous x2days Javy Neal RN [facility] 2023-09-10 17:15:00 Triage Assessment Last Clinic Visit: 08/13/2023 L&D Primary Symptom: "pressure down below" Onset / Duration: 2 days Location / Description: pressure worse when walking around Pain / Severity: 4 out of 10 Associated Symptoms: rectal pressure Fever / Method: denies Hydration: last void 10 min ago,"not too much" Treatment so far: none Effect on ADL's: some Gestational Weeks: 31 weeks Rupture Membranes: none Bleeding / Spotting / Pads per hour: none Movement: last movement 15 min ago Para / : EDC: 11/12/2023 Pre-existing condition / Immunocompromised: asthma, c section, anxiety, multiparity Reason for Disposition Increased pressure in pelvic area Protocols used: - Labor - Ljklboc-MBNDX-ZT Nurse Note: after assessment pt was advised per protocol to go to L&D. Joseluis preferred however if can only get as far as [place] that is ok, this RN explained she may be transferred upon assessment. Pt verbalized understanding. Access [facility] Javy Neal RN [facility] 2023-09-05 12:36:50 No referral made to [facility] Case Management for services. 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 Please contact her at [phone] ext [phone]. Antoine Cortez [facility] 2023-08-12 16:10:00 Regarding: have contraction and they are intense/feels like cramping with pressure and pain in lower back ----- Message from Keisha Calvert sent at 08/12/2023 4:09 PM CDT ----- Pilar Souza is a 23 year old female calling having contraction getting more intense / feels like cramping with pressure and lower back pain x 2 hrs Javy Neal RN [facility] 2023-08-12 16:10:00 Triage Assessment Last Clinic Visit: 08/07/2023 routine Primary Symptom: contractions Onset / Duration: 2 hours ago, persistent Location / Description: "javier bell", lower back and stomach Pain / Severity: 7 out of 10 Associated Symptoms: brown discharge when wiping x2 Fever / Method: denies Hydration: last void 10 min ago, total fluid intake today 2 30ml of water Treatment so far: took a shower Effect on ADL's: some Gestational Weeks: 26 weeks 6 days Rupture Membranes: denies Bleeding / Spotting / Pads per hour: brown when wiping Movement: last movement within last hour Para / : EDC: 11/12/2023 Pre-existing condition / Immunocompromised: asthma, multiparity, anxiety Reason for Disposition [1] Contractions AND [2] any vaginal bleeding (including: red blood, clots, spotting, or pink/brown mucous) Protocols used: - Labor - Uoxzjqc-BWIYN-KP Nurse Note: after assessment, pt was instructed per protocol to go to L&D. Closest hospital is acceptable however may be transferred to [facility]. If driving to [place], enter through ER. Pt states she does not have a ride, this RN let pt know EMS could assist with getting her to hospital. Pt verbalized understanding and states "I will figure it out." [facility] Javy Neal RN [facility] 2023-08-08 14:43:08 Patient informed of results and need for 3 hr gtt. Lab appt made for 08/14, informed to be fasting, verbalized understanding. T Heidy Taylor LVN [facility] 2023-08-08 08:14:02 Called pt, no answer. Left vm. Marissa Harper RN 08/08/23 8:14 AM T [facility] 2023-08-08 07:54:55 Please call patient and set up 3 hour GTT and let her know I erx integra plus iron supplement for anemia. [facility]
[2025-02-16] MEDS ORDERED: AMOX/K CLAV 875 MG TAB ONE (20:34)
[2025-02-16] MEDS ORDERED: KETOROLAC 30 MG/ML INJ ONE (20:34)
[2025-02-16] MEDS ORDERED: HYDROCODONE/APAP 5/325 MG TAB ONE (20:34)
--- NOTE | 2025-02-16 20:43 | ER ---
Nurse's Notes [facility] Name: Pilar Cuba Age: 24 yrs Sex: Female : 2000 Arrival Date: 02/16/2025 Time: 19:51 Bed 10 Private MD: Diagnosis: Cracked tooth Presentation: 02/16 20:07 Chief complaint: Patient states: Pt to ED c/o left tooth pain. pt has broken tooth in mf3 the upper left area. Pt states she's taken ibuprofen with no relief. Coronavirus screen: Client denies travel out of the [place] in the last 14 days. At this time, the client does not indicate any symptoms associated with coronavirus-19. Ebola Screen: No symptoms or risks identified at this time. Initial Sepsis Screen: Does the patient meet any 2 criteria? No. Patient's initial sepsis screen is negative. Does the patient have a suspected source of infection? No. Patient's initial sepsis screen is negative. Risk Assessment: Do you want to hurt yourself or someone else? Patient reports no desire to harm self or others. Onset of symptoms was February 16, 2025. 20:07 Method Of Arrival: Ambulatory 3 20:07 Acuity: RENALDO 4 3 Triage Assessment: 20:10 General: Appears in no apparent distress. comfortable, Behavior is calm, cooperative, mf3 appropriate for age. Pain: Complains of pain in upper right second bicuspid Pain currently is 10 out of 10 on a pain scale. EENT: Reports pain in mouth Pain is 10 out of 10 on a pain scale. [employer] SE[employer]ER: 20:10 Verified 3 Historical: - Allergies: 20:10 Albuterol; mf3 - Home Meds: 20:10 Iron CR Oral [Active]; Vitamin Oral tab once daily [Active]; mf3 - PMHx: 20:10 Anemia; mf3 - PSHx: 20:10 section; mf3 - Immunization history:: Adult Immunizations up to date. - Infectious Disease History:: Denies. - Social history:: Smoking status: Patient denies any tobacco usage or history of. Screenin:24 [facility] ED Fall Risk Assessment (Adult) History of falling in the last 3 months, kt5 including since admission No falls in past 3 months (0 pts) Confusion or Disorientation No (0 pts) Intoxicated or Sedated No (0 pts) Impaired Gait No (0 pts) Mobility Assist Device Used No (0 pt) Altered Elimination No (0 pt) Score/Fall Risk Level 0 - 2 = Low Risk. Abuse screen: Denies threats or abuse. Nutritional screening: No deficits noted. Tuberculosis screening: No symptoms or risk factors identified. Assessment: 20:24 General: Appears in no apparent distress. uncomfortable, Behavior is calm, cooperative, kt5 appropriate for age. Pain: Complains of pain in left buccal mucosa Pain currently is 8 out of 10 on a pain scale. Quality of pain is described as sharp. Neuro: No deficits noted. Kemp Agitation-Sedation Scale (RASS): 0 - Alert and Calm Level of Consciousness is awake, alert, obeys commands, Oriented to person, place, time, situation, Appropriate for age. Cardiovascular: No deficits noted. Reports. Cardiovascular: No deficits noted. Respiratory: No deficits noted. GI: No deficits noted. : No deficits noted. EENT: Reports pain in left buccal mucosa. Derm: No deficits noted. Skin is intact, is healthy with good turgor, Skin is dry, Skin is pink, warm \T\ dry. Vital Signs: 20:07 BP 121 / 70; Pulse 87; Resp 18; Temp 99.8; Pulse Ox 100% on R/A; Weight 62.14 kg; mf3 Height 5 ft. 7 in. ; Pain 10/10; 20:48 BP 125 / 93; Pulse 77; Resp 18; Temp 98.4; Pulse Ox 99% ; Pain 4/10; kt5 20:07 Body Mass Index 21.46 (62.14 kg, 170.18 cm) mf3 20:07 Pain Scale: Adult mf3 20:48 Pain Scale: Adult kt5 ED Course: 19:55 Patient arrived in ED. sj2 19:56 Shaquille Booth FNP-C [facility]. dr5 19:56 Rishabh Whitley MD is Attending Physician. dr5 20:10 Triage completed. mf3 20:10 Arm band placed on left wrist. mf3 20:11 Arm band placed on Patient placed in waiting room. mf3 20:23 Hilda Rocha, RN is Primary Nurse. kt5 20:24 Bed in low position. Call light in reach. Side rails up X 1. Client placed on kt5 continuous cardiac and pulse oximetry monitoring. NIBP monitoring applied. Door closed. Warm blanket given. Pillow given. 20:48 Provided Education on: follow up and meds. kt5 20:48 No provider procedures requiring assistance completed. kt5 Administered Medications: 20:42 Drug: Ketorolac IM 30 mg IM once Route: IM; Site: left vastus lateralis; kt5 20:50 Follow up: Response: No adverse reaction kt5 20:42 Drug: HYDROcodone-acetaminophen PO 5 mg-325 mg 2 tabs PO once Route: PO; kt5 20:49 Follow up: Response: No adverse reaction kt5 20:43 Drug: Amoxicillin-Clavulanate PO 875 mg PO once Route: PO; kt5 20:50 Follow up: Response: No adverse reaction kt5 Medication: 20:24 VIS not applicable for this client. kt5 Outcome: 20:43 Discharge ordered by . dr5 20:48 Condition: stable kt5 20:48 Discharge instructions given to patient, Instructed on discharge instructions, follow up and referral plans. Demonstrated understanding of instructions, follow-up care, medications, Prescriptions given X 2, 20:50 Patient left the ED. kt5 Signatures: Lidia Rodriguez2 Shaquille Booth, ON SITE CONSTRUCTION SUPERINTENDENT-C ON SITE CONSTRUCTION SUPERINTENDENT-Cdr5 Cindy Terry, RN RN mf3 Hilda Rocha RN RN kt5
--- NOTE | 2025-02-16 20:43 | EDPHYS ---
Physician Documentation [facility] Name: Pilar Cuba Age: 24 yrs Sex: Female : 2000 Arrival Date: 02/16/2025 Time: 19:51 Bed 10 Private MD: ED Physician Rishabh Whitley HPI: 02/16 21:09 This 24 yrs old Black Female presents to ER via Ambulatory with complaints of Jaw Pain, dr5 Facial Swelling, Toothache. 21:09 Onset: The symptoms/episode began/occurred 1 year(s) ago. Patient is a 24-year-old dr5 female with history of anemia coming in with left upper dental pain/cracked tooth has been going on for the past year. Patient reports that the swelling and pain has gotten worst yesterday and today. Patient states that she does not have insurance to go to see the dentist. Patient denies difficulty speaking, difficulty handling secretions, or significant cheek swelling.. [employer]: 20:10 Verified mf3 Historical: - Allergies: 20:10 Albuterol; mf3 - Home Meds: 20:10 Iron CR Oral [Active]; Vitamin Oral tab once daily [Active]; mf3 - PMHx: 20:10 Anemia; mf3 - PSHx: 20:10 section; mf3 - Immunization history:: Adult Immunizations up to date. - Infectious Disease History:: Denies. - Social history:: Smoking status: Patient denies any tobacco usage or history of. ROS: 21:09 Constitutional: as per hpi dr5 Exam: 21:09 Constitutional: This is a well developed, well nourished patient who is awake, alert, dr5 and in no acute distress. Head/Face: Normocephalic, atraumatic. Eyes: Pupils equal round and reactive to light, extra-ocular motions intact. Lids and lashes normal. Conjunctiva and sclera are non-icteric and not injected. Cornea within normal limits. Periorbital areas with no swelling, redness, or edema. Neck: Trachea midline, no thyromegaly or masses palpated, and no cervical lymphadenopathy. Supple, full range of motion without nuchal rigidity, or vertebral point tenderness. No Meningismus. Chest/axilla: Normal chest wall appearance and motion. Nontender with no deformity. No lesions are appreciated. Cardiovascular: Regular rate and rhythm with a normal S1 and S2. Normal PMI, no JVD. No pulse deficits. Respiratory: Lungs have equal breath sounds bilaterally, clear to auscultation. No rales, rhonchi or wheezes noted. No increased work of breathing, no retractions or nasal flaring. Abdomen/GI: Soft, non-tender, non-distended Back: No spinal tenderness. No costovertebral tenderness. Full range of motion. Skin: Warm, dry with normal turgor. Normal color with no rashes, no lesions, and no evidence of cellulitis. MS/ Extremity: Pulses equal, no cyanosis. Neurovascular intact. Full, normal range of motion. Neuro: Awake and alert, GCS 15, oriented to person, place, time, and situation. Cranial nerves II-XII grossly intact. Motor strength 5/5 in all extremities. Sensory grossly intact. Cerebellar exam normal. Normal gait. 21:09 ENT: Dental exam: avulsion, fractured teeth are noted, specifically the upper left first molar (#14), Vital Signs: 20:07 BP 121 / 70; Pulse 87; Resp 18; Temp 99.8; Pulse Ox 100% on R/A; Weight 62.14 kg; mf3 Height 5 ft. 7 in. ; Pain 10/10; 20:48 BP 125 / 93; Pulse 77; Resp 18; Temp 98.4; Pulse Ox 99% ; Pain 4/10; kt5 20:07 Body Mass Index 21.46 (62.14 kg, 170.18 cm) mf3 20:07 Pain Scale: Adult mf3 20:48 Pain Scale: Adult kt5 MDM: 19:56 Medical Screening Exam initiated dr5 21:09 Differential diagnosis: viral Infection, bacterial infection, Dental Infection, Dental dr5 Abscess, Dental Caries. Data reviewed: vital signs, nurses notes. Consideration of Admission/Observation Escalation of care including admission/observation considered. Considered observation of patient found to have significant buccal swelling with trismus. I considered the following discharge prescriptions or medication management in the emergency department I discussed and recommended Over The Counter medications, Medications were administered in the Emergency Department. See MAR. Care significantly affected by the following chronic conditions: Anemia. Care significantly affected by the following Social Determinants of Health: Poor access to healthcare and/or lack of insurance, Poor access to transportation, Problems related to employment. Counseling: I had a detailed discussion with the patient and/or guardian regarding the historical points, exam findings, and any diagnostic results supporting the discharge/admit diagnosis, the presence of at least one elevated blood pressure reading (>120/80) during this emergency department visit, the need for outpatient follow up, for definitive care, a family practitioner, to return to the emergency department if symptoms worsen or persist or if there are any questions or concerns that arise at home. Medication response: Toradol, [place], Augmentin. Response to treatment: the patient's symptoms have mildly improved after treatment. Special discussion: I discussed with the patient/guardian in detail that at this point there is no indication for admission to the hospital. It is understood, however, that if the symptoms persist or worsen the patient needs to return immediately for re-evaluation. Based on the history and exam findings, there is no indication for further emergent testing or inpatient evaluation. I discussed with the patient/guardian the need to see a dentist for further evaluation of the symptoms. I discussed with the patient/guardian the need to see the primary care provider for further evaluation of the symptoms. ED course: I gave patient [facility] sites for low-cost dental care clinic list that lists 16 different clinics that she can try to call. Will prescribe patient Augmentin and pain medication. Recommend patient try and find dentist that will help her. Recommend increase hydration, alternate Tylenol Motrin as needed for pain and fever. Strict ER precautions given.. Administered Medications: 20:42 Drug: Ketorolac IM 30 mg IM once Route: IM; Site: left vastus lateralis; kt5 20:50 Follow up: Response: No adverse reaction kt5 20:42 Drug: HYDROcodone-acetaminophen PO 5 mg-325 mg 2 tabs PO once Route: PO; kt5 20:49 Follow up: Response: No adverse reaction kt5 20:43 Drug: Amoxicillin-Clavulanate PO 875 mg PO once Route: PO; kt5 20:50 Follow up: Response: No adverse reaction kt5 Disposition Summary: 02/16/25 20:43 Discharge Ordered Notes: Location: Home dr5 Condition: Stable dr5 Diagnosis - Cracked tooth dr5 Followup: dr5 - With: Emergency Department - When: 1 - 2 days - Reason: Recheck today's complaints, Continuance of care, Re-evaluation by your physician Discharge Instructions: - Discharge Summary Sheet dr5 - Dental Pain dr5 Forms: - Medication Reconciliation Form dr5 - Antibiotic Education dr5 - Prescription Opioid Use dr5 - Patient Portal Instructions dr5 - Leadership Thank You Letter dr5 Prescriptions: - Augmentin 875-125 mg Oral Tablet - take 1 tablet ORAL route every 12 hours for 10 days; 20 tablet; Refills: 0, dr5 Product Selection Permitted - Tramadol 50 mg Oral Tablet - take 1 tablet ORAL route every 8 hours as needed; 12 tablet; Refills: 0, dr5 Product Selection Permitted Signatures: Shaquille Booth FNP-C DIVISION OPERATIONS MANAGER-Cdr5 Cindy Terry, RN RN mf3 Hilda Rocha RN RN kt5
[2025-02-16 20:59] VITALS: BP 125/93; TEMP 98.4; O2SAT 99
== END 2025-02-16 20:50 | disposition home or self-care (01) ==
LOC: ER 19:51
DX: K03.81 Cracked tooth (principal)
CPT/HCPCS: 96372; 99284